=== PATIENT | male | born 1965 | race Caucasian/White ===

== ENCOUNTER 2016-03-22 17:31 | Inpatient (IN) | payer OTHER ==
[~2016-03-22] VITALS: Ht 188 cm; Wt 90.7 kg
[2016-03-22 00:32] VITALS: BP 127/90; PULSE 69; TEMP 37.2; O2SAT 94
[~2016-03-22 17:31] MED LIST: BUPR-79 PO; BUSP-8 PO; LORA-741 PO; OXYC-57 PO; PARO1TAB29 PO; PREG1CAP28 PO; QUET400T PO
[2016-03-22] MEDS ORDERED: LORAZEPAM 2 MG/ML 1 ML VIAL IV STA (17:41)
[2016-03-22] MEDS ORDERED: SODIUM CHLORIDE 0.9% 1000ML 1,000 ML IV STA (17:41)
[2016-03-22 18:06] LABS: ISTAT CREATININE 0.9 mg/dl (0.6-1.3); ISTAT HEMOGLOBIN 13.9 g/dl (14.0-18.0); ISTAT IONIZED CALCIUM 1.17 mmol/l (1.12-1.32)
[2016-03-22 18:24] LABS: ARTERIAL BLD GAS O2 SATURATION 95.3 % (90-95); ARTERIAL BLOOD GAS BASE EXCESS 0.8 mEq/L (-9-1.8); ARTERIAL BLOOD GAS HCO3 25 mmol/L (19-24); ARTERIAL BLOOD GAS PO2 76 mm/Hg (80-95); ARTERIAL BLOOD GAS pH 7.43 (7.35-7.45)
[2016-03-22 18:27] LABS: BASO % 0.5 %; BASO ABS # 0.07 K/uL (0-0.2); COMPLETE YES; EOS % 0.1 %; HEMATOCRIT 41.5 % (42-52); IG% 0.4 %; LYMPH ABS # 1.52 K/uL (1.2-3.4); MEAN CELL VOLUME 87.9 fL (80-100); MEAN CORPUSCULAR HEMOGLOBIN 29.7 pg (25-34); MEAN CORPUSCULAR HGB CONC 33.7 g/dl (32-36); MEAN PLATELET VOLUME 10.4 fL (7.4-10.4); MONO % 4.8 %; NEUT % 83.2 %; PLATELET COUNT 332 K/uL (130-400); RED BLOOD COUNT 4.72 M/uL (4.7-6.1); WHITE BLOOD COUNT 13.88 K/uL (4.8-10.8)
[2016-03-22 18:28] LABS: ALLEN TEST POS (POS); O2 ADMINISTRATION ROOM AIR
[2016-03-22] MEDS ORDERED: NURSING VERBAL MED ORDER ONE (18:30)
[2016-03-22 18:36] LABS: PARTIAL THROMBOPLASTIN RATIO 0.9
[2016-03-22 18:44] LABS: ALT/SGPT 37 U/L (12-78); BLOOD UREA NITROGEN 12 mg/dl (7-18); BUN/CREATININE RATIO 10.3 (10-20); CALCIUM 9.4 mg/dl (8.5-10.1); CARBON DIOXIDE 27 mmol/L (21-32); CHLORIDE 104 mmol/L (98-107); GLUCOSE 172 mg/dl (70-99); POTASSIUM 4.5 mmol/L (3.5-5.1); SODIUM 142 mmol/L (136-145)
[2016-03-22 18:46] LABS: URINE APPEARANCE CLEAR (CLEAR); URINE BILIRUBIN NEG (NEG); URINE COLOR DK YELLOW; URINE EPITHELIAL CELL AUTO 20-30 /lpf (0-5); URINE NITRITE NEG (NEG); URINE PH 5.5 (4.5-7.5); URINE SPECIFIC GRAVITY 1.032 (1.000-1.030); UROBILINOGEN NEG (NEG); ZZURINE CULT IF INDIC CATH NO
[2016-03-22 18:49] LABS: MANUAL MICROSCOPIC REQUIRED? NO; REVIEW REQ? YES
--- NOTE | 2016-03-22 18:49 | DIAGNOSTIC IMAGING REPORT ---
CT OF THE HEAD WITHOUT CONTRAST CLINICAL HISTORY: Altered mental status. Fever. COMPARISON STUDY: Head CT September 26, 2015. CT DOSE: 712.55 mGy.cm TECHNIQUE: Helical axial images of the head were obtained without IV contrast. Automated exposure control was utilized for the study. FINDINGS: No acute intracranial hemorrhage, midline shift or mass effect is present. Ventricular system is normal. The basilar cisterns are patent. There are no extra-axial collections. Erickson-white differentiation is maintained. There are no findings to suggest acute dural sinus thrombosis or acute territorial infarct. There is mild mucosal thickening of the ethmoid sinuses. There are no significant calvarial abnormalities. IMPRESSION: No acute intracranial findings. Electronically signed by: Yahir Rowland M.D. 03/22/2016 6:47 PM Dictated Date/Time: 03/22/2016 6:39 PM
[2016-03-22 18:52] LABS: ALKALINE PHOSPHATASE 134 U/L (45-117); AST/SGOT 18 U/L (15-37); CKMB/CK RATIO 2.2 (0-3.0)
--- NOTE | 2016-03-22 18:58 | DIAGNOSTIC IMAGING REPORT ---
CHEST ONE VIEW PORTABLE CLINICAL HISTORY: Altered mental status. Fever. COMPARISON STUDY: Chest radiograph September 26, 2015. FINDINGS: An anterior cervical spine fusion as well as post surgical findings within the left hemithorax and mediastinum are again noted. This study is mildly compromised by motion artifact. There is no pneumothorax or pleural effusion. Left pleural calcific density is again noted. Deformity of the left clavicle is unchanged. No consolidation is identified. IMPRESSION: 1. No significant change in appearance of the chest. 2. Study mildly compromised by artifact. 3. Minimal right lower lung opacity. Atelectasis is favored. Electronically signed by: Yahir Rowland M.D. 03/22/2016 6:56 PM Dictated Date/Time: 03/22/2016 6:53 PM
[2016-03-22 19:01] LABS: ACETAMINOPHEN < 2 ug/ml (10-30); LITHIUM 0.4 mMOL/L (0.6-1.2)
[2016-03-22 19:07] LABS: URINE MUCUS PRESENT (NONE PRSENT)
[2016-03-22] MEDS ORDERED: PARO30TA4 PO (19:17)
[2016-03-22] MEDS ORDERED: PREG1CAP70 PO (19:17)
[2016-03-22] MEDS ORDERED: LTHSR/300 PO (19:17)
[2016-03-22 19:20] LABS: BENZODIAZEPINE, URINE NEG (NEG); COCAINE,URINE NEG (NEG); PHENCYCLIDINE, URINE NEG (NEG)
--- NOTE | 2016-03-22 20:24 | EMERGENCY ROOM VISIT NOTE ---
History Report prepared by Javedibe: Fatmata Chen Under the Supervision of: Dr. Rob Durant D.O. First contact with patient: 17:26 Stated Complaint: AMS/POSS. DRUG OVERDOSE History of Present Illness The patient is a 50 year old male who presents to the Emergency Room via EMS to be evaluated for altered mental status today. Per EMS and police, the patient lives at [facility] and was found wandering in the [facility] about 2 miles away. Witnesses told police that he was walking into the road and interrupting oncoming traffic. The patient is on Paxil and lithium, which he reportedly is not being compliant with. The patient received fluids and a dose of Narcan en route with no improvement. History is limited secondary to altered mental status. Source of History: police, EMS History Limited By: AMS Onset: today Position: other (Global) Quality: other (AMS) Timing: constant Review of Systems Complete ROS unobtainable secondary to altered mental status. Past Medical & Surgical Medical Problems: (1) Anemia (2) Collapsed lung (3) Esophageal perforation (4) GI (gastrointestinal bleed) (5) Hernia (6) Supratherapeutic INR (7) Syncope Surgical Problems: (1) History of esophageal surgery Family History FH: cancer FH: diabetes mellitus FH: gallbladder disease FH: heart disease FH: hypertension Social History Alcohol Use: none Occupation Status: unemployed Current/Historical Medications Scheduled [place] Carbonate ([place] Carbonate), 300 MG PO BID Paroxetine (Paroxetine HCl), 30 MG PO DAILY Pregabalin (Lyrica), 150 MG PO BID Allergies Coded Allergies: Tramadol (Verified Allergy, Unknown, seizures, 09/26/15) Physical Exam Vital Signs Date Time Temp Pulse Resp B/P Pulse Ox O2 Delivery O2 Flow Rate FiO2 03/22/16 18:34 127/76 03/22/16 18:21 139/86 03/22/16 18:01 91 03/22/16 17:50 155/86 03/22/16 17:48 94 Room Air 03/22/16 17:47 176/148 03/22/16 17:46 104 90 03/22/16 17:39 105 03/22/16 17:38 153/101 03/22/16 17:35 56/42 03/22/16 17:35 36.5 77 14 153/101 99 Room Air Physical Exam CONSTITUTIONAL/VITAL SIGNS: Reviewed / noted above. GENERAL: Non-toxic in appearance. INTEGUMENTARY: Warm, dry, and [place]. HEAD: Normocephalic. EYES: Dilated pupils, without scleral icterus or trauma. ENT/OROPHARYNX: clear and moist. LYMPHADENOPATHY/NECK: Is supple without lymphadenopathy or meningismus. RESPIRATORY: Lungs clear and equal. CARDIOVASCULAR: Regular rate and rhythm. GI/ABDOMEN: Soft and nontender. No organomegaly or pulsatile mass. No rebound or guarding. Normal bowel sounds. EXTREMITIES: Warm and well perfused. BACK: No CVA tenderness. NEUROLOGICAL: Does not focus well, does not follow commands, not answering questions appropriately, disoriented to place and thing. PSYCHIATRIC: normal affect. MUSCULOSKELETAL: Normally developed with good muscle tone. Medical Decision & Procedures ER Provider Diagnostic Interpretation: X ray results and stated below per my interpretation and radiologist interpretation. Other radiology results and stated below per my review and radiologist interpretation: CT OF THE HEAD WITHOUT CONTRAST CLINICAL HISTORY: Altered mental status. Fever. COMPARISON STUDY: Head CT September 26, 2015. CT DOSE: 712.55 mGy.cm TECHNIQUE: Helical axial images of the head were obtained without IV contrast. Automated exposure control was utilized for the study. FINDINGS: No acute intracranial hemorrhage, midline shift or mass effect is present. Ventricular system is normal. The basilar cisterns are patent. There are no extra-axial collections. Erickson-white differentiation is maintained. There are no findings to suggest acute dural sinus thrombosis or acute territorial infarct. There is mild mucosal thickening of the ethmoid sinuses. There are no significant calvarial abnormalities. IMPRESSION: No acute intracranial findings. Electronically signed by: Yahir Rowland M.D. 03/22/2016 6:47 PM Dictated Date/Time: 03/22/2016 6:39 PM CHEST ONE VIEW PORTABLE CLINICAL HISTORY: Altered mental status. Fever. COMPARISON STUDY: Chest radiograph September 26, 2015. FINDINGS: An anterior cervical spine fusion as well as post surgical findings within the left hemithorax and mediastinum are again noted. This study is mildly compromised by motion artifact. There is no pneumothorax or pleural effusion. Left pleural calcific density is again noted. Deformity of the left clavicle is unchanged. No consolidation is identified. IMPRESSION: 1. No significant change in appearance of the chest. 2. Study mildly compromised by artifact. 3. Minimal right lower lung opacity. Atelectasis is favored. Electronically signed by: Yahir Rowland M.D. 03/22/2016 6:56 PM Dictated Date/Time: 03/22/2016 6:53 PM Laboratory Results 03/22/16 00:00 Red Blood Count 4.72, Mean Corpuscular Volume 87.9, Mean Corpuscular Hemoglobin 29.7, Mean Corpuscular Hemoglobin Concent 33.7, Mean Platelet Volume 10.4, Neutrophils (%) (Auto) 83.2, Lymphocytes (%) (Auto) 11.0, Monocytes (%) (Auto) 4.8, Eosinophils (%) (Auto) 0.1, Basophils (%) (Auto) 0.5, Neutrophils # (Auto) 11.56, Lymphocytes # (Auto) 1.52, Monocytes # (Auto) 0.67, Eosinophils # (Auto) 0.01, Basophils # (Auto) 0.07 03/22/16 17:55 Test 03/22/16 00:00 03/22/16 17:41 03/22/16 17:44 03/22/16 17:55 White Blood Count 13.88 K/uL (4.8-10.8) Red Blood Count 4.72 M/uL (4.7-6.1) Hemoglobin 14.0 g/dL (14.0-18.0) Hematocrit 41.5 % (42-52) Mean Corpuscular Volume 87.9 fL (80-100) Mean Corpuscular Hemoglobin 29.7 pg (25-34) Mean Corpuscular Hemoglobin Concent 33.7 g/dl (32-36) Platelet Count 332 K/uL (130-400) Mean Platelet Volume 10.4 fL (7.4-10.4) Neutrophils (%) (Auto) 83.2 % Lymphocytes (%) (Auto) 11.0 % Monocytes (%) (Auto) 4.8 % Eosinophils (%) (Auto) 0.1 % Basophils (%) (Auto) 0.5 % Neutrophils # (Auto) 11.56 K/uL (1.4-6.5) Lymphocytes # (Auto) 1.52 K/uL (1.2-3.4) Monocytes # (Auto) 0.67 K/uL (0.11-0.59) Eosinophils # (Auto) 0.01 K/uL (0-0.5) Basophils # (Auto) 0.07 K/uL (0-0.2) RDW Standard Deviation 50.3 fL (36.4-46.3) RDW Coefficient of Variation 15.8 % (11.5-14.5) Immature Granulocyte % (Auto) 0.4 % Immature Granulocyte # (Auto) 0.05 K/uL (0.00-0.02) Prothrombin Time 11.0 SECONDS (9.0-12.0) Prothromb Time International Ratio 1.0 (0.9-1.1) Activated Partial Thromboplast Time 22.8 SECONDS (21.0-31.0) Partial Thromboplastin Ratio 0.9 Acetaminophen Level < 2 ug/ml (10-30) [place] Level 0.4 mMOL/L (0.6-1.2) Ammonia 17.0 umol/L (11-32) Bedside Hemoglobin 13.9 g/dl (14.0-18.0) Bedside Hematocrit 41 % (42-52) Bedside Sodium 142 mEq/L (135-144) Bedside Potassium 4.0 mEq/L (3.3-5.0) Bedside Chloride 104 mEq/L (101-112) Bedside Total CO2 25 mEq/l (24-31) Bedside Blood Urea Nitrogen 13 mg/dl (7-18) Bedside Creatinine 0.9 mg/dl (0.6-1.3) Bedside Glucose (other) 176 mg/dl (70-99) Bedside Ionized Calcium (Mikki) 1.17 mmol/l (1.12-1.32) Anion Gap 11.0 mmol/L (3-11) Est Creatinine Clear Calc Drug Dose 81.7 ml/min Estimated GFR () 81.2 Estimated GFR (Non- 70.1 BUN/Creatinine Ratio 10.3 (10-20) Calcium Level 9.4 mg/dl (8.5-10.1) Total Bilirubin 0.2 mg/dl (0.2-1) Direct Bilirubin < 0.1 mg/dl (0-0.2) Aspartate Amino Transf (AST/SGOT) 18 U/L (15-37) Alanine Aminotransferase (ALT/SGPT) 37 U/L (12-78) Alkaline Phosphatase 134 U/L (45-117) Total Creatine Kinase 184 U/L (39-308) Creatine Kinase MB 4.0 ng/ml (0.5-3.6) Creatine Kinase MB Ratio 2.2 (0-3.0) Troponin I < 0.015 ng/ml (0-0.045) Total Protein 7.9 gm/dl (6.4-8.2) Albumin 3.6 gm/dl (3.4-5.0) Lipase 93 U/L (73-393) Thyroid Stimulating Hormone (TSH) 2.440 uIu/ml (0.300-4.500) Ethyl Alcohol mg/dL < 3.0 mg/dl (0-3) Test 03/22/16 18:05 03/22/16 18:10 03/22/16 18:15 Arterial Blood pH 7.43 (7.35-7.45) Arterial Blood Partial Pressure CO2 38 mmHg (35-46) Arterial Blood Partial Pressure O2 76 mm/Hg (80-95) Arterial Blood HCO3 25 mmol/L (19-24) Arterial Blood Oxygen Saturation 95.3 % (90-95) Arterial Blood Base Excess 0.8 mEq/L (-9-1.8) Arterial Blood Gas Delivery ROOM AIR Duglas Test POS (POS) Urine Color DK YELLOW Urine Appearance CLEAR (CLEAR) Urine pH 5.5 (4.5-7.5) Urine Specific [place] 1.032 (1.000-1.030) Urine Protein 1+ (NEG) Urine Glucose (UA) TRACE (NEG) Urine Ketones NEG (NEG) Urine Occult Blood NEG (NEG) Urine Nitrite NEG (NEG) Urine Bilirubin NEG (NEG) Urine Urobilinogen NEG (NEG) Urine Leukocyte Esterase NEG (NEG) Urine WBC (Auto) 1-5 /hpf (0-5) Urine RBC (Auto) 0-4 /hpf (0-4) Urine Hyaline Casts (Auto) 1-5 /lpf (0-5) Urine Epithelial Cells (Auto) 20-30 /lpf (0-5) Urine Bacteria (Auto) NEG (NEG) Urine Mucus PRESENT (NONE PRSENT) Urine Opiates Screen NEG (NEG) Urine Methadone, Qualitative NEG (NEG) Urine Barbiturates NEG (NEG) Urine Phencyclidine (PCP) Level NEG (NEG) Ur Amphetamine/Methamphetamine NEG (NEG) MDMA (Ecstasy) Screen NEG (NEG) Urine Benzodiazepines Screen NEG (NEG) Urine Cocaine Metabolite NEG (NEG) Urine Marijuana (THC) NEG (NEG) Influenza Type A Antigen Neg for Influ A (NEG) Influenza Type B Antigen Neg for Influ B (NEG) Laboratory results as stated above per my review. Medications Administered Medications (Trade) Dose Ordered Sig/Shemar Route Start Time Stop Time Status Last Admin Dose Admin Sodium Chloride (Nss 1000ml) 1,000 ml @ 999 mls/hr Q1H1M STAT IV 03/22/16 17:41 03/22/16 18:41 DC 03/22/16 18:19 999 MLS/HR Lorazepam (Ativan Inj) 1 mg NOW STAT IV 03/22/16 17:41 03/22/16 17:51 DC 03/22/16 17:58 1 MG Miscellaneous Information (Nursing Verbal Med Order) 1 ea ONE ONCE N/A 03/22/16 18:30 03/22/16 18:31 DC 03/22/16 18:20 1 EA ECG Indication: altered mental status Rate (beats per minute): 86 Rhythm: normal sinus Findings: no ectopy, other (no acute injury, baseline artifact) ED Course 1730: Previous medical records were reviewed. The patient was evaluated in room A1. A complete history and physical examination was performed. 1740: Ordered Lorazepam 1 mg IV, NSS 1000 ml @ 999 mls/hr IV. 2017: I reassessed the patient. He was stable. 2027: I spoke with Dr. Tess Marti Hospitalist. The patient will be evaluated for further management and care. Medical Decision Differential includes acute cardiac dysrhythmia, microinfarction, CVA, TIA, dehydration, anemia, electrolyte disturbance, seizure, trauma, intracranial bleeding, acute vascular catastrophe, thoracic aortic dissection, PE, abdominal aortic aneurysm rupture, infection, hypoglycemia, overdose, trauma. This is a 50-year-old male who presents to the ED with a chief complaint of altered mental status. The patient was found wandering in a field several miles from the long term where he resides. EMS states that his a long-term house. The patient is confused. He will not follow commands. He did answer some basic questions appropriately on initial exam. Patient had dilated pupils on initial exam as well. He did not respond to Narcan given by EMS. IV access was difficult and an IO line was initially established by EMS. We were able to establish an IV here. The patient's pupils on exam or dilated. He is not follow commands. There is no obvious trauma. Lungs are clear. His abdomen is soft and nontender. A CT scan of the brain was negative for acute disease as well as a chest x-ray. CBC is unremarkable. ABG reveals a normal acid base status. Adequate oxygenation and ventilation. Complete metabolic panel was normal. Troponin is negative. TSH is normal. Ammonia level is normal. [place] level is low. Alcohol is negative. Tox screen was negative. Urine did not show infection. Flu swab was negative. The patient was reassessed. He continues having altered mental status. Exact cause of this is unclear at this time. The patient will be seen by the hospital service for further inpatient care. Consults Time Called: 2017 Consulting Physician: Dr Pulido - Figueroa Hospitalist Returned Call: 2027 I spoke with the [facility] Hospitalist. The patient will be evaluated for further management and care. Impression Primary Impression: Confusion Scribe Attestation The scribe's documentation has been prepared under my direction and personally reviewed by me in its entirety. I confirm that the note above accurately reflects all work, treatment, procedures, and medical decision making performed by me. Departure Information Dispostion Being Evaluated By Hospitalist
[2016-03-22] MEDS ORDERED: ACETAMINOPHEN 325 MG TAB PO PRN (21:45)
[2016-03-22] MEDS ORDERED: QUET1TAB34 PO (21:53)
[2016-03-22] MEDS ORDERED: QUET1TAB11 PO (21:53)
[2016-03-22] MEDS ORDERED: PREG1CAP28 PO (21:53)
[2016-03-22] MEDS ORDERED: OMEP40CA PO (21:53)
--- NOTE | 2016-03-22 22:30 | History and Physical ---
History & Physical Date & Time of Service: Mar 22, 2016 at 22:04 Chief Complaint: Ams/Poss. Drug Overdose Primary Care Physician: Henrique Marques M.D. History of Present Illness Source: hospital records, EMS Patient is a 50 yr old male with PMH of Orthostatic hypotension, H/O PE S/P IVC filter, H/O esophageal perforation, H/O chronic pain/post thoracotomy syndrome, depression, remote history of alcohol/tobacco/drug abuse presents with altered mental status. Patient is not able to provide any history as he is AMS, most of history is obtained from hospital records. According ER physician and EMS, patient lives at [facility] and was found wandering in the [facility] about 2 miles away. He was found by witnesses that he was walking into the road and interrupting oncoming traffic. No other relevant history could be obtained. He is on multiple psychiatric medications and had h/o non compliance. He was awake , confused while in ED and received fluids and a dose of Narcan en route with no improvement. Patient was given ativan while in ED and currently he is very drowsy and difficult to awake. CT head, CXR showed no acute pathology. Had mild leukocytosis on labs, otherwise negative including ABG and Toxicology screen. No obvious source of trauma identified. Vitals stable. Past Medical/Surgical History Medical Problems: (1) Anemia Status: Resolved (2) Collapsed lung Status: Resolved (3) Esophageal perforation Status: Resolved (4) GI (gastrointestinal bleed) Status: Resolved (5) Hernia Status: Resolved (6) Supratherapeutic INR Status: Resolved (7) Syncope Status: Resolved Surgical Problems: (1) History of esophageal surgery Status: Resolved Family History FH: cancer FH: diabetes mellitus FH: gallbladder disease FH: heart disease FH: hypertension Could not be obtained secondary to AMS Social History Could not be obtained secondary to AMS Smoking Status: Unknown if Ever Smoked Drug Use: none Marital Status: single Housing status: lives with family Occupational Status: unemployed Immunizations History of Influenza Vaccine: No History of Tetanus Vaccine?: No History of Pneumococcal: No History of Hepatitis B Vaccine: No Multi-Drug Resistant Organisms History of MDRO: No Allergies Coded Allergies: Tramadol (Verified Allergy, Unknown, seizures, 09/26/15) Home Medications Scheduled Trail Carbonate ([place] Carbonate), 300 MG PO BID Omeprazole (Prilosec), 40 MG PO DAILY Paroxetine (Paroxetine HCl), 30 MG PO DAILY Pregabalin (Lyrica), 150 MG PO BID Pregabalin (Lyrica), 75 MG PO BID Quetiapine Fumarate (Seroquel), 200 MG PO DAILY Quetiapine Fumarate (Seroquel), 300 MG PO HS Review of Systems Could not be obtained secondary to AMS Physical Exam Vital Signs Date Time Temp Pulse Resp B/P Pulse Ox O2 Delivery O2 Flow Rate FiO2 03/22/16 20:58 60 17 134/83 99 Room Air 03/22/16 20:00 58 16 128/78 99 Room Air 03/22/16 18:34 127/76 03/22/16 18:21 139/86 03/22/16 18:01 91 03/22/16 17:50 155/86 03/22/16 17:48 94 Room Air 03/22/16 17:47 176/148 03/22/16 17:46 104 90 03/22/16 17:39 105 03/22/16 17:38 153/101 03/22/16 17:35 56/42 03/22/16 17:35 36.5 77 14 153/101 99 Room Air General Appearance: WD/WN, no apparent distress, + pertinent finding (Drowsy, difficult to awake) Head: normocephalic, atraumatic Eyes: normal inspection, EOMI, sclerae normal ENT: normal ENT inspection Neck: supple, no JVD, trachea midline Respiratory/Chest: lungs clear, normal breath sounds, no respiratory distress Cardiovascular: regular rate, rhythm, no edema, no JVD, no murmur Abdomen/GI: normal bowel sounds, soft, no organomegaly Extremities/Musculoskelatal: normal inspection, no pedal edema, pelvis stable Neurologic/Psych: + pertinent finding (Drowsy, difficult to awake, complete neuro exam could not be performed secondary to AMS. moves extremities) Skin: normal color, no rash, + pertinent finding (Multiple scars on abdomen and surgical scar on neck) Lymphatic: no adenopathy Diagnostics Laboratory Results Results Past 24 Hours Test 03/22/16 00:00 03/22/16 17:41 03/22/16 17:44 03/22/16 17:55 Range/Units White Blood Count 13.88 4.8-10.8 K/uL Red Blood Count 4.72 4.7-6.1 M/uL Hemoglobin 14.0 14.0-18.0 g/dL Hematocrit 41.5 42-52 % Mean Corpuscular Volume 87.9 80-100 fL Mean Corpuscular Hemoglobin 29.7 25-34 pg Mean Corpuscular Hemoglobin Concent 33.7 32-36 g/dl Platelet Count 332 130-400 K/uL Mean Platelet Volume 10.4 7.4-10.4 fL Neutrophils (%) (Auto) 83.2 % Lymphocytes (%) (Auto) 11.0 % Monocytes (%) (Auto) 4.8 % Eosinophils (%) (Auto) 0.1 % Basophils (%) (Auto) 0.5 % Neutrophils # (Auto) 11.56 1.4-6.5 K/uL Lymphocytes # (Auto) 1.52 1.2-3.4 K/uL Monocytes # (Auto) 0.67 0.11-0.59 K/uL Eosinophils # (Auto) 0.01 0-0.5 K/uL Basophils # (Auto) 0.07 0-0.2 K/uL RDW Standard Deviation 50.3 36.4-46.3 fL RDW Coefficient of Variation 15.8 11.5-14.5 % Immature Granulocyte % (Auto) 0.4 % Immature Granulocyte # (Auto) 0.05 0.00-0.02 K/uL Prothrombin Time 11.0 9.0-12.0 SECONDS Prothromb Time International Ratio 1.0 0.9-1.1 Activated Partial Thromboplast Time 22.8 21.0-31.0 SECONDS Partial Thromboplastin Ratio 0.9 Acetaminophen Level < 2 10-30 ug/ml Trail Level 0.4 0.6-1.2 mMOL/L Ammonia 17.0 11-32 umol/L Bedside Hemoglobin 13.9 14.0-18.0 g/dl Bedside Hematocrit 41 42-52 % Bedside Sodium 142 135-144 mEq/L Bedside Potassium 4.0 3.3-5.0 mEq/L Bedside Chloride 104 101-112 mEq/L Bedside Total CO2 25 24-31 mEq/l Anion Gap 18.0 11.0 3-11 mmol/L Bedside Blood Urea Nitrogen 13 7-18 mg/dl Bedside Creatinine 0.9 0.6-1.3 mg/dl Bedside Glucose (other) 176 70-99 mg/dl Bedside Ionized Calcium (Mikki) 1.17 1.12-1.32 mmol/l Sodium Level 142 136-145 mmol/L Potassium Level 4.5 3.5-5.1 mmol/L Chloride Level 104 98-107 mmol/L Carbon Dioxide Level 27 21-32 mmol/L Blood Urea Nitrogen 12 7-18 mg/dl Creatinine 1.20 0.60-1.40 mg/dl Est Creatinine Clear Calc Drug Dose 81.7 ml/min Estimated GFR () 81.2 Estimated GFR (Non- 70.1 BUN/Creatinine Ratio 10.3 10-20 Random Glucose 172 70-99 mg/dl Calcium Level 9.4 8.5-10.1 mg/dl Total Bilirubin 0.2 0.2-1 mg/dl Direct Bilirubin < 0.1 0-0.2 mg/dl Aspartate Amino Transf (AST/SGOT) 18 15-37 U/L Alanine Aminotransferase (ALT/SGPT) 37 12-78 U/L Alkaline Phosphatase 134 45-117 U/L Total Creatine Kinase 184 39-308 U/L Creatine Kinase MB 4.0 0.5-3.6 ng/ml Creatine Kinase MB Ratio 2.2 0-3.0 Troponin I < 0.015 0-0.045 ng/ml Total Protein 7.9 6.4-8.2 gm/dl Albumin 3.6 3.4-5.0 gm/dl Lipase 93 73-393 U/L Thyroid Stimulating Hormone (TSH) 2.440 0.300-4.500 uIu/ml Ethyl Alcohol mg/dL < 3.0 0-3 mg/dl Test 03/22/16 18:05 03/22/16 18:10 03/22/16 18:15 03/22/16 21:37 Range/Units Arterial Blood pH 7.43 7.35-7.45 Arterial Blood Partial Pressure CO2 38 35-46 mmHg Arterial Blood Partial Pressure O2 76 80-95 mm/Hg Arterial Blood HCO3 25 19-24 mmol/L Arterial Blood Oxygen Saturation 95.3 90-95 % Arterial Blood Base Excess 0.8 -9-1.8 mEq/L Arterial Blood Gas Delivery ROOM AIR Duglas Test POS POS Urine Color DK YELLOW Urine Appearance CLEAR CLEAR Urine pH 5.5 4.5-7.5 Urine Specific [place] 1.032 1.000-1.030 Urine Protein 1+ NEG Urine Glucose (UA) TRACE NEG Urine Ketones NEG NEG Urine Occult Blood NEG NEG Urine Nitrite NEG NEG Urine Bilirubin NEG NEG Urine Urobilinogen NEG NEG Urine Leukocyte Esterase NEG NEG Urine WBC (Auto) 1-5 0-5 /hpf Urine RBC (Auto) 0-4 0-4 /hpf Urine Hyaline Casts (Auto) 1-5 0-5 /lpf Urine Epithelial Cells (Auto) 20-30 0-5 /lpf Urine Bacteria (Auto) NEG NEG Urine Mucus PRESENT NONE PRSENT Urine Opiates Screen NEG NEG Urine Methadone, Qualitative NEG NEG Urine Barbiturates NEG NEG Urine Phencyclidine (PCP) Level NEG NEG Ur Amphetamine/Methamphetamine NEG NEG MDMA (Ecstasy) Screen NEG NEG Urine Benzodiazepines Screen NEG NEG Urine Cocaine Metabolite NEG NEG Urine Marijuana (THC) NEG NEG Influenza Type A Antigen Neg for Influ A NEG Influenza Type B Antigen Neg for Influ B NEG Microbiology Results 03/22/16 Blood Culture, Received Pending 03/22/16 Blood Culture, Received Pending Diagnostic Radiology CT Head: IMPRESSION: No acute intracranial findings. Electronically signed by: Yahir Rowland M.D. 03/22/2016 6:47 PM CXR: IMPRESSION: 1. No significant change in appearance of the chest. 2. Study mildly compromised by artifact. 3. Minimal right lower lung opacity. Atelectasis is favored. Electronically signed by: Yahir Rowland M.D. 03/22/2016 6:56 PM EKG EKG: NSR,, Incomplete RBBB, Nonspecific ST changes Impression Assessment and Plan Altered mental status: Unclear etiology: Likely secondary to medications, other DD: Infection in origin, metabolic disorder CT head: no acute pathology Toxicology screen negative Currently drowsy S/P Ativan in ED Admit in Tele, Vitals stable Check MRI brain, EEG, TSH, Vit B12, Folic acid, RPR Neurology consult, Neuro checks Empirically start IV antibiotics though infection less likely Blood cultures Hold all home meds Avoid narcotics NPO for now, IV fluids, Speech and swallow eval Aspiration/Fall precautions Trail levels:wnl H/O of medication non compliance Consider Psychiatry eval Depression: ? H/O Bipolar/Schizophrenia Hold meds for now H/O PE s/p IVC filter: Off anticoagulation Former history of Tobacco/alcohol/drug abuse H/O esophageal perforation: Stable H/O orthostatic hypotension: Stable DVT Px: Heparin SQ Code status: Full code VTE Prophylaxis VTE Risk Assessment Done? Y/N: Yes Risk Level: Low
[2016-03-22] MEDS ORDERED: VANCOMYCIN CONSULT ACTIVE PRN (23:45)
[2016-03-23] VITALS (8 sets, daily range): BP systolic 134–185; BP diastolic 68–95; PULSE 62–90; TEMP 36.2–37.1; O2SAT 91–93; Ht 188 cm; Wt 90.7 kg
[2016-03-23] MEDS ORDERED: VANCOMYCIN INJ 2,250 MG in SODIUM CHLORIDE 0.9% 500ML 500 ML IV ONE ×2
[2016-03-23] MEDS: CEFTRIAXONE SOD INJ 2,000 MG in DEXTROSE 5% 50ML 50 ML IV SCH ×3 (00:24→23:31)
[2016-03-23] MEDS: SODIUM CHLORIDE 0.9% 1000ML 1,000 ML IV SCH ×2 (00:24→17:53)
[2016-03-23] MEDS: HEPARIN SOD 5000 UNIT/0.5 ML CARP SQ SCH ×2 (05:22→14:00)
[2016-03-23 06:56] LABS: BASO % 0.4 %; BASO ABS # 0.05 K/uL (0-0.2); COMPLETE YES; EOS % 0.1 %; HEMATOCRIT 39.9 % (42-52); IG% 0.2 %; LYMPH % 12.1 %; LYMPH ABS # 1.51 K/uL (1.2-3.4); MEAN CELL VOLUME 88.1 fL (80-100); MEAN CORPUSCULAR HEMOGLOBIN 29.1 pg (25-34); MEAN CORPUSCULAR HGB CONC 33.1 g/dl (32-36); MONO % 7.2 %; PLATELET COUNT 281 K/uL (130-400); RED BLOOD COUNT 4.53 M/uL (4.7-6.1); WHITE BLOOD COUNT 12.51 K/uL (4.8-10.8)
[2016-03-23 07:30] LABS: BUN/CREATININE RATIO 11.8 (10-20); CALCIUM 9.4 mg/dl (8.5-10.1); POTASSIUM 3.9 mmol/L (3.5-5.1)
[2016-03-23 07:57] LABS: CREATININE 0.9 mg/dl (0.60-1.40)
--- NOTE | 2016-03-23 08:13 | Pharmacy Progress Note ---
Pharmacy Antibiotic Consult Date of Service: Mar 23, 2016. Pharmacy Dosing Scope Pharmacy is consulted to initiate Vanco IV dosing therapy, order appropriate labs and adjust drug dose/frequency. Subjective The patient is a 50 year old male admitted on Mar 22, 2016 at 21:37. Objective Height (Feet): 6 Height (Inches): 2.00 Weight (Kilograms): 89.600 Lab Results (24hrs): Item Value Date Time Creatinine 0.90 mg/dl # 03/23/16 0633 Est Creatinine Clear Calc Drug Dose 114.2 ml/min 03/23/16 0633 Laboratory Tests Test 03/22/16 17:55 03/23/16 06:33 BUN/Creatinine Ratio 10.3 11.8 Blood Urea Nitrogen 12 mg/dl 11 mg/dl Creatinine 1.20 mg/dl 0.90 mg/dl White Blood Count 12.51 K/uL Red Blood Count 4.53 M/uL Hemoglobin 13.2 g/dL Hematocrit 39.9 % Mean Corpuscular Volume 88.1 fL Mean Corpuscular Hemoglobin 29.1 pg Mean Corpuscular Hemoglobin Concent 33.1 g/dl Platelet Count 281 K/uL Mean Platelet Volume 10.0 fL Neutrophils (%) (Auto) 80.0 % Lymphocytes (%) (Auto) 12.1 % Monocytes (%) (Auto) 7.2 % Eosinophils (%) (Auto) 0.1 % Basophils (%) (Auto) 0.4 % Neutrophils # (Auto) 10.02 K/uL Lymphocytes # (Auto) 1.51 K/uL Monocytes # (Auto) 0.90 K/uL Eosinophils # (Auto) 0.01 K/uL Basophils # (Auto) 0.05 K/uL Micro Results: Item Value Date Time Blood Culture Received 03/22/161814 Blood Pending Blood Culture Received 03/22/161804 Blood Pending Assessment & Plan Pt is a 50yo M resident of [place], p/w altered CO. Currently, he is being treated empirically with IV antibiotics, Vanco/Rocephin. He is experiencing leukocytosis with a left shift and low temperature. Renal fxn improved overnight; pt population p'kinetics: t1/2=6.9hrs, ke= 0.099. BC are pending. Vanco * Loading dose: Vanco 2250mg (25mg/kg) IV X 1 dose then: * Vanco 1350mg (15mg/kg) IV every 8 hours starting at 1000 on 03/23/16. * Goal trough level estimate: between 15 - 20 mcg/mL until c/s's result. * Trough level has been ordered for: prior to the 3rd dose. Rocephin: * Not consulted Pharmacy will continue to follow and will adjust dose/frequency as necessary. Thank you
[2016-03-23] MEDS: VANCOMYCIN INJ 1,350 MG in SODIUM CHLORIDE 0.9% 250ML 250 ML IV SCH ×2 (10:08→17:52)
[2016-03-23] MEDS: ONDANSETRON INJ 2 MG/ML 2 ML VIAL IV PRN ×2 (12:55→19:31)
--- NOTE | 2016-03-23 14:54 | DIAGNOSTIC IMAGING REPORT ---
CT HEAD WITHOUT CONTRAST (CT) CLINICAL HISTORY: change in mental status, dilated pupils COMPARISON STUDY: 03/22/2016 TECHNIQUE: Axial CT of the brain is performed from the vertex to the skull base. IV contrast was not administered for this examination. CT DOSE: 614.27 mGy.cm FINDINGS: No intra or extra-axial mass lesions are visualized. There is no CT evidence of acute cortical infarction. There is no evidence of midline shift. There is no acute hemorrhage. No calvarial fractures are visualized. There is no evidence of pathologic ventricular dilatation. There is no evidence of acute sinusitis IMPRESSION: No acute intracranial findings Electronically signed by: Yayo Jackson M.D. 03/23/2016 2:52 PM Dictated Date/Time: 03/23/2016 2:51 PM
--- NOTE | 2016-03-23 14:58 | Progress Note ---
Medicine Progress Note Date & Time of Visit: Mar 23, 2016 at 14:29. Subjective Pt was seen and examined Lying in bed confused, awake Unable to answer any question except complaint of abdominal pain Objective Last 8 Hrs Date Time Temp Pulse Resp B/P Pulse Ox O2 Delivery O2 Flow Rate FiO2 03/23/16 12:00 Room Air 03/23/16 11:40 36.2 65 16 183/93 92 Room Air 03/23/16 08:00 Room Air 03/23/16 07:24 36.3 80 20 134/77 91 Physical Exam: General- confused, very fidget Head- atraumatic Eyes- PERRL ENT- oropharynx clear Neck- supple, no JVD Lungs- clear to auscultation and percussion Heart- regular rhythm; no murmur Abdomen- normal bowel sounds, tender Extremities- no calf tenderness Neuro- awake, confused, moves all 4 extremities Skin- warm & dry Laboratory Results: Last 24 Hours Test 03/22/16 17:41 03/22/16 17:44 03/22/16 17:55 03/22/16 18:05 Ammonia 17.0 umol/L Bedside Hemoglobin 13.9 g/dl Bedside Hematocrit 41 % Bedside Sodium 142 mEq/L Bedside Potassium 4.0 mEq/L Bedside Chloride 104 mEq/L Bedside Total CO2 25 mEq/l Anion Gap 18.0 mmol/L 11.0 mmol/L Bedside Blood Urea Nitrogen 13 mg/dl Bedside Creatinine 0.9 mg/dl Bedside Glucose (other) 176 mg/dl Bedside Ionized Calcium (Mikki) 1.17 mmol/l Sodium Level 142 mmol/L Potassium Level 4.5 mmol/L Chloride Level 104 mmol/L Carbon Dioxide Level 27 mmol/L Blood Urea Nitrogen 12 mg/dl Creatinine 1.20 mg/dl Est Creatinine Clear Calc Drug Dose 81.7 ml/min Estimated GFR () 81.2 Estimated GFR (Non- 70.1 BUN/Creatinine Ratio 10.3 Random Glucose 172 mg/dl Calcium Level 9.4 mg/dl Total Bilirubin 0.2 mg/dl Direct Bilirubin < 0.1 mg/dl Aspartate Amino Transf (AST/SGOT) 18 U/L Alanine Aminotransferase (ALT/SGPT) 37 U/L Alkaline Phosphatase 134 U/L Total Creatine Kinase 184 U/L Creatine Kinase MB 4.0 ng/ml Creatine Kinase MB Ratio 2.2 Troponin I < 0.015 ng/ml Total Protein 7.9 gm/dl Albumin 3.6 gm/dl Lipase 93 U/L Thyroid Stimulating Hormone (TSH) 2.440 uIu/ml Ethyl Alcohol mg/dL < 3.0 mg/dl Arterial Blood pH 7.43 Arterial Blood Partial Pressure CO2 38 mmHg Arterial Blood Partial Pressure O2 76 mm/Hg Arterial Blood HCO3 25 mmol/L Arterial Blood Oxygen Saturation 95.3 % Arterial Blood Base Excess 0.8 mEq/L Arterial Blood Gas Delivery ROOM AIR Duglas Test POS Test 03/22/16 18:10 03/22/16 18:15 03/22/16 22:25 03/23/16 06:33 Urine Color DK YELLOW Urine Appearance CLEAR Urine pH 5.5 Urine Specific [place] 1.032 Urine Protein 1+ Urine Glucose (UA) TRACE Urine Ketones NEG Urine Occult Blood NEG Urine Nitrite NEG Urine Bilirubin NEG Urine Urobilinogen NEG Urine Leukocyte Esterase NEG Urine WBC (Auto) 1-5 /hpf Urine RBC (Auto) 0-4 /hpf Urine Hyaline Casts (Auto) 1-5 /lpf Urine Epithelial Cells (Auto) 20-30 /lpf Urine Bacteria (Auto) NEG Urine Mucus PRESENT Urine Opiates Screen NEG Urine Methadone, Qualitative NEG Urine Barbiturates NEG Urine Phencyclidine (PCP) Level NEG Ur Amphetamine/Methamphetamine NEG MDMA (Ecstasy) Screen NEG Urine Benzodiazepines Screen NEG Urine Cocaine Metabolite NEG Urine Marijuana (THC) NEG Influenza Type A Antigen Neg for Influ A Influenza Type B Antigen Neg for Influ B Vitamin B12 Level 645 pg/mL Folate 9.63 ng/mL White Blood Count 12.51 K/uL Red Blood Count 4.53 M/uL Hemoglobin 13.2 g/dL Hematocrit 39.9 % Mean Corpuscular Volume 88.1 fL Mean Corpuscular Hemoglobin 29.1 pg Mean Corpuscular Hemoglobin Concent 33.1 g/dl Platelet Count 281 K/uL Mean Platelet Volume 10.0 fL Neutrophils (%) (Auto) 80.0 % Lymphocytes (%) (Auto) 12.1 % Monocytes (%) (Auto) 7.2 % Eosinophils (%) (Auto) 0.1 % Basophils (%) (Auto) 0.4 % Neutrophils # (Auto) 10.02 K/uL Lymphocytes # (Auto) 1.51 K/uL Monocytes # (Auto) 0.90 K/uL Eosinophils # (Auto) 0.01 K/uL Basophils # (Auto) 0.05 K/uL RDW Standard Deviation 51.2 fL RDW Coefficient of Variation 16.1 % Immature Granulocyte % (Auto) 0.2 % Immature Granulocyte # (Auto) 0.02 K/uL Sodium Level 145 mmol/L Potassium Level 3.9 mmol/L Chloride Level 110 mmol/L Carbon Dioxide Level 23 mmol/L Anion Gap 12.0 mmol/L Blood Urea Nitrogen 11 mg/dl Creatinine 0.90 mg/dl Est Creatinine Clear Calc Drug Dose 114.2 ml/min Estimated GFR () 115.0 Estimated GFR (Non- 99.2 BUN/Creatinine Ratio 11.8 Random Glucose 141 mg/dl Calcium Level 9.4 mg/dl Date/Time Source Procedure Growth Status 03/22/16 18:15 Blood Blood Culture Pending Received 03/22/16 18:05 Blood Blood Culture Pending Received Assessment & Plan Altered mental status/ Confusion/ Encephalitis Unclear etiology: Likely secondary to medications, other DD:Infection in origin , metabolic disorder/ Meningitis need to r/o CT head: no acute pathology Toxicology screen negative TSH, Vit B12, Folic acid and ammonia level are WNL Case discussed with Neurology Dr. Martinez recommended to get an MRI of the head and EEG If unable to get an MRI, will consider to repeat the CT head Possible to get an LP if symptoms continue Continue IV antibiotics with rocephin and Vanco since etiology unknown will add acyclovir to cover HSV will Check procalcitonin, Blood cultures Pending Continue holding psych meds until seeing psych Speech therapy consulted for swallow eval recommended to get a video swallow since pat has hx of aspiration Psych consult pending ? H/O Bipolar/Schizophrenia Hold psych meds for now until seeing by psych Abdominal pain Will get a CT abdomen Keep NPO Continue IVF will add morphine for pain ELEVATED WBC Possible reactive Afebrile, Continue IV abx with Vanco and rocephin H/O PE s/p IVC filter: Off anticoagulation H/O esophageal perforation: HB stable DVT Px: Heparin SQ Code status: Full code Consultants: Psych Neuro Current Inpatient Medications: Current Inpatient Medications Medications (Trade) Dose Ordered Sig/Shemar Route Start Time Stop Time Status Last Admin Dose Admin Heparin Sodium (Porcine) 5000 unit 5,000 unit Q8 SQ 03/23/16 06:00 04/22/16 05:59 Sodium Chloride (Nss 1000ml) 1,000 ml @ 75 mls/hr [id number] IV 03/23/16 00:00 04/22/16 00:00 03/23/16 00:24 75 MLS/HR Acetaminophen (Tylenol Tab) 650 mg Q4H PRN PO 03/22/16 21:45 04/21/16 21:44 Ondansetron HCl 4 mg 4 mg Q6H PRN IV 03/22/16 21:45 04/21/16 21:44 03/23/16 12:55 4 MG Ceftriaxone Sodium/Dextrose (Rocephin Inj/D5 50ml) 70 ml @ 100 mls/hr Q12H IV 03/23/16 00:00 03/25/16 00:00 03/23/16 12:25 100 MLS/HR Vancomycin HCl 1 ea 1 ea UD PRN N/A 03/22/16 23:45 04/21/16 23:44 Vancomycin HCl/ Sodium Chloride (Vancomycin Inj/ Nss 250ml) 277 ml @ 125 mls/hr Q8H IV 03/23/16 10:00 03/25/16 09:59 03/23/16 10:08 125 MLS/HR
--- NOTE | 2016-03-23 15:49 | DIAGNOSTIC IMAGING REPORT ---
CT SCAN OF THE ABDOMEN AND PELVIS WITHOUT CONTRAST CLINICAL HISTORY: Generalized abdominal pain COMPARISON STUDY: April 2014 TECHNIQUE: CT scan of the abdomen and pelvis was performed from the lung bases to the proximal femurs. Images are reviewed in the axial, sagittal, and coronal planes. IV contrast was not administered for this examination. CT DOSE: 461.22 mGy.cm FINDINGS: Lower chest: There are dependent atelectatic changes present. There is an irregular 11 mm right lower lobe nodule. The previous identified right lower lobe nodules are no longer evident. As this nodule was not present on the preceding study it is possible that this is inflammatory. Close follow-up is recommended. There are postsurgical changes of a presumed esophagectomy and gastric pull-through. There is presumed barium within the left pleural space and mediastinum Liver: The unenhanced liver is normal in size, contour, and attenuation. There is no intrahepatic biliary ductal dilatation. Gallbladder: Mildly distended. No calculi identified. Spleen: Normal in size and attenuation. Pancreas: Unremarkable. Adrenal glands: Unremarkable. Kidneys: The unenhanced kidneys are normal in size without hydronephrosis. There is no contour deforming renal mass lesion. No renal calculi are identified. Bowel: There are no transition zone to indicate bowel obstruction. There is no evidence of acute diverticulitis. There are scattered colonic diverticula present. There is no evidence of acute appendicitis. There is borderline bowel wall thickening involving the descending colon. This conceivably secondary to a nondistended segment. This remain similar to the preceding study. Peritoneum: There is no intraperitoneal free air or abdominal ascites. There is been interval decrease in the size of the anterior abdominal wall fluid collection. Vasculature: There is no evidence of abdominal aortic aneurysm. There is an indwelling IVC filter. Adenopathy: None. Pelvic viscera: There is perivesical stranding. Clinical correlation regards to cystitis is recommended. There is an indwelling Car catheter. Skeletal structures: There are postsurgical changes of an L5-S1 discectomy and posterior pedicle screw fusion. IMPRESSION: 1. No evidence of bowel obstruction. No evidence of free air 2. Interval decrease in the size of the anterior abdominal wall fluid collection 3. No renal, ureteral, or bladder calculi identified 4. Perivesical stranding. Clinical correlation in regards to a cystitis is recommended 5. Diverticulosis. No evidence of acute diverticulitis. No evidence of acute appendicitis 6. Mild bowel wall thickening involving the descending colon versus a nondistended segment 7. Nonspecific 11 mm right lower lobe nodule. Close follow-up is recommended. Please refer to below summary of Fleischner criteria recommendations for follow-up of incidental CT nodules (Jose Goldman, Guidelines for management of small pulmonary nodules detected on CT scans: A statement from the Fleischner Society, Radiology 237: [phone].) Low Risk Patient: Minimal or no smoking or other known risk factors for malignancy <=4 mm: No follow-up needed. >4-6 mm: Initial follow-up CT at 12 months; if unchanged, no further follow-up. >6-8 mm: Initial follow-up CT at 6-12 months then at 18-24 months if no change. >8 mm: Follow-up CT at \R\3, 9, 24 months, or PET and/or biopsy. High Risk Patient: History of smoking or other known risk factors <=4 mm: Follow-up at 12 months; if unchanged, no further follow-up. >4-6 mm: Initial follow-up CT at 6-12 months then at 18-24 months if no change. >6-8 mm: Initial follow-up CT at 3-6 months then at 9-12 and 24 months if no change. >8 mm: Same as low risk patient. Note: Nodule size measured as average of length and width. Ground glass or partly solid nodules may require longer follow-up to exclude indolent adenocarcinoma. Electronically signed by: Yayo Jackson M.D. 03/23/2016 3:47 PM Dictated Date/Time: 03/23/2016 3:37 PM
--- NOTE | 2016-03-23 17:02 | NEUROLOGY CONSULTATION ---
DATE OF CONSULTATION: 03/23/2016 REASON FOR CONSULTATION: Change in mental status. HISTORY OF PRESENT ILLNESS: The patient serves as the chief historian. I have reviewed his [facility] records, called his phone number, saw that there was no contact information for next of kin and attempted to access his outpatient record through [employer] and I was unable to access. In this background, the chart serves as the main historian. The patient is a 50-year-old male with orthostatic hypotension, history of PE status post IVC filter, history of esophageal perforation, history of chronic pain, post-thoracotomy syndrome, depression, remote alcohol, tobacco and drug use, presented with altered mental status. He was not able to provide any other history to the admitting physician. According to EMS, he lives at [place] and was found wandering in the [facility] about 2 miles away. He was found by witnesses that said he was walking on the road, interrupting oncoming traffic. No other relevant history could be obtained. He is on multiple psychiatric meds and has a history of noncompliance. He was awake and confused, received fluids and Narcan en route without improvement. Ativan was given in the Emergency Room, he was very drowsy and difficult to awaken. His admission vitals were noncontributory. His white count was 13.8. Coags normal. Blood gas: 7.43, 38 and 76 on room air. Chemistry profile on admission: Sodium 142, potassium 4.0, BUN and creatinine 13/0.9, random glucose 176, ionized calcium 1.17. Ammonia 17. TSH 2.4. Folate 9.63. B12 645. His CK was normal and MB mildly elevated. Troponin negative. AST and ALT were negative. Urinalysis notable for trace glucose, 20-30 epithelial cells and urine mucus. Toxicology notable for Tylenol less than 2, lithium 0.4, ethyl alcohol negative and negative for opiates, methadone, barbiturates, benzodiazepines, cocaine and marijuana. Influenza A and B were negative. The patient's behavior has varied from lying in bed, answering no to all questions to getting out of bed, refusing to wear oxygen. Described some lethargy and garbled speech at times. His chest x-ray shows no significant change, slightly compromised by artifact, minimal right lower lobe opacity, atelectasis is favored. The patient's psychotropic meds were held and he was placed on empiric antibiotics with vancomycin, subQ heparin which the patient subsequently refused this morning, ceftriaxone, vancomycin, Tylenol and Zofran. REVIEW OF SYSTEMS: Not reliable. PHYSICAL EXAMINATION: CURRENT VITAL SIGNS: 36.3, 80, 20, 134/77, 91%. GENERAL: The patient lies in bed, is distractible, is able to state his name and was able to tell me his mother's name. He followed rare simple 1-step commands. He looks well-kempt, well-nourished. He has some bruising on arms and legs, some of which were sites of blood draw. He is distractible, but otherwise alert with some fluctuating attention. Unable to repeat name. Intermittently he appeared to be in mild distress, although the etiology of the distress was unclear. HEENT: His head seems normocephalic, atraumatic. There is a mild abrasion on the left naris. His hair appears to have been dyed and partially grown out. His head is nontender. There is no sinus tenderness. Pupils are dilated and minimally reactive. Right optic nerve revealed no papilledema. I could not visualize the left as it appeared to have caused some photophobia. Nguyen were not testable. There was no fixed gaze preference. There was no facial asymmetry. Speech marginally, if any, dysarthric. Tongue appeared to be midline. NECK: Supple. There was no clear neck stiffness. HEART: The heart was regular. No carotid bruits appreciable. ABDOMEN: Multiple surgical scars are noted on his abdomen. Somewhat firm, although distant bowel sounds were appreciated and there was no rebound. BACK: Spine was nontender. NEUROLOGIC: The patient had random, isolated small amplitude jerk of the thorax. His tone seemed normal. EXTREMITIES: No calf swelling or tenderness. Peripheral pulses are intact. Fungal changes are noted in the toenails. Both arms drifted symmetrically. His legs appeared to be antigravity. His reflexes were mildly diffusely brisk. There was no clonus and the toes were downgoing. Sensory, cerebellar and gait were not testable. PAST MEDICAL HISTORY: Notable for anemia, collapsed lung, esophageal perforation, GI bleed, hernia, supratherapeutic INR, DVT, syncope, orthostatic hypotension, esophageal surgery. It is said that on x-ray he has evidence of cervical surgery. There is mention in one of the records about a feeding tube. FAMILY HISTORY: Cancer, diabetes, gallbladder, heart disease, hypertension. Current smoking, drug use and occupational status unknown. ALLERGIES: LISTED TRAMADOL. HOME MEDICATIONS: Volin 300 b.i.d., Prilosec, paroxetine 30 daily, Lyrica 150 b.i.d. and 75 b.i.d., Seroquel 200 in the morning and 300 at night. IMPRESSION: This patient who has a known psychiatric history appears to be mildly delirious. The only positive general findings on exam are dilated pupils, which are poorly reactive. I appreciate no asymmetry, nuchal rigidity on exam. PLAN: Recommend MRI of the brain with and without contrast. I have spoken to the MRI staff and they will attempt to clear him prior to performing an MRI. If this cannot be done, a repeat CT would be very reasonable and an EEG and potentially I will do a lumbar puncture thereafter to rule out a meningeal process. I agree with his psychiatry consultation. The patient appears well enough nourished to suggest he does not have a thiamine deficiency. We will follow with you. CARLOS
--- NOTE | 2016-03-23 17:14 | PROGRESS NOTE ---
DATE: 03/23/2016 HISTORY OF PRESENT ILLNESS: I am seeing Mr. Alvarez for followup of change in mental status with dilated pupils. He was unable to tolerate his MRI of the brain because of nausea. That study was begun because of vomiting. He was taken for a CAT scan of the head, which I have reviewed and is unremarkable, showing no acute intracranial findings and a CT of the abdomen and pelvis. I came to the bedside with the plan of discussing with the patient performing a lumbar puncture. I had attempted to call his mother twice and his next of kin once and Dr. Cifuentes had also attempted to call family. Fortunately, the patient's language is much improved. He is more attentive. He is oriented to hospital and person. He is following commands more readily. There is more spontaneous speech and language, although he continues to repeat "no" quite a bit. He had a little bit of difficulty with naming and followed some commands. His neck was supple. His pupils are still dilated and nonreactive. I explained the lumbar puncture to the patient. He repeated back to me what I wanted to do and what my concerns were but he declined to consent for lumbar puncture. As I feel it would be clinically quite difficult to perform it on a noncooperative patient and he appears to be improving, I think it is reasonable to continue to observe. Dr. Cifuentes and I had spoken that if he did not permit a lumbar puncture, he may consider adding acyclovir for broad coverage for meningitis. I still wonder about some type of an intoxication, given the dilated pupils without any [employer] localizing signs. I would attempt to perform an MRI of the brain tomorrow morning and an EEG should be performed as well. We will continue to follow with you. CARLOS
[2016-03-23] MEDS: MoRPHine SULFATE 2 MG/ML CARP IV PRN (19:32)
[2016-03-23] MEDS: ACYCLOVIR SOD IV SCH (20:40)
[2016-03-23] MEDS: DEXTROSE 5% IV SCH (20:40)
[2016-03-24] VITALS (8 sets, daily range): BP systolic 142–183; BP diastolic 79–89; PULSE 54–78; TEMP 36.3–36.8; O2SAT 92–95
[2016-03-24] MEDS ORDERED: VANCOMYCIN TROUGH ONE (01:30)
[2016-03-24] MEDS: VANCOMYCIN INJ 1,350 MG in SODIUM CHLORIDE 0.9% 250ML 250 ML IV SCH ×3 (01:52→18:12)
[2016-03-24] MEDS: MoRPHine SULFATE 2 MG/ML CARP IV PRN ×2 (01:59→09:58)
[2016-03-24] MEDS: ACYCLOVIR SOD IV SCH ×3 (04:06→21:15)
[2016-03-24] MEDS: DEXTROSE 5% IV SCH ×3 (04:06→21:15)
[2016-03-24] MEDS: SODIUM CHLORIDE 0.9% 1000ML 1,000 ML IV SCH ×2 (04:06→16:00)
[2016-03-24 07:11] LABS: BASO % 0.8 %; BASO ABS # 0.06 K/uL (0-0.2); COMPLETE YES; EOS % 1.3 %; HEMATOCRIT 35.6 % (42-52); IG% 0.3 %; LYMPH % 22.5 %; LYMPH ABS # 1.67 K/uL (1.2-3.4); MEAN CELL VOLUME 88.1 fL (80-100); MEAN CORPUSCULAR HEMOGLOBIN 28.7 pg (25-34); MEAN CORPUSCULAR HGB CONC 32.6 g/dl (32-36); MEAN PLATELET VOLUME 10.1 fL (7.4-10.4); MONO % 9.2 %; NEUT % 65.9 %; PLATELET COUNT 215 K/uL (130-400); RED BLOOD COUNT 4.04 M/uL (4.7-6.1); WHITE BLOOD COUNT 7.42 K/uL (4.8-10.8)
[2016-03-24 07:48] LABS: CALCIUM 8.6 mg/dl (8.5-10.1); CREATININE 0.88 mg/dl (0.60-1.40); POTASSIUM 3.3 mmol/L (3.5-5.1)
--- NOTE | 2016-03-24 09:57 | Psychiatric Consultation ---
Consultation Identifying Data Mr. Alvarez is a 50 yo male, resident of [place] who was admitted for AMS after being found wandering 2 miles from the boarding house confused and reportedly disrupting traffic. Chief Complaint "I don't know what happened". History of Present Illness Mr. Alvarez' mental status has improved from admission in that his speech is clearer, he essentially has no memory of what happened or why he was wandering, just what people told him. He listed his sister as point of contact and was able to state he has been taking his psychiatric medications (held on admission ) regularly including [place], Paxil and Seroquel. He takes Lyrica for pain. He cannot recall the last time he saw Dr. Patel at [facility] and denies having a therapist or embedded case manager. He denies SI at baseline. He states he does have a history of seizure a few years ago, unclear if he is referring to his 2014 hospitalization for orthostasis. He denies drug or ETOH use and states that he hasn't required pain medication for his back for some time, currently pain likely the indication for Lyrica. Was seen by neurology yesterday but MRI could not be completed due to N/V. He declined LP and family could not be reached yesterday. The patient thought MRI had been completed today. Past Psychiatric History Current OP Treatment: psychiatrist (Dr. Sethi--[facility]) Prior Psych Hospitalizations: [facility] (2003), [facility] ( 2002 for depression/SI) no prior history of suicide attempts per patient or the 2014 consult but previous psych hospitalizations longstanding rx's of current psych meds but also past trial of probably Depakote , Prozac and Wellbutrin, Remeron was at least rx'd in the hospital. Past Medical/Surgical History Problem List: (1) Anemia (2) Hernia (3) Collapsed lung (4) Syncope (5) GI (gastrointestinal bleed) (6) Esophageal perforation (7) GERD (gastroesophageal reflux disease) (8) Presence of IVC filter (9) H/O orthostatic hypotension (10) Lumbar disc disease (11) History of esophageal surgery Allergies Allergies: Coded Allergies: Tramadol (Verified Allergy, Unknown, seizures, 09/26/15) Home Medications Scheduled Ocean [place] Carbonate (O[place] Carbonate), 300 MG PO BID Omeprazole (Prilosec), 40 MG PO DAILY Paroxetine (Paroxetine HCl), 30 MG PO DAILY Pregabalin (Lyrica), 150 MG PO BID Pregabalin (Lyrica), 75 MG PO BID Quetiapine Fumarate (Seroquel), 200 MG PO DAILY Quetiapine Fumarate (Seroquel), 300 MG PO HS Family History FH: cancer FH: diabetes mellitus FH: gallbladder disease FH: heart disease FATHER FH: hypertension previously denied formal family psych history Alcohol Use Alcohol Use In Past 12 Months: No Substance History denied though hx of narcotic use Personal History Born in: [place] Education: graduated from high school Work History: on disability since 1999 Relationship History: (2003) Children: 2 adult daughters (no contact) Legal History: none Abuse History: none Review of Systems Psych: denies symptoms other than stated above Constitutional: denied Cardiovascular: denied GI: denied Neurologic: denied Remainder of 10 body systems also reviewed and denied other than noted above. Examination Vital Signs Vital Signs Past 12 Hours Date Time Temp Pulse Resp B/P Pulse Ox O2 Delivery O2 Flow Rate FiO2 03/24/16 08:00 Room Air 03/24/16 06:44 36.6 60 18 143/79 92 Room Air 03/24/16 04:14 Room Air 03/24/16 04:02 36.7 54 18 154/80 Room Air 03/24/16 00:57 93 Room Air 03/24/16 00:05 Room Air 03/23/16 23:38 36.3 71 18 156/80 Room Air Laboratory Results Last 24 Hours Test 03/24/16 01:50 03/24/16 06:40 Vancomycin Level Trough 19.3 mcg/ml White Blood Count 7.42 K/uL Red Blood Count 4.04 M/uL Hemoglobin 11.6 g/dL Hematocrit 35.6 % Mean Corpuscular Volume 88.1 fL Mean Corpuscular Hemoglobin 28.7 pg Mean Corpuscular Hemoglobin Concent 32.6 g/dl Platelet Count 215 K/uL Mean Platelet Volume 10.1 fL Neutrophils (%) (Auto) 65.9 % Lymphocytes (%) (Auto) 22.5 % Monocytes (%) (Auto) 9.2 % Eosinophils (%) (Auto) 1.3 % Basophils (%) (Auto) 0.8 % Neutrophils # (Auto) 4.89 K/uL Lymphocytes # (Auto) 1.67 K/uL Monocytes # (Auto) 0.68 K/uL Eosinophils # (Auto) 0.10 K/uL Basophils # (Auto) 0.06 K/uL RDW Standard Deviation 52.5 fL RDW Coefficient of Variation 16.4 % Immature Granulocyte % (Auto) 0.3 % Immature Granulocyte # (Auto) 0.02 K/uL Sodium Level 150 mmol/L Potassium Level 3.3 mmol/L Chloride Level 114 mmol/L Carbon Dioxide Level 27 mmol/L Anion Gap 9.0 mmol/L Blood Urea Nitrogen 11 mg/dl Creatinine 0.88 mg/dl Est Creatinine Clear Calc Drug Dose 116.8 ml/min Estimated GFR () 116.1 Estimated GFR (Non- 100.2 BUN/Creatinine Ratio 12.0 Random Glucose 117 mg/dl Calcium Level 8.6 mg/dl Mental Examination During interview pt is: alert and oriented (to self/place) Appearance: appeared stated age Eye contact is: fair Motor behavior is: no abnormal motor movements Speech: normal in rate, rhythm & volume Affect: constricted Mood is: other ("fine") Thought process: concrete Thought content: reality based without delusions Suicidal thought are: denied Homicidal thoughts are: denied Hallucinations: denies auditory, denies visual Cognition: language grossly intact, other (memory and attention impaired) Intelligence estimated to be: consistent with level of education Insight: poor Judgement: poor Impression / Recommendations Impression 50 yo male with a history of depression, possibly bipolar depression admit with AMS after wandering 2 miles from boarding home. Was not lithium toxic. Urine tox negative. MRI and EEG pending. Patient reported a past history of seizure but can't give details. Risk Factors Assessment Access to guns: No Recommendations no current indication for inpatient psychiatric admission, neuro work up ongoing. Liaison to obtain collateral from sister to confirm no recent SI as was in road, no current evidence of any substance ingestion or suicide attempt. Liaison will also confirm last/future psych appts at [facility]. I would recommend resuming [place] (at least hs dose) and partial dose of Paxil (20 mg)when able to resume PO as clearly was taking lithium and to avoid discontinuation syndrome with Paxil. I would hold to reintroduce Seroquel until confirmed with outpatient and potentially could cause sedation and cloud AMS.
--- NOTE | 2016-03-24 11:27 | Pharmacy Progress Note ---
Pharmacy Antibiotic Prog Note Date of Service: Mar 24, 2016. Subjective: The patient is currently receiving Vancomycin 1350 mg IV every 8 hours, Acyclovir 900mg IV [id number], and Rocephin 2gm IV [id number]. Pharmacy is consulted to dose Vancomycin. The patient is currently on day # 2 of abx IV therapy. Objective: Height (Feet): 6 Height (Inches): 2.00 Weight (Kilograms): 95.000 Levels: Item Value Date Time Vancomycin Level Trough 19.3 mcg/ml 03/24/16 0150 Lab Results (24hrs): Laboratory Tests Test 03/24/16 06:40 BUN/Creatinine Ratio 12.0 Blood Urea Nitrogen 11 mg/dl Creatinine 0.88 mg/dl White Blood Count 7.42 K/uL Red Blood Count 4.04 M/uL Hemoglobin 11.6 g/dL Hematocrit 35.6 % Mean Corpuscular Volume 88.1 fL Mean Corpuscular Hemoglobin 28.7 pg Mean Corpuscular Hemoglobin Concent 32.6 g/dl Platelet Count 215 K/uL Mean Platelet Volume 10.1 fL Neutrophils (%) (Auto) 65.9 % Lymphocytes (%) (Auto) 22.5 % Monocytes (%) (Auto) 9.2 % Eosinophils (%) (Auto) 1.3 % Basophils (%) (Auto) 0.8 % Neutrophils # (Auto) 4.89 K/uL Lymphocytes # (Auto) 1.67 K/uL Monocytes # (Auto) 0.68 K/uL Eosinophils # (Auto) 0.10 K/uL Basophils # (Auto) 0.06 K/uL Micro Results: Item Value Date Time Blood Culture - Preliminary Resulted 03/22/16 1805 Blood NO GROWTH TO DATE. Blood Culture - Preliminary Resulted 03/22/16 1815 Blood NO GROWTH TO DATE. Assessment & Plan: * Pt found wandering 2 miles from senior care. AMS changes - r/o meningitis. Vancomycin: * Trough level today was therapeutic at 19.3 mcg/ml. * Pt lacks significant risk factors for accumulation of drug. * Will continue current regimen and repeat trough level tomorrow (03/25) prior to the 0600 scheduled dose. Goal trough level is 15-20 mcg/ml. Acyclovir and Rocephin: * Continue per provider dosing. Pharmacy will continue to follow and will adjust dose/frequency as necessary. Thank you
[2016-03-24] MEDS: CEFTRIAXONE SOD INJ 2,000 MG in DEXTROSE 5% 50ML 50 ML IV SCH (12:13)
--- NOTE | 2016-03-24 14:29 | DIAGNOSTIC IMAGING REPORT ---
VIDEO SWALLOW HISTORY: Postsurgical changes within the cervical spine Confusion, aspiration. TECHNIQUE: Video fluoroscopic evaluation of swallowing was performed in the AP and lateral projections by the speech pathology staff. The patient is fed nectar-thick and thin liquid barium, a barium coated wafer, and barium pudding. FLUOROSCOPY TIME: 2.1 minutes. COMPARISON STUDY: None. FINDINGS: With swallowing thin liquid barium with a teaspoon, the swallowing mechanics were normal. Performing a single swallow and serial swallows with a cup, there was laryngeal penetration but no evidence of aspiration. When swallowing nectar thick liquids, there is no aspiration or penetration. When swallowing pudding there is no evidence of aspiration or penetration. When swallowing a cracker with paste there was no aspiration or penetration. Note is made of an anterior cervical fusion. IMPRESSION: 1. No aspiration identified. 2. Please see the speech pathologist report for detailed findings and recommendations. Electronically signed by: Yayo Jackson M.D. 03/24/2016 2:27 PM Dictated Date/Time: 03/24/2016 2:25 PM
--- NOTE | 2016-03-24 14:37 | Neurology Progress Notes ---
Neurology Progress Note Date of Service Mar 24, 2016. Gorge Elias is a 50 year old male who has a PMH orthostatic hypotensions, PE s/p IVC filter, esophageal perforation, depression, bipolar, remote history of EtOH/ drug abuse who was found walking down a street in the [facility] area. When he arrived he was unable to give any information. He lives at [facility]. They dispense his medications but he is aware of what he is taking. He states they provide meals but sometimes he can go for days without eating because on of the cooks make really bad meals. Yesterday an MRI was attempted but he was unable to tolerate due to N, V. He also refused a LP to r/ o meningitis. He had a toxicology screen which was negative. He was not febrile on admission and his WBC was only mildly elevated. He was started on wide spectrum antibiotics due to possible meningitis. Today he states he is doing better. His sister is in the room and states he is still not back to baseline. He also has 2 brothers that will be coming to the hospital later today. It is unclear why she thinks he is not back to baseline. He is able to give history of parents illnesses and his medication history. denies current headache, SOB, CP, abdominal pain, weakness, numbness tingling, N ,V. He states he doesn't smoke but he does chew tobacco. denies any recent EtOH or drug use or abruptly stopping EtOH. Objective Date Time Temp Pulse Resp B/P Pulse Ox O2 Delivery O2 Flow Rate FiO2 03/24/16 12:05 36.7 58 16 155/85 92 Room Air 03/24/16 12:00 Room Air 03/24/16 08:00 Room Air 03/24/16 06:44 36.6 60 18 143/79 92 Room Air 03/24/16 04:14 Room Air 03/24/16 04:02 36.7 54 18 154/80 Room Air 03/24/16 00:57 93 Room Air 03/24/16 00:05 Room Air 03/23/16 23:38 36.3 71 18 156/80 Room Air 03/23/16 20:12 93 Room Air 03/23/16 19:44 37.1 72 18 157/90 Room Air 03/23/16 19:38 Room Air 03/23/16 16:38 36.5 89 18 171/89 93 Room Air 03/23/16 16:00 Room Air Last 24 Hours Test 03/24/16 01:50 03/24/16 06:40 Vancomycin Level Trough 19.3 mcg/ml White Blood Count 7.42 K/uL Red Blood Count 4.04 M/uL Hemoglobin 11.6 g/dL Hematocrit 35.6 % Mean Corpuscular Volume 88.1 fL Mean Corpuscular Hemoglobin 28.7 pg Mean Corpuscular Hemoglobin Concent 32.6 g/dl Platelet Count 215 K/uL Mean Platelet Volume 10.1 fL Neutrophils (%) (Auto) 65.9 % Lymphocytes (%) (Auto) 22.5 % Monocytes (%) (Auto) 9.2 % Eosinophils (%) (Auto) 1.3 % Basophils (%) (Auto) 0.8 % Neutrophils # (Auto) 4.89 K/uL Lymphocytes # (Auto) 1.67 K/uL Monocytes # (Auto) 0.68 K/uL Eosinophils # (Auto) 0.10 K/uL Basophils # (Auto) 0.06 K/uL RDW Standard Deviation 52.5 fL RDW Coefficient of Variation 16.4 % Immature Granulocyte % (Auto) 0.3 % Immature Granulocyte # (Auto) 0.02 K/uL Sodium Level 150 mmol/L Potassium Level 3.3 mmol/L Chloride Level 114 mmol/L Carbon Dioxide Level 27 mmol/L Anion Gap 9.0 mmol/L Blood Urea Nitrogen 11 mg/dl Creatinine 0.88 mg/dl Est Creatinine Clear Calc Drug Dose 116.8 ml/min Estimated GFR () 116.1 Estimated GFR (Non- 100.2 BUN/Creatinine Ratio 12.0 Random Glucose 117 mg/dl Calcium Level 8.6 mg/dl Imaging: MRI ordered -pending. Exam: Physical Exam: Constitutional: appearance nourished, healthy and normal, neck supple Ears, Nose, Mouth and Throat: mucous membranes moist, no injection and skin normal, eyes normal Cardiovascular: normal S-1 and S-2 and regular rate and rhythm Respiratory: clear to auscultation (CTA) and no rales, ronchi or wheeze Musculoskeletal: no peripheral edema and good distal pulses Skin: no stigmata of neurocutaneous disease noted and normal and intact Eyes: extraocular muscles intact (EOMI) and pupils 4 mm dilated non reactive NEUROLOGIC EXAMINATION: Mental status: Alert and interactive Oriented to full date and location Oriented to person Speech fluent with no evidence of aphasia Cranial Nerves smile and eye brow raise symmetric, tongue midline Reflexes: Deep tendon reflexes, hyperreflexic throughout. Plantar responses were flexor. Sensory: to light touch or vibration Coordination: finger to nose without bi pass, no tremor Gait/Stance: sitting up in bed Motor: Negative for pronator drift of out stretched arms with eyes closed. 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, bilaterally 5/5, hip flex patellar flex ext plantar flex ext bilaterally 5/5 Current Inpatient Medications Medications (Trade) Dose Ordered Sig/Shemar Route Start Time Stop Time Status Last Admin Dose Admin Heparin Sodium (Porcine) 5000 unit 5,000 unit Q8 SQ 03/23/16 06:00 04/22/16 05:59 Future Hold Sodium Chloride (Nss 1000ml) 1,000 ml @ 75 mls/hr [id number] IV 03/23/16 00:00 04/22/16 00:00 03/24/16 04:06 75 MLS/HR Acetaminophen (Tylenol Tab) 650 mg Q4H PRN PO 03/22/16 21:45 04/21/16 21:44 Ondansetron HCl 4 mg 4 mg Q6H PRN IV 03/22/16 21:45 04/21/16 21:44 03/23/16 19:31 4 MG Ceftriaxone Sodium/Dextrose (Rocephin Inj/D5 50ml) 70 ml @ 100 mls/hr Q12H IV 03/23/16 00:00 03/25/16 00:00 03/24/16 12:13 100 MLS/HR Vancomycin HCl 1 ea 1 ea UD PRN N/A 03/22/16 23:45 04/21/16 23:44 Vancomycin HCl/ Sodium Chloride (Vancomycin Inj/ Nss 250ml) 277 ml @ 125 mls/hr Q8H IV 03/23/16 10:00 03/25/16 09:59 03/24/16 09:36 125 MLS/HR Morphine Sulfate 1 mg 1 mg Q6HWA PRN IV 03/23/16 15:15 04/06/16 15:14 03/24/16 09:58 1 MG Acyclovir Sodium/ Dextrose (Zovirax Inj/D5 250ml) 268 ml @ 265 mls/hr Q8H IV 03/23/16 20:00 04/02/16 19:59 03/24/16 12:59 265 MLS/HR Cheshire Carbonate (Cheshire Carbonate Tab) 300 mg HS PO 03/24/16 21:00 04/23/16 20:59 Paroxetine HCl (pAXil TAB) 20 mg QAM PO 03/25/16 09:00 04/24/16 08:59 Impression 50 year old male s/p confusion and MS change- getting back to baseline Plan 1. MRI with and without brain once able to tolerate. 2. PT/OT for discharge needs 3. further input from family would be helpful 4. chart check with [facility] last note Ches[place] was not on his medication list. lithium level 0.4 on admission 5. wide spectrum antibiotics if patient has a meningitis is covering suspected cause 6. would verify psychiatric medication prior to increasing aka: Seroquel dosing 7. family input of baseline of patient is helpful further recommendations after the MRI brain is completed I have seen and discussed above patient with Dr Adonis Willingham, neurology I have interviewed and examined this man and have reviewed the prior notes by Dr Evan Martinez, psychiatry and Nicole Johnson. In essence this man was found wandering in a confused state near his place of residence and professes to have lilttle or no memory for the events surrounding all of yesterday up until last evening when he began to clear according to notes today he is lucid but a bit odd in terms of affect and denies illicit drug ingestion, noncompliance, recent symptoms of an infectious type and exposure to other substances or access to medications such as scopolamine patches etc. HI has a mildly elevated wbc, a normal ct, a diffusely slow eeg and on exam now dilated pupils which are beginning to react slowly to light and accomodation with no focal signs otherwise. suspect a toxic ingestion with anticholinergics or agents with a high anticholinergic content but had few other signs beyond the pupillary ones to support this Now is on three antibiotics ( one antivaral ) and we really have no cuture proof of infection. Whe may never have a clear explanation for this but need an MRI, another eeg to see if the slow pattern seen today is now normalized or if any potentially epileptogenic activity is seen, a lyme titer ( this would be a very big clinical stretch however ) and may need an lp to clear the air regarding a meningoencephalitis ( csf may well be sterile after antibiotics but pleocytosis, xanthochromia, elevated protein and depressed glucose would be worrisome and prompt an ID consult for advice regarding duration and nature of antibiotic rx and a clean tap would be reassuring and likely justify cessation of coverage, we will see tomorrow and decide than about the lp issue Adonis Willingham MD
--- NOTE | 2016-03-24 16:40 | Progress Note ---
Medicine Progress Note Date & Time of Visit: Mar 24, 2016 at 16:05. Subjective Pt was seen and examined Pt lying very comfortable in bed with no distress his mental status is much better today he can have a normal conversion now he said that the last thing that he remembers was that he was taking a walk he said that when he woke up, he saw that he is in the hospital He tolerated diet very well he told me that he has a sister name Reena His sister came today to visit him he denies any chest pain, palpitation, dizziness and sob he is not having any hallucination Objective Last 8 Hrs Date Time Temp Pulse Resp B/P Pulse Ox O2 Delivery O2 Flow Rate FiO2 03/24/16 14:59 36.3 78 20 183/89 92 Room Air 03/24/16 12:05 36.7 58 16 155/85 92 Room Air 03/24/16 12:00 Room Air Physical Exam: General- No distress, make sense Head- atraumatic Eyes- PERRL ENT- oropharynx clear Neck- supple, no JVD Lungs- clear to auscultation and percussion Heart- regular rhythm; no murmur Abdomen- normal bowel sounds, tender Extremities- no calf tenderness Neuro- awake, confused, moves all 4 extremities Skin- warm & dry Laboratory Results: Last 24 Hours Test 03/24/16 01:50 03/24/16 06:40 Vancomycin Level Trough 19.3 mcg/ml White Blood Count 7.42 K/uL Red Blood Count 4.04 M/uL Hemoglobin 11.6 g/dL Hematocrit 35.6 % Mean Corpuscular Volume 88.1 fL Mean Corpuscular Hemoglobin 28.7 pg Mean Corpuscular Hemoglobin Concent 32.6 g/dl Platelet Count 215 K/uL Mean Platelet Volume 10.1 fL Neutrophils (%) (Auto) 65.9 % Lymphocytes (%) (Auto) 22.5 % Monocytes (%) (Auto) 9.2 % Eosinophils (%) (Auto) 1.3 % Basophils (%) (Auto) 0.8 % Neutrophils # (Auto) 4.89 K/uL Lymphocytes # (Auto) 1.67 K/uL Monocytes # (Auto) 0.68 K/uL Eosinophils # (Auto) 0.10 K/uL Basophils # (Auto) 0.06 K/uL RDW Standard Deviation 52.5 fL RDW Coefficient of Variation 16.4 % Immature Granulocyte % (Auto) 0.3 % Immature Granulocyte # (Auto) 0.02 K/uL Sodium Level 150 mmol/L Potassium Level 3.3 mmol/L Chloride Level 114 mmol/L Carbon Dioxide Level 27 mmol/L Anion Gap 9.0 mmol/L Blood Urea Nitrogen 11 mg/dl Creatinine 0.88 mg/dl Est Creatinine Clear Calc Drug Dose 116.8 ml/min Estimated GFR () 116.1 Estimated GFR (Non- 100.2 BUN/Creatinine Ratio 12.0 Random Glucose 117 mg/dl Calcium Level 8.6 mg/dl Assessment & Plan Altered mental status/ Confusion/ Encephalitis Unclear etiology: Likely secondary to medications, other DD:Infection in origin , metabolic disorder/ Meningitis need to r/o CT head: no acute pathology Toxicology screen negative TSH, Vit B12, Folic acid and ammonia level are WNL Case discussed with Neurology Dr. Martinez recommended to get an MRI of the head and EEG unable to get MRI yesterday because he was not able to cooperate, instead a CT was done Repeat CT done yesterday did not show no acute intracranial findings attempt to reach family yesterday because consent needed to get an LP since he declined consent He wants to try to get the MRI today and he almost back to baseline Continue IV antibiotics with rocephin and Vanco, acyclovir since etiology unknown No growth on Blood cultures Continue monitor pt H/O Bipolar disorder Psych was consulted and restarted him on partial dose of paxil 20mg daily and lithium resumed as well Liaison nurse will confirm seroquel dose with his outpatient psychiatrist before resuming Right lower Lung nodude CT showed Nonspecific 11 mm right lower lobe nodule. Need repeat CT chest in 3 month Hypernatremia will change IVF to 1/2 NS continue monitor BMP Hypokalemia K replaced continue monitor Abdominal pain asymptomatic CT abdomen showed No evidence of bowel obstruction. No evidence of free air Tolerated diet well resolved ELEVATED WBC Possible reactive Afebrile, Continue IV abx with Vanco and rocephin resolved H/O PE s/p IVC filter: Off anticoagulation H/O esophageal perforation Speech therapy consulted recommended to get a video swallow since pat has hx of aspiration Video swallow done today was normal Tolerated diet well HB stable DVT Px: Heparin SQ Code status: Full code Consultants: Psych Neuro Current Inpatient Medications: Current Inpatient Medications Medications (Trade) Dose Ordered Sig/Shemar Route Start Time Stop Time Status Last Admin Dose Admin Heparin Sodium (Porcine) 5000 unit 5,000 unit Q8 SQ 03/23/16 06:00 04/22/16 05:59 Future Hold Sodium Chloride (Nss 1000ml) 1,000 ml @ 75 mls/hr [id number] IV 03/23/16 00:00 04/22/16 00:00 03/24/16 04:06 75 MLS/HR Acetaminophen (Tylenol Tab) 650 mg Q4H PRN PO 03/22/16 21:45 04/21/16 21:44 Ondansetron HCl 4 mg 4 mg Q6H PRN IV 03/22/16 21:45 04/21/16 21:44 03/23/16 19:31 4 MG Ceftriaxone Sodium/Dextrose (Rocephin Inj/D5 50ml) 70 ml @ 100 mls/hr Q12H IV 03/23/16 00:00 03/31/16 00:00 03/24/16 12:13 100 MLS/HR Vancomycin HCl 1 ea 1 ea UD PRN N/A 03/22/16 23:45 04/21/16 23:44 Vancomycin HCl/ Sodium Chloride (Vancomycin Inj/ Nss 250ml) 277 ml @ 125 mls/hr Q8H IV 03/23/16 10:00 03/31/16 00:00 03/24/16 09:36 125 MLS/HR Morphine Sulfate 1 mg 1 mg Q6HWA PRN IV 03/23/16 15:15 04/06/16 15:14 03/24/16 09:58 1 MG Acyclovir Sodium/ Dextrose (Zovirax Inj/D5 250ml) 268 ml @ 265 mls/hr Q8H IV 03/23/16 20:00 04/02/16 19:59 03/24/16 12:59 265 MLS/HR Ebro Carbonate (Ebro Carbonate Tab) 300 mg HS PO 03/24/16 21:00 04/23/16 20:59 Paroxetine HCl (pAXil TAB) 20 mg QAM PO 03/25/16 09:00 04/24/16 08:59
[2016-03-24] MEDS ORDERED: POTASSIUM CHLORIDE 20 MEQ TABCR PO ONE (16:45)
[2016-03-24] MEDS: SODIUM CHLORIDE 0.45% 1000ML 1,000 ML IV SCH (18:13)
[2016-03-24] MEDS: LITHIUM CARBONATE 300 MG TAB PO SCH (21:16)
--- NOTE | 2016-03-24 23:35 | ELECTROENCEPHALOGRAPH REPORT ---
REQUESTING PHYSICIAN: Dr. Martinez. CLINICAL DIAGNOSIS: Change in mental status with persistent confusion and pupillary dilatation. EEG DIAGNOSIS: Moderately diffusely abnormal EEG during apparent wakefulness. DESCRIPTION OF TRACING: This EEG was done as a bedside recording and is of good technical quality with a few muscle movement artifacts. Simultaneous video analysis of patient movement and behavior is recorded. Photic stimulation was performed. Hyperventilation was not. Drowsiness and light sleep are not clearly recorded. Under these conditions, there is no evidence for a normal background alpha rhythm but rather a rhythm in the mid theta range of about 6 Hz of maximum frequency which appears to be maximum in posterior head regions and is bilaterally symmetrical. Slower theta activity is seen over all head regions and is intermixed with waveforms in the delta range. These demonstrate no focal or regional predominance. Anterior head region maximum bilaterally symmetrical low voltage fast activity in the beta range is present but is of very low amplitude. Photic stimulation provokes no significant driving response, and no photomyogenic or photoparoxysmal components are noted. At no time during this tracing is there evidence for potentially epileptogenic activity in the form of polyspike or spike wave bursts, focal sharp waves, focal spikes or prolonged runs of rhythmic theta or delta ____. INTERPRETATION: This EEG is moderately diffusely abnormal in a highly nonspecific fashion. The abnormalities could even correlate with any one of a number of underlying toxic or metabolic processes, could even reflect an underlying infectious process depending on the clinical history and exam. Clinical correlation is required. MTDD
[2016-03-25] VITALS (7 sets, daily range): BP systolic 142–164; BP diastolic 75–90; PULSE 63–71; TEMP 36.4–36.7; O2SAT 91–95
[2016-03-25] MEDS: CEFTRIAXONE SOD INJ 2,000 MG in DEXTROSE 5% 50ML 50 ML IV SCH ×3 (00:03→23:29)
[2016-03-25] MEDS: VANCOMYCIN INJ 1,350 MG in SODIUM CHLORIDE 0.9% 250ML 250 ML IV SCH ×2 (02:05→14:16)
[2016-03-25] MEDS: DEXTROSE 5% IV SCH ×3 (04:32→20:13)
[2016-03-25] MEDS: ACYCLOVIR SOD IV SCH ×3 (04:32→20:13)
[2016-03-25] MEDS ORDERED: VANCOMYCIN TROUGH ONE (05:30)
[2016-03-25 06:20] LABS: HEMATOCRIT 37.2 % (42-52); MEAN CELL VOLUME 87.7 fL (80-100); MEAN CORPUSCULAR HEMOGLOBIN 29.2 pg (25-34); MEAN CORPUSCULAR HGB CONC 33.3 g/dl (32-36); MEAN PLATELET VOLUME 10.1 fL (7.4-10.4); PLATELET COUNT 199 K/uL (130-400); RED BLOOD COUNT 4.24 M/uL (4.7-6.1); WHITE BLOOD COUNT 4.83 K/uL (4.8-10.8)
[2016-03-25 06:53] LABS: BUN/CREATININE RATIO 11.8 (10-20); CALCIUM 8.4 mg/dl (8.5-10.1); CREATININE 0.81 mg/dl (0.60-1.40)
[2016-03-25] MEDS: SODIUM CHLORIDE 0.45% 1000ML 1,000 ML IV SCH (07:45)
[2016-03-25] MEDS: PAROXETINE 20 MG TAB PO SCH (08:39)
[2016-03-25] MEDS ORDERED: VANCOMYCIN TROUGH SCH (09:30)
--- NOTE | 2016-03-25 12:05 | Clinical Documentation Query ---
[facility] : CLINICAL DOCUMENTATION QUERY Patient is a 50 year old male admitted for altered mental status. Documentation includes "likely secondary to medications". Patient has ruled out for acute pathology thus far in serial CT scans of the head and toxicology screening. Other workup has included EEG, neurology and psychiatric consultation. Patient has refused LP. Noted history of medication non-compliance, possibly bipolar depression. In your clinical opinion is this patient being managed for: ( X ) (Likely/suspected) Encephalopathy due to medications ( ) Other explanation of clinical findings (Please Explain) ( ) Unable to determine (Please Define) ( ) Need to Discuss ( ) Not Agree The medical record reflects the following clinical findings, treatment, and risk factors. Clinical Indicators: As above Treatment:Patient has ruled out for acute pathology thus far in serial CT scans of the head and toxicology screening. Other workup has included EEG, neurology and psychiatric consultation. Patient has refused LP. Noted history of medication non-compliance, possibly bipolar depression. Risk Factors: Possible bipolar depression, history of drug/substance abuse, history of medication non-compliance Please clarify and document your clinical opinion in the progress notes and discharge summary. Terms such as "probable", "suspected", "likely", "questionable", "possible", or "still to be ruled out" are acceptable. IF IN AGREEMENT, YOU MUST DOCUMENT ABOVE DIAGNOSTIC STATEMENT IN DAILY PROGRESS NOTES AND DISCHARGE SUMMARY. This document is not part of the patient's record. Thank You, Thor Durham, RAMIREZ [phone]
--- NOTE | 2016-03-25 12:22 | Pharmacy Progress Note ---
Pharmacy Antibiotic Prog Note Date of Service: Mar 25, 2016. Subjective: The patient is currently receiving Vancomycin 1350 mg IV every 8 hours. The patient is currently on day # 3 of IV therapy. Objective: Height (Feet): 6 Height (Inches): 2.00 Weight (Kilograms): 90.700 Levels: Item Value Date Time Vancomycin Level Trough 22.2 mcg/ml 03/25/16 0930 Lab Results (24hrs): Laboratory Tests Test 03/25/16 05:40 BUN/Creatinine Ratio 11.8 Blood Urea Nitrogen 10 mg/dl Creatinine 0.81 mg/dl White Blood Count 4.83 K/uL Micro Results: Item Value Date Time Blood Culture - Preliminary Resulted 03/22/16 1815 Blood NO GROWTH TO DATE. Blood Culture - Preliminary Resulted 03/22/16 1805 Blood NO GROWTH TO DATE. Recent Pertinent Medications: Item Value Date Time Acyclovir Sodium 268 ml @ 265 mls/hr 03/23/16 2000 900 mg/Dextrose Q8H/IV 03/25/16 0432 Ceftriaxone 70 ml @ 100 mls/hr 03/23/16 0000 Sodium 2000 mg/ Q12H/IV 03/25/16 0003 Dextrose Assessment & Plan: 50 yo M admitted with AMS, initiated on broad spectrum IV antibiotics for meningitis coverage. Blood cultures pending. No lumbar puncture done. Patient improving. Plan: * This drug level is slightly supratherapeutic. * Decrease Vancomycin to 1350 mg IV every 10 hours. * Given indication is still meningitis/encephalitis, need to stay aggressive until deescalation. * Goal trough level estimate: between 150 - 20 mcg/mL. * A trough level has been ordered for: prior to the 0600 dose. Pharmacy will continue to follow and will adjust dose/frequency as necessary. Thank you
[2016-03-25] MEDS: POTASSIUM CHLORIDE 20 MEQ TABCR PO SCH ×2 (12:54→20:13)
[2016-03-25] MEDS ORDERED: LORAZEPAM INJ 1 MG in SYRINGE 0.5 ML IV PRN (14:30)
--- NOTE | 2016-03-25 15:28 | Progress Note ---
Medicine Progress Note Date & Time of Visit: Mar 25, 2016 at 15:12. Subjective Patient seen and examined. Denies headache. Good appetite. Does note onset of diarrhea. Objective Last 8 Hrs Date Time Temp Pulse Resp B/P Pulse Ox O2 Delivery O2 Flow Rate FiO2 03/25/16 12:00 Room Air 03/25/16 11:32 36.7 64 18 156/90 95 Room Air 03/25/16 08:30 Room Air 03/25/16 08:30 94 Room Air 03/25/16 07:37 36.4 63 16 142/88 94 Room Air Physical Exam: General-awake; alert; NAD Eyes-EOMI; no scleral icterus Neck-no stridor; trachea midline Lungs-CTA bilaterally; no wheezes/crackles Heart-RRR; no m/r/g Abdomen-soft; NTND; nBS Extremities-no deformity; no c/c/e Neuro-oriented x3; appropriate conversation; no gross focal deficits Laboratory Results: Last 24 Hours Test 03/24/16 17:17 03/25/16 05:40 03/25/16 09:30 03/25/16 14:13 White Blood Count 4.83 K/uL Red Blood Count 4.24 M/uL Hemoglobin 12.4 g/dL Hematocrit 37.2 % Mean Corpuscular Volume 87.7 fL Mean Corpuscular Hemoglobin 29.2 pg Mean Corpuscular Hemoglobin Concent 33.3 g/dl RDW Standard Deviation 50.8 fL RDW Coefficient of Variation 15.8 % Platelet Count 199 K/uL Mean Platelet Volume 10.1 fL Sodium Level 141 mmol/L Potassium Level 3.0 mmol/L Chloride Level 106 mmol/L Carbon Dioxide Level 27 mmol/L Anion Gap 8.0 mmol/L Blood Urea Nitrogen 10 mg/dl Creatinine 0.81 mg/dl Est Creatinine Clear Calc Drug Dose 126.9 ml/min Estimated GFR () 120.1 Estimated GFR (Non- 103.6 BUN/Creatinine Ratio 11.8 Random Glucose 137 mg/dl Calcium Level 8.4 mg/dl Vancomycin Level Trough 42.2 mcg/ml 22.2 mcg/ml Date/Time Source Procedure Growth Status 03/25/16 14:13 Cerebral Spinal Fluid Gram Stain Pending Sheri Batch 03/25/16 14:13 Cerebral Spinal Fluid CSF Culture Pending Sheri Batch Assessment & Plan Suspected encephalopathy due to medications Neurology consulted Psychiatry consulted Unclear etiology: likely secondary to medications, possibly infectious (r/o meningitis) CT head x2: no acute pathology Toxicology screen negative TSH, Vit B12, Folic acid and ammonia level are WNL RPR negative, Influenza negative MRI combo pending Lumbar puncture pending Continue ceftriaxone, vancomycin, acyclovir for now; will plan to discontinue with normal CSF studies No growth on Blood cultures EEG is moderately diffusely abnormal in a highly nonspecific fashion H/O Bipolar disorder Psychiatry consulted Continue lithium, paroxetine Right lower lung nodule CT showed nonspecific 11 mm right lower lobe nodule Needs repeat CT chest in 3 months Hypokalemia Replace potassium Abdominal pain CT abdomen showed no evidence of bowel obstruction; no evidence of free air Resolved H/O PE s/p IVC filter H/O esophageal perforation Speech therapy consulted Video swallow was normal DVT prophylaxis Heparin SQ Consultants: Psychiatry Neurology Procedures: CT Head x2 No acute intracranial findings CT a/p 1. No evidence of bowel obstruction. No evidence of free air 2. Interval decrease in the size of the anterior abdominal wall fluid collection 3. No renal, ureteral, or bladder calculi identified 4. Perivesical stranding. Clinical correlation in regards to a cystitis is recommended 5. Diverticulosis. No evidence of acute diverticulitis. No evidence of acute appendicitis 6. Mild bowel wall thickening involving the descending colon versus a nondistended segment 7. Nonspecific 11 mm right lower lobe nodule. Close follow-up is recommended. Video fluoroscopic swallow study 1. No aspiration identified. EEG This EEG is moderately diffusely abnormal in a highly nonspecific fashion. The abnormalities could even correlate with any one of a number of underlying toxic or metabolic processes, could even reflect an underlying infectious process depending on the clinical history and exam. Current Inpatient Medications: Current Inpatient Medications Medications (Trade) Dose Ordered Sig/Shemar Route Start Time Stop Time Status Last Admin Dose Admin Heparin Sodium (Porcine) (Heparin Sq 5000 Unit/0.5ml) 5,000 unit Q8 SQ 03/23/16 06:00 04/22/16 05:59 Future Hold Acetaminophen (Tylenol Tab) 650 mg Q4H PRN PO 03/22/16 21:45 04/21/16 21:44 Ondansetron HCl 4 mg 4 mg Q6H PRN IV 03/22/16 21:45 04/21/16 21:44 03/23/16 19:31 4 MG Ceftriaxone Sodium/Dextrose (Rocephin Inj/D5 50ml) 70 ml @ 100 mls/hr Q12H IV 03/23/16 00:00 03/31/16 00:00 03/25/16 12:16 100 MLS/HR Vancomycin HCl (Consult) 1 ea UD PRN N/A 03/22/16 23:45 04/21/16 23:44 Morphine Sulfate 1 mg 1 mg Q6HWA PRN IV 03/23/16 15:15 04/06/16 15:14 03/24/16 09:58 1 MG Acyclovir Sodium/ Dextrose (Zovirax Inj/D5 250ml) 268 ml @ 265 mls/hr Q8H IV 03/23/16 20:00 04/02/16 19:59 03/25/16 12:15 265 MLS/HR [place] Carbonate ([place] Carbonate Tab) 300 mg HS PO 03/24/16 21:00 04/23/16 20:59 03/24/16 21:16 300 MG Paroxetine HCl (pAXil TAB) 20 mg QAM PO 03/25/16 09:00 04/24/16 08:59 03/25/16 08:39 20 MG Potassium Chloride 20 meq 20 meq BID PO 03/25/16 11:15 04/24/16 11:14 03/25/16 12:54 20 MEQ Vancomycin HCl 1350 mg/Sodium Chloride 277 ml @ 125 mls/hr Q10H IV 03/25/16 14:00 04/01/16 23:59 03/25/16 14:16 125 MLS/HR Lorazepam/Syringe (Ativan Inj/ Syringe) 1 ml @ 1 mls/min PRN PRN IV 03/25/16 14:30 04/24/16 14:29
--- NOTE | 2016-03-25 15:35 | DIAGNOSTIC IMAGING REPORT ---
FLUOROSCOPIC GUIDED LUMBAR PUNCTURE CLINICAL HISTORY: Change in mental status. PROCEDURE: The risks, benefits, and alternatives to the procedure is discussed with the patient who voiced understanding. Written informed consent was obtained. The patient was placed prone on the fluoroscopy table. The lower back was prepped and draped in the usual sterile fashion. 1% lidocaine was used for local anesthesia. A 22-gauge spinal needle was inserted into the left L4-L5 interlaminar space, and approximately 10 cc of clear colorless cerebrospinal fluid was removed and sent for laboratory analysis. The patient tolerated the procedure well. There were no immediate complications. The patient was then returned to the medical floor for further observation. Fluoroscopy time: 0.2 minutes. IMPRESSION: Fluoroscopic guided lumbar puncture with removal of approximately 10 cc of cerebrospinal fluid. There were no immediate complications. Electronically signed by: Umesh Hauser M.D. 03/25/2016 3:33 PM Dictated Date/Time: 03/25/2016 3:32 PM
[2016-03-25 15:52] LABS: CSF APPEARANCE CLEAR; CSF COLOR COLORLESS; CSF XANTHOCHROMIC NO XANTHOCHROMIA
--- NOTE | 2016-03-25 17:10 | PROGRESS NOTE ---
DATE: 03/25/2016 I saw Curt today, he probably is back to his baseline. He is jovial, alert, oriented, has no focal signs and while his pupils in a somewhat dark room are little large and they certainly react well to light and accommodation today as they did yesterday, although they were a little more sluggish. His CSF analysis is normal thus far with no cells and normal protein, elevated glucose but his serum glucose was elevated and no xanthochromia. An infectious process is very unlikely with this kind of early pattern on CSF, but will wait to see what the cultures show. He did not have his MRI yet and he is apparently en route for this today at some point and would do the study with and without contrast to be sure his meninges do not have some thickening or other abnormalities. His EEG more importantly is absolutely normal now during wakefulness and drowsiness. So I suspect in retrospect that this was some form of toxic exposure, perhaps with agents that have high anticholinergic content in light of his pupillary issues but we may never know the answer and Curt is a little evasive on all this, professing amnesia for most of the events of the day of admission. We will see how things play out, but right now we have nothing to suggest a seizure. We have nothing to suggest an active infectious process and will await to see what the MRI shows. CARLOS
[2016-03-25] MEDS: LITHIUM CARBONATE 300 MG TAB PO SCH (20:13)
[2016-03-26] VITALS (8 sets, daily range): BP systolic 136–165; BP diastolic 78–90; PULSE 53–70; TEMP 36.4–36.8; O2SAT 94–98
[2016-03-26] MEDS: VANCOMYCIN INJ 1,350 MG in SODIUM CHLORIDE 0.9% 250ML 250 ML IV SCH ×2 (00:48→10:28)
[2016-03-26] MEDS: DEXTROSE 5% IV SCH ×2 (04:43→12:06)
[2016-03-26] MEDS: ACYCLOVIR SOD IV SCH ×2 (04:43→12:06)
[2016-03-26 07:38] LABS: HEMATOCRIT 37.7 % (42-52); MEAN CELL VOLUME 85.9 fL (80-100); MEAN CORPUSCULAR HEMOGLOBIN 29.4 pg (25-34); MEAN CORPUSCULAR HGB CONC 34.2 g/dl (32-36); MEAN PLATELET VOLUME 10.1 fL (7.4-10.4); PLATELET COUNT 186 K/uL (130-400); RED BLOOD COUNT 4.39 M/uL (4.7-6.1); WHITE BLOOD COUNT 5.18 K/uL (4.8-10.8)
--- NOTE | 2016-03-26 07:48 | ELECTROENCEPHALOGRAPH REPORT ---
REQUESTING: Dr. Willingham. CLINICAL DIAGNOSIS: encephalopathy with previously moderately diffusely abnormal EEG. EEG DIAGNOSIS: Essentially normal during wakefulness and drowsiness. DESCRIPTION OF TRACING: This EEG was done as a bedside recording with simultaneous video analysis of patient movement and behavior. Photic stimulation was performed. Hyperventilation was not. Episodes of drowsiness are recorded. During full clinical wakefulness the EEG now looks essentially normal with a background rhythm in the alpha range of 9-10 Hz maximum frequency and 30 microvolts maximum amplitude. This is maximum in posterior head regions and bilaterally symmetrical. Polymorphic mid to lower frequency theta activity of modest voltage is seen over all head regions without focal or regional predominance. Anterior head region maximal bilaterally symmetrical low voltage fast activity in the beta range is present. Drowsiness and light sleep were recorded episodically, primarily consisting of drowsiness and during these intervals background rhythm falls into the upper theta range and there is an increased amount of generalized slow wave activity but no other abnormalities emerge. Photic stimulation provokes a modest driving response in the posterior head regions without photoparoxysmal or photomyogenic component. At no time during this the waking or drowsy tracing is there evidence for potentially epileptogenic activity in the form of polyspike or spike wave bursts, focal sharp waves, or focal spikes. INTERPRETATION: This EEG is now essentially normal during wakefulness and drowsiness without evidence for focal or generalized encephalopathy and without evidence of potentially epileptogenic activity. the overnight improvement is argument for a toxic or metabolic encephalopathy which now has cleared both clinically and electroencephalographically. MTDD
[2016-03-26 08:12] LABS: BUN/CREATININE RATIO 14.8 (10-20); CALCIUM 8.5 mg/dl (8.5-10.1); CREATININE 0.77 mg/dl (0.60-1.40); MAGNESIUM 2.4 mg/dl (1.8-2.4); POTASSIUM 3.5 mmol/L (3.5-5.1)
[2016-03-26] MEDS: PAROXETINE 20 MG TAB PO SCH (08:59)
[2016-03-26] MEDS: POTASSIUM CHLORIDE 20 MEQ TABCR PO SCH ×2 (08:59→21:10)
[2016-03-26] MEDS: CEFTRIAXONE SOD INJ 2,000 MG in DEXTROSE 5% 50ML 50 ML IV SCH (12:00)
[2016-03-26 15:59] LABS: 18KDIGG BAND NONREACTIVE (NONREACTIVE); 23KDIGG BAND NONREACTIVE (NONREACTIVE); 23KDIGM BAND NONREACTIVE (NONREACTIVE); 28KDIGG BAND NONREACTIVE (NONREACTIVE); 30KDIGG BAND NONREACTIVE (NONREACTIVE); 39KDIGG BAND NONREACTIVE (NONREACTIVE); 39KDIGM BAND NONREACTIVE (NONREACTIVE); 41KDIGG BAND REACTIVE (NONREACTIVE); 41KDIGM BAND NONREACTIVE (NONREACTIVE); 45KDIGG BAND NONREACTIVE (NONREACTIVE); 58KDIGG BAND NONREACTIVE (NONREACTIVE); 66KDIGG BAND REACTIVE (NONREACTIVE); 93KDIGG BAND NONREACTIVE (NONREACTIVE)
--- NOTE | 2016-03-26 16:02 | Neurology Progress Notes ---
Neurology Progress Note Date of Service Mar 26, 2016. Gorge Elias is a 50 year old male who has a PMH orthostatic hypotensions, PE s/p IVC filter, esophageal perforation, depression, bipolar, remote history of EtOH/ drug abuse who was found walking down a street in the [facility] area. When he arrived he was unable to give any information. He lives at [facility]. They dispense his medications but he is aware of what he is taking. He states they provide meals but sometimes he can go for days without eating because on of the cooks make really bad meals. Yesterday an MRI was attempted but he was unable to tolerate due to N, V. He also refused a LP to r/ o meningitis. He had a toxicology screen which was negative. He was not febrile on admission and his WBC was only mildly elevated. He was started on wide spectrum antibiotics due to possible meningitis. Today he is up and walking with physical therapy. He states he is feel well. He is refusing the MRI because he cant tolerate the "tube". denies fever, chills, night sweats, headache, CP, SOB, abdominal pain, N, V. Objective Date Time Temp Pulse Resp B/P Pulse Ox O2 Delivery O2 Flow Rate FiO2 03/26/16 14:51 36.5 66 16 159/88 95 Room Air 03/26/16 12:00 98 Room Air 03/26/16 11:24 36.5 61 18 165/90 98 Room Air 03/26/16 08:00 95 Room Air 03/26/16 07:20 36.8 55 18 136/78 95 Room Air 03/26/16 04:54 36.4 53 20 142/82 96 Room Air 03/26/16 04:00 Room Air 03/26/16 00:34 36.7 70 18 150/85 94 Room Air 03/26/16 00:00 Room Air 03/25/16 21:13 36.6 68 20 164/75 03/25/16 20:15 36.6 71 20 155/86 91 Room Air 03/25/16 20:00 Room Air 03/25/16 16:00 95 Room Air Last 24 Hours Test 03/26/16 07:15 White Blood Count 5.18 K/uL Red Blood Count 4.39 M/uL Hemoglobin 12.9 g/dL Hematocrit 37.7 % Mean Corpuscular Volume 85.9 fL Mean Corpuscular Hemoglobin 29.4 pg Mean Corpuscular Hemoglobin Concent 34.2 g/dl RDW Standard Deviation 47.5 fL RDW Coefficient of Variation 15.4 % Platelet Count 186 K/uL Mean Platelet Volume 10.1 fL Sodium Level 142 mmol/L Potassium Level 3.5 mmol/L Chloride Level 106 mmol/L Carbon Dioxide Level 26 mmol/L Anion Gap 10.0 mmol/L Blood Urea Nitrogen 11 mg/dl Creatinine 0.77 mg/dl Est Creatinine Clear Calc Drug Dose 133.5 ml/min Estimated GFR () 122.6 Estimated GFR (Non- 105.8 BUN/Creatinine Ratio 14.8 Random Glucose 102 mg/dl Calcium Level 8.5 mg/dl Magnesium Level 2.4 mg/dl Imaging: no new imaging Exam: Physical Exam: Constitutional: appearance nourished, healthy and normal Ears, Nose, Mouth and Throat: mucous membranes moist, no injection and skin normal, eyes normal Cardiovascular: normal S-1 and S-2 and regular rate and rhythm Respiratory: clear to auscultation (CTA) and no rales, ronchi or wheeze Musculoskeletal: no peripheral edema and good distal pulses Skin: no stigmata of neurocutaneous disease noted and normal and intact Eyes: extraocular muscles intact (EOMI) and pupils equal, round and reactive to light (PERRL), pupils are dilated but reactive bilaterally NEUROLOGIC EXAMINATION: Mental status: Alert and interactive Oriented to full date and location Oriented to person Speech fluent with no evidence of aphasia Cranial Nerves smile eye brow raise symmetric, tongue midline Coordination: Romberg absent Gait/Stance: Posture normal. Gait normal: with steady with steps, base, turning, and tandem gait. Motor: Negative for pronator drift of out stretched arms with eyes closed. Strength: biceps triceps hand leave specialist 5/5 bilaterally, hip flex ext plantar flex ext bilaterally 5/5 Current Inpatient Medications Medications (Trade) Dose Ordered Sig/Shemar Route Start Time Stop Time Status Last Admin Dose Admin Heparin Sodium (Porcine) (Heparin Sq 5000 Unit/0.5ml) 5,000 unit Q8 SQ 03/23/16 06:00 04/22/16 05:59 Future Hold Acetaminophen (Tylenol Tab) 650 mg Q4H PRN PO 03/22/16 21:45 04/21/16 21:44 03/26/16 09:02 650 MG Ondansetron HCl (Zofran Inj) 4 mg Q6H PRN IV 03/22/16 21:45 04/21/16 21:44 03/23/16 19:31 4 MG [place] Carbonate ([place] Carbonate Tab) 300 mg HS PO 03/24/16 21:00 04/23/16 20:59 03/25/16 20:13 300 MG Paroxetine HCl (pAXil TAB) 20 mg QAM PO 03/25/16 09:00 04/24/16 08:59 03/26/16 08:59 20 MG Potassium Chloride (Klor-Con Tab) 20 meq BID PO 03/25/16 11:15 04/24/16 11:14 03/26/16 08:59 20 MEQ Impression 50 year old male s/p confusion and MS change- getting back to baseline Plan 1. MRI with and without brain once able to tolerate patient is refusing and will be reevaluate for the need of MRI in our clinic as out patient. 2. PT/OT for discharge needs 3. further input from family would be helpful 4. lithium level 0.4 on admission 5. wide spectrum antibiotics if patient has a meningitis is covering suspected cause-can be d/c'd once CSF culture final resulted at this time negative for organisms 6. would verify psychiatric medication prior to increasing aka: Seroquel dosing follow up in our office in 2-3 weeks post hospital discharge. 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
--- NOTE | 2016-03-26 18:55 | Progress Note ---
Medicine Progress Note Date & Time of Visit: Mar 26, 2016 at 18:51. Subjective Patient seen and examined. States that he still feels a little weak. However, ambulating hallways. Objective Last 8 Hrs Date Time Temp Pulse Resp B/P Pulse Ox O2 Delivery O2 Flow Rate FiO2 03/26/16 16:00 95 Room Air 03/26/16 14:51 36.5 66 16 159/88 95 Room Air 03/26/16 12:00 98 Room Air 03/26/16 11:24 36.5 61 18 165/90 98 Room Air Physical Exam: General-awake; alert; NAD Eyes-EOMI; no scleral icterus Neck-no stridor; trachea midline Lungs-CTA bilaterally; no wheezes/crackles Heart-RRR; no m/r/g Abdomen-soft; NTND; nBS Extremities-no deformity; no c/c/e Neuro-oriented x3; appropriate conversation; no gross focal deficits Laboratory Results: Last 24 Hours Test 03/26/16 07:15 White Blood Count 5.18 K/uL Red Blood Count 4.39 M/uL Hemoglobin 12.9 g/dL Hematocrit 37.7 % Mean Corpuscular Volume 85.9 fL Mean Corpuscular Hemoglobin 29.4 pg Mean Corpuscular Hemoglobin Concent 34.2 g/dl RDW Standard Deviation 47.5 fL RDW Coefficient of Variation 15.4 % Platelet Count 186 K/uL Mean Platelet Volume 10.1 fL Sodium Level 142 mmol/L Potassium Level 3.5 mmol/L Chloride Level 106 mmol/L Carbon Dioxide Level 26 mmol/L Anion Gap 10.0 mmol/L Blood Urea Nitrogen 11 mg/dl Creatinine 0.77 mg/dl Est Creatinine Clear Calc Drug Dose 133.5 ml/min Estimated GFR () 122.6 Estimated GFR (Non- 105.8 BUN/Creatinine Ratio 14.8 Random Glucose 102 mg/dl Calcium Level 8.5 mg/dl Magnesium Level 2.4 mg/dl Assessment & Plan Suspected encephalopathy due to medications Neurology consulted Psychiatry consulted CT head x2: no acute pathology Toxicology screen negative TSH, Vit B12, Folic acid and ammonia level are WNL RPR negative, Influenza negative Patient only agreeable to open MRI. Neurology will re-evaluate need as an outpatient Lumbar puncture studies negative Discontinue ceftriaxone, vancomycin, acyclovir No growth on Blood cultures or CSF culture Initial EEG was moderately diffusely abnormal in a highly nonspecific fashion. Repeat EEG was normal with resolution of previous findings. H/O Bipolar disorder Psychiatry consulted Continue lithium, paroxetine Right lower lung nodule CT showed nonspecific 11 mm right lower lobe nodule Needs repeat CT chest in 3 months Hypokalemia Replace potassium Resolved Abdominal pain CT abdomen showed no evidence of bowel obstruction; no evidence of free air Resolved H/O PE s/p IVC filter H/O esophageal perforation Speech therapy consulted Video swallow was normal DVT prophylaxis Heparin SQ Consultants: Psychiatry Neurology Procedures: CT Head x2 No acute intracranial findings CT a/p 1. No evidence of bowel obstruction. No evidence of free air 2. Interval decrease in the size of the anterior abdominal wall fluid collection 3. No renal, ureteral, or bladder calculi identified 4. Perivesical stranding. Clinical correlation in regards to a cystitis is recommended 5. Diverticulosis. No evidence of acute diverticulitis. No evidence of acute appendicitis 6. Mild bowel wall thickening involving the descending colon versus a nondistended segment 7. Nonspecific 11 mm right lower lobe nodule. Close follow-up is recommended. Video fluoroscopic swallow study 1. No aspiration identified. EEG This EEG is moderately diffusely abnormal in a highly nonspecific fashion. The abnormalities could even correlate with any one of a number of underlying toxic or metabolic processes, could even reflect an underlying infectious process depending on the clinical history and exam. Current Inpatient Medications: Current Inpatient Medications Medications (Trade) Dose Ordered Sig/Shemar Route Start Time Stop Time Status Last Admin Dose Admin Heparin Sodium (Porcine) (Heparin Sq 5000 Unit/0.5ml) 5,000 unit Q8 SQ 03/23/16 06:00 04/22/16 05:59 Future Hold Acetaminophen (Tylenol Tab) 650 mg Q4H PRN PO 03/22/16 21:45 04/21/16 21:44 03/26/16 09:02 650 MG Ondansetron HCl (Zofran Inj) 4 mg Q6H PRN IV 03/22/16 21:45 04/21/16 21:44 03/23/16 19:31 4 MG [place] Carbonate (Anacoco Carbonate Tab) 300 mg HS PO 03/24/16 21:00 04/23/16 20:59 03/25/16 20:13 300 MG Paroxetine HCl (pAXil TAB) 20 mg QAM PO 03/25/16 09:00 04/24/16 08:59 03/26/16 08:59 20 MG Potassium Chloride (Klor-Con Tab) 20 meq BID PO 03/25/16 11:15 04/24/16 11:14 03/26/16 08:59 20 MEQ
[2016-03-26] MEDS: LITHIUM CARBONATE 300 MG TAB PO SCH (21:10)
[2016-03-27 00:19] VITALS: BP 153/79; PULSE 91; TEMP 36.4; O2SAT 96
[2016-03-27] MEDS ORDERED: VANCOMYCIN TROUGH SCH (05:30)
[2016-03-27 07:49] VITALS: BP 115/70; PULSE 59; TEMP 37.2; O2SAT 98
[2016-03-27] MEDS: PAROXETINE 20 MG TAB PO SCH (07:49)
[2016-03-27] MEDS: POTASSIUM CHLORIDE 20 MEQ TABCR PO SCH (07:50)
--- NOTE | 2016-03-27 11:05 | Discharge Instructions ---
Discharge Instructions Admission Reason for Admission: Confusion Discharge Discharge Diagnosis / Problem: Confusion Discharge Goals Goal(s): Improve function Activity Recommendations Activity Limitations: resume your previous activity . Instructions / Follow-Up Instructions / Follow-Up Please follow up with Psychiatry Dr. Mclaughlin on March 31 at 1:45pm. Please follow up with Family Medicine Dr. Marques on April 02 at 10:50am. Please do not take Seroquel or Lyrica until otherwise instructed to do so by Dr. Mclaughlin. Current Hospital Diet Patient's current hospital diet: AHA Diet (Heart Healthy) Discharge Diet Recommended Diet: Regular Diet Pending Studies Studies pending at discharge: no Medical Emergencies . Who to Call and When: Medical Emergencies: If at any time you feel your situation is an emergency, please call 911 immediately. . Non-Emergent Contact Non-Emergency issues call your: Primary Care Provider, Specialist ( Psychiatrist ) . . "Provider Documentation" section prepared by Piedad Brandon. VTE Core Measure Inpt VTE Proph given/why not?: Unfractionated heparin SQ
[2016-03-27 12:09] VITALS: BP 115/70; PULSE 59; TEMP 37.2; O2SAT 98
[2016-03-27 15:26] LABS: HSV TYPE 1 DNA Not Detected (Not Detected); HSV TYPE 1&2 DNA SOURCE CSF; HSV TYPE 2 DNA Not Detected (Not Detected)
--- NOTE | 2016-03-27 21:09 | Discharge Summary ---
Discharge Summary Admission Date: Mar 22, 2016 at 21:37 Discharge Date: Mar 27, 2016 Discharge Disposition: Home Principal Diagnosis: Altered mental status Procedures: CT Head x2 No acute intracranial findings CT a/p 1. No evidence of bowel obstruction. No evidence of free air 2. Interval decrease in the size of the anterior abdominal wall fluid collection 3. No renal, ureteral, or bladder calculi identified 4. Perivesical stranding. Clinical correlation in regards to a cystitis is recommended 5. Diverticulosis. No evidence of acute diverticulitis. No evidence of acute appendicitis 6. Mild bowel wall thickening involving the descending colon versus a nondistended segment 7. Nonspecific 11 mm right lower lobe nodule. Close follow-up is recommended. Video fluoroscopic swallow study 1. No aspiration identified. EEG This EEG is moderately diffusely abnormal in a highly nonspecific fashion. The abnormalities could even correlate with any one of a number of underlying toxic or metabolic processes, could even reflect an underlying infectious process depending on the clinical history and exam. Consultations: Psychiatry Neurology Pending Studies/Follow-Up: Repeat CT chest in 3 months to follow up lung nodule Medication Reconciliation Continued Medications: Paxt[place] Carbonate (Paxtonia Carbonate) 300 Mg Cap 300 MG PO BID, #60 Omeprazole (Prilosec) 40 Mg Capcr 40 MG PO DAILY, CAP Paroxetine (Paroxetine HCl) 30 Mg Tab 30 MG PO DAILY, #30 Discontinued Medications: Pregabalin (Lyrica) 150 Mg Cap 150 MG PO BID, #60 Pregabalin (Lyrica) 75 Mg Cap 75 MG PO BID, CAP Quetiapine Fumarate (Seroquel) 100 Mg Tab 200 MG PO DAILY, TAB Quetiapine Fumarate (Seroquel) 300 Mg Tab 300 MG PO HS, TAB Admission Information HPI (per Admitting provider): Patient is a 50 yr old male with PMH of Orthostatic hypotension, H/O PE S/P IVC filter, H/O esophageal perforation, H/O chronic pain/post thoracotomy syndrome, depression, remote history of alcohol/tobacco/drug abuse presents with altered mental status. Patient is not able to provide any history as he is AMS, most of history is obtained from hospital records. According ER physician and EMS, patient lives at [facility] and was found wandering in the [facility] about 2 miles away. He was found by witnesses that he was walking into the road and interrupting oncoming traffic. No other relevant history could be obtained. He is on multiple psychiatric medications and had h/o non compliance. He was awake , confused while in ED and received fluids and a dose of Narcan en route with no improvement. Patient was given ativan while in ED and currently he is very drowsy and difficult to awake. CT head, CXR showed no acute pathology. Had mild leukocytosis on labs, otherwise negative including ABG and Toxicology screen. No obvious source of trauma identified. Vitals stable. Physical Exam (per Admitting): General Appearance: WD/WN, no apparent distress, + pertinent finding (Drowsy , difficult to awake) Head: normocephalic, atraumatic Eyes: normal inspection, EOMI, sclerae normal ENT: normal ENT inspection Neck: supple, no JVD, trachea midline Respiratory/Chest: lungs clear, normal breath sounds, no respiratory distress Cardiovascular: regular rate, rhythm, no edema, no JVD, no murmur Abdomen/GI: normal bowel sounds, soft, no organomegaly Extremities/Musculoskelatal: normal inspection, no pedal edema, pelvis stable Neurologic/Psych: + pertinent finding (Drowsy, difficult to awake, complete neuro exam could not be performed secondary to AMS. moves extremities) Skin: normal color, no rash, + pertinent finding (Multiple scars on abdomen and surgical scar on neck) Lymphatic: no adenopathy Hospital Course Patient was admitted with altered mental status, with suspected encephalopathy due to medications. Neurology and Psychiatry were consulted. CT head x2 was negative for acute pathology. Toxicology screen was negative. TSH, Vit B12, Folic acid and ammonia levels were normal. RPR and influenza were negative. Patient refused MRI due to severe claustrophobia. Patient was initially started on ceftriaxone, vancomycin and acyclovir for possible meningitis. Lumbar puncture studies were negative and therefore antibiotics/antivirals were discontinued. Initial EEG during delirium was moderately diffusely abnormal in a highly nonspecific fashion. Repeat EEG upon resolution of delirium was normal with resolution of previous findings. Psychiatry recommended discontinuing Seroquel and Lyrica until outpatient follow up with patient's psychiatrist. Patient was continued on Paxtonia and paroxetine. Incidentally, CT chest on admission showed a non-specific 11mm RLL nodule. Patient will need a repeat CT chest in 3 months for follow up. Patient had complained of nonspecific abdominal pain on admission. CT abdomen showed no evidence of bowel obstruction; no evidence of free air. This resolved and patient tolerated diet. Patient was deemed stable for discharge with return to baseline mental status. Patient will follow up with Family Medicine, Psychiatry and Neurology. Please schedule 2-3 week Neurology follow up at PCP appointment. PE on discharge: General- awake; alert; NAD Eyes- dilated but equally round and reactive to light Neck- no stridor; trachea midline Lungs- CTA bilaterally; no wheezes/crackles Heart- RRR; no m/r/g Abdomen- soft; NTND; nBS Back- no gross abnormalities Extremities- no c/c/e; no deformity Neuro- no gross focal deficits Skin- no appreciable rash or bruise . Total time spent on discharge = This includes examination of the patient, discharge planning, medication reconciliation, and communication with other providers. Discharge Instructions Discharge Instructions Admission Reason for Admission: Confusion Discharge Discharge Diagnosis / Problem: Confusion Discharge Goals Goal(s): Improve function Activity Recommendations Activity Limitations: resume your previous activity . Instructions / Follow-Up Instructions / Follow-Up Please follow up with Psychiatry Dr. Mclaughlin on March 31 at 1:45pm. Please follow up with Family Medicine Dr. Marques on April 02 at 10:50am. Please do not take Seroquel or Lyrica until otherwise instructed to do so by Dr. Mclaughlin. Current Hospital Diet Patient's current hospital diet: AHA Diet (Heart Healthy) Discharge Diet Recommended Diet: Regular Diet Pending Studies Studies pending at discharge: no Medical Emergencies . Who to Call and When: Medical Emergencies: If at any time you feel your situation is an emergency, please call 911 immediately. . Non-Emergent Contact Non-Emergency issues call your: Primary Care Provider, Specialist ( Psychiatrist ) . . "Provider Documentation" section prepared by Piedad Brandon. VTE Core Measure Inpt VTE Proph given/why not?: Unfractionated heparin SQ Additional Copies To Henrique Marques M.D. Komarneni, Sreedevi M.D.
== END 2016-03-27 12:25 | disposition home or self-care (01) | DRG 91 ==
LOC: ENRESERVTM → ENRESERVDT → EDBD 17:31 → C.ED 17:33 → C.MED 21:37 → C.MS4W 03-26 19:05
PROVIDERS: ADMIT Internal Medicine; ATTEND Internal Medicine
PROC: 009U3ZX Drainage of Spinal Canal, Percutaneous Approach, Diagnostic (ICD-10-PCS; principal; 2016-03-25)
DX: G92 Toxic encephalopathy (principal); G04.90 Encephalitis and encephalomyelitis, unspecified; E87.0 Hyperosmolality and hypernatremia; T50.905A Adverse effect of unspecified drugs, medicaments and biological substances, initial encounter; K21.9 Gastro-esophageal reflux disease without esophagitis; R41.82 Altered mental status, unspecified; E87.6 Hypokalemia; F31.9 Bipolar disorder, unspecified; F20.9 Schizophrenia, unspecified; R91.1 Solitary pulmonary nodule; G89.22 Chronic post-thoracotomy pain; D72.829 Elevated white blood cell count, unspecified; Z86.711 Personal history of pulmonary embolism; Z86.79 Personal history of other diseases of the circulatory system; Z95.828 Presence of other vascular implants and grafts; Z87.19 Personal history of other diseases of the digestive system; Z87.891 Personal history of nicotine dependence; Z86.59 Personal history of other mental and behavioral disorders; Z86.2 Personal history of diseases of the blood and blood-forming organs and certain disorders involving the immune mechanism; Z79.899 Other long term (current) drug therapy

== ENCOUNTER 2016-05-16 11:18 | Inpatient (IN) | payer OTHER ==
[~2016-05-16] VITALS: Ht 182.9 cm; Wt 100.8 kg
[~2016-05-16 11:18] MED LIST changes: -BUPR-79 PO; -BUSP-8 PO; -LORA-741 PO; +LTHSR/300 PO; +OMEP40CA PO; -OXYC-57 PO; -PARO1TAB29 PO; +PARO30TA4 PO; -PREG1CAP28 PO; -QUET400T PO
[2016-05-16] MEDS ORDERED: SRQ/200 PO (11:33)
[2016-05-16] MEDS ORDERED: QUET1TAB10 PO (11:33)
[2016-05-16] MEDS ORDERED: PARO1TAB29 PO (11:33)
[2016-05-16] MEDS ORDERED: LITH150C6 PO (11:33)
[2016-05-16] MEDS ORDERED: KETOROLAC TROMETHAMINE 30 MG/ML VIAL IV STA (12:18)
[2016-05-16] MEDS ORDERED: SODIUM CHLORIDE 0.9% 1000ML 1,000 ML IV STA ×2 (12:18→13:09)
[2016-05-16 12:51] LABS: HEMATOCRIT 35.8 % (42-52); MEAN CELL VOLUME 82.1 fL (80-100); MEAN CORPUSCULAR HEMOGLOBIN 28.4 pg (25-34); MEAN CORPUSCULAR HGB CONC 34.6 g/dl (32-36); MEAN PLATELET VOLUME 10.1 fL (7.4-10.4); PLATELET COUNT 354 K/uL (130-400); RED BLOOD COUNT 4.36 M/uL (4.7-6.1); WHITE BLOOD COUNT 21.22 K/uL (4.8-10.8)
--- NOTE | 2016-05-16 12:56 | DIAGNOSTIC IMAGING REPORT ---
SINGLE VIEW CHEST CLINICAL HISTORY: Cough. Fever FINDINGS: An AP, portable, upright chest radiograph is compared to study dated 03/22/2016 and correlated with chest CT dated 01/06/2014. The examination is degraded by portable technique and patient rotation. The heart is normal for projection. Surgical clips project over the mediastinum. The pulmonary vasculature is noncongested. Mild emphysematous change is noted and there is chronic interstitial thickening/nodularity. There is dense airspace consolidation throughout the left lung, most confluence in the mid to upper lung zones. The right lung is grossly clear. A trace left pleural effusion is suspected. Apical scarring is observed. No pneumothorax is seen. The skeletal structures are osteopenic. The bony thorax is grossly intact. Fusion hardware is noted in the lower cervical spine. IMPRESSION: 1. Dense airspace consolidation is seen throughout the left lung, most confluence in the left mid to upper lung. This is new from previous and when correlated with the clinical history of cough and fever this likely represents pneumonia. Radiographic follow-up to resolution is recommended. 2. A small left pleural effusion is identified. 3. Emphysema. The right lung is grossly clear. Electronically signed by: Umesh Hauser M.D. 05/16/2016 12:55 PM Dictated Date/Time: 05/16/2016 12:53 PM
[2016-05-16 13:07] LABS: BLOOD UREA NITROGEN 10 mg/dl (7-18); BUN/CREATININE RATIO 10.6 (10-20); CARBON DIOXIDE 23 mmol/L (21-32); CHLORIDE 96 mmol/L (98-107); CREATININE 0.95 mg/dl (0.60-1.40); GLUCOSE 149 mg/dl (70-99); SODIUM 131 mmol/L (136-145)
[2016-05-16 13:08] LABS: INR 1.2 (0.9-1.1)
[2016-05-16] MEDS ORDERED: PIPERACILLIN/TAZOBACTAM 4.5 GM/100ML D5W IV STA (13:09)
[2016-05-16] MEDS ORDERED: LEVAQUIN 750MG / 150ML D5W IV ONE (13:15)
[2016-05-16 13:26] LABS: BASO % 0.3 %; BASO ABS # 0.06 K/uL (0-0.2); COMPLETE YES; LYMPH % 5.8 %; LYMPH ABS # 1.24 K/uL (1.2-3.4); MONO % 7.5 %; NEUT % 85.4 %
[2016-05-16] MEDS ORDERED: POTASSIUM CHLORIDE 10 MEQ TABCR PO STA (13:33)
[2016-05-16] MEDS: SODIUM CHLORIDE 0.9% 1000ML 1,000 ML IV SCH (14:08)
[2016-05-16] MEDS ORDERED: ONDANSETRON INJ 2 MG/ML 2 ML VIAL IV PRN (14:15)
[2016-05-16] MEDS ORDERED: LEVOFLOXACIN CONSULT ACTIVE SCH (14:22)
[2016-05-16] MEDS ORDERED: PIPERACILL/TAZOBAC CONSULT ACTIVE SCH (14:30)
[2016-05-16] MEDS ORDERED: PARO30TA PO (14:35)
[2016-05-16] MEDS ORDERED: LITH1TAB16 PO (14:36)
[2016-05-16] MEDS ORDERED: CLON0.5T3 PO (14:36)
[2016-05-16] MEDS ORDERED: PREG150C PO (14:36)
[2016-05-16 15:48] VITALS: BP 118/65; PULSE 85; TEMP 36.7; O2SAT 96
[2016-05-16] MEDS: HYDROCODONE/HOMATROPINE SYRUP 5MG/1.5MG 5ML UDP PO PRN (16:32)
[2016-05-16] MEDS: ACETAMINOPHEN 325 MG TAB PO PRN (16:34)
[2016-05-16 17:56] VITALS: BP 118/65; PULSE 90; TEMP 36.7; O2SAT 95; BMI 27.4
--- NOTE | 2016-05-16 18:34 | EMERGENCY ROOM VISIT NOTE ---
History Report prepared by Theo: Temitope Summers Under the Supervision of: Dr. Evgeny Fox D.O. First contact with patient: 11:57 Chief Complaint: RESPIRATORY PROBLEMS Stated Complaint: RIB PAIN Nursing Triage Summary: Productive cough with left sided chest pain radiating to back. Previous hx of pneumo eight years ago on left side. History of Present Illness The patient is a 50 year old male who presents to the Emergency Room with complaints of a persistent cough for the past 6 days. He reports having a productive cough which produces a thick sputum with blood. He also has been experiencing chest pain when he coughs and takes a deep breath. He also experiences a sharp pain on his back near his shoulder blade. He has had a fever , loss of appetite, and wheezing this past week. He has a history of blood clots. He has a filter in place and is not on any blood thinners. He denies any abdominal pain, vomiting, nausea, urinary symptoms, or diarrhea. He denies any sick contacts. He did not visit his PCP and has not been on antibiotics recently. Source of History: patient Onset: 6 days ago Position: other (global) Quality: other (cough) Timing: other (persistent) Associated Symptoms: + chest pain, + fevers, No abdominal pain, No diarrhea , No nausea, No urinary symptoms, No vomiting Note: Pt reports loss of appetite and wheezing. Review of Systems See HPI for pertinent positives & negatives. A total of 10 systems reviewed and were otherwise negative. Past Medical & Surgical Medical Problems: (1) Solis's esophagus (2) Bipolar 1 disorder (3) Esophageal perforation (4) GERD (gastroesophageal reflux disease) (5) GI (gastrointestinal bleed) (6) History of narcotic addiction (7) Hx of esophageal ulcer (8) Lumbar disc disease (9) Presence of IVC filter (10) Pulmonary embolism (11) Pulmonary nodule Surgical Problems: (1) H/O esophagectomy (2) H/O esophagogastroduodenoscopy (3) H/O hernia repair (4) H/O jejunostomy (5) History of esophageal surgery (6) S/P appendectomy (7) S/P bronchoscopy (8) S/p claviculectomy (9) S/p esophagostomy (10) S/P gastrostomy (11) S/p hemilaminectomy (12) S/P lumbar fusion Family History FH: cancer FH: diabetes mellitus FH: gallbladder disease FH: heart disease FATHER FH: hypertension Social History Smoking Status: Never Smoker Alcohol Use: none Drug Use: none Marital Status: single Housing Status: lives with family Occupation Status: unemployed Current/Historical Medications Scheduled Clonazepam (Klonopin), 1 TAB PO BID [place] Carbonate ([place] Carbonate), 1 TAB PO BID Paroxetine Hcl (Paxil), 1 TAB PO DAILY Pregabalin (Lyrica), 1 CAP PO BID Quetiapine Fumarate (Seroquel), 600 MG PO HS Quetiapine Fumarate (Seroquel), 200 MG PO DAILY Allergies Coded Allergies: Tramadol (Verified Allergy, Unknown, seizures, 05/16/16) Physical Exam Vital Signs Date Time Temp Pulse Resp B/P Pulse Ox O2 Delivery O2 Flow Rate FiO2 05/16/16 13:57 91 20 98/65 95 Room Air 05/16/16 12:32 104 23 97/78 91 Room Air 05/16/16 11:47 106 05/16/16 11:20 36.6 115 23 100/82 95 Room Air 05/16/16 11:20 95 Room Air Physical Exam GENERAL: Sitting up in bed, comfortable, non-productive cough, no distress EYE EXAM: normal conjunctiva OROPHARYNX: no exudate, no erythema, lips, buccal mucosa, and tongue normal and mucous membranes are moist NECK: supple, no nuchal rigidity, no adenopathy, non-tender LUNGS: Normal chest wall mechanics. Rhonchi present in left mid lung. HEART: no murmurs, S1 normal and S2 normal ABDOMEN: abdomen soft, non-tender, normo-active bowel sounds, no masses, no rebound or guarding. Multiple old abdominal incisions. BACK: Back is symmetrical on inspection and there is no deformity, no midline tenderness, no CVA tenderness. SKIN: no rashes and no bruising UPPER EXTREMITIES: upper extremities are grossly normal. LOWER EXTREMITIES: No pitting edema. Calves equal bilaterally. NEURO EXAM: No drift. Finger to nose intact. Gross sensation intact. Medical Decision & Procedures ER Provider Diagnostic Interpretation: Xray results per the radiologist and my interpretation. SINGLE VIEW CHEST CLINICAL HISTORY: Cough. Fever FINDINGS: An AP, portable, upright chest radiograph is compared to study dated 03/22/2016 and correlated with chest CT dated 01/06/2014. The examination is degraded by portable technique and patient rotation. The heart is normal for projection. Surgical clips project over the mediastinum. The pulmonary vasculature is noncongested. Mild emphysematous change is noted and there is chronic interstitial thickening/nodularity. There is dense airspace consolidation throughout the left lung, most confluence in the mid to upper lung zones. The right lung is grossly clear. A trace left pleural effusion is suspected. Apical scarring is observed. No pneumothorax is seen. The skeletal structures are osteopenic. The bony thorax is grossly intact. Fusion hardware is noted in the lower cervical spine. IMPRESSION: 1. Dense airspace consolidation is seen throughout the left lung, most confluence in the left mid to upper lung. This is new from previous and when correlated with the clinical history of cough and fever this likely represents pneumonia. Radiographic follow-up to resolution is recommended. 2. A small left pleural effusion is identified. 3. Emphysema. The right lung is grossly clear. Electronically signed by: Umesh Hauser M.D. 05/16/2016 12:55 PM Laboratory Results 05/16/16 12:40 Red Blood Count 4.36, Mean Corpuscular Volume 82.1, Mean Corpuscular Hemoglobin 28.4, Mean Corpuscular Hemoglobin Concent 34.6, Mean Platelet Volume 10.1, Neutrophils (%) (Auto) 85.4, Lymphocytes (%) (Auto) 5.8, Monocytes (%) (Auto) 7.5, Eosinophils (%) (Auto) 0.0, Basophils (%) (Auto) 0.3, Neutrophils # (Auto) 18.11, Lymphocytes # (Auto) 1.24, Monocytes # (Auto) 1.60, Eosinophils # (Auto) 0.00, Basophils # (Auto) 0.06 05/16/16 12:40 Test 05/16/16 12:40 05/16/16 12:44 White Blood Count 21.22 K/uL (4.8-10.8) Red Blood Count 4.36 M/uL (4.7-6.1) Hemoglobin 12.4 g/dL (14.0-18.0) Hematocrit 35.8 % (42-52) Mean Corpuscular Volume 82.1 fL (80-100) Mean Corpuscular Hemoglobin 28.4 pg (25-34) Mean Corpuscular Hemoglobin Concent 34.6 g/dl (32-36) Platelet Count 354 K/uL (130-400) Mean Platelet Volume 10.1 fL (7.4-10.4) Neutrophils (%) (Auto) 85.4 % Lymphocytes (%) (Auto) 5.8 % Monocytes (%) (Auto) 7.5 % Eosinophils (%) (Auto) 0.0 % Basophils (%) (Auto) 0.3 % Neutrophils # (Auto) 18.11 K/uL (1.4-6.5) Lymphocytes # (Auto) 1.24 K/uL (1.2-3.4) Monocytes # (Auto) 1.60 K/uL (0.11-0.59) Eosinophils # (Auto) 0.00 K/uL (0-0.5) Basophils # (Auto) 0.06 K/uL (0-0.2) RDW Standard Deviation 48.4 fL (36.4-46.3) RDW Coefficient of Variation 16.0 % (11.5-14.5) Immature Granulocyte % (Auto) 1.0 % Immature Granulocyte # (Auto) 0.21 K/uL (0.00-0.02) Prothrombin Time 13.0 SECONDS (9.0-12.0) Prothromb Time International Ratio 1.2 (0.9-1.1) Anion Gap 12.0 mmol/L (3-11) Est Creatinine Clear Calc Drug Dose 102.1 ml/min Estimated GFR () 107.7 Estimated GFR (Non- 93.0 BUN/Creatinine Ratio 10.6 (10-20) Calcium Level 9.0 mg/dl (8.5-10.1) Magnesium Level 2.6 mg/dl (1.8-2.4) Troponin I < 0.015 ng/ml (0-0.045) [place] Level 0.2 mMOL/L (0.6-1.2) Influenza Type A Antigen Neg for Influ A (NEG) Influenza Type B Antigen Neg for Influ B (NEG) Laboratory results per my review. Medications Administered Medications (Trade) Dose Ordered Sig/Shemar Route Start Time Stop Time Status Last Admin Dose Admin Sodium Chloride (Nss 1000ml) 1,000 ml @ 999 mls/hr Q1H1M STAT IV 05/16/16 12:18 05/16/16 13:18 DC 05/16/16 12:33 999 MLS/HR Ketorolac Tromethamine (Toradol Inj) 30 mg NOW STAT IV 05/16/16 12:18 05/16/16 12:19 DC 05/16/16 12:33 30 MG Piperacillin Sod/ Tazobactam Sod (Zosyn Iv) 4.5 gm NOW STAT IV 05/16/16 13:09 05/16/16 13:10 DC 05/16/16 13:50 4.5 GM Levofloxacin 750 mg 750 mg NOW ONCE IV 05/16/16 13:15 05/16/16 13:16 DC 05/16/16 13:50 750 MG Sodium Chloride (Nss 1000ml) 1,000 ml @ 999 mls/hr Q1H1M STAT IV 05/16/16 13:09 05/16/16 14:09 DC 05/16/16 13:51 999 MLS/HR Potassium Chloride 40 meq 40 meq NOW STAT PO 05/16/16 13:33 05/16/16 13:34 DC 05/16/16 13:50 40 MEQ Sodium Chloride (Nss 1000ml) 1,000 ml @ 100 mls/hr Q10H IV 05/16/16 14:08 06/15/16 14:07 05/16/16 14:08 100 MLS/HR Acetaminophen (Tylenol Tab) 650 mg Q4H PRN PO 05/16/16 14:15 06/15/16 14:14 05/16/16 16:34 650 MG ECG Indication: SOB/dyspnea Rate (beats per minute): 112 Rhythm: sinus tachycardia Findings: nonspecific-ST abn (Inferior), Q waves (Inferior), other (Normal axis ) Comparison ECG Date: 26-Sep-2015 Change: no significant change ED Course ED COURSE: Vital signs were reviewed and showed tachycardic rate. The patients medical record was reviewed The above diagnostic studies were performed and reviewed. ED treatments and interventions as stated above. 1210: The patient was evaluated in room A10. A complete history and physical examination was performed. 1218: Toradol Inj 30 mg IV, NSS 1000 ml @ 999 mls/hr IV. 1309: NSS 1000 ml @ 999 mls/hr IV, Zosyn Iv 4.5 gm IV. 1312: I discussed the patient's case with RUDDY Elizabeth. The patient will be evaluated for further management. 1315: Levofloxacin 750 mg IV. 1316: Upon reevaluation, the patient is feeling fine.I discussed my findings with the patient and he understands and agrees with the treatment plan. Based on the patients age, coexisting illnesses, exam and lab findings the decision to treat as an inpatient was made. The patient remained stable while under my care. The patient will be evaluated for further management. 1333: Potassium Chloride 40 meq PO. Medical Decision Differential diagnoses includes but is not limited to pneumonia, bronchitis, COPD/Asthma exacerbation, pneumothorax, pulmonary embolism, congestive heart failure, acute coronary syndrome Patient is a 50-year-old male who presents the ER for cough associated with shortness breath which is been present since last Thursday. He complains of left-sided pleuritic chest pain. He does have rhonchi on the left sided chest. Chest x-ray supports a pneumonia. Labs were remarkable for a leukocytosis of 21,000, hypokalemia with a negative troponin. Heart rate was elevated in the low 100s. He did constantly hypotensive with systolic pressures in the 90s. He was given 2 L normal saline. He was given IV antibiotics as well. Patient was admitted to internal medicine with sepsis secondary to pneumonia with tachycardia, leukocytosis and lactic acidosis. Consults Time Called: 1306 Consulting Physician: RUDDY Elizabeth Returned Call: 1312 I discussed the patient's case with her. The patient will be evaluated for further management. Impression Primary Impression: Sepsis Additional Impressions: Pneumonia Hypokalemia Scribe Attestation The scribe's documentation has been prepared under my direction and personally reviewed by me in its entirety. I confirm that the note above accurately reflects all work, treatment, procedures, and medical decision making performed by me. Departure Information Dispostion Being Evaluated By Hospitalist Henrique Mendez M.D. (PCP) Patient Instructions My [facility] Problem Qualifiers Primary Impression: Sepsis Sepsis type: sepsis due to unspecified organism Qualified Codes: A41.9 - Sepsis, unspecified organism Additional Impressions: Pneumonia Pneumonia type: due to unspecified organism Laterality: left Lung location : unspecified part of lung Qualified Codes: J18.9 - Pneumonia, unspecified organism
[2016-05-16] MEDS: KETOROLAC TROMETHAMINE 30 MG/ML VIAL IV PRN (19:47)
--- NOTE | 2016-05-16 19:50 | History and Physical ---
History & Physical Date & Time of Service: May 16, 2016 at 18:35 Chief Complaint: Cough Primary Care Physician: Henrique Marques M.D. History of Present Illness 50 year old male who presents to the ER with a cough. Patient reports he started getting sick about one week ago. He reports a productive cough for green /blood tinged sputum. He has felt feverish but did not take his temperature. He reports chills. He also has had worsening shortness of breath on exertion. He reports increasing left sided rib pain with coughing and left shoulder blade pain. He denies chest pain. No lightheadedness, dizziness, diaphoresis, or syncopal events. He reports a few episodes of diarrhea that have since resolved. No abdominal pain, nausea, or vomiting. He denies urinary symptoms. In the ER, patient's CXR is showing pneumonia in the left lung. He is tachycardic, WBC 21K, lactate is 2.4. K+ 3.0. BP is stable. He was given IVF, Zosyn, Levaquin, potassium, and Toradol. Past Medical/Surgical History Medical Problems: (1) Solis's esophagus Status: Chronic (2) Bipolar 1 disorder Status: Chronic (3) Esophageal perforation Status: Resolved (4) GERD (gastroesophageal reflux disease) Status: Chronic (5) GI (gastrointestinal bleed) Status: Resolved (6) History of narcotic addiction Status: Chronic (7) Hx of esophageal ulcer Status: Chronic (8) Lumbar disc disease Status: Chronic (9) Presence of IVC filter Status: Chronic (10) Pulmonary embolism Status: Chronic (11) Pulmonary nodule Status: Chronic Surgical Problems: (1) H/O esophagectomy Status: Chronic (2) H/O esophagogastroduodenoscopy Status: Chronic (3) H/O hernia repair Status: Chronic (4) H/O jejunostomy Status: Chronic (5) History of esophageal surgery Permanent Comment: reconstruction for previous esophagectomy Status: Resolved (6) S/P appendectomy Status: Chronic (7) S/P bronchoscopy Status: Chronic (8) S/p claviculectomy Status: Chronic (9) S/p esophagostomy Status: Chronic (10) S/P gastrostomy Status: Chronic (11) S/p hemilaminectomy Permanent Comment: cervical Status: Chronic (12) S/P lumbar fusion Status: Chronic Family History FH: heart disease FATHER ( from [place] at age 63) Social History Smoking Status: Never Smoker Alcohol Use: none Immunizations History of Tetanus Vaccine?: Yes Tetanus Immunization Date: Oct 22, 2014 Multi-Drug Resistant Organisms History of MDRO: No Allergies Coded Allergies: Tramadol (Verified Allergy, Unknown, seizures, 05/16/16) Home Medications Scheduled Clonazepam (Klonopin), 1 TAB PO BID [place] Carbonate ([place] Carbonate), 1 TAB PO BID Paroxetine Hcl (Paxil), 1 TAB PO DAILY Pregabalin (Lyrica), 1 CAP PO BID Quetiapine Fumarate (Seroquel), 600 MG PO HS Quetiapine Fumarate (Seroquel), 200 MG PO DAILY Review of Systems 10 point review of systems was completed with the pertinent positives and negatives noted per the HPI Physical Exam Vital Signs Date Time Temp Pulse Resp B/P Pulse Ox O2 Delivery O2 Flow Rate FiO2 05/16/16 17:56 36.7 90 18 118/65 95 Room Air 05/16/16 15:48 36.7 85 20 118/65 96 Room Air 05/16/16 15:26 88 20 96/65 92 05/16/16 13:57 91 20 98/65 95 Room Air 05/16/16 12:32 104 23 97/78 91 Room Air 05/16/16 11:47 106 05/16/16 11:20 36.6 115 23 100/82 95 Room Air 05/16/16 11:20 95 Room Air General Appearance: no apparent distress Head: normocephalic Eyes: normal inspection ENT: hearing grossly normal Neck: supple, no JVD Respiratory/Chest: no respiratory distress, + crackles (left lung carbajal), + rhonchi (left lung carbajal) Cardiovascular: no edema, normal peripheral pulses, + tachycardia (HE 90s-100s , regular rhythm) Abdomen/GI: normal bowel sounds, non tender, soft Extremities/Musculoskelatal: normal inspection, no calf tenderness Neurologic/Psych: no motor/sensory deficits, alert, normal mood/affect, oriented x 3 Skin: normal color, warm/dry Diagnostics Laboratory Results Results Past 24 Hours Test 05/16/16 12:40 05/16/16 12:44 05/16/16 15:00 Range/Units White Blood Count 21.22 4.8-10.8 K/uL Red Blood Count 4.36 4.7-6.1 M/uL Hemoglobin 12.4 14.0-18.0 g/dL Hematocrit 35.8 42-52 % Mean Corpuscular Volume 82.1 80-100 fL Mean Corpuscular Hemoglobin 28.4 25-34 pg Mean Corpuscular Hemoglobin Concent 34.6 32-36 g/dl Platelet Count 354 130-400 K/uL Mean Platelet Volume 10.1 7.4-10.4 fL Neutrophils (%) (Auto) 85.4 % Lymphocytes (%) (Auto) 5.8 % Monocytes (%) (Auto) 7.5 % Eosinophils (%) (Auto) 0.0 % Basophils (%) (Auto) 0.3 % Neutrophils # (Auto) 18.11 1.4-6.5 K/uL Lymphocytes # (Auto) 1.24 1.2-3.4 K/uL Monocytes # (Auto) 1.60 0.11-0.59 K/uL Eosinophils # (Auto) 0.00 0-0.5 K/uL Basophils # (Auto) 0.06 0-0.2 K/uL RDW Standard Deviation 48.4 36.4-46.3 fL RDW Coefficient of Variation 16.0 11.5-14.5 % Immature Granulocyte % (Auto) 1.0 % Immature Granulocyte # (Auto) 0.21 0.00-0.02 K/uL Prothrombin Time 13.0 9.0-12.0 SECONDS Prothromb Time International Ratio 1.2 0.9-1.1 Sodium Level 131 136-145 mmol/L Potassium Level 3.0 3.5-5.1 mmol/L Chloride Level 96 98-107 mmol/L Carbon Dioxide Level 23 21-32 mmol/L Anion Gap 12.0 3-11 mmol/L Blood Urea Nitrogen 10 7-18 mg/dl Creatinine 0.95 0.60-1.40 mg/dl Est Creatinine Clear Calc Drug Dose 102.1 ml/min Estimated GFR () 107.7 Estimated GFR (Non- 93.0 BUN/Creatinine Ratio 10.6 10-20 Random Glucose 149 70-99 mg/dl Calcium Level 9.0 8.5-10.1 mg/dl Magnesium Level 2.6 1.8-2.4 mg/dl Troponin I < 0.015 0-0.045 ng/ml [place] Level 0.2 0.6-1.2 mMOL/L Influenza Type A Antigen Neg for Influ A NEG Influenza Type B Antigen Neg for Influ B NEG Lactic Acid Level 2.4 0.4-2.0 mmol/L Microbiology Results 05/16/16 Blood Culture, Received Pending 05/16/16 Blood Culture, Received Pending 05/16/16 MRSA DNA Surveillance Screen, Sheri Batch Pending Diagnostic Radiology CXR IMPRESSION: 1. Dense airspace consolidation is seen throughout the left lung, most confluence in the left mid to upper lung. This is new from previous and when correlated with the clinical history of cough and fever this likely represents pneumonia. Radiographic follow-up to resolution is recommended. 2. A small left pleural effusion is identified. 3. Emphysema. The right lung is grossly clear. Impression Assessment and Plan SEVERE SEPSIS DUE TO PNEUMONIA - admit to tele - patient presenting with increasing productive cough and exertional shortness of breath x 1 week; found to have left sided pneumonia on CXR - on arrival - WBC 21K, tachycardic, lactic acid 2.4; BP noted to be stable - HR improving with IVF; continue with IVF and recheck lactic acid - s/p Zosyn and Levaquin in the ED; will continue with and check MRSA nasal swab and add Vanco if positive - blood and sputum cultures (note that blood cultures drawn after antibiotics were given) - nebs as needed - patient reports blood tinged sputum - likely due to pneumonia, will continue to monitor, hgb stable MOOD DISORDER - appears stable - continue home meds DVT PROPHYLAXIS - SCDs due to reports of blood tinged sputum DISPO - In my clinical judgment this beneficiary meets acute admission criteria, established by [facility], that includes being hospitalized through two midnights. I have seen, examined and discussed this patient with Jodi Morfin and I agree with the above note. Patient presents with cough and pleuritic chest pain. Vitals reviewed. PE: General- awake; alert; NAD Eyes- EOMI; no scleral icterus Neck- no stridor; trachea midline Lungs- left sided rubs and crackles Heart- RRR; no m/r/g Abdomen- soft; NTND; nBS Back- no gross abnormalities Extremities- no c/c/e; no deformity Neuro- no focal deficits Skin- no appreciable rash or bruise Labs, imaging and EKG reviewed. Sepsis: Source is pneumonia. Continue IVF's. Trend lactic acid. Continue Zosyn and Levofloxacin. Cultures pending. Pneumonia: Continue Zosyn and levofloxacin. Cultures pending. Agree with remainder of plan outlined above. Advanced Directives Existing Living Will: No Existing Power of Passenger Conductor: No VTE Prophylaxis VTE Risk Assessment Done? Y/N: Yes Risk Level: Moderate
[2016-05-16] MEDS ORDERED: ALBUT/IPRATROP 3MG/0.5MG NEB 3 ML VIAL INH PRN (20:00)
[2016-05-16] MEDS ORDERED: POTASSIUM CHLORIDE 20 MEQ TABCR PO ONE (20:00)
[2016-05-16 20:22] VITALS: BP 114/74; PULSE 83; TEMP 36.7; O2SAT 97
[2016-05-16] MEDS ORDERED: MoRPHine SULFATE 2 MG/ML CARP IV PRN (21:00)
[2016-05-16] MEDS: PREGABALIN 150 MG CAP PO SCH (21:13)
[2016-05-16] MEDS: CLONAZEPAM 0.5 MG TAB PO SCH (21:13)
[2016-05-16] MEDS: LITHIUM CARBONATE 300 MG TAB PO SCH (21:13)
[2016-05-16] MEDS: QUETIAPINE FUMARATE 200 MG TAB PO SCH (21:13)
[2016-05-16] MEDS: OXYCODONE/ACETAMINOPHEN 5-325 TAB PO PRN (21:15)
[2016-05-16] MEDS: PIPERACILL/TAZOBAC IV 3.375 GM in DEXTROSE 5% 100ML IV SCH (22:24)
[2016-05-16 23:09] VITALS: BP 95/53; PULSE 100; TEMP 36.5; O2SAT 92
[2016-05-17] VITALS (9 sets, daily range): BP systolic 88–129; BP diastolic 56–80; PULSE 84–128; TEMP 36.6–38.6; O2SAT 88–92
[2016-05-17] MEDS: HYDROCODONE/HOMATROPINE SYRUP 5MG/1.5MG 5ML UDP PO PRN (02:22)
[2016-05-17] MEDS: SODIUM CHLORIDE 0.9% 1000ML 1,000 ML IV SCH ×3 (03:00→19:54)
[2016-05-17] MEDS: OXYCODONE/ACETAMINOPHEN 5-325 TAB PO PRN ×2 (03:00→10:33)
[2016-05-17 06:10] LABS: HEMATOCRIT 32.3 % (42-52); MEAN CELL VOLUME 83.5 fL (80-100); MEAN CORPUSCULAR HEMOGLOBIN 27.6 pg (25-34); MEAN CORPUSCULAR HGB CONC 33.1 g/dl (32-36); MEAN PLATELET VOLUME 10.1 fL (7.4-10.4); PLATELET COUNT 307 K/uL (130-400); RED BLOOD COUNT 3.87 M/uL (4.7-6.1); WHITE BLOOD COUNT 12.66 K/uL (4.8-10.8)
[2016-05-17] MEDS: PIPERACILL/TAZOBAC IV 3.375 GM in DEXTROSE 5% 100ML IV SCH ×3 (06:21→22:00)
[2016-05-17 06:45] LABS: BUN/CREATININE RATIO 16.8 (10-20); CALCIUM 8.1 mg/dl (8.5-10.1); POTASSIUM 3.1 mmol/L (3.5-5.1)
[2016-05-17] MEDS: QUETIAPINE FUMARATE 200 MG TAB PO SCH ×2 (08:39→19:51)
[2016-05-17] MEDS: LITHIUM CARBONATE 300 MG TAB PO SCH ×2 (08:39→19:51)
[2016-05-17] MEDS: PAROXETINE 30 MG TAB PO SCH (08:39)
[2016-05-17] MEDS: CLONAZEPAM 0.5 MG TAB PO SCH ×2 (08:39→19:54)
[2016-05-17] MEDS: PREGABALIN 150 MG CAP PO SCH ×2 (08:39→19:54)
[2016-05-17] MEDS ORDERED: POTASSIUM CHLORIDE 20 MEQ TABCR PO ONE (09:30)
[2016-05-17] MEDS ORDERED: VANCOMYCIN CONSULT ACTIVE PRN (13:45)
[2016-05-17] MEDS ORDERED: VANCOMYCIN INJ 2,300 MG in SODIUM CHLORIDE 0.9% 500ML 500 ML IV ONE (14:00)
--- NOTE | 2016-05-17 14:04 | Pharmacy Progress Note ---
Pharmacy Antibiotic Consult Date of Service: May 17, 2016. Pharmacy Dosing Scope Pharmacy is consulted to initiate vancomycin IV dosing therapy, order appropriate labs and adjust drug dose/frequency. Subjective The patient is a 50 year old male admitted on May 16, 2016 at 14:19. Objective Height (Feet): 6 Height (Inches): 0.00 Weight (Kilograms): 91.500 Lab Results (24hrs): Laboratory Tests Test 05/17/16 05:21 BUN/Creatinine Ratio 16.8 Blood Urea Nitrogen 17 mg/dl Creatinine 1.00 mg/dl White Blood Count 12.66 K/uL Assessment & Plan Assessment * 50 yo M with PNA on Zosyn and levofloxacin since 05/16. Chest X-ray suggestive of PNA. Vancomycin added 05/17 for positive MRSA nasal swab, new- onset fever, and persistent tachycardia. * SCr at/near baseline for eCrCL ~ 97 mL/min with estimated vancomycin t 1/2 8 hr * Will dose at slightly more than the estimated t 1/2. * Initial dose 25 mg/kg then 15 mg/kg ongoing * Trough prior to 4th overall dose Plan * Vancomycin 2300 mg IV x1 then 1350 mg IV q10h * Trough 05/18 @ 1930 Pharmacy will continue to follow and will adjust dose/frequency as necessary. Thank you
[2016-05-17] MEDS: LEVOFLOXACIN 750MG / D5W IV SCH (14:28)
--- NOTE | 2016-05-17 14:42 | Progress Note ---
Medicine Progress Note Date & Time of Visit: May 17, 2016 at 14:33. Subjective seen sitting up in bed, alert, appears comfortable states he feels slightly better than yesterday denies active shortness of breath has productive cough, but no hemoptysis, chest pain denies abdominal pain, nausea/vomiting no weight loss, anorexia denies other symptoms Objective Last 8 Hrs Date Time Temp Pulse Resp B/P Pulse Ox O2 Delivery O2 Flow Rate FiO2 05/17/16 13:41 36.9 05/17/16 12:28 Nasal Cannula 2.0 05/17/16 11:46 37.8 121 20 102/59 91 Nasal Cannula 2.0 05/17/16 08:30 Room Air 05/17/16 07:21 36.7 128 20 129/80 92 Room Air Physical Exam: General- oriented x 3, not in distress, speaks in sentences with no effort Head- atraumatic Eyes- EOMI, anicteric ENT- oropharynx clear Neck- supple, no JVD, no adenopathy Lungs- (+) crackle bilaterally, no wheezes Heart- tachycardic rate, regular rhythm; no murmurs Abdomen- normal bowel sounds, soft, nontender Extremities- no pretibial edema, no calf tenderness; peripheral pulses intact Neuro- alert, oriented x 3; no gross focal deficits Skin- warm & dry Laboratory Results: Last 24 Hours Test 05/16/16 15:00 05/16/16 21:08 05/17/16 05:21 05/17/16 14:25 Lactic Acid Level 2.4 mmol/L 1.5 mmol/L White Blood Count 12.66 K/uL Red Blood Count 3.87 M/uL Hemoglobin 10.7 g/dL Hematocrit 32.3 % Mean Corpuscular Volume 83.5 fL Mean Corpuscular Hemoglobin 27.6 pg Mean Corpuscular Hemoglobin Concent 33.1 g/dl RDW Standard Deviation 50.2 fL RDW Coefficient of Variation 16.3 % Platelet Count 307 K/uL Mean Platelet Volume 10.1 fL Sodium Level 137 mmol/L Potassium Level 3.1 mmol/L Chloride Level 105 mmol/L Carbon Dioxide Level 26 mmol/L Anion Gap 6.0 mmol/L Blood Urea Nitrogen 17 mg/dl Creatinine 1.00 mg/dl Est Creatinine Clear Calc Drug Dose 97.0 ml/min Estimated GFR () 101.3 Estimated GFR (Non- 87.4 BUN/Creatinine Ratio 16.8 Random Glucose 137 mg/dl Calcium Level 8.1 mg/dl Test 05/17/16 14:28 Date/Time Source Procedure Growth Status 05/16/16 15:00 Blood Blood Culture Pending Received 05/16/16 14:55 Blood Blood Culture Pending Received 05/16/16 22:35 Nasal MRSA DNA Surveillance Screen - Final Specimen Positive for MRSA by DNA Probe Complete 05/17/16 06:35 Sputum Expectorated Sputum Gram Stain - Final Resulted 05/17/16 06:35 Sputum Expectorated Sputum Sputum Culture Pending Resulted Assessment & Plan 50 year old male with history of Bipolar Disorder, GERD, PE with IVC filter presenting with cough. SEVERE SEPSIS DUE TO PNEUMONIA - one low grade fever, WBC improving - blood and sputum cultures pending (+) Nasal MRSA - add Vanco continue Zosyn + Levaquin add Nebs continue IV fluids HEMOPTYSIS none today chest CT chest to r/o pulmonary mass SINUS TACHYCARDIA likely from underlying pneumonia dehydration? on IV fluids MOOD DISORDER - appears stable - continue home meds DVT PROPHYLAXIS - SCDs due to reports of hemoptysis DISPO pending Current Inpatient Medications: Current Inpatient Medications Medications (Trade) Dose Ordered Sig/Shemar Route Start Time Stop Time Status Last Admin Dose Admin Sodium Chloride (Nss 1000ml) 1,000 ml @ 100 mls/hr Q10H IV 05/16/16 14:08 06/15/16 14:07 05/17/16 10:27 100 MLS/HR Acetaminophen (Tylenol Tab) 650 mg Q4H PRN PO 05/16/16 14:15 06/15/16 14:14 05/16/16 16:34 650 MG Ondansetron HCl (Zofran Inj) 4 mg Q6H PRN IV 05/16/16 14:15 06/15/16 14:14 Levofloxacin (Consult) 1 ea UD N/A 05/16/16 14:22 06/15/16 14:21 Piperacillin Sod/ Tazobactam Sod 1 ea 1 ea UD N/A 05/16/16 14:30 06/15/16 14:29 Levofloxacin 750 mg/Prmx 150 ml @ 100 mls/hr DAILY@1400 IV 05/17/16 14:00 05/23/16 13:59 05/17/16 14:28 100 MLS/HR Piperacillin Sod/ Tazobactam Sod/ Dextrose (Zosyn Iv/D5 100ml) 115 ml @ 28.75 mls/ hr Q8H IV 05/16/16 22:00 05/23/16 13:59 05/17/16 06:21 28.75 MLS/HR Clonazepam (Klonopin Tab) 0.5 mg BID PO 05/16/16 21:00 06/15/16 20:59 05/17/16 08:39 0.5 MG Clio Carbonate (Clio Carbonate Tab) 300 mg BID PO 05/16/16 21:00 06/15/16 20:59 05/17/16 08:39 300 MG Pregabalin (Lyrica Cap) 150 mg BID PO 05/16/16 21:00 06/15/16 20:59 05/17/16 08:39 150 MG Quetiapine Fumarate (seroQUEL TAB) 200 mg DAILY PO 05/17/16 09:00 06/16/16 08:59 05/17/16 08:39 200 MG Quetiapine Fumarate (seroQUEL TAB) 600 mg HS PO 05/16/16 21:00 06/15/16 20:59 05/16/16 21:13 600 MG Paroxetine HCl (pAXil) 30 mg DAILY PO 05/17/16 09:00 06/16/16 08:59 05/17/16 08:39 30 MG Ketorolac Tromethamine (Toradol Inj) 30 mg Q6H PRN IV 05/16/16 18:45 05/21/16 18:44 05/16/16 19:47 30 MG Albuterol/ Ipratropium (Duoneb) 3 ml Q4R PRN INH 05/16/16 20:00 06/15/16 19:59 Vancomycin HCl 1 ea 1 ea UD PRN N/A 05/17/16 13:45 06/16/16 13:44 Vancomycin HCl 2300 mg/Sodium Chloride 546 ml @ 200 mls/hr TODAY@1400 ONCE IV 05/17/16 14:00 05/17/16 16:43 Vancomycin HCl/ Sodium Chloride (Vancomycin Inj/ Nss 250ml) 277 ml @ 125 mls/hr Q10H IV 05/18/16 00:00 05/25/16 00:00
[2016-05-17] MEDS: LEVALBUTEROL 1.25MG/0.5ML NEB INH SCH ×2 (15:00→19:00)
[2016-05-17] MEDS ORDERED: LEVALBUTEROL/IPRATROPIUM NEB INH SCH (15:00)
[2016-05-17] MEDS: IPRATROPIUM BROMIDE NEB SOLN 0.02% 2.5 ML VIAL INH SCH ×2 (15:00→19:00)
--- NOTE | 2016-05-17 15:45 | DIAGNOSTIC IMAGING REPORT ---
CHEST CT WITHOUT CONTRAST CT DOSE: 659.26 mGy.cm HISTORY: Mass r/o pulmonary mass TECHNIQUE: Multiaxial CT images of the chest were performed without contrast. COMPARISON: 01/06/2014 FINDINGS: Findings of an anterior gastric pull-through type procedure and prior esophagectomy are again noted. The right lung demonstrates a retrohilar nodes measuring 2.1 cm. Several small additional nodes are present as well as a difficult to quantify given the absence of contrast enhancement. Right basilar pulmonary nodularity is present with nodules measuring 2 11 mm. Multiple smaller nodules are present. There is a consolidative masslike process involving the left upper lobe. It is possible that this relates to a central obstructing process with the bulk of the consolidative change on a post obstructive basis. Similar but somewhat less prominent findings are seen in the left lower lobe region were again consolidative changes are noted. An underlying component of nodularity is also present with nodular changes measuring up to 1.5 cm. There are several mediastinal nodes with pretracheal nodes measuring up to 12 mm. Subcarinal and left para mediastinal nodes are present with nodes measuring 1.5 cm. There are postoperative changes to several lower left ribs unchanged from the prior study. A well-defined lytic or blastic process is not appreciated within the osseous structures. IMPRESSION: 1. Consolidative infiltrative and/or masslike changes involving the bulk of the left upper and to a somewhat lesser extent left lower lobe regions. 2. Additional nodularity within the left hemithorax and to a somewhat lesser extent right base. 3. Progressive mediastinal and hilar adenopathy. 4. Although it is possible that central obstructing lesions may account for the peripheral consolidative change, a neoplastic process nevertheless is a diagnosis of exclusion. 5. Associated parenchymal nodularity indicates a significant possibility of metastatic change. 6. Operative changes stable from the prior exam consistent with a prior esophagectomy and anterior gastric pull-through type procedure. Electronically signed by: Henrique Madison M.D. 05/17/2016 3:44 PM Dictated Date/Time: 05/17/2016 3:34 PM
[2016-05-17] MEDS ORDERED: VANCOMYCIN TROUGH ONE (19:30)
[2016-05-17] MEDS: ACETAMINOPHEN 325 MG TAB PO PRN (19:50)
[2016-05-17] MEDS: KETOROLAC TROMETHAMINE 30 MG/ML VIAL IV PRN (21:08)
[2016-05-18] VITALS (13 sets, daily range): BP systolic 87–114; BP diastolic 54–66; PULSE 72–121; TEMP 36.1–36.7; O2SAT 84–98
[2016-05-18] MEDS: IPRATROPIUM BROMIDE NEB SOLN 0.02% 2.5 ML VIAL INH SCH ×4 (01:42→19:51)
[2016-05-18] MEDS: LEVALBUTEROL 1.25MG/0.5ML NEB INH SCH ×4 (01:43→19:51)
[2016-05-18] MEDS: SODIUM CHLORIDE 0.9% 1000ML 1,000 ML IV SCH ×3 (05:17→20:29)
[2016-05-18] MEDS: PIPERACILL/TAZOBAC IV 3.375 GM in DEXTROSE 5% 100ML IV SCH ×3 (05:17→21:12)
[2016-05-18] MEDS ORDERED: VANCOMYCIN INJ 1,350 MG in SODIUM CHLORIDE 0.9% 250ML 250 ML IV SCH ×3 (06:00)
[2016-05-18 06:54] LABS: CREATININE 1.6 mg/dl (0.60-1.40)
[2016-05-18] MEDS: QUETIAPINE FUMARATE 200 MG TAB PO SCH ×2 (07:33→20:30)
[2016-05-18] MEDS: CLONAZEPAM 0.5 MG TAB PO SCH (07:33)
[2016-05-18] MEDS: PREGABALIN 150 MG CAP PO SCH ×2 (07:33→20:29)
[2016-05-18] MEDS: PAROXETINE 30 MG TAB PO SCH (07:34)
[2016-05-18] MEDS: LITHIUM CARBONATE 300 MG TAB PO SCH ×2 (07:34→20:29)
[2016-05-18] MEDS: KETOROLAC TROMETHAMINE 30 MG/ML VIAL IV PRN (07:41)
[2016-05-18 08:03] LABS: BASO % 0.7 %; BASO ABS # 0.07 K/uL (0-0.2); COMPLETE YES; EOS % 0.8 %; HEMATOCRIT 29.6 % (42-52); IG% 1.1 %; LYMPH % 10.8 %; LYMPH ABS # 1.15 K/uL (1.2-3.4); MEAN CELL VOLUME 84.8 fL (80-100); MEAN CORPUSCULAR HEMOGLOBIN 28.1 pg (25-34); MEAN CORPUSCULAR HGB CONC 33.1 g/dl (32-36); MEAN PLATELET VOLUME 10.1 fL (7.4-10.4); NEUT % 77.6 %; PLATELET COUNT 333 K/uL (130-400); RED BLOOD COUNT 3.49 M/uL (4.7-6.1); WHITE BLOOD COUNT 10.64 K/uL (4.8-10.8)
[2016-05-18 09:54] LABS: BUN/CREATININE RATIO 8.7 (10-20); CALCIUM 7.8 mg/dl (8.5-10.1); CREATININE 1.8 mg/dl (0.60-1.40); POTASSIUM 3.1 mmol/L (3.5-5.1)
--- NOTE | 2016-05-18 12:25 | Progress Note ---
Medicine Progress Note Date & Time of Visit: May 18, 2016 at 12:16. Subjective patient seen sitting up in bed still feels tired today breathing is somewhat improved cough is less but still productive, less blood tinged has left sided subcostal sharp pain when coughing denies other symptoms Objective Last 8 Hrs Date Time Temp Pulse Resp B/P Pulse Ox O2 Delivery O2 Flow Rate FiO2 05/18/16 08:00 Room Air 05/18/16 07:22 36.1 80 20 108/66 98 Nasal Cannula 2.0 05/18/16 06:58 80 16 97 Nasal Cannula 2.0 Physical Exam: General- oriented x 3, not in distress, speaks in sentences with no effort Eyes- anicteric ENT- oropharynx clear Neck- no JVD Lungs- (+) crackles bilaterally, no wheezes Heart- normal rate, regular rhythm; no murmurs Abdomen- normal bowel sounds, soft, nontender Extremities- no pretibial edema, no calf tenderness; peripheral pulses intact Neuro- alert, oriented x 3; no gross focal deficits Skin- warm & dry Laboratory Results: Last 24 Hours Test 05/17/16 14:56 05/18/16 06:10 05/18/16 08:43 Potassium Level 3.7 mmol/L 3.1 mmol/L White Blood Count 10.64 K/uL Red Blood Count 3.49 M/uL Hemoglobin 9.8 g/dL Hematocrit 29.6 % Mean Corpuscular Volume 84.8 fL Mean Corpuscular Hemoglobin 28.1 pg Mean Corpuscular Hemoglobin Concent 33.1 g/dl Platelet Count 333 K/uL Mean Platelet Volume 10.1 fL Neutrophils (%) (Auto) 77.6 % Lymphocytes (%) (Auto) 10.8 % Monocytes (%) (Auto) 9.0 % Eosinophils (%) (Auto) 0.8 % Basophils (%) (Auto) 0.7 % Neutrophils # (Auto) 8.25 K/uL Lymphocytes # (Auto) 1.15 K/uL Monocytes # (Auto) 0.96 K/uL Eosinophils # (Auto) 0.09 K/uL Basophils # (Auto) 0.07 K/uL RDW Standard Deviation 52.3 fL RDW Coefficient of Variation 16.9 % Immature Granulocyte % (Auto) 1.1 % Immature Granulocyte # (Auto) 0.12 K/uL Creatinine 1.60 mg/dl 1.80 mg/dl Est Creatinine Clear Calc Drug Dose 60.6 ml/min 53.9 ml/min Estimated GFR () 57.4 49.8 Estimated GFR (Non- 49.5 42.9 Sodium Level 136 mmol/L Chloride Level 105 mmol/L Carbon Dioxide Level 21 mmol/L Anion Gap 10.0 mmol/L Blood Urea Nitrogen 16 mg/dl BUN/Creatinine Ratio 8.7 Random Glucose 255 mg/dl Calcium Level 7.8 mg/dl Assessment & Plan 50 year old male with history of Bipolar Disorder, GERD, PE with IVC filter presenting with cough. SEVERE SEPSIS DUE TO PNEUMONIA, STAPH AUREUS - (+) fever yesterday, WBC normalized - sputum culture: staph aureus, pending sensitivities blood culture: negative so far (+) Nasal MRSA - change Vanco to Linzeolid for elevated crea continue Zosyn + Levaquin Nebs continue IV fluids HEMOPTYSIS POSSIBLE LEFT UPPER LOBE MASS improving as per patient chest CT chest: CT chest: IMPRESSION: 1. Consolidative infiltrative and/or masslike changes involving the bulk of the left upper and to a somewhat lesser extent left lower lobe regions. 2. Additional nodularity within the left hemithorax and to a somewhat lesser extent right base. 3. Progressive mediastinal and hilar adenopathy. 4. Although it is possible that central obstructing lesions may account for the peripheral consolidative change, a neoplastic process nevertheless is a diagnosis of exclusion. 5. Associated parenchymal nodularity indicates a significant possibility of metastatic change. 6. Operative changes stable from the prior exam consistent with a prior esophagectomy and anterior gastric pull-through type procedure. -- Pulmonary consulted ACUTE RENAL FAILURE - possible Pre renal? - hold Toradol, Vanco - increase IV fluids HYPOKALEMIA po K ordered - monitor SINUS TACHYCARDIA likely from underlying pneumonia dehydration? resolved MOOD DISORDER - appears stable - continue home meds DVT PROPHYLAXIS - SCDs due to reports of hemoptysis DISPO pending Current Inpatient Medications: Current Inpatient Medications Medications (Trade) Dose Ordered Sig/Shemar Route Start Time Stop Time Status Last Admin Dose Admin Sodium Chloride (Nss 1000ml) 1,000 ml @ 150 mls/hr Q6H40M IV 05/16/16 14:08 05/18/16 05:17 100 MLS/HR Acetaminophen (Tylenol Tab) 650 mg Q4H PRN PO 05/16/16 14:15 06/15/16 14:14 05/17/16 19:50 650 MG Ondansetron HCl (Zofran Inj) 4 mg Q6H PRN IV 05/16/16 14:15 06/15/16 14:14 Levofloxacin (Consult) 1 ea UD N/A 05/16/16 14:22 06/15/16 14:21 Piperacillin Sod/ Tazobactam Sod 1 ea 1 ea UD N/A 05/16/16 14:30 06/15/16 14:29 Levofloxacin 750 mg/Prmx 150 ml @ 100 mls/hr DAILY@1400 IV 05/17/16 14:00 05/23/16 13:59 05/17/16 14:28 100 MLS/HR Piperacillin Sod/ Tazobactam Sod/ Dextrose (Zosyn Iv/D5 100ml) 115 ml @ 28.75 mls/ hr Q8H IV 05/16/16 22:00 05/23/16 13:59 05/18/16 05:17 28.75 MLS/HR Clonazepam (Klonopin Tab) 0.5 mg BID PO 05/16/16 21:00 06/15/16 20:59 05/18/16 07:33 0.5 MG [place] Carbonate ([place] Carbonate Tab) 300 mg BID PO 05/16/16 21:00 06/15/16 20:59 05/18/16 07:34 300 MG Pregabalin (Lyrica Cap) 150 mg BID PO 05/16/16 21:00 06/15/16 20:59 05/18/16 07:33 150 MG Quetiapine Fumarate (seroQUEL TAB) 200 mg DAILY PO 05/17/16 09:00 06/16/16 08:59 05/18/16 07:33 200 MG Quetiapine Fumarate (seroQUEL TAB) 600 mg HS PO 05/16/16 21:00 06/15/16 20:59 05/17/16 19:51 600 MG Paroxetine HCl (pAXil) 30 mg DAILY PO 05/17/16 09:00 06/16/16 08:59 05/18/16 07:34 30 MG Albuterol/ Ipratropium (Duoneb) 3 ml Q4R PRN INH 05/16/16 20:00 06/15/16 19:59 Ipratropium Manly (Atrovent 0.02% 0.5MG/2.5ML Neb) 0.5 mg Q6R INH 05/17/16 15:00 06/16/16 14:59 05/18/16 06:58 0.5 MG Levalbuterol (Xopenex 1.25MG/ 0.5ML Neb) 1.25 mg Q6R INH 05/17/16 15:00 06/16/16 14:59 05/18/16 06:58 1.25 MG Heparin Sodium (Porcine) (Heparin 10 Unit/ ml 5 ml Flush) 1 ml PRN PRN FLUSH 05/18/16 00:30 06/17/16 00:29 Potassium Chloride 20 meq 20 meq 1230 ONCE PO 05/18/16 12:30 05/18/16 12:31 Linezolid 600 mg/ Prmx 300 ml @ 200 mls/hr Q12@0200,1400 IV 05/18/16 14:00 05/25/16 13:59 Acetaminophen/ Empty Bag (Ofirmev Iv/ Empty Iv Bag 100ml) 65 ml @ 400 mls/hr Q6H IV 05/18/16 12:15 06/17/16 12:14 UNV
[2016-05-18] MEDS ORDERED: POTASSIUM CHLORIDE 20 MEQ TABCR PO ONE ×2 (12:30→19:00)
[2016-05-18] MEDS: LINEZOLID 600MG / D5W IV SCH (12:47)
[2016-05-18] MEDS: ACETAMINOPHEN IV 650 MG in EMPTY BAG 0 ML IV SCH ×3 (12:48→23:53)
[2016-05-18] MEDS: LEVOFLOXACIN 750MG / D5W IV SCH (13:59)
--- NOTE | 2016-05-18 16:02 | Pulmonary Consultation ---
History General Date of Service: May 18, 2016. Stated Complaint: Pneumonia HPI The patient is a 50 year old male who presents to [facility] with complaints of Pneumonia. The patient's primary care provider is Henrique Marques M.D.. 50-year-old gentleman presented to the emergency room and admitted to [facility] for progressive weakness, productive greenish sputum and hemoptysis over the last 1-2 weeks. Patient also notes subjective fever, chills and notable left-sided pleurisy which is acute on chronic in characteristics. Patient has a complicated medical history: Barretts esophagus and esophageal rupture requiring reconstructive esophagectomy and bilateral lower lobe pulmonary emboli unable to anticoagulate-IVC filter placement. Patient also has been noting progressive dysphagia/odynophagia over the previous 6-12 months. Denies: Classic cardiac chest pain, progressive weight loss Inpatient workup: WBC: 21K (85% neutrophils) PLT: 354K INR: 1.2 BUN/Cr: 16/1.80 Chest x-ray: Diffuse consolidation appreciated on the left hemithorax most likely upper and lingular regions, small pleural effusion noted on the left side Noncontrast CT thorax Diffuse consolidative infiltrative process in the left upper lingula and lower lobes Infiltrative process on the right side mostly the right lower lobe Mediastinal lymphadenopathy appreciated Review of Systems Constitutional: reports: malaise, weakness Eyes: reports: no symptoms ENT: reports: as stated in HPI Cardiovascular: reports: as stated in HPI Respiratory: reports: as stated in HPI Gastrointestinal: reports: as stated in HPI Genitourinary - Male: reports: no symptoms Musculoskeletal: reports: no symptoms Integumentary: reports: no symptoms Neurologic: reports: no symptoms Psychiatric: reports: no symptoms Endocrine: no symptoms Hematologic / Lymphatic: no symptoms Allergic / Immunologic: no symptoms Past Medical History Past Medical History: (1)Solis's esophagus (2)Postthoracotomy syndrome (3)syncope (4)History of dictated seizure disorder (5)Bipolar 1 disorder/depression (6)Esophageal perforation (7)Left sided PTX (8)GERD (9)Hx GIB (10)History of narcotic addiction (11)Hx of esophageal ulcer (12)Lumbar disc disease (13)Presence of IVC filter: 05/21/13 (14)Pulmonary embolism: Anticoagulation held secondary to GIB (15)Pulmonary nodule Past Medical History: depression, GERD Past Surgical History: (1)esophagectomy (2)esophagogastroduodenoscopy (3)inguinal hernia repair (4)jejunostomy (5)esophageal surgery/reconstruction for previous esophagectomy (6)appendectomy (7)bronchoscopy 06/26/2010 (8)claviculectomy (9)esophagostomy (10)gastrostomy (11)hemilaminectomy (12)Tracheostomy (13)PEG tube (14)lumbar spinal fusion L5-S1 (15)IVC Filter: 05/21/13 (16)Bronchoscopy (17)Cervical and Lumbar hemilaminectomy (18)Appendectomy (19)Epidural steroid injection Past Surgical History: other Family History FH: heart disease FATHER ( from [place] at age 63) CAD/[place] Father/cousin: Venous normal embolism Social History Smoking Status: Never Smoker Alcohol Use: none Status: /single Hx Tobacco Use In Past Year?: No Smoking Status: Never Smoker Alcohol: never Drug Use: none Immunizations History of Tetanus Vaccine?: Yes Tetanus Immunization Date: Oct 22, 2014 History of MDRO History of MDRO: No Allergies Coded Allergies: Tramadol (Verified Allergy, Unknown, seizures, 05/16/16) Current Medications Reported Home Medications Medications Dose Route/Sig Max Daily Dose Days Date Category Klonopin (Clonazepam) 0.5 Mg Tab 1 Tab PO BID 30 05/16/16 Reported [place] Carbonate 300 Mg Tab 1 Tab PO BID 30 05/16/16 Reported Lyrica (Pregabalin) 150 Mg Cap 1 Cap PO BID 30 05/16/16 Reported Paxil (Paroxetine Hcl) 30 Mg Tab 1 Tab PO DAILY 30 05/16/16 Reported Seroquel (Quetiapine Fumarate) 200 Mg Tab 200 Mg PO DAILY 05/16/16 Reported Seroquel (Quetiapine Fumarate) 200 Mg Tab 600 Mg PO HS 05/16/16 Reported Physical Physical Exam Vital Signs: Date Time Temp Pulse Resp B/P Pulse Ox O2 Delivery O2 Flow Rate FiO2 05/18/16 15:16 36.4 93 16 93/56 92 Room Air 05/18/16 14:10 80 16 94 Room Air 05/18/16 12:20 36.3 87 20 96/59 94 Nasal Cannula 2.0 05/18/16 12:00 Room Air 05/18/16 08:00 Room Air 05/18/16 07:22 36.1 80 20 108/66 98 Nasal Cannula 2.0 05/18/16 06:58 80 16 97 Nasal Cannula 2.0 05/18/16 04:00 Nasal Cannula 05/18/16 03:43 36.3 72 24 97/57 93 Nasal Cannula 2.0 05/18/16 01:11 83 22 87/54 96 Nasal Cannula 2.0 05/18/16 00:01 Nasal Cannula 05/17/16 23:52 36.6 84 22 88/56 92 Room Air 05/17/16 20:53 36.9 05/17/16 20:00 Nasal Cannula 05/17/16 19:25 38.6 116 17 124/73 90 Room Air 05/17/16 19:01 118 16 88 Room Air 05/17/16 16:00 Room Air General Appearance: NO APPARENT DISTRESS Head: NORMOCEPHALIC, ATRAUMATIC Eyes: PERRLA, NO DISCHARGE, EOMI, SCLERAE NORMAL, CONJUNCTIVAE NORMAL ENT: NORMAL EAR EXAM, NORMAL NASAL EXAM, NORMAL MOUTH EXAM, NORMAL THROAT EXAM , NORMAL DENTAL EXAM Neck: NO STRIDOR, SUPPLE, other (mid tracheal scar from previous tracheostomy as well as previous esophagectomy scarring) Respiratory: other (previous thoracotomy healed wound on the left posterior lateral hemithorax) Cardiovasular: REGULAR RATE/RHYTHM, NORMAL S1S2, NO M/G/R, NO MURMUR, NO GALLOP Abdomen: NON TENDER, NORMAL BOWEL SOUNDS, NO REBOUND, NO MASSES, NO GUARDING, NO ORGANOMEGALY Genitourinary - Male: EXTERNAL GENITALIA NORMAL Back: NORMAL INSPECTION, NO MIDLINE TENDERNESS, NO CVA TENDERNESS, NO PARAVERTEBRAL TTP Upper Extremities: NO EDEMA, NO DEFORMITY, NORMAL ROM Lower Extremities: NO EDEMA, NO DEFORMITY, NORMAL ROM Pulses: carotid (R) (2+), carotid (L) (2+), dorsalis pedis (R) (2+), dorsalis pedis (L) (2+) Neuro: ALERT, ORIENTED x 3, NORMAL MOTOR EXAM, NORMAL SENSATION, NORMAL CEREBELLAR EXAM Reflexes: biceps (R) (2+), bicpes (L) (2+), achilles (R) (2+), achilles (L) (2+ ) Babinski Testing: right (downgoing), left (downgoing) Psychiatric: NORMAL AFFECT, NO SUICIDAL IDEATION, CONTRACTS FOR SAFETY Diagnostics Labs Results Past 24 Hours Test 05/18/16 06:10 05/18/16 08:43 Range/Units White Blood Count 10.64 4.8-10.8 K/uL Red Blood Count 3.49 4.7-6.1 M/uL Hemoglobin 9.8 14.0-18.0 g/dL Hematocrit 29.6 42-52 % Mean Corpuscular Volume 84.8 80-100 fL Mean Corpuscular Hemoglobin 28.1 25-34 pg Mean Corpuscular Hemoglobin Concent 33.1 32-36 g/dl Platelet Count 333 130-400 K/uL Mean Platelet Volume 10.1 7.4-10.4 fL Neutrophils (%) (Auto) 77.6 % Lymphocytes (%) (Auto) 10.8 % Monocytes (%) (Auto) 9.0 % Eosinophils (%) (Auto) 0.8 % Basophils (%) (Auto) 0.7 % Neutrophils # (Auto) 8.25 1.4-6.5 K/uL Lymphocytes # (Auto) 1.15 1.2-3.4 K/uL Monocytes # (Auto) 0.96 0.11-0.59 K/uL Eosinophils # (Auto) 0.09 0-0.5 K/uL Basophils # (Auto) 0.07 0-0.2 K/uL RDW Standard Deviation 52.3 36.4-46.3 fL RDW Coefficient of Variation 16.9 11.5-14.5 % Immature Granulocyte % (Auto) 1.1 % Immature Granulocyte # (Auto) 0.12 0.00-0.02 K/uL Creatinine 1.60 1.80 0.60-1.40 mg/dl Est Creatinine Clear Calc Drug Dose 60.6 53.9 ml/min Estimated GFR () 57.4 49.8 Estimated GFR (Non- 49.5 42.9 Sodium Level 136 136-145 mmol/L Potassium Level 3.1 3.5-5.1 mmol/L Chloride Level 105 98-107 mmol/L Carbon Dioxide Level 21 21-32 mmol/L Anion Gap 10.0 3-11 mmol/L Blood Urea Nitrogen 16 7-18 mg/dl BUN/Creatinine Ratio 8.7 10-20 Random Glucose 255 70-99 mg/dl Calcium Level 7.8 8.5-10.1 mg/dl Diagnostic Radiology Chest x-ray: Diffuse consolidation appreciated on the left hemithorax most likely upper and lingular regions, small pleural effusion noted on the left side Noncontrast CT thorax Diffuse consolidative infiltrative process in the left upper lingula and lower lobes Infiltrative process on the right side mostly the right lower lobe Mediastinal lymphadenopathy appreciated EKG Sinus tachycardia with incomplete right bundle branch block Impression Assessment and Plan 50-year-old male admitted with necrotizing pneumonia and previous history of pulmonary embolism: #1 Necrotizing Pneumonia: At this time I believe linezolid and Zosyn appropriate coverage as the patient is at high risk for aspiration pneumonia. He does note sleeping on his left side which would increase the risk of this current presentation. This patient is having difficulty clearing his secretions and will initiate on dornase and chest physiotherapy. We'll discontinue physiotherapy if associated with too much chest discomfort. Still usually the most likely source of the patient's current pneumonia is aspiration. I suggest we obtain consultations by thoracic surgery as well as gastroenterology for full evaluation of the airway as well as abnormal esophageal physiology/anatomy. #2 Diet: This time I'll initiate the patient on clear liquid diet. #3 Pulmonary Embolism: IVC filter in place but family history suggestive of hypercoagulable disorder. 2 history of pulmonary embolism as well as possible hypercoagulable state I suggest we initiate subcutaneous heparin at this time 5000 twice a day. Patient does have mild anemia with 2 point drop in his hemoglobin but also 7.5 L positive since his arrival. #4 pulmonary nodules: At this time pulmonology after the workup in the future there is no ability to differentiate from current pathology.
[2016-05-18 17:34] LABS: MANUAL MICROSCOPIC REQUIRED? YES; URINE APPEARANCE CLEAR (CLEAR); URINE BILIRUBIN NEG (NEG); URINE COLOR YELLOW; URINE NITRITE NEG (NEG); URINE SPECIFIC GRAVITY <= 1.005 (1.000-1.030); UROBILINOGEN NEG (NEG)
[2016-05-18 17:47] LABS: REVIEW REQ? NO
[2016-05-18 18:27] LABS: URINE RBC 0-4 /hpf (0-4)
[2016-05-18 18:28] LABS: URINE AMORPHOUS SEDIMENT PRESENT (NONE PRSENT); URINE BACTERIA 1+ (NEG)
[2016-05-18] MEDS: DORNASE ALFA (2500U) 2.5MG/2.5ML INH SCH (20:00)
[2016-05-18] MEDS: HEPARIN SOD 5000 UNIT/0.5 ML CARP SQ SCH (21:11)
[2016-05-19] VITALS (14 sets, daily range): BP systolic 98–115; BP diastolic 57–74; PULSE 71–98; TEMP 36.1–36.4; O2SAT 93–99; BMI 27.3
[2016-05-19] MEDS ORDERED: LEVALBUTEROL/IPRATROPIUM NEB INH STA (00:01)
[2016-05-19] MEDS ORDERED: IPRATROPIUM BROMIDE NEB SOLN 0.02% 2.5 ML VIAL INH STA (00:12)
[2016-05-19] MEDS ORDERED: LEVALBUTEROL 1.25MG/0.5ML NEB INH STA (00:12)
[2016-05-19] MEDS ORDERED: IPRATROPIUM BROMIDE NEB SOLN 0.02% 2.5 ML VIAL INH PRN (00:15)
[2016-05-19] MEDS ORDERED: LEVALBUTEROL 1.25MG/0.5ML NEB INH PRN (00:15)
[2016-05-19] MEDS ORDERED: LEVALBUTEROL/IPRATROPIUM NEB INH PRN (00:15)
[2016-05-19] MEDS ORDERED: METHYLPREDNISOLONE IV 40 MG in SYRINGE 0 ML IV STA (00:36)
[2016-05-19 01:02] LABS: HEMATOCRIT 27.2 % (42-52); MEAN CORPUSCULAR HEMOGLOBIN 28.4 pg (25-34); MEAN CORPUSCULAR HGB CONC 33.5 g/dl (32-36); MEAN PLATELET VOLUME 9.9 fL (7.4-10.4); PLATELET COUNT 369 K/uL (130-400); WHITE BLOOD COUNT 11.21 K/uL (4.8-10.8)
[2016-05-19] MEDS: LINEZOLID 600MG / D5W IV SCH (01:02)
[2016-05-19 01:03] LABS: ALLEN TEST POS (POS); ARTERIAL BLD GAS O2 SATURATION 94.4 % (90-95); ARTERIAL BLOOD GAS BASE EXCESS -6.9 mEq/L (-9-1.8); ARTERIAL BLOOD GAS HCO3 18 mmol/L (19-24); ARTERIAL BLOOD GAS PO2 78 mm/Hg (80-95); ARTERIAL BLOOD GAS pH 7.34 (7.35-7.45); O2 ADMINISTRATION 3L
[2016-05-19 01:21] LABS: BASO % 0.2 %; BASO ABS # 0.02 K/uL (0-0.2); COMPLETE YES; ECHINOCYTES 2+; EOS % 1.1 %; IG% 0.5 %; LYMPH % 9.8 %; MONO % 10.3 %; NEUT % 78.1 %
[2016-05-19 01:30] LABS: BUN/CREATININE RATIO 7.6 (10-20); CALCIUM 7.5 mg/dl (8.5-10.1); CREATININE 3.3 mg/dl (0.60-1.40); MAGNESIUM 2.1 mg/dl (1.8-2.4); POTASSIUM 3.6 mmol/L (3.5-5.1)
[2016-05-19] MEDS ORDERED: VANCOMYCIN TROUGH SCH (01:30)
--- NOTE | 2016-05-19 01:53 | Progress Note ---
Internal Med Progress Note Date of Service: May 19, 2016. Provider Documentation: Made aware by RN of worsening resp distress, hypoxemia CXR white out, L lung AP Worsening hypoxemic resp failure 2 to progression of necrotizing pneumonia L baseline ABG stat nebs, solumedrol 1 dose continue RTC nebs, Zyvox, Zosyn attempt to suction resp secretions ADDENDUM : Updated by RN of px refusal to be suctioned despite explanation of need. NPO for now, poss bronchoscopy in AM Will relay to AM provider. Vital Signs: Date Time Temp Pulse Resp B/P Pulse Ox O2 Delivery O2 Flow Rate FiO2 05/19/16 07:15 36.1 71 20 100/63 98 Nasal Cannula 2.0 05/19/16 06:59 81 18 96 Nasal Cannula 2.0 05/19/16 04:00 98 Nasal Cannula 3.0 05/19/16 03:18 77 18 98 Nasal Cannula 3.0 05/19/16 03:10 36.4 77 24 115/74 97 Nasal Cannula 3.0 05/19/16 01:46 90 20 96 Nasal Cannula 3.0 05/19/16 00:23 98 20 96 Room Air 05/18/16 23:59 95 Nasal Cannula 3.0 05/18/16 23:27 103 20 95 Nasal Cannula 3.0 05/18/16 23:10 36.7 121 26 114/60 84 Room Air 05/18/16 20:00 92 Room Air 05/18/16 19:51 111 16 92 Room Air 05/18/16 18:54 36.6 104 20 102/63 92 Room Air 05/18/16 16:00 Room Air 05/18/16 15:16 36.4 93 16 93/56 92 Room Air 05/18/16 14:10 80 16 94 Room Air 05/18/16 12:20 36.3 87 20 96/59 94 Nasal Cannula 2.0 05/18/16 12:00 Room Air Lab Results: Results Past 24 Hours Test 05/18/16 16:09 05/18/16 16:30 05/18/16 16:59 05/18/16 20:17 Range/Units Bedside Glucose 87 120 70-99 mg/dl Urine Color YELLOW Urine Appearance CLEAR CLEAR Urine pH 6.0 4.5-7.5 Urine Specific Venus <= 1.005 1.000-1.030 Urine Protein NEG NEG Urine Glucose (UA) NEG NEG Urine Ketones NEG NEG Urine Occult Blood 1+ NEG Urine Nitrite NEG NEG Urine Bilirubin NEG NEG Urine Urobilinogen NEG NEG Urine Leukocyte Esterase NEG NEG Urine RBC 0-4 0-4 /hpf Urine WBC 5-10 0-5 /hpf Urine Epithelial Cells >30 0-5 /lpf Urine Renal Cells 5-10 FEW /lpf Urine Amorphous Sediment PRESENT NONE PRSENT Urine Bacteria 1+ NEG Urine Granular Casts 5-10 0 /lpf Potassium Level 3.4 3.5-5.1 mmol/L Test 05/19/16 00:53 05/19/16 05:20 05/19/16 05:34 05/19/16 06:32 Range/Units White Blood Count 11.21 4.8-10.8 K/uL Red Blood Count 3.20 4.7-6.1 M/uL Hemoglobin 9.1 10.2 14.0-18.0 g/dL Hematocrit 27.2 30.6 42-52 % Mean Corpuscular Volume 85.0 80-100 fL Mean Corpuscular Hemoglobin 28.4 25-34 pg Mean Corpuscular Hemoglobin Concent 33.5 32-36 g/dl Platelet Count 369 130-400 K/uL Mean Platelet Volume 9.9 7.4-10.4 fL Neutrophils (%) (Auto) 78.1 % Lymphocytes (%) (Auto) 9.8 % Monocytes (%) (Auto) 10.3 % Eosinophils (%) (Auto) 1.1 % Basophils (%) (Auto) 0.2 % Neutrophils # (Auto) 8.75 1.4-6.5 K/uL Lymphocytes # (Auto) 1.10 1.2-3.4 K/uL Monocytes # (Auto) 1.16 0.11-0.59 K/uL Eosinophils # (Auto) 0.12 0-0.5 K/uL Basophils # (Auto) 0.02 0-0.2 K/uL RDW Standard Deviation 54.3 36.4-46.3 fL RDW Coefficient of Variation 17.2 11.5-14.5 % Immature Granulocyte % (Auto) 0.5 % Immature Granulocyte # (Auto) 0.06 0.00-0.02 K/uL Echinocytes 2+ Arterial Blood pH 7.34 7.35-7.45 Arterial Blood Partial Pressure CO2 34 35-46 mmHg Arterial Blood Partial Pressure O2 78 80-95 mm/Hg Arterial Blood HCO3 18 19-24 mmol/L Arterial Blood Oxygen Saturation 94.4 90-95 % Arterial Blood Base Excess -6.9 -9-1.8 mEq/L Arterial Blood Gas Delivery 3L Duglas Test POS POS Sodium Level 138 138 136-145 mmol/L Potassium Level 3.6 4.2 3.5-5.1 mmol/L Chloride Level 106 107 98-107 mmol/L Carbon Dioxide Level 19 20 21-32 mmol/L Anion Gap 13.0 11.0 3-11 mmol/L Blood Urea Nitrogen 25 25 7-18 mg/dl Creatinine 3.30 3.50 0.60-1.40 mg/dl Est Creatinine Clear Calc Drug Dose 29.4 27.7 ml/min Estimated GFR () 23.9 22.3 Estimated GFR (Non- 20.6 19.2 BUN/Creatinine Ratio 7.6 7.3 10-20 Random Glucose 115 128 70-99 mg/dl Calcium Level 7.5 8.2 8.5-10.1 mg/dl Magnesium Level 2.1 1.8-2.4 mg/dl Albumin 1.1 3.4-5.0 gm/dl Silas Level 0.8 0.6-1.2 mMOL/L Urine Color YELLOW Urine Appearance CLEAR CLEAR Urine pH 6.0 4.5-7.5 Urine Specific Venus 1.010 1.000-1.030 Urine Protein TRACE NEG Urine Glucose (UA) NEG NEG Urine Ketones NEG NEG Urine Occult Blood 1+ NEG Urine Nitrite NEG NEG Urine Bilirubin NEG NEG Urine Urobilinogen NEG NEG Urine Leukocyte Esterase NEG NEG Urine RBC 0-4 0-4 /hpf Urine WBC 1-5 0-5 /hpf Urine Epithelial Cells 0-5 0-5 /lpf Urine Amorphous Sediment PRESENT NONE PRSENT Urine Bacteria NEG NEG Urine Granular Casts 5-10 0 /lpf Bedside Glucose 132 70-99 mg/dl Test 05/19/16 07:55 Range/Units Erythrocyte Sedimentation Rate 71 0-14 mm/hr Microbiology Results 05/18/16 Urine Culture, Received Pending
[2016-05-19] MEDS ORDERED: SODIUM CHLORIDE 0.9% 1000ML 1,000 ML IV SCH (02:00)
[2016-05-19] MEDS: IPRATROPIUM BROMIDE NEB SOLN 0.02% 2.5 ML VIAL INH SCH ×4 (03:18→19:32)
[2016-05-19] MEDS: LEVALBUTEROL 1.25MG/0.5ML NEB INH SCH ×4 (03:18→19:32)
[2016-05-19 05:43] LABS: MANUAL MICROSCOPIC REQUIRED? YES; URINE APPEARANCE CLEAR (CLEAR); URINE BILIRUBIN NEG (NEG); URINE COLOR YELLOW; URINE NITRITE NEG (NEG); UROBILINOGEN NEG (NEG)
[2016-05-19 05:46] LABS: REVIEW REQ? NO
[2016-05-19 05:52] LABS: URINE AMORPHOUS SEDIMENT PRESENT (NONE PRSENT); URINE BACTERIA NEG (NEG); URINE RBC 0-4 /hpf (0-4)
[2016-05-19 05:53] LABS: ZZUR CULT IF INDIC CLEAN CATCH NO
[2016-05-19 05:54] LABS: HEMATOCRIT 30.6 % (42-52)
[2016-05-19] MEDS: ACETAMINOPHEN IV 650 MG in EMPTY BAG 0 ML IV SCH (06:00)
[2016-05-19] MEDS: PIPERACILL/TAZOBAC IV 3.375 GM in DEXTROSE 5% 100ML IV SCH (06:00)
[2016-05-19 06:38] LABS: BUN/CREATININE RATIO 7.3 (10-20); CALCIUM 8.2 mg/dl (8.5-10.1); CREATININE 3.5 mg/dl (0.60-1.40)
[2016-05-19 06:39] LABS: POTASSIUM 4.2 mmol/L (3.5-5.1)
[2016-05-19] MEDS: DORNASE ALFA (2500U) 2.5MG/2.5ML INH SCH ×2 (06:58→19:32)
[2016-05-19 07:24] LABS: ESTIMATED AVERAGE GLUCOSE 154 mg/dl; HA1C FLAG Normal (Normal)
[2016-05-19] MEDS: PREGABALIN 150 MG CAP PO SCH (07:28)
[2016-05-19] MEDS: PAROXETINE 30 MG TAB PO SCH (07:30)
[2016-05-19] MEDS: HEPARIN SOD 5000 UNIT/0.5 ML CARP SQ SCH ×2 (07:31→20:30)
--- NOTE | 2016-05-19 07:44 | DIAGNOSTIC IMAGING REPORT ---
CHEST ONE VIEW PORTABLE CLINICAL HISTORY: low o2 hypoxia COMPARISON STUDY: 05/16/2016 FINDINGS: Progressive opacification left hemithorax. Right lung remains generally clear. PICC catheter remains in superior vena cava. IMPRESSION: Progressive opacification left hemithorax Electronically signed by: Henrique Madison M.D. 05/19/2016 7:42 AM Dictated Date/Time: 05/19/2016 7:40 AM
[2016-05-19] MEDS ORDERED: PHARMACY GLYCEMIC MGMT CONSULT PRN (07:58)
[2016-05-19] MEDS ORDERED: GLUCAGON FOR INJ 1 MG VIAL SQ PRN (08:00)
[2016-05-19] MEDS: SODIUM CHLORIDE 0.9% 1000ML 1,000 ML IV SCH ×2 (08:00→17:22)
[2016-05-19] MEDS ORDERED: GLUCOSE 10 TABS/TUBE PO PRN (08:00)
[2016-05-19] MEDS ORDERED: GLUCOSE 40% GEL 15 GM TUBE PO PRN (08:00)
--- NOTE | 2016-05-19 08:01 | PROGRESS NOTE ---
DATE: 05/19/2016 SUBJECTIVE: The patient is comfortable this morning. He is using a nebulizer. He states he feels better than he did at the time of admission. He has not had any significant exposures recently. He does remain very active in fishing and doing his work at home without difficulty. He is scheduled for bronchoscopy this morning. OBJECTIVE: VITAL SIGNS: Stable and he is afebrile. His oxygen saturation is 96% on 2 liters and blood pressure 115/74. Weight is stable at 91.2 kilograms. GENERAL: He had an episode of some confusion, when he had been admitted here in March and his weight was 90.7 kilograms on the 27 of March. His weight is relatively stable. According to nurses' notes, he had a fairly good night last night and was resting quietly with coarse breath sounds bilaterally. He received a DuoNeb treatment last night. HEENT: Unremarkable except for some hyperemia of the nasal mucosa. Posterior pharynx is unremarkable. NECK: No neck vein distention or HJR. Scars from his previous esophageal surgery are noted. CHEST: Shows good expansion with deep inspiration. No nodes are palpable anywhere. HEART: Regular rate and rhythm. No murmurs are heard. LUNGS: Reveal some crackles at the left base and in the left upper lobe with a few crackles at the right base as well. No fremitus is noted. ABDOMEN: Soft and nontender. He has no cyanosis, clubbing or edema. LABORATORY DATA: White count was 21,000 at the time of admission and it was 11.2 at midnight. Hemoglobin 9.1 and hematocrit 27.2% with platelet count of 369,000. Coagulation profile on the was unremarkable with an INR of 1.2. PRP looks good with a CO2 of 20 with a BUN of 25 and creatinine of 3.5. IMPRESSION: 1. Left upper lobe and right lower lobe pneumonia. The left upper lobe area appears to be consolidative perhaps obstructive with nodular densities at the lung bases and mediastinal adenopathy. Certainly, tumor needs to be considered. In the fact that he has a pneumonitis with consolidative changes and worsening kidney function, certainly polyangiitis needs to be considered as well. His kidney function was normal with BUN of 10 and creatinine of 0.8 on March 25. 2. History of Boerhaave's esophagus with esophageal rupture, status post repair. It has noted on the CT as well. RECOMMENDATIONS: 1. Check a sed rate, GELA and ANCA. 2. Bronchoscopy as scheduled by Dr. Holliday today. At this point, I would continue with his present medications. Otherwise, I would continue with his present antimicrobial agents and await the results of the bronchoscopy. The sputum has grown out Staph aureus. It is not methicillin resistant and I believe he can be taken out of isolation. He will have sputum for AFB smear and culture done during the bronchoscopy as well. Overall, he is stable.
[2016-05-19] MEDS ORDERED: MoRPHine SULFATE 4 MG/ML 1 ML CARP\\VIAL IV PRN (08:30)
--- NOTE | 2016-05-19 08:43 | Progress Note ---
Medicine Progress Note Date & Time of Visit: May 19, 2016 at 08:28. Subjective had SOB last night CXR showing progressive left lung opacification this AM, resting in bed, comfortable no active shortness of breath still has productive cough but no hemoptysis denies chest pain no abdominal pain, nausea, vomiting reports nocturia, straining no other symptoms Objective Last 8 Hrs Date Time Temp Pulse Resp B/P Pulse Ox O2 Delivery O2 Flow Rate FiO2 05/19/16 06:59 81 18 96 Nasal Cannula 2.0 05/19/16 04:00 98 Nasal Cannula 3.0 05/19/16 03:18 77 18 98 Nasal Cannula 3.0 05/19/16 03:10 36.4 77 24 115/74 97 Nasal Cannula 3.0 05/19/16 01:46 90 20 96 Nasal Cannula 3.0 Physical Exam: General- oriented x 3, not in distress, speaks in sentences with no effort Neck- no JVD Lungs- (+) crackles bilaterally, no wheezes Heart- normal rate, regular rhythm; no murmurs Abdomen- normal bowel sounds, soft, nontender Extremities- no pretibial edema, no calf tenderness; peripheral pulses intact Neuro- alert, oriented x 3; no gross focal deficits Skin- warm & dry Laboratory Results: Last 24 Hours Test 05/18/16 08:43 05/18/16 16:09 05/18/16 16:30 05/18/16 16:59 Sodium Level 136 mmol/L Potassium Level 3.1 mmol/L 3.4 mmol/L Chloride Level 105 mmol/L Carbon Dioxide Level 21 mmol/L Anion Gap 10.0 mmol/L Blood Urea Nitrogen 16 mg/dl Creatinine 1.80 mg/dl Est Creatinine Clear Calc Drug Dose 53.9 ml/min Estimated GFR () 49.8 Estimated GFR (Non- 42.9 BUN/Creatinine Ratio 8.7 Random Glucose 255 mg/dl Calcium Level 7.8 mg/dl Bedside Glucose 87 mg/dl Urine Color YELLOW Urine Appearance CLEAR Urine pH 6.0 Urine Specific Ina <= 1.005 Urine Protein NEG Urine Glucose (UA) NEG Urine Ketones NEG Urine Occult Blood 1+ Urine Nitrite NEG Urine Bilirubin NEG Urine Urobilinogen NEG Urine Leukocyte Esterase NEG Urine RBC 0-4 /hpf Urine WBC 5-10 /hpf Urine Epithelial Cells >30 /lpf Urine Renal Cells 5-10 /lpf Urine Amorphous Sediment PRESENT Urine Bacteria 1+ Urine Granular Casts 5-10 /lpf Test 05/18/16 20:17 05/19/16 00:53 05/19/16 05:20 05/19/16 05:34 Bedside Glucose 120 mg/dl White Blood Count 11.21 K/uL Red Blood Count 3.20 M/uL Hemoglobin 9.1 g/dL 10.2 g/dL Hematocrit 27.2 % 30.6 % Mean Corpuscular Volume 85.0 fL Mean Corpuscular Hemoglobin 28.4 pg Mean Corpuscular Hemoglobin Concent 33.5 g/dl Platelet Count 369 K/uL Mean Platelet Volume 9.9 fL Neutrophils (%) (Auto) 78.1 % Lymphocytes (%) (Auto) 9.8 % Monocytes (%) (Auto) 10.3 % Eosinophils (%) (Auto) 1.1 % Basophils (%) (Auto) 0.2 % Neutrophils # (Auto) 8.75 K/uL Lymphocytes # (Auto) 1.10 K/uL Monocytes # (Auto) 1.16 K/uL Eosinophils # (Auto) 0.12 K/uL Basophils # (Auto) 0.02 K/uL RDW Standard Deviation 54.3 fL RDW Coefficient of Variation 17.2 % Immature Granulocyte % (Auto) 0.5 % Immature Granulocyte # (Auto) 0.06 K/uL Echinocytes 2+ Arterial Blood pH 7.34 Arterial Blood Partial Pressure CO2 34 mmHg Arterial Blood Partial Pressure O2 78 mm/Hg Arterial Blood HCO3 18 mmol/L Arterial Blood Oxygen Saturation 94.4 % Arterial Blood Base Excess -6.9 mEq/L Arterial Blood Gas Delivery 3L Duglas Test POS Sodium Level 138 mmol/L 138 mmol/L Potassium Level 3.6 mmol/L 4.2 mmol/L Chloride Level 106 mmol/L 107 mmol/L Carbon Dioxide Level 19 mmol/L 20 mmol/L Anion Gap 13.0 mmol/L 11.0 mmol/L Blood Urea Nitrogen 25 mg/dl 25 mg/dl Creatinine 3.30 mg/dl 3.50 mg/dl Est Creatinine Clear Calc Drug Dose 29.4 ml/min 27.7 ml/min Estimated GFR () 23.9 22.3 Estimated GFR (Non- 20.6 19.2 BUN/Creatinine Ratio 7.6 7.3 Random Glucose 115 mg/dl 128 mg/dl Calcium Level 7.5 mg/dl 8.2 mg/dl Magnesium Level 2.1 mg/dl Albumin 1.1 gm/dl Orang[place]ree Level 0.8 mMOL/L Urine Color YELLOW Urine Appearance CLEAR Urine pH 6.0 Urine Specific Ina 1.010 Urine Protein TRACE Urine Glucose (UA) NEG Urine Ketones NEG Urine Occult Blood 1+ Urine Nitrite NEG Urine Bilirubin NEG Urine Urobilinogen NEG Urine Leukocyte Esterase NEG Urine RBC 0-4 /hpf Urine WBC 1-5 /hpf Urine Epithelial Cells 0-5 /lpf Urine Amorphous Sediment PRESENT Urine Bacteria NEG Urine Granular Casts 5-10 /lpf Test 05/19/16 06:32 05/19/16 07:55 Bedside Glucose 132 mg/dl Erythrocyte Sedimentation Rate 71 mm/hr Date/Time Source Procedure Growth Status 05/18/16 16:30 Urine , Clean Catch Urine Culture Pending Received Assessment & Plan 50 year old male with history of Bipolar Disorder, Esophagectomy, GERD, PE with IVC filter presenting with cough. SEVERE SEPSIS DUE TO PNEUMONIA, STAPH AUREUS - r/o Tracheo-Esophageal Fistula - no fever since yesterday, still has mild leukocytosis - sputum culture: staph aureus, MSSA blood culture: negative so far (+) Nasal MRSA - changed Vanco (1 day) to Linezolid (da 2) for elevated crea, d/c as patient has MSSA d/c Levaquin per Pulm on Zosyn Day 3 discussed with Pharmacy- recommend Cefazolin + Metronidazole to start today Nebs IV fluids - Pulm and GI consulted for possible Bronch HEMOPTYSIS likely from Necrotizing Pneumonia POSSIBLE LEFT UPPER LOBE MASS hemoptysis improving as per patient chest CT chest: IMPRESSION: 1. Consolidative infiltrative and/or masslike changes involving the bulk of the left upper and to a somewhat lesser extent left lower lobe regions. 2. Additional nodularity within the left hemithorax and to a somewhat lesser extent right base. 3. Progressive mediastinal and hilar adenopathy. 4. Although it is possible that central obstructing lesions may account for the peripheral consolidative change, a neoplastic process nevertheless is a diagnosis of exclusion. 5. Associated parenchymal nodularity indicates a significant possibility of metastatic change. 6. Operative changes stable from the prior exam consistent with a prior esophagectomy and anterior gastric pull-through type procedure. -- Pulmonary consulted, plan for Bronchoscopy today ACUTE RENAL FAILURE - possible Pre Renal, Sepsis related, ATN from Toradol, Vancomycin - crea 0.98--> 1.9--> 3.5 - hold Toradol, Vanco management of sepsis noted above - IV fluids Nephro consulted POSSIBLE BPH - has BPH symptoms residual ~400 - patient declines indwelling lang cath intermittent straight cath for now start trial of Tamsulosin 0.4mg daily LEFT LOWER RIB CAGE PAIN CT abdomen: There are postoperative changes to several lower left ribs unchanged from the prior study. A well-defined lytic or blastic process is not appreciated within the osseous structures. - likely worsened with cough from Pneumonia - cannot give NSAIDs due to acute renal failure ofirmev not adequately controlling pain discussed with pharmacy, dilaudid recommended instead of morphine due to renal clearance; monitor closely due to past history of abuse and renal function DM TYPE 2, New Diagnosis A1c 7.0 has family history repeat A1c in AM ISS, Pharm and Company Controller Consult MOOD DISORDER - appears stable - continue home meds but now renally dosed lithium dose reduced, repeat level in AM, goal 0.6-0.8 per pharmacy adjust to usual doses once renal function improves HISTORY OF PE, S/P IVC FILTER PLACEMENT on Heparin Q12 for dvt prophylaxis monitor as patient has history of GI bleed DISPO pending Current Inpatient Medications: Current Inpatient Medications Medications (Trade) Dose Ordered Sig/Shemar Route Start Time Stop Time Status Last Admin Dose Admin Acetaminophen (Tylenol Tab) 650 mg Q4H PRN PO 05/16/16 14:15 06/15/16 14:14 05/17/16 19:50 650 MG Ondansetron HCl (Zofran Inj) 4 mg Q6H PRN IV 05/16/16 14:15 06/15/16 14:14 Piperacillin Sod/ Tazobactam Sod 1 ea 1 ea UD N/A 05/16/16 14:30 06/15/16 14:29 Piperacillin Sod/ Tazobactam Sod/ Dextrose (Zosyn Iv/D5 100ml) 115 ml @ 28.75 mls/ hr Q8H IV 05/16/16 22:00 05/23/16 13:59 05/19/16 06:00 28.75 MLS/HR Quetiapine Fumarate (seroQUEL TAB) 200 mg DAILY PO 05/17/16 09:00 06/16/16 08:59 05/18/16 07:33 200 MG Quetiapine Fumarate (seroQUEL TAB) 600 mg HS PO 05/16/16 21:00 06/15/16 20:59 05/18/16 20:30 600 MG Paroxetine HCl (pAXil) 30 mg DAILY PO 05/17/16 09:00 06/16/16 08:59 05/19/16 07:30 30 MG Ipratropium [place] (Atrovent 0.02% 0.5MG/2.5ML Neb) 0.5 mg Q6R INH 05/17/16 15:00 06/16/16 14:59 05/19/16 06:58 0.5 MG Levalbuterol (Xopenex 1.25MG/ 0.5ML Neb) 1.25 mg Q6R INH 05/17/16 15:00 06/16/16 14:59 05/19/16 06:58 1.25 MG Heparin Sodium (Porcine) 1 ml 1 ml PRN PRN FLUSH 05/18/16 00:30 06/17/16 00:29 Linezolid 600 mg/ Prmx 300 ml @ 200 mls/hr Q12@0200,1400 IV 05/18/16 14:00 05/25/16 13:59 05/19/16 01:02 200 MLS/HR Acetaminophen/ Empty Bag (Ofirmev Iv/ Empty Iv Bag 100ml) 65 ml @ 400 mls/hr Q6H IV 05/18/16 12:30 06/17/16 12:29 05/19/16 06:00 400 MLS/HR Dornase Castro (Pulmozyme Inhalation Soln 2.5ml Amp) 2.5 ml BIDR INH 05/18/16 20:00 06/17/16 19:59 05/19/16 06:58 2.5 ML Clonazepam (Klonopin Tab) 0.5 mg DAILY PO 05/19/16 09:00 06/18/16 08:59 Heparin Sodium (Porcine) (Heparin Sq 5000 Unit/0.5ml) 5,000 unit Q12 SQ 05/18/16 21:00 06/17/16 20:59 05/19/16 07:31 5,000 UNIT Ipratropium [place] (Atrovent 0.02% 0.5MG/2.5ML Neb) 0.5 mg Q4H PRN INH 05/19/16 00:15 06/18/16 00:14 Levalbuterol 1.25 mg 1.25 mg Q4H PRN INH 05/19/16 00:15 06/18/16 00:14 Sodium Chloride (Nss 1000ml) 1,000 ml @ 100 mls/hr Q10H IV 05/19/16 08:00 06/18/16 07:59 Insulin Aspart (novoLOG ASPART) SLIDING SCALE If C... ACHS SC 05/19/16 11:00 06/18/16 10:59 UNV Glucose (Glucose 40% Gel) 15-30 GRAMS 15 GRAMS... UD PRN PO 05/19/16 08:00 06/18/16 07:59 Glucose (Glucose Chew Tab) 4-8 Tablets 4 Tabl... UD PRN PO 05/19/16 08:00 06/18/16 07:59 Dextrose (Dextrose 50% 50ML Syringe) 25-50ML OF 50% DW IV FOR... UD PRN IV 05/19/16 08:00 06/18/16 07:59 Glucagon (Glucagon Inj) 1 mg UD PRN SQ 05/19/16 08:00 06/18/16 07:59 Miscellaneous Information (Consult Glycemic Management Pharmacy) 1 ea UD PRN N/A 05/19/16 07:58 06/18/16 07:57 Orangetree Carbonate (Orangetree Carbonate Tab) 75 mg BID PO 05/19/16 09:00 06/18/16 08:59 UNV Pregabalin (Lyrica Cap) 150 mg DAILY PO 05/19/16 09:00 06/18/16 08:59 UNV
[2016-05-19] MEDS: CLONAZEPAM 0.5 MG TAB PO SCH (09:00)
[2016-05-19] MEDS ORDERED: LITHIUM CARBONATE 300 MG TAB PO SCH (09:00)
[2016-05-19] MEDS: QUETIAPINE FUMARATE 200 MG TAB PO SCH ×2 (09:40→20:28)
--- NOTE | 2016-05-19 09:58 | Gastrointestinal Consultation ---
Gastrointestinal Consultation Date of Consultation: May 19, 2016 Consulting Physician: Kenney Reason for Consultation: EGD ? tracheo-esophageal fistula History of Present Illness Patient is a 50 year old male with past medical history significant for Barretts esophagus, esophageal rupture, pulmonary emboli with IVC filter, reconstructive esophagectomy, dysphagia, odynophagia, bipolar disease, GERD, pulmonary nodule and hx of narcotic abuse who is admitted to [facility] for weakness, fever, chills and necrotizing pneumonia. GI is consulted for suspicion of tracheo-esophageal fistula and for EGD. Past Medical/Surgical History Medical Problems: (1) Confusion Status: Acute (2) Hypokalemia Status: Acute (3) Mood disorder Status: Acute (4) Near syncope Status: Acute (5) Pneumonia Status: Acute (6) Sepsis Status: Acute (7) Toe fracture Status: Acute Family History FH: heart disease FATHER ( from [place] at age 63) Social History Smoking Status: Never Smoker Alcohol Use: none Housing Status: lives with family Allergies Coded Allergies: Tramadol (Verified Allergy, Unknown, seizures, 05/16/16) Current Medications Home Meds and Scripts Medications Dose Route/Sig Max Daily Dose Days Date Category Klonopin (Clonazepam) 0.5 Mg Tab 1 Tab PO BID 30 05/16/16 Reported [place] Carbonate 300 Mg Tab 1 Tab PO BID 30 05/16/16 Reported Lyrica (Pregabalin) 150 Mg Cap 1 Cap PO BID 30 05/16/16 Reported Paxil (Paroxetine Hcl) 30 Mg Tab 1 Tab PO DAILY 30 05/16/16 Reported Seroquel (Quetiapine Fumarate) 200 Mg Tab 200 Mg PO DAILY 05/16/16 Reported Seroquel (Quetiapine Fumarate) 200 Mg Tab 600 Mg PO HS 05/16/16 Reported Review of Systems Constitutional: No chills, No fever Respiratory: + shortness of breath Cardiac: No chest pain, No edema Abdomen: No GI bleeding, No constipation, No diarrhea, No nausea, No pain, No vomiting Physical Exam Date Time Temp Pulse Resp B/P Pulse Ox O2 Delivery O2 Flow Rate FiO2 05/19/16 07:15 36.1 71 20 100/63 98 Nasal Cannula 2.0 05/19/16 06:59 81 18 96 Nasal Cannula 2.0 05/19/16 04:00 98 Nasal Cannula 3.0 05/19/16 03:18 77 18 98 Nasal Cannula 3.0 05/19/16 03:10 36.4 77 24 115/74 97 Nasal Cannula 3.0 05/19/16 01:46 90 20 96 Nasal Cannula 3.0 05/19/16 00:23 98 20 96 Room Air 05/18/16 23:59 95 Nasal Cannula 3.0 05/18/16 23:27 103 20 95 Nasal Cannula 3.0 05/18/16 23:10 36.7 121 26 114/60 84 Room Air 05/18/16 20:00 92 Room Air 05/18/16 19:51 111 16 92 Room Air 05/18/16 18:54 36.6 104 20 102/63 92 Room Air 05/18/16 16:00 Room Air 05/18/16 15:16 36.4 93 16 93/56 92 Room Air 05/18/16 14:10 80 16 94 Room Air 05/18/16 12:20 36.3 87 20 96/59 94 Nasal Cannula 2.0 05/18/16 12:00 Room Air General Appearance: no apparent distress Eyes: PERRL ENT: hearing grossly normal Neck: supple Respiratory/Chest: chest non-tender, no respiratory distress, no accessory muscle use, + decreased breath sounds, + crackles (bilaterial), + pertinent finding (nasal canula with 02) Cardiovascular: regular rate, rhythm, no gallop, no murmur Abdomen: normal bowel sounds, non tender, soft, no organomegaly, no pulsatile mass Neurologic/Psych: alert, normal mood/affect, oriented x 3 Skin: normal color, no jaundice, warm/dry, no rash Laboratory Results Last 24 Hours Test 05/18/16 16:09 05/18/16 16:30 05/18/16 16:59 05/18/16 20:17 Bedside Glucose 87 mg/dl 120 mg/dl Urine Color YELLOW Urine Appearance CLEAR Urine pH 6.0 Urine Specific [place] <= 1.005 Urine Protein NEG Urine Glucose (UA) NEG Urine Ketones NEG Urine Occult Blood 1+ Urine Nitrite NEG Urine Bilirubin NEG Urine Urobilinogen NEG Urine Leukocyte Esterase NEG Urine RBC 0-4 /hpf Urine WBC 5-10 /hpf Urine Epithelial Cells >30 /lpf Urine Renal Cells 5-10 /lpf Urine Amorphous Sediment PRESENT Urine Bacteria 1+ Urine Granular Casts 5-10 /lpf Potassium Level 3.4 mmol/L Test 05/19/16 00:53 05/19/16 05:20 05/19/16 05:34 05/19/16 06:32 White Blood Count 11.21 K/uL Red Blood Count 3.20 M/uL Hemoglobin 9.1 g/dL 10.2 g/dL Hematocrit 27.2 % 30.6 % Mean Corpuscular Volume 85.0 fL Mean Corpuscular Hemoglobin 28.4 pg Mean Corpuscular Hemoglobin Concent 33.5 g/dl Platelet Count 369 K/uL Mean Platelet Volume 9.9 fL Neutrophils (%) (Auto) 78.1 % Lymphocytes (%) (Auto) 9.8 % Monocytes (%) (Auto) 10.3 % Eosinophils (%) (Auto) 1.1 % Basophils (%) (Auto) 0.2 % Neutrophils # (Auto) 8.75 K/uL Lymphocytes # (Auto) 1.10 K/uL Monocytes # (Auto) 1.16 K/uL Eosinophils # (Auto) 0.12 K/uL Basophils # (Auto) 0.02 K/uL RDW Standard Deviation 54.3 fL RDW Coefficient of Variation 17.2 % Immature Granulocyte % (Auto) 0.5 % Immature Granulocyte # (Auto) 0.06 K/uL Echinocytes 2+ Arterial Blood pH 7.34 Arterial Blood Partial Pressure CO2 34 mmHg Arterial Blood Partial Pressure O2 78 mm/Hg Arterial Blood HCO3 18 mmol/L Arterial Blood Oxygen Saturation 94.4 % Arterial Blood Base Excess -6.9 mEq/L Arterial Blood Gas Delivery 3L [place] Test POS Sodium Level 138 mmol/L 138 mmol/L Potassium Level 3.6 mmol/L 4.2 mmol/L Chloride Level 106 mmol/L 107 mmol/L Carbon Dioxide Level 19 mmol/L 20 mmol/L Anion Gap 13.0 mmol/L 11.0 mmol/L Blood Urea Nitrogen 25 mg/dl 25 mg/dl Creatinine 3.30 mg/dl 3.50 mg/dl Est Creatinine Clear Calc Drug Dose 29.4 ml/min 27.7 ml/min Estimated GFR () 23.9 22.3 Estimated GFR (Non- 20.6 19.2 BUN/Creatinine Ratio 7.6 7.3 Random Glucose 115 mg/dl 128 mg/dl Calcium Level 7.5 mg/dl 8.2 mg/dl Magnesium Level 2.1 mg/dl Albumin 1.1 gm/dl [place] Level 0.8 mMOL/L Urine Color YELLOW Urine Appearance CLEAR Urine pH 6.0 Urine Specific [place] 1.010 Urine Protein TRACE Urine Glucose (UA) NEG Urine Ketones NEG Urine Occult Blood 1+ Urine Nitrite NEG Urine Bilirubin NEG Urine Urobilinogen NEG Urine Leukocyte Esterase NEG Urine RBC 0-4 /hpf Urine WBC 1-5 /hpf Urine Epithelial Cells 0-5 /lpf Urine Amorphous Sediment PRESENT Urine Bacteria NEG Urine Granular Casts 5-10 /lpf Bedside Glucose 132 mg/dl Test 05/19/16 07:55 Erythrocyte Sedimentation Rate 71 mm/hr Impression Patient is a 50 year old male with necrotizing pneumonia and suspicion of tracheo-esophageal fistula. Plan NPO EGD in OR tomorrow 05/20/[address] Holliday\ I saw and evaluated the patient. 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 Over the past few days he is noted recurrent coughing and shortness of breath. Gastroenterology as consult at for question of an esophagotracheal fistula. Physical examination No obvious distress Coarse airway sounds heard Impression: Symptoms are most suggestive of aspiration as opposed to a fistula. I would suggest a barium swallow as recommended by CT surgery. We can proceed with an upper endoscopy in the near future for further evaluation. This will be done in the OR to facilitate a combination procedure with pulmonary.
[2016-05-19] MEDS ORDERED: CEFAZOLIN CONSULT PHARMACY PRN (10:00)
[2016-05-19] MEDS: LITHIUM ORAL SOLN 300 MG/5ML 500ML PO SCH ×3 (11:00→20:27)
--- NOTE | 2016-05-19 11:20 | Pharmacy Progress Note ---
Glycemic Control Intl Consult Date of Service May 19, 2016. Scope Glycemic Pharmacist consulted by Dr Vega on 05/19/16 for glycemic control and to write orders per [facility] inpatient glycemic control protocol Objective Weight (Kilograms): 91.200 Accuchecks BSG (last 24hrs): Test 05/18/16 16:09 05/18/16 20:17 05/19/16 00:53 05/19/16 05:20 Bedside Glucose 87 mg/dl (70-99) 120 mg/dl (70-99) Random Glucose 115 mg/dl (70-99) 128 mg/dl (70-99) Test 05/19/16 06:32 Bedside Glucose 132 mg/dl (70-99) Laboratory Data (last 24hrs) Test 05/18/16 16:59 05/19/16 00:53 05/19/16 05:20 Potassium Level 3.4 mmol/L 3.6 mmol/L 4.2 mmol/L Anion Gap 13.0 mmol/L 11.0 mmol/L BUN/Creatinine Ratio 7.6 7.3 Blood Urea Nitrogen 25 mg/dl 25 mg/dl Creatinine 3.30 mg/dl 3.50 mg/dl Sodium Level 138 mmol/L 138 mmol/L White Blood Count 11.21 K/uL Red Blood Count 3.20 M/uL Hemoglobin 9.1 g/dL Hematocrit 27.2 % Mean Corpuscular Volume 85.0 fL Mean Corpuscular Hemoglobin 28.4 pg Mean Corpuscular Hemoglobin Concent 33.5 g/dl Platelet Count 369 K/uL Mean Platelet Volume 9.9 fL Neutrophils (%) (Auto) 78.1 % Lymphocytes (%) (Auto) 9.8 % Monocytes (%) (Auto) 10.3 % Eosinophils (%) (Auto) 1.1 % Basophils (%) (Auto) 0.2 % Neutrophils # (Auto) 8.75 K/uL Lymphocytes # (Auto) 1.10 K/uL Monocytes # (Auto) 1.16 K/uL Eosinophils # (Auto) 0.12 K/uL Basophils # (Auto) 0.02 K/uL HbA1c Test 05/18/16 06:10 Hemoglobin A1c 7.0 % (4.5-5.6) H Recent Pertinent Medications Outpatient Anti-diabetic Regimen: * N/A Risk Factors for Insulin Resistance: * Infection * Diet Assessment & Plan ASSESSMENT: * 50 yo M admitted with sepsis secondary to pneumonia * Fasting BSG this AM 132 mg/dL * A1c 7.0% indicative of newly diagnosed diabetes; pt has family history of diabetes * Initiate loose Novolog coverage with correctional insulin only and reassess use in 24 hours * ADA & AACE recommend a goal blood sugar range 140-180 mg/dl for the majority of critically ill & non-critically ill patients. However, more stringent targets may be selected in individual cases. PLAN FOR INPATIENT GLYCEMIC CONTROL: * Correctional Insulin with NOVOLOG per scale ACHS or Q6hrs while NPO * Goal Range: Low 140 mg/dL - High 180 mg/dL * Correction Factor: 35 mg/dL/unit * Nutritional / Prandial insulin per carb ratio of 1 unit per 0 grams CHO consumed * A1c added to d/c instructions Looking ahead to discharge: * Need to assess renal function prior to discharge * If renal function back to baseline- CONSIDER initiation of metformin * Recommend diet/lifestyle modifications * CDE to see patient * Please note that the plan above was derived based on current level of insulin resistance and hospital stress. These recommendations are appropriate for inpatient admission only. Plan of care upon discharge will need to be reassessed to avoid potential outpatient hypo/hyperglycemia. Thank you.
--- NOTE | 2016-05-19 11:22 | DIAGNOSTIC IMAGING REPORT ---
ULTRASOUND KIDNEYS AND BLADDER CLINICAL HISTORY: Acute renal insufficiency. COMPARISON STUDY: Abdominal CT dated 03/23/2016. TECHNIQUE: Real-time, grayscale, and color flow sonography of the kidneys and bladder is performed. Images are reviewed in the transverse and longitudinal planes. FINDINGS: Kidneys: The kidneys demonstrate mild cortical atrophy and are normal in echotexture. The right kidney measures 11.4 x 5.8 x 6.9 cm and the left kidney measures 10.4 x 6.4 x 6.0 cm. There is no hydronephrosis. No shadowing renal calculi are identified. There is no sonographic evidence of contour deforming renal mass lesion. No perinephric fluid is identified. Bladder: The bladder is decompressed around a Car catheter and could not be assessed. IMPRESSION: 1. The kidneys demonstrate mild cortical atrophy and are without hydronephrosis. 2. The bladder was decompressed around a Car catheter and could not be assessed. Electronically signed by: Umesh Hauser M.D. 05/19/2016 11:21 AM Dictated Date/Time: 05/19/2016 11:20 AM
--- NOTE | 2016-05-19 11:37 | NEPHROLOGY CONSULTATION ---
DATE OF CONSULTATION: 05/19/2016 ATTENDING OF RECORD: Dr. Vega. REASON FOR CONSULTATION: RICARDO. HISTORY OF PRESENT ILLNESS: This is a 50-year-old male who has normal kidney function at baseline, who has been on lithium for the past 2 years, does take ibuprofen occasionally about once a month for myalgias or headaches. The patient has had a productive cough with fevers and decreased appetite with underlying chills and blurry vision. The patient came to the hospital and had a white count of 21,000, creatinine of 0.95 and blood pressure in the 90s. The patient was diagnosed with pneumonia and given IV fluids, linezolid, vancomycin. The patient did have a chest CT; however, that was without contrast. The patient was receiving Toradol for pain with 30 mg IV on the th and 30 mg IV on , and 30 mg IV on the . The patient also received vancomycin and got 2300 mg on the , 1350 mg on the . The patient's creatinine went from 0.95 on the th to 1 on the , to 1.6 on the , to 3.3 compared to 3.5 this morning. Car catheter was placed, urinating well. The patient since he has been here has had an improvement in his fevers and chills. Still has a productive cough; however, appetite is starting to improve. The patient denies any NSAID prior to coming to the hospital. REVIEW OF SYSTEMS: Positive fevers and chills which has improved. Positive productive cough. Positive shortness of breath. Positive decreased appetite, which is improving. Positive constipation. Positive dysphagia to solids for the past 2 years. Positive intermittent blurry vision. No rash or itching, no chest pain, no nausea or vomiting, no headaches. All other review of systems is otherwise negative. PAST MEDICAL HISTORY: Solis's esophagus, bipolar disorder, GERD, history of a PE in the past, degenerative disc disease. PAST SURGICAL HISTORY: IVC filter, hernia repair, esophageal surgery for previous esophagectomy, appendectomy, hemilaminectomy with lumbar fusion. FAMILY HISTORY: Significant for heart disease. SOCIAL HISTORY: No smoking, no alcohol, no drugs. HOME MEDICATIONS: Significant for lithium. CURRENT MEDICATIONS: Klonopin 0.5 mg daily, Pulmozyme inhalation twice a day, heparin 5000 units subQ q. 12, Xopenex inhaler q. 6, lithium 75 mg p.o. b.i.d., Zosyn 3.375 IV q. 8, Lyrica 150 mg daily, Seroquel 200 mg daily, 600 mg at night; normal saline at 100 mL an hour, Flomax 0.4 mg daily. PHYSICAL EXAMINATION: VITAL SIGNS: Temperature 36.6, was 38.6 last night. Pulse in the 80s, blood pressure was 88/56 last night. Satting 92% on room air. GENERAL: Awake, alert, oriented x3. EYES: No scleral icterus. ENT: Moist mucous membranes. NECK: Supple. PULMONARY: Significant rhonchi diffusely. CARDIAC: Was tachy last night, this morning is regular. ABDOMEN: Bowel sounds positive, soft, nontender. EXTREMITIES: No significant clubbing, cyanosis or edema. NEUROLOGICALLY: Nonfocal. DERM: No rash or ulcers noted. LABORATORIES: Sodium was 138, potassium is 4.2, chloride is 107, bicarb is 20, BUN is 25, creatinine is 3.5, glucose 128, calcium is 8.2, albumin 1.1. Hemoglobin 10.2, hematocrit 30.6, white count is 11,000, platelet count is 369. Sed rate is elevated at 71. INR is 1.2. Blood gas last night showed a pH of 7.34, pCO2 of 34, pO2 of 78 and bicarbonate of 18. UA shows a pH of 6, specific gravity of 1.010, trace protein, 1+ blood, 5-10 granular casts, no RBCs. [place] level 0.8. GELA, ANCA is pending. Flu is negative. Urine cultures pending. Blood cultures are negative. Sputum culture was positive for Staph aureus. Chest x-ray from last night showed progressive opacification of left hemithorax. IMPRESSION AND PLAN: 1. Acute kidney injury, nonoliguric and appears to be acute tubular necrosis in the setting of 3 doses of Toradol and a volume depleted state plus or minus vancomycin nephrotoxicity plus or minus acute tubular necrosis from underlying pneumonia. Given the fact that the patient has pulmonary disease, now worsening kidney function, pulmonary renal syndromes are possibility; however, no significant blood in the urine and there is an GELA and ANCA pending, to be thorough will check a C3, C4, and an SPEP and [id number] DNA. Also checking a renal ultrasound, checking for hydro as well as medical renal disease. Car catheter has been placed and the urine appears clear with good urine output. Feel this is most likely ATN from NSAIDs and underlying pneumonia plus or minus vancomycin. Vancomycin has been stopped and continuing IV fluids. Hoping kidney function eventually peaks and starts to improve. The patient does have worsening opacification though of his lung carbajal; however, white count is improving. Despite the patient is saying that the fevers and chills have improved, we have a documented elevated temperature yesterday afternoon, so in terms of clinical exam the patient feels like he is getting better. White count is improving; however, kidney function is worsening and appears the opacification in his lung carbajal was also worsening despite antibiotics. Pulmonary is considering a possible bronchoscopy, I will discuss further with primary hospitalist, but will check further serologies, continue the IV fluids, stop the Toradol, stop the vancomycin, and check a renal ultrasound. We will follow along. The patient does have lithium which has been appropriately reduced and lithium levels appear appropriate. Unlikely to have acute kidney injury in the setting of lithium unless this is lithium toxicity; however, based from last lithium levels this does not appear to be the case, I appreciate the consultation. CARLOS
[2016-05-19] MEDS: INSULIN ASPART 100 UNITS/ML 3 ML PEN SC SCH ×3 (12:00→20:36)
[2016-05-19] MEDS: TAMSULOSIN HCL 0.4 MG CAP PO SCH (12:14)
[2016-05-19] MEDS: HYDROmorphone INJ 0.5 MG/0.5 ML SYR IV PRN ×2 (12:19→20:26)
[2016-05-19] MEDS ORDERED: ACETAMINOPHEN IV 650 MG in EMPTY BAG 0 ML IV PRN (12:30)
[2016-05-19] MEDS: METRONIDAZOLE 500 MG/ NSS IV SCH ×2 (13:54→22:07)
--- NOTE | 2016-05-19 14:01 | DIAGNOSTIC IMAGING REPORT ---
DOUBLE CONTRAST BARIUM ESOPHAGRAM CLINICAL HISTORY: Dysphagia. Reported history of prior esophageal surgery. COMPARISON STUDY: Barium esophagram dated 01/02/2014. TECHNIQUE: A standard air contrast barium esophagram is performed. Multiple spot images of the esophagus are acquired both upright and prone. FINDINGS: Aspiration was observed during the examination. A cough reflux was noted. The study was discontinued at that time. The mucosal pattern is grossly unremarkable on the provided images. There is foreshortening and irregularity of the distal esophagus, likely related to the reported history of previous surgery with possible gastric pull-through. There is no clear evidence of intrinsic or extrinsic mass lesion. Fusion hardware is noted in the cervical region. Fluoroscopy time: 0.6 minutes. Fluoroscopic images: 15 IMPRESSION: 1. There was aspiration with cough. The examination was discontinued at that time. 2. The esophagus appears shortened Yue findings suggest gastric pull-through procedure. Correlation with the patient's surgical history will be required. Electronically signed by: Umesh Hauser M.D. 05/19/2016 2:00 PM Dictated Date/Time: 05/19/2016 1:57 PM
--- NOTE | 2016-05-19 15:36 | SURGICAL CONSULTATION ---
DATE OF CONSULTATION: 05/19/2016 REASON FOR CONSULTATION: Evaluate esophageal conduit. HISTORY OF PRESENT ILLNESS: This is a 50-year-old male who has never smoked cigarettes, but has a Solis esophagus and develops apparent strictures with dilatation; who developed an esophageal rupture and underwent an apparent emergent left thoracotomy and then had a substernal gastric pull-up done with a left neck esophagogastrostomy. This was done at [facility] back in 2013. Apparently he has done fairly well from this, although recently developed some problems with swallowing. He underwent a video fluoroscopic swallow back on 03/24/2016 and no aspiration was seen; however, patient has been describing symptoms for the last month or so where he has to eat in very small amounts or he would vomit. It just got worse and then he became quite short of breath with some left-sided chest pain and pressure, was found to have significant pneumonia which at least initially appears to be from aspiration. CT scan was obtained which shows the substernal gastric pull-up. It appeared to me there may be a problem distally and not in the proximal portion. I have been asked to comment on this from a thoracic surgery standpoint. PAST MEDICAL HISTORY: 1. Solis esophagus. 2. Status post esophageal rupture. 3. History of a seizure disorder. 4. Bipolar disorder. 5. History of narcotic addiction. 6. Pulmonary embolism. 7. Lumbosacral disc disease. 8. Cervical disc disease. PAST SURGICAL HISTORY: 1. Anterior cervical spine stabilization with hardware. 2. Left thoracotomy with substernal gastric pull-up with a left neck esophagogastrostomy. 3. Insertion of an IVC filter. 4. Inguinal hernia repair. 5. Tracheostomy. 6. Lumbar fusion. 7. Multiple bronchoscopies and upper endoscopies. 8. Lumbar laminectomy. 9. Appendectomy. SOCIAL HISTORY: The patient lives in assisted living area. He has never smoked cigarettes. 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 The patient is single. He is apparently . He lives in [place] at a boarding home/assisted living area. FAMILY MEDICAL HISTORY: The patient apparently has no children. His father from myocardial infarction at age 63. His father and a cousin also suffered from a pulmonary embolism. REVIEW OF SYSTEMS: The patient has felt weaker. He has had trouble swallowing. He feels like he has lost some weight. He has had trouble breathing with his pulmonary system as noted in history of present illness. He had some abdominal pain, but this is resolved. He has had no urinary symptoms, currently has a Car in place. He has been moving his bowels. He had no new skin breakdown. He has had no visual or auditory symptoms. PHYSICAL EXAMINATION: GENERAL: This is an ill-appearing male who stands 6 feet tall and weighs 201 pounds. HEENT: His extraocular movements are intact. His sclerae are pale but anicteric. He is edentulous. Oral mucosa is dry. He has no oral mucosal lesions. He has evidence of a left claviculectomy when his substernal gastric pull-up was performed. There is no erythema or fluctuance. NECK: He has no carotid bruits, no lymphadenopathy. He has no axillary adenopathy. LUNGS: He does have decreased breath sounds with "some rhonchi, but no wheezing." CARDIOVASCULAR: He has a regular rate and rhythm of his heart. Upon evaluation of his chest, he has a left posterolateral thoracotomy as well as left neck incision going down into sternum, which is the site of his resection of left clavicular head. He also has laparotomy incision in his tube and drain sites on both abdomen and the chest which have all healed nicely. ABDOMEN: Soft and nontender, but protuberant. He has good femoral pulses. Good peripheral pulses. No peripheral edema. No joint effusions. NEUROLOGIC: He is awake, alert, oriented, and moves his extremities. DIAGNOSTIC DATA: I reviewed his x-rays and his older charts, and he had a 2-stage procedure where he had an apparent drainage of his left empyema when he had perforation, it is unclear to me whether his esophagus was stapled or resected. At any rate, he was brought back later for a reestablishment of his enteric continuity with the substernal gastric pull-up. ASSESSMENT AND PLAN: Apparent mechanical obstruction of the distal gastric ramila-esophagus. Common things being, this patient has aspiration pneumonia, probably from a problem with esophageal conduit. It is hard for me to see on the CT scan whether we are dealing with any type of fistula; however, it does not appear that we are. I do want to get a barium swallow on him as well as an endoscopy. He may well have a mechanical problem in his distal conduit which may require intervention. CARLOS
[2016-05-19] MEDS ORDERED: CEFAZOLIN SOD 2000 MG in DEXTROSE 5% 50ML IV ONE (18:00)
[2016-05-20] VITALS (20 sets, daily range): BP systolic 77–126; BP diastolic 55–78; PULSE 66–123; TEMP 36.4–38.6; O2SAT 87–98
[2016-05-20] MEDS: LEVALBUTEROL 1.25MG/0.5ML NEB INH SCH ×4 (02:17→19:19)
[2016-05-20] MEDS: IPRATROPIUM BROMIDE NEB SOLN 0.02% 2.5 ML VIAL INH SCH ×4 (02:17→19:19)
[2016-05-20] MEDS: SODIUM CHLORIDE 0.9% 1000ML 1,000 ML IV SCH ×3 (04:32→18:58)
[2016-05-20] MEDS: HYDROmorphone INJ 0.5 MG/0.5 ML SYR IV PRN (04:34)
[2016-05-20] MEDS: CEFAZOLIN IV 1,000 MG in DEXTROSE 5% 50ML 50 ML IV SCH ×2 (05:53→18:24)
[2016-05-20 05:57] LABS: BASO % 0.1 %; BASO ABS # 0.01 K/uL (0-0.2); COMPLETE YES; EOS % 0.1 %; HEMATOCRIT 28.5 % (42-52); IG% 0.5 %; LYMPH ABS # 0.84 K/uL (1.2-3.4); MEAN CELL VOLUME 86.1 fL (80-100); MEAN CORPUSCULAR HEMOGLOBIN 28.4 pg (25-34); MEAN PLATELET VOLUME 9.8 fL (7.4-10.4); MONO % 7.2 %; NEUT % 82.1 %; PLATELET COUNT 454 K/uL (130-400); RED BLOOD COUNT 3.31 M/uL (4.7-6.1); WHITE BLOOD COUNT 8.39 K/uL (4.8-10.8)
[2016-05-20 06:22] LABS: ESTIMATED AVERAGE GLUCOSE 154 mg/dl; HA1C FLAG Normal (Normal)
[2016-05-20] MEDS: METRONIDAZOLE 500 MG/ NSS IV SCH ×3 (06:27→22:08)
[2016-05-20 06:29] LABS: BUN/CREATININE RATIO 8.7 (10-20); CALCIUM 7.7 mg/dl (8.5-10.1); MAGNESIUM 2.5 mg/dl (1.8-2.4); POTASSIUM 3.9 mmol/L (3.5-5.1)
--- NOTE | 2016-05-20 06:50 | Nephrology Progress Note ---
Nephrology Progress Note Date of Service: May 20, 2016. Subjective 50 yo male with trevor/atn from [facility], [facility] with underlying pneumonia. currently npo for bronch today. pulmonary exam improving. appetite is good. urinating well from lang. cough improving. Objective Date Time Temp Pulse Resp B/P Pulse Ox O2 Delivery O2 Flow Rate FiO2 05/20/16 06:06 Nasal Cannula 05/20/16 04:00 95 Nasal Cannula 2.0 05/20/16 03:05 36.4 94 20 121/72 97 Nasal Cannula 2.0 05/20/16 02:17 90 16 97 Nasal Cannula 3.0 05/20/16 00:00 Nasal Cannula 2.0 05/20/16 00:00 36.7 88 111/68 98 Nasal Cannula 2.0 05/19/16 20:00 95 Nasal Cannula 2.0 05/19/16 19:32 94 16 93 Nasal Cannula 3.0 05/19/16 19:04 36.4 84 18 104/57 99 Nasal Cannula 3.0 05/19/16 16:00 95 Nasal Cannula 2.0 05/19/16 15:20 36.4 86 20 113/60 95 Nasal Cannula 2.0 05/19/16 14:13 84 18 96 Nasal Cannula 2.0 05/19/16 12:00 Nasal Cannula 2.0 05/19/16 11:44 36.4 79 20 98/57 96 Nasal Cannula 2.0 05/19/16 08:00 Nasal Cannula 2.0 05/19/16 07:15 36.1 71 20 100/63 98 Nasal Cannula 2.0 05/19/16 06:59 81 18 96 Nasal Cannula 2.0 Physical Exam: General-[id number] Eyes-no scleral icterus ENT-mmm Neck-supple Lungs-decreased at bases, much improved Heart-rrr Abdomen-bs+ s/nt/nd Extremities-no c/c/e Neuro-nonfocal Current Inpatient Medications Medications (Trade) Dose Ordered Sig/Shemar Route Start Time Stop Time Status Last Admin Dose Admin Acetaminophen (Tylenol Tab) 650 mg Q4H PRN PO 05/16/16 14:15 06/15/16 14:14 05/17/16 19:50 650 MG Ondansetron HCl (Zofran Inj) 4 mg Q6H PRN IV 05/16/16 14:15 06/15/16 14:14 Quetiapine Fumarate (seroQUEL TAB) 200 mg DAILY PO 05/17/16 09:00 06/16/16 08:59 05/19/16 09:40 200 MG Quetiapine Fumarate (seroQUEL TAB) 600 mg HS PO 05/16/16 21:00 06/15/16 20:59 05/19/16 20:28 600 MG Paroxetine HCl (pAXil) 30 mg DAILY PO 05/17/16 09:00 06/16/16 08:59 05/19/16 07:30 30 MG Ipratropium [place] (Atrovent 0.02% 0.5MG/2.5ML Neb) 0.5 mg Q6R INH 05/17/16 15:00 06/16/16 14:59 05/20/16 02:17 0.5 MG Levalbuterol (Xopenex 1.25MG/ 0.5ML Neb) 1.25 mg Q6R INH 05/17/16 15:00 06/16/16 14:59 05/20/16 02:17 1.25 MG Heparin Sodium (Porcine) (Heparin 10 Unit/ ml 5 ml Flush) 1 ml PRN PRN FLUSH 05/18/16 00:30 06/17/16 00:29 05/20/16 05:49 1 ML Dornase Castro (Pulmozyme Inhalation Soln 2.5ml Amp) 2.5 ml BIDR INH 05/18/16 20:00 06/17/16 19:59 05/19/16 19:32 2.5 ML Clonazepam (Klonopin Tab) 0.5 mg DAILY PO 05/19/16 09:00 06/18/16 08:59 Heparin Sodium (Porcine) (Heparin Sq 5000 Unit/0.5ml) 5,000 unit Q12 SQ 05/18/16 21:00 06/17/16 20:59 05/19/16 20:30 5,000 UNIT Ipratropium [place] (Atrovent 0.02% 0.5MG/2.5ML Neb) 0.5 mg Q4H PRN INH 05/19/16 00:15 06/18/16 00:14 Levalbuterol 1.25 mg 1.25 mg Q4H PRN INH 05/19/16 00:15 06/18/16 00:14 Sodium Chloride (Nss 1000ml) 1,000 ml @ 100 mls/hr Q10H IV 05/19/16 08:00 06/18/16 07:59 05/20/16 04:32 100 MLS/HR Insulin Aspart (novoLOG ASPART) SLIDING SCALE If C... ACHS SC 05/19/16 11:00 06/18/16 10:59 Glucose (Glucose 40% Gel) 15-30 GRAMS 15 GRAMS... UD PRN PO 05/19/16 08:00 06/18/16 07:59 Glucose (Glucose Chew Tab) 4-8 Tablets 4 Tabl... UD PRN PO 05/19/16 08:00 06/18/16 07:59 Dextrose (Dextrose 50% 50ML Syringe) 25-50ML OF 50% DW IV FOR... UD PRN IV 05/19/16 08:00 06/18/16 07:59 Glucagon (Glucagon Inj) 1 mg UD PRN SQ 05/19/16 08:00 06/18/16 07:59 Miscellaneous Information (Consult Glycemic Management Pharmacy) 1 ea UD PRN N/A 05/19/16 07:58 06/18/16 07:57 [place] Citrate ([place] Citrate Soln) 75 mg BID PO 05/19/16 11:00 06/18/16 10:59 05/19/16 20:27 75 MG Pregabalin (Lyrica Cap) 150 mg DAILY PO 05/20/16 09:00 06/19/16 08:59 Tamsulosin HCl 0.4 mg 0.4 mg QAM PO 05/19/16 11:00 06/18/16 10:59 05/19/16 12:14 0.4 MG Acetaminophen/ Empty Bag (Ofirmev Iv/ Empty Iv Bag 100ml) 65 ml @ 400 mls/hr Q6H PRN IV 05/19/16 12:30 06/18/16 12:29 Miscellaneous Information (Pharmacy Consult) 1 ea UD PRN N/A 05/19/16 10:00 06/18/16 09:59 Hydromorphone HCl 0.5 mg 0.5 mg Q8H PRN IV 05/19/16 10:00 06/02/16 09:59 05/20/16 04:34 0.5 MG Metronidazole 500 mg/Prmx 100 ml @ 100 mls/hr Q8@06,14,22 IV 05/19/16 14:00 05/29/16 13:59 05/20/16 06:27 100 MLS/HR Cefazolin Sodium/ Dextrose (Ancef Iv/D5 50ml) 55 ml @ 110 mls/hr Q12@0600,1800 IV 05/20/16 06:00 05/27/16 05:59 05/20/16 05:53 110 MLS/HR Last 24 Hours Test 05/19/16 07:55 05/19/16 11:41 05/19/16 16:23 05/19/16 20:31 Erythrocyte Sedimentation Rate 71 mm/hr Bedside Glucose 141 mg/dl 140 mg/dl 157 mg/dl Test 05/20/16 05:45 White Blood Count 8.39 K/uL Red Blood Count 3.31 M/uL Hemoglobin 9.4 g/dL Hematocrit 28.5 % Mean Corpuscular Volume 86.1 fL Mean Corpuscular Hemoglobin 28.4 pg Mean Corpuscular Hemoglobin Concent 33.0 g/dl Platelet Count 454 K/uL Mean Platelet Volume 9.8 fL Neutrophils (%) (Auto) 82.1 % Lymphocytes (%) (Auto) 10.0 % Monocytes (%) (Auto) 7.2 % Eosinophils (%) (Auto) 0.1 % Basophils (%) (Auto) 0.1 % Neutrophils # (Auto) 6.89 K/uL Lymphocytes # (Auto) 0.84 K/uL Monocytes # (Auto) 0.60 K/uL Eosinophils # (Auto) 0.01 K/uL Basophils # (Auto) 0.01 K/uL RDW Standard Deviation 56.9 fL RDW Coefficient of Variation 17.8 % Immature Granulocyte % (Auto) 0.5 % Immature Granulocyte # (Auto) 0.04 K/uL Sodium Level 141 mmol/L Potassium Level 3.9 mmol/L Chloride Level 110 mmol/L Carbon Dioxide Level 21 mmol/L Anion Gap 10.0 mmol/L Blood Urea Nitrogen 35 mg/dl Creatinine 4.00 mg/dl Est Creatinine Clear Calc Drug Dose 26.6 ml/min Estimated GFR () 18.9 Estimated GFR (Non- 16.3 BUN/Creatinine Ratio 8.7 Random Glucose 103 mg/dl Estimated Average Glucose 154 mg/dl Hemoglobin A1c 7.0 % Calcium Level 7.7 mg/dl Magnesium Level 2.5 mg/dl Assessment & Plan trevor/[id number]-[id number], likely from toradol +/-vanco. creatinine continues to trend up and hopefully will eventually peak and start to improve in the next couple of days. tolerating the iv fluids. urinating well. no hydro on renal us. ua is bland. serologies pending-spep, c3, c4, greta, anca are pending. given pulmonary disease-ruling out pulmonary renal syndromes however would expect a more inflamed urine.
[2016-05-20] MEDS: INSULIN ASPART 100 UNITS/ML 3 ML PEN SC SCH ×4 (07:00→20:36)
[2016-05-20] MEDS: DORNASE ALFA (2500U) 2.5MG/2.5ML INH SCH ×2 (07:13→19:30)
--- NOTE | 2016-05-20 07:40 | History & Physical Bridge Note ---
H&P Re-Evaluation Bridge Note: I have examined the patient, reviewed the History & Physical and in the interval since the performance of the History & Physical I have noted the following changes of clinical significance: No changes noted
--- NOTE | 2016-05-20 07:49 | PROGRESS NOTE ---
DATE: 05/20/2016 SUBJECTIVE: The patient is comfortable this morning. He has not had any cough. He was out of bed yesterday without difficulty. He is scheduled for bronchoscopy today. His kidney function has worsened and Dr. Cedeno's evaluation is appreciated. It is his thought this might be an ATN. Renal ultrasound showed no evidence of hydronephrosis. Esophageal x-ray revealed coughing and the chest x-ray from yesterday reveals opacification of the left hemithorax. He denies chest pain or significant dyspnea. OBJECTIVE: VITAL SIGNS: Stable and he is afebrile, oxygen saturation 95% on 2 liters. I\T\O is 1378 in and 1250 out. Weight 96.4 kgs; probably he is about 91 kgs since that is from the built in scale and his weights have been around 91.5 kgs consistently. According to the nurses' notes, he is comfortable. He does have a Car catheter in place. His vital signs are stable otherwise. HEENT: Unremarkable. No telangiectasia noted. No periungual telangiectasia noted. No adenopathy is noted. Expansion of the thorax is good with deep inspiration. HEART: Regular rate and rhythm. No murmurs are heard. LUNGS: Reveal some crackles at the lung bases bilaterally. ABDOMEN: Soft and nontender. EXTREMITIES: He has no cyanosis, clubbing or edema. PRP and white count are noted. LABORATORY DATA: Hemoglobin is 9.4, hematocrit 28.5%, sed rate was 71. ANCA, DNA complement pending. IMPRESSION: Left upper lobe and right lower lobe pneumonia with now opacification of the left hemithorax. This suggests mucus plug, endobronchial lesion. I am still concerned about the possibility of a pulmonary renal syndrome and certainly granulomatous angiitis needs to be considered, especially with a high sedimentation rate like this. Aspiration pneumonia is certainly a possibility as well since he coughs rather readily with esophageal evaluation. RECOMMENDATION: 1. Follow up after the bronchoscopy. 2. Continue with his present medications including metronidazole and cefazolin. Vancomycin will be avoided now because of the renal insufficiency. 3. Continue on Atrovent and Xopenex. Overall, he is stable. MTDD
[2016-05-20] MEDS ORDERED: MIDAZOLAM HCL 1 MG/ML 2ML VIAL ONE (11:03)
[2016-05-20] MEDS ORDERED: PROPOFOL IV EMULSION 10 MG/ML 20 ML VIAL IV ONE (11:03)
[2016-05-20] MEDS ORDERED: LIDOCAINE HCL 2% 2 ML VIAL (20MG/ML) ONE (11:03)
[2016-05-20] MEDS ORDERED: ROCURONIUM BROMIDE 10 MG/ML 5 ML VIAL ONE (11:03)
[2016-05-20] MEDS ORDERED: LARYING-O-JET KIT (LTA) EXT ONE ×2 (11:03)
[2016-05-20] MEDS ORDERED: FENTANYL CITRATE INJ 50 MCG/1 ML 2 ML VIAL ONE (11:03)
--- NOTE | 2016-05-20 11:15 | SURGERY PROGRESS NOTE ---
DATE: 05/20/2016 DATE: 05/20/2016. SUBJECTIVE: Mr. Alvarez is seen today. Barium swallow was reviewed from yesterday. Unfortunately, this did not give us a clear delineation of my point of interest. I am concerned there may be a mechanical problem as this substernal gastric conduit goes into the peritoneal cavity. There was some aspiration so this study was not completed. The patient is scheduled today for an upper endoscopy and a bronchoscopy, which I agree with. I believe this patient is aspirating. I believe there is a mechanical problem with his neoesophagus. I will be curious to see what the upper endoscopy shows. He may well have a stricture distally and Dr. Kathryn Moulton and I discussed this case yesterday and apparently he has been dilated already once for this. It certainly did not appear to have any stricture of the proximal anastomosis. At any rate, I will be curious to see what this shows. I may order another barium swallow with just attention to the distal area. On 2 liters his O2 sat is 95% and his lungs sound a bit better to me. In addition, his white count is now down to 8,390. Hemoglobin is 9.4.
[2016-05-20] MEDS ORDERED: SUCCINYLCHOLINE 100MG/5ML SYR IV ONE (11:46)
[2016-05-20] MEDS ORDERED: PHENYLEPHRINE 100MCG/ML 5ML SYR ONE (11:53)
[2016-05-20] MEDS ORDERED: ONDANSETRON INJ 2 MG/ML 2 ML VIAL IV PRN (12:00)
[2016-05-20] MEDS ORDERED: EpHEDrine SULFATE INJ 50 MG/ML AMP IV PRN (12:00)
[2016-05-20] MEDS ORDERED: FENTANYL CITRATE INJ 50 MCG/1 ML 2 ML VIAL IV PRN (12:00)
[2016-05-20] MEDS ORDERED: ATROPINE SULFATE 0.1 MG/ML 5ML SYR IV PRN (12:00)
--- NOTE | 2016-05-20 12:20 | Bronchoscopy Procedure Note ---
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 There was gastric secretions notably on the outside of the ET tube orally down to the balloon and in the posterior pharynx. ET tube is properly 4 cm above the level of the franchesca. Trachea: 4 cm at the distal and notably anatomically within normal normal limits but diffuse gastric secretions appreciated and suctioned Franchesca: Anatomically within normal limits but diffuse gastric secretions appreciated. Right bronchial tree: Right mainstem: Anatomically within normal limits Right upper lobe: Anatomically within normal limits Bronchus intermedius: Anatomically within normal limits Right middle lobe: Anatomically within normal limits Right lower lobe: Anatomically within normal limits Findings: Diffuse mucous secretions but no signs of lobar obstruction Left bronchial tree: Left mainstem: Anatomically within normal limits Left upper lobe: Anatomically within normal limits Lingula: Anatomically within normal limits Left lower lobe: Anatomically within normal limits Findings: There was diffuse mucus secretions obstructing the takeoff to the left mainstem in notable all the way to the secondary franchesca. The left upper lobe, lingula and left lower lobe were obstructed with gastric secretions which were suctioned clear. Procedure: Bronchial alveolar lavage approximate 60 cc introduce with 35 cc were returned performed in the lingula. Follow-up: Follow-up in PACU then returned to the floor.
[2016-05-20] MEDS ORDERED: ALBUT/IPRATROP 3MG/0.5MG NEB 3 ML VIAL INH PRN (12:30)
--- NOTE | 2016-05-20 12:42 | GI REPORT ---
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 Examination performed in OR immediately after bronchoscopy. Medicines: General Anesthesia Complications: No immediate complications. Estimated blood loss: None. Estimated Blood Loss: Estimated blood loss: none. Procedure: Pre-Anesthesia Assessment: - Prior to the procedure, a History and Physical was performed, and patient medications, allergies and sensitivities were reviewed. The patient's tolerance of previous anesthesia was reviewed. - ASA Grade Assessment: IV - A patient with severe systemic disease that is a constant threat to life. After obtaining informed consent, the endoscope was passed under direct vision. Throughout the procedure, the patient's blood pressure, pulse, and oxygen saturations were monitored continuously. The Scope was introduced through the mouth, and advanced to the third part of duodenum. The upper GI endoscopy was accomplished with ease. The patient tolerated the procedure well. Findings: The cricopharyngeus was moderately tortuous. Food was found in the entire esophagus. Lavage of the area was performed using a small amount of tap water, resulting in clearance with excellent visualization. The esophagus was examined with white light from a forward view and retroflexed position. There were esophageal mucosal changes secondary to established long-segment Solis's disease. These changes involved the mucosa extending to an irregular Z-line (19 cm from the incisors). Circumferential salmon-colored mucosa was present from 19 to 25 cm. The maximum longitudinal extent of these esophageal mucosal changes was 6 cm in length. Mucosa was biopsied with a cold forceps for histology in 4 quadrants. One specimen bottle was sent to pathology. An esophago-gastric anastomosis was found at the esophageal anastomosis. The diaphragmatic pinch was observed at the junction of body and antrum. A medium amount of food (residue) was found in the gastric body. Normal mucosa was found in the entire examined stomach. Biopsies were taken with a cold forceps for Helicobacter pylori testing. The examined duodenum was normal. Impression: - Tortuous esophagus. - Food in the esophagus. - Esophageal mucosal changes secondary to established long-segment Solis's disease. Biopsied. - An esophago-gastric anastomosis was found. - A medium amount of food (residue) in the stomach. - Normal mucosa was found in the entire stomach. Biopsied. - Normal examined duodenum. Recommendation: - Await pathology results. - Consider prokinetic agents (metoclopramide) and Relistor. - Return patient to hospital uribe for ongoing care. Curt Ulloa M.D. Curt Ulloa MD 05/20/2016 12:42:17 PM This report has been signed electronically. Note Initiated On: 05/20/2016 11:29 AM I attest to the content of the Intraoperative Record and orders documented therein, exceptions below
--- NOTE | 2016-05-20 13:31 | Anesthesiology Progress Note ---
Anesthesia Post Op Note Date & Time May 20, 2016 at 13:31 Vital Signs Pain Intensity: 2 Vital Signs Past 12 Hours Date Time Temp Pulse Resp B/P Pulse Ox O2 Delivery O2 Flow Rate FiO2 05/20/16 13:15 36 114 22 143/57 94 Nasal Cannula 4 05/20/16 13:05 112 22 111/67 95 Nasal Cannula 4 05/20/16 12:55 113 22 111/52 93 Nasal Cannula 4 05/20/16 12:45 111 22 112/57 93 Mask 8 05/20/16 12:35 113 20 118/56 90 Mask 10 05/20/16 12:25 36.2 116 20 110/94 91 Mask 10 05/20/16 07:45 Nasal Cannula 2.0 05/20/16 07:43 36.4 83 20 126/78 95 Nasal Cannula 2.0 05/20/16 07:12 81 16 94 Nasal Cannula 2.0 05/20/16 06:06 36.4 83 20 126/78 95 Nasal Cannula 2.0 05/20/16 04:00 95 Nasal Cannula 2.0 05/20/16 03:05 36.4 94 20 121/72 97 Nasal Cannula 2.0 05/20/16 02:17 90 16 97 Nasal Cannula 3.0 Notes Mental Status: alert / awake / arousable, participated in evaluation Pt Amnestic to Procedure: Yes Nausea / Vomiting: adequately controlled Pain: adequately controlled Airway Patency, RR, SpO2: stable & adequate BP & HR: stable & adequate Hydration State: stable & adequate Anesthetic Complications: no major complications apparent Patient stable SpO2 in mid 90's on 4L NC. Denied SOB. States he is doing well. Ok for transfer back to floor.
[2016-05-20] MEDS: PAROXETINE 30 MG TAB PO SCH (13:57)
[2016-05-20] MEDS: LITHIUM ORAL SOLN 300 MG/5ML 500ML PO SCH ×2 (13:58→20:25)
[2016-05-20] MEDS: QUETIAPINE FUMARATE 200 MG TAB PO SCH ×2 (13:58→20:28)
[2016-05-20] MEDS: TAMSULOSIN HCL 0.4 MG CAP PO SCH (13:59)
[2016-05-20] MEDS: HEPARIN SOD 5000 UNIT/0.5 ML CARP SQ SCH ×2 (14:01→20:35)
[2016-05-20] MEDS: PREGABALIN 150 MG CAP PO SCH (14:02)
[2016-05-20] MEDS: CLONAZEPAM 0.5 MG TAB PO SCH (14:02)
[2016-05-20] MEDS: ACETAMINOPHEN 325 MG TAB PO PRN (15:56)
--- NOTE | 2016-05-20 16:28 | Progress Note ---
Internal Med Progress Note Date of Service: May 20, 2016. Provider Documentation: SUBJECTIVE: Patient is status post bronchoscopy/EGD today. Febrile with Tmax 38.6 F. Still c/o left sided chest pain. Cough with sputum production, no nausea, vomiting, abdominal pain. OBJECTIVE: Vital Signs-as noted below Exam: General- oriented x 3, not in distress, speaks in sentences with no effort Neck- no JVD Lungs- (+) crackles bilaterally, no wheezes Heart- normal rate, regular rhythm; no murmurs Abdomen- normal bowel sounds, soft, nontender Extremities- no pretibial edema, no calf tenderness; peripheral pulses intact Neuro- alert, oriented x 3; no gross focal deficits Skin- warm & dry Lab data as noted below. CT CHEST: IMPRESSION: 1. Consolidative infiltrative and/or masslike changes involving the bulk of the left upper and to a somewhat lesser extent left lower lobe regions. 2. Additional nodularity within the left hemithorax and to a somewhat lesser extent right base. 3. Progressive mediastinal and hilar adenopathy. 4. Although it is possible that central obstructing lesions may account for the peripheral consolidative change, a neoplastic process nevertheless is a diagnosis of exclusion. 5. Associated parenchymal nodularity indicates a significant possibility of metastatic change. 6. Operative changes stable from the prior exam consistent with a prior esophagectomy and anterior gastric pull-through type procedure. ASSESSMENT & PLAN: 50 year old male with history of Bipolar Disorder, Esophagectomy, GERD, PE with IVC filter presenting with cough. SEVERE SEPSIS DUE TO PNEUMONIA, MSSA Febrile with Tmax 38.6 F, No leucocytosis Aspiration risk due to hx of esophagectomy in 2013. Concerned about tracheo- esophageal fistula- none noted -S/P EGD on 05/20/16 - Barretts esophagus changes, tortuous esophagus, no fistula -S/P Bronchoscopy on 05/20/16- There was diffuse mucus secretions obstructing the takeoff to the left mainstem in notable all the way to the secondary franchesca. The left upper lobe, lingula and left lower lobe were obstructed with gastric secretions which were suctioned clear. - Sputum culture: staph aureus, MSSA; blood culture: negative so far; (+) Nasal MRSA - Changed Vanco (1 day) to Linezolid (day 3); for elevated creatinine, d/c as patient has MSSA ; d/c Levaquin per Pulm . S/P IV Zosyn - Day 4. -changed antibiotics to Cefazolin + Metronidazole started on 05/19/16 - Nebs - IV fluids HEMOPTYSIS - Resolved Likely from Necrotizing Pneumonia -S/P CT chest- Consolidative infiltrative and /or mass like changes in left upper/to some extent left lower lobe regions, additional nodularity within left hemithorax and to a somewhat lesser extent right base, progressive mediastinal, hilar adenopathy, central obstructing lesions may account for peripheral consolidative change, a neoplastic process nevertheless is a diagnosis of exclusion, associated parenchymal nodularity indicates a significant possibility of metastatic change; post op changes from prior esophagectomy, anterior gastric pull through type of procedure. -S/P Bronchoscopy today - There was diffuse mucus secretions obstructing the takeoff to the left mainstem in notable all the way to the secondary franchesca. The left upper lobe, lingula and left lower lobe were obstructed with gastric secretions which were suctioned clear. -Pulmonary consulted. Appreciate inputs. 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 A well-defined lytic or blastic process is not appreciated within the osseous structures. - likely worsened with cough from Pneumonia - cannot give NSAIDs due to acute renal failure - Dr Ocasio discussed with pharmacy, dilaudid recommended instead of morphine due to renal clearance; - Monitor closely due to past history of abuse and renal function DM TYPE 2, New Diagnosis A1c 7.0 has family history -HBA1C- 7.0 -ISS, Pharm and Public Employment Mediator Consult MOOD DISORDER - appears stable - continue home meds but now renally dosed - lithium dose reduced, repeat level - 0.7, goal 0.6-0.8 per pharmacy - adjust to usual doses once renal function improves HISTORY OF PE, S/P IVC FILTER PLACEMENT -on Heparin Q12 for dvt prophylaxis -monitor as patient has history of GI bleed DISPO To be determined Continue with Medical mx Vital Signs: Date Time Temp Pulse Resp B/P Pulse Ox O2 Delivery O2 Flow Rate FiO2 05/20/16 15:42 38.6 123 28 104/60 91 Nasal Cannula 4.0 05/20/16 15:29 36.8 66 18 103/59 95 05/20/16 14:12 116 16 93 Nasal Cannula 4.0 05/20/16 13:49 37.1 115 20 121/75 98 Nasal Cannula 4.0 05/20/16 13:49 Nasal Cannula 4.0 05/20/16 13:30 115 22 116/96 95 Nasal Cannula 4 05/20/16 13:15 36 114 22 143/57 94 Nasal Cannula 4 05/20/16 13:05 112 22 111/67 95 Nasal Cannula 4 05/20/16 12:55 113 22 111/52 93 Nasal Cannula 4 05/20/16 12:45 111 22 112/57 93 Mask 8 05/20/16 12:35 113 20 118/56 90 Mask 10 05/20/16 12:25 36.2 116 20 110/94 91 Mask 10 05/20/16 07:45 Nasal Cannula 2.0 05/20/16 07:43 36.4 83 20 126/78 95 Nasal Cannula 2.0 05/20/16 07:12 81 16 94 Nasal Cannula 2.0 05/20/16 06:06 36.4 83 20 126/78 95 Nasal Cannula 2.0 05/20/16 04:00 95 Nasal Cannula 2.0 05/20/16 03:05 36.4 94 20 121/72 97 Nasal Cannula 2.0 05/20/16 02:17 90 16 97 Nasal Cannula 3.0 05/20/16 00:00 Nasal Cannula 2.0 05/20/16 00:00 36.7 88 111/68 98 Nasal Cannula 2.0 05/19/16 20:00 95 Nasal Cannula 2.0 05/19/16 19:32 94 16 93 Nasal Cannula 3.0 05/19/16 19:04 36.4 84 18 104/57 99 Nasal Cannula 3.0 05/19/16 16:00 95 Nasal Cannula 2.0 Lab Results: Results Past 24 Hours Test 05/19/16 16:23 05/19/16 20:31 05/20/16 05:45 05/20/16 06:53 Range/Units Bedside Glucose 140 157 95 70-99 mg/dl White Blood Count 8.39 4.8-10.8 K/uL Red Blood Count 3.31 4.7-6.1 M/uL Hemoglobin 9.4 14.0-18.0 g/dL Hematocrit 28.5 42-52 % Mean Corpuscular Volume 86.1 80-100 fL Mean Corpuscular Hemoglobin 28.4 25-34 pg Mean Corpuscular Hemoglobin Concent 33.0 32-36 g/dl Platelet Count 454 130-400 K/uL Mean Platelet Volume 9.8 7.4-10.4 fL Neutrophils (%) (Auto) 82.1 % Lymphocytes (%) (Auto) 10.0 % Monocytes (%) (Auto) 7.2 % Eosinophils (%) (Auto) 0.1 % Basophils (%) (Auto) 0.1 % Neutrophils # (Auto) 6.89 1.4-6.5 K/uL Lymphocytes # (Auto) 0.84 1.2-3.4 K/uL Monocytes # (Auto) 0.60 0.11-0.59 K/uL Eosinophils # (Auto) 0.01 0-0.5 K/uL Basophils # (Auto) 0.01 0-0.2 K/uL RDW Standard Deviation 56.9 36.4-46.3 fL RDW Coefficient of Variation 17.8 11.5-14.5 % Immature Granulocyte % (Auto) 0.5 % Immature Granulocyte # (Auto) 0.04 0.00-0.02 K/uL Sodium Level 141 136-145 mmol/L Potassium Level 3.9 3.5-5.1 mmol/L Chloride Level 110 98-107 mmol/L Carbon Dioxide Level 21 21-32 mmol/L Anion Gap 10.0 3-11 mmol/L Blood Urea Nitrogen 35 7-18 mg/dl Creatinine 4.00 0.60-1.40 mg/dl Est Creatinine Clear Calc Drug Dose 26.6 ml/min Estimated GFR () 18.9 Estimated GFR (Non- 16.3 BUN/Creatinine Ratio 8.7 10-20 Random Glucose 103 70-99 mg/dl Estimated Average Glucose 154 mg/dl Hemoglobin A1c 7.0 4.5-5.6 % Calcium Level 7.7 8.5-10.1 mg/dl Magnesium Level 2.5 1.8-2.4 mg/dl Test 05/20/16 08:52 05/20/16 10:42 Range/Units [place] Level 0.7 0.6-1.2 mMOL/L Bedside Glucose 99 70-99 mg/dl Microbiology Results 05/20/16 Fungal Smear - Final, Resulted 05/20/16 Fungal Culture, Resulted Pending 05/20/16 Acid Fast Stain, Received Pending 05/20/16 Mycobacterial Culture, Received Pending 05/20/16 Gram Stain - Final, Resulted 05/20/16 Bronchoalveolar Lavage Culture, Resulted Pending
[2016-05-20] MEDS ORDERED: SODIUM CHLORIDE 0.9% 1000ML 1,000 ML IV SCH (17:00)
--- NOTE | 2016-05-20 17:23 | DIAGNOSTIC IMAGING REPORT ---
CHEST ONE VIEW PORTABLE HISTORY: Hypoxia COMPARISON: Chest 05/19/2016. FINDINGS: Slight improved aeration within the extensive airspace of consolidation within the majority left lung. Small patchy densities within the right perihilar location have slightly progressed. No pneumothorax. The heart is stable in size. Trace left pleural effusion. There may also be a trace right pleural effusion. Cervical spine fusion hardware is again noted. The tip of the right PICC is not well visualized. IMPRESSION: Slight improved aeration within the near diffuse consolidation within the left lung. However, there is small patchy densities within the right perihilar location. This could represent superimposed pulmonary edema. Electronically signed by: Luís Dockery M.D. 05/20/2016 5:22 PM Dictated Date/Time: 05/20/2016 5:20 PM
[2016-05-20 17:37] LABS: ARTERIAL BLD GAS O2 SATURATION 94.8 % (90-95); ARTERIAL BLOOD GAS BASE EXCESS -8.4 mEq/L (-9-1.8); ARTERIAL BLOOD GAS HCO3 17 mmol/L (19-24); ARTERIAL BLOOD GAS PO2 87 mm/Hg (80-95); ARTERIAL BLOOD GAS pH 7.32 (7.35-7.45)
[2016-05-20 17:38] LABS: ALLEN TEST POS (POS); O2 ADMINISTRATION 5L
--- NOTE | 2016-05-20 17:48 | Progress Note ---
Progress Note Date of Service May 20, 2016. Progress Note Received a call from RN that patient is more confused, HR in 110s, BP 80s, SaO2 - 97% on 4 L. On my evaluation, patient is jittery, says he feels he is confused, oriented to place, person. Denies any worsening of SOB, chest pain, palpitations. Received IV NS x 500 CC- BP did improve to 112/60; HR 110s, SaO2 93% on 4 L- repeat vitals Did order repeat cxr- no significant change from prior CXR. A/P: 1. Delirium ? with persistent fever. Confirmed with pharmacy about narcotic use as was taking high doses few months prior to admission due to back problems. Per pharmacy, last prescription was in August 2014. 2. Hypotension, likely hypovolemic- Responded to fluids Monitor closely on tele monitor
[2016-05-20] MEDS: METHYLNALTREXONE BROMIDE INJ 12 MG/0.6 ML SYR SQ SCH (19:00)
[2016-05-20] MEDS: METOCLOPRAMIDE HCL INJ 5 MG/ML 2 ML VIAL IV SCH (20:27)
[2016-05-21] VITALS (32 sets, daily range): BP systolic 83–134; BP diastolic 33–79; PULSE 100–126; TEMP 37.4–37.9; O2SAT 82–96; Ht 182.9 cm; Wt 100.8 kg
[2016-05-21] MEDS: LEVALBUTEROL 1.25MG/0.5ML NEB INH SCH ×3 (01:11→14:51)
[2016-05-21] MEDS: IPRATROPIUM BROMIDE NEB SOLN 0.02% 2.5 ML VIAL INH SCH ×3 (01:11→14:51)
[2016-05-21] MEDS: CEFAZOLIN IV 1,000 MG in DEXTROSE 5% 50ML 50 ML IV SCH (05:47)
[2016-05-21] MEDS: METRONIDAZOLE 500 MG/ NSS IV SCH (05:47)
[2016-05-21 06:00] LABS: ARTERIAL BLD GAS O2 SATURATION 93.8 % (90-95); ARTERIAL BLOOD GAS BASE EXCESS -8.3 mEq/L (-9-1.8); ARTERIAL BLOOD GAS HCO3 17 mmol/L (19-24); ARTERIAL BLOOD GAS PO2 76 mm/Hg (80-95); ARTERIAL BLOOD GAS pH 7.32 (7.35-7.45); HEMATOCRIT 27.9 % (42-52); MEAN CELL VOLUME 84.5 fL (80-100); MEAN CORPUSCULAR HEMOGLOBIN 27.9 pg (25-34); MEAN PLATELET VOLUME 9.2 fL (7.4-10.4); PLATELET COUNT 457 K/uL (130-400); WHITE BLOOD COUNT 12.31 K/uL (4.8-10.8)
[2016-05-21 06:02] LABS: ALLEN TEST POS (POS); O2 ADMINISTRATION 12L
[2016-05-21 06:53] LABS: BUN/CREATININE RATIO 8.5 (10-20); CALCIUM 8.1 mg/dl (8.5-10.1); CREATININE 4.7 mg/dl (0.60-1.40); MAGNESIUM 2.1 mg/dl (1.8-2.4); POTASSIUM 4.3 mmol/L (3.5-5.1)
[2016-05-21] MEDS: DORNASE ALFA (2500U) 2.5MG/2.5ML INH SCH ×2 (06:56→20:00)
[2016-05-21] MEDS: INSULIN ASPART 100 UNITS/ML 3 ML PEN SC SCH ×4 (07:00→23:47)
--- NOTE | 2016-05-21 07:43 | DIAGNOSTIC IMAGING REPORT ---
CHEST ONE VIEW PORTABLE CLINICAL HISTORY: aspiration pneumonia pneumonitis COMPARISON STUDY: 05/20/2016 FINDINGS: Subtle increase in consolidative change left mid to lower lung. Slightly progressive infiltrative change right hemithorax. Central catheter in superior vena cava. IMPRESSION: Slightly progressive parenchymal consolidation left hemithorax. Slightly progressive infiltrative change right hemithorax Electronically signed by: Henrique Madison M.D. 05/21/2016 7:41 AM Dictated Date/Time: 05/21/2016 7:38 AM
--- NOTE | 2016-05-21 08:08 | Nephrology Progress Note ---
Nephrology Progress Note Date of Service: May 21, 2016. Subjective 50 yo male with trevor/atn from [facility] with underlying aspiration pneumonia. pt has become jittery and tachycardic and hypoxic. pt having difficulty keeping his face mask on his face. underwent bronch yesterday and showed gastric juices indicating aspiration. appears to have an esophageal dysmotility issue. still with barium in esophagus from barium swallow. Objective Date Time Temp Pulse Resp B/P Pulse Ox O2 Delivery O2 Flow Rate FiO2 05/21/16 07:45 122 32 116/62 89 Venturi Mask 12.0 50 05/21/16 07:01 118 20 92 Venturi Mask 12.0 40 05/21/16 04:00 91 Mask 12.0 40 05/21/16 03:13 37.9 117 24 125/70 89 Nasal Cannula 6.0 05/21/16 01:11 112 20 89 Nasal Cannula 5.0 05/21/16 00:01 92 Mask 12.0 40 05/20/16 23:13 37.6 112 32 119/67 90 Nasal Cannula 6.0 05/20/16 20:00 92 Nasal Cannula 4.0 05/20/16 19:23 37.5 112 18 115/63 92 5.0 05/20/16 19:19 112 16 92 Nasal Cannula 6.0 05/20/16 17:13 114 116/68 93 Nasal Cannula 4.0 05/20/16 17:09 37.6 116 34 77/56 87 Nasal Cannula 4.0 05/20/16 16:59 117 26 89/55 05/20/16 16:52 37.8 05/20/16 16:00 91 Nasal Cannula 4.0 05/20/16 15:42 38.6 123 28 104/60 91 Nasal Cannula 4.0 05/20/16 15:29 36.8 66 18 103/59 95 05/20/16 14:12 116 16 93 Nasal Cannula 4.0 05/20/16 13:49 37.1 115 20 121/75 98 Nasal Cannula 4.0 05/20/16 13:49 Nasal Cannula 4.0 05/20/16 13:30 115 22 116/96 95 Nasal Cannula 4 05/20/16 13:15 36 114 22 143/57 94 Nasal Cannula 4 05/20/16 13:05 112 22 111/67 95 Nasal Cannula 4 05/20/16 12:55 113 22 111/52 93 Nasal Cannula 4 05/20/16 12:45 111 22 112/57 93 Mask 8 05/20/16 12:35 113 20 118/56 90 Mask 10 05/20/16 12:25 36.2 116 20 110/94 91 Mask 10 Physical Exam: General-[id number] Eyes-no scleral icterus ENT-mmm Neck-supple Lungs-+rhonchi Heart-+tachy Abdomen-bs+ s/nt/nd Extremities-no c/c/e Neuro-nonfocal Current Inpatient Medications Medications (Trade) Dose Ordered Sig/Shemar Route Start Time Stop Time Status Last Admin Dose Admin Acetaminophen (Tylenol Tab) 650 mg Q4H PRN PO 05/16/16 14:15 06/15/16 14:14 05/20/16 15:56 650 MG Ondansetron HCl (Zofran Inj) 4 mg Q6H PRN IV 05/16/16 14:15 06/15/16 14:14 Quetiapine Fumarate (seroQUEL TAB) 200 mg DAILY PO 05/17/16 09:00 06/16/16 08:59 05/20/16 13:58 200 MG Quetiapine Fumarate (seroQUEL TAB) 600 mg HS PO 05/16/16 21:00 06/15/16 20:59 05/20/16 20:28 600 MG Paroxetine HCl (pAXil) 30 mg DAILY PO 05/17/16 09:00 06/16/16 08:59 05/20/16 13:57 30 MG Ipratropium Ruffin (Atrovent 0.02% 0.5MG/2.5ML Neb) 0.5 mg Q6R INH 05/17/16 15:00 06/16/16 14:59 05/21/16 06:55 0.5 MG Levalbuterol (Xopenex 1.25MG/ 0.5ML Neb) 1.25 mg Q6R INH 05/17/16 15:00 06/16/16 14:59 05/21/16 06:55 1.25 MG Heparin Sodium (Porcine) (Heparin 10 Unit/ ml 5 ml Flush) 1 ml PRN PRN FLUSH 05/18/16 00:30 06/17/16 00:29 05/20/16 05:49 1 ML Dornase Castro (Pulmozyme Inhalation Soln 2.5ml Amp) 2.5 ml BIDR INH 05/18/16 20:00 06/17/16 19:59 05/21/16 06:56 2.5 ML Clonazepam (Klonopin Tab) 0.5 mg DAILY PO 05/19/16 09:00 06/18/16 08:59 05/20/16 14:02 0.5 MG Heparin Sodium (Porcine) (Heparin Sq 5000 Unit/0.5ml) 5,000 unit Q12 SQ 05/18/16 21:00 06/17/16 20:59 05/20/16 20:35 5,000 UNIT Ipratropium Ruffin (Atrovent 0.02% 0.5MG/2.5ML Neb) 0.5 mg Q4H PRN INH 05/19/16 00:15 06/18/16 00:14 Levalbuterol (Xopenex 1.25MG/ 0.5ML Neb) 1.25 mg Q4H PRN INH 05/19/16 00:15 06/18/16 00:14 Insulin Aspart (novoLOG ASPART) SLIDING SCALE If C... ACHS SC 05/19/16 11:00 06/18/16 10:59 Glucose (Glucose 40% Gel) 15-30 GRAMS 15 GRAMS... UD PRN PO 05/19/16 08:00 06/18/16 07:59 Glucose (Glucose Chew Tab) 4-8 Tablets 4 Tabl... UD PRN PO 05/19/16 08:00 06/18/16 07:59 Dextrose (Dextrose 50% 50ML Syringe) 25-50ML OF 50% DW IV FOR... UD PRN IV 05/19/16 08:00 06/18/16 07:59 Glucagon (Glucagon Inj) 1 mg UD PRN SQ 05/19/16 08:00 06/18/16 07:59 Miscellaneous Information (Consult Glycemic Management Pharmacy) 1 ea UD PRN N/A 05/19/16 07:58 06/18/16 07:57 Slick Citrate (Slick Citrate Soln) 75 mg BID PO 05/19/16 11:00 06/18/16 10:59 05/20/16 20:25 75 MG Pregabalin (Lyrica Cap) 150 mg DAILY PO 05/20/16 09:00 06/19/16 08:59 05/20/16 14:02 150 MG Tamsulosin HCl 0.4 mg 0.4 mg QAM PO 05/19/16 11:00 06/18/16 10:59 05/20/16 13:59 0.4 MG Acetaminophen/ Empty Bag (Ofirmev Iv/ Empty Iv Bag 100ml) 65 ml @ 400 mls/hr Q6H PRN IV 05/19/16 12:30 06/18/16 12:29 Miscellaneous Information (Pharmacy Consult) 1 ea UD PRN N/A 05/19/16 10:00 06/18/16 09:59 Hydromorphone HCl 0.5 mg 0.5 mg Q8H PRN IV 05/19/16 10:00 06/02/16 09:59 Future Hold 05/20/16 04:34 0.5 MG Metronidazole 500 mg/Prmx 100 ml @ 100 mls/hr Q8@06,14,22 IV 05/19/16 14:00 05/29/16 13:59 05/21/16 05:47 100 MLS/HR Cefazolin Sodium/ Dextrose (Ancef Iv/D5 50ml) 55 ml @ 110 mls/hr Q12@0600,1800 IV 05/20/16 06:00 05/27/16 05:59 05/21/16 05:47 110 MLS/HR Metoclopramide HCl (Reglan Inj) 5 mg ACHS IV 05/20/16 21:00 06/19/16 20:59 05/20/16 20:27 5 MG Methylnaltrexone Ruffin (Relistor Inj) 12 mg Q2D SQ 05/20/16 18:30 06/19/16 18:29 05/20/16 19:00 12 MG Last 24 Hours Test 05/20/16 08:52 05/20/16 10:42 05/20/16 16:02 05/20/16 17:27 [place]lick Level 0.7 mMOL/L Bedside Glucose 99 mg/dl 86 mg/dl Arterial Blood pH 7.32 Arterial Blood Partial Pressure CO2 33 mmHg Arterial Blood Partial Pressure O2 87 mm/Hg Arterial Blood HCO3 17 mmol/L Arterial Blood Oxygen Saturation 94.8 % Arterial Blood Base Excess -8.4 mEq/L Arterial Blood Gas Delivery 5L Duglas Test POS Test 05/20/16 19:53 05/21/16 05:50 05/21/16 06:46 Bedside Glucose 103 mg/dl 102 mg/dl White Blood Count 12.31 K/uL Red Blood Count 3.30 M/uL Hemoglobin 9.2 g/dL Hematocrit 27.9 % Mean Corpuscular Volume 84.5 fL Mean Corpuscular Hemoglobin 27.9 pg Mean Corpuscular Hemoglobin Concent 33.0 g/dl Platelet Count 457 K/uL Mean Platelet Volume 9.2 fL RDW Standard Deviation 56.7 fL RDW Coefficient of Variation 18.2 % Arterial Blood pH 7.32 Arterial Blood Partial Pressure CO2 34 mmHg Arterial Blood Partial Pressure O2 76 mm/Hg Arterial Blood HCO3 17 mmol/L Arterial Blood Oxygen Saturation 93.8 % Arterial Blood Base Excess -8.3 mEq/L Arterial Blood Gas Delivery 12L Duglas Test POS Sodium Level 144 mmol/L Potassium Level 4.3 mmol/L Chloride Level 116 mmol/L Carbon Dioxide Level 17 mmol/L Anion Gap 11.0 mmol/L Blood Urea Nitrogen 40 mg/dl Creatinine 4.70 mg/dl Est Creatinine Clear Calc Drug Dose 22.7 ml/min Estimated GFR () 15.6 Estimated GFR (Non- 13.5 BUN/Creatinine Ratio 8.5 Random Glucose 110 mg/dl Calcium Level 8.1 mg/dl Magnesium Level 2.1 mg/dl Date/Time Source Procedure Growth Status 05/20/16 11:45 Bronchial Washings Left Lingula Fungal Smear - Final Resulted 05/20/16 11:45 Bronchial Washings Left Lingula Fungal Culture Pending Resulted 05/20/16 11:45 Bronchial Washings Left Lingula Acid Fast Stain Pending Received 05/20/16 11:45 Bronchial Washings Left Lingula Mycobacterial Culture Pending Received 05/20/16 11:45 Bronchial Washings Left Lingula Gram Stain - Final Resulted 05/20/16 11:45 Bronchial Washings Left Lingula Bronchoalveolar Lavage Culture Pending Resulted Assessment & Plan [id number], likely from toradol +/-vanco. creatinine continues to trend up. no indication for emergent dialysis. serologies pending for possible hepatorenal syndrome although urine should be me inflamed. pulm-pt appears to have significant aspiration and is now hypoxic and requiring more oxygen. may need intubated for protection of airway. no fistula noted and no stenosis noted on bronch. appears esophagus has no motility at this time. spoke with Dr. Holliday. Dr. Holliday speaking with critical care to evaluate the patient for possible intubation.
--- NOTE | 2016-05-21 08:12 | PROGRESS NOTE ---
DATE: 05/21/2016 The patient is tachycardic. Arterial blood gas reveals a partially compensated metabolic acidosis with a respiratory alkalosis and hypoxemia. Chest x-ray continues to show significant infiltrative process in the left lung. I spoke with Dr. Holliday. Apparently, the patient has significant aspiration as etiology for the left lung infiltrate. Because of the tachypnea, mixed acid base status, worsening renal failure, I would suggest transporting the patient down to the intensive care unit for evaluation and continued followup.
--- NOTE | 2016-05-21 09:21 | Progress Note ---
Internal Med Progress Note Date of Service: May 21, 2016. Provider Documentation: SUBJECTIVE: Patient is clinically deteriorating. More confused, c/o SOB, cough. Overnight, had to stop the fluids due to worsening SOB, concern for fluid overload. Continues to be febrile with Tmax of 38.6. On ventimask now in respiratory distress Made NPO due to aspiration Tele- Sinus tachycardia with HR in 120s OBJECTIVE: Vital Signs-as noted below Exam: General- Jittery, Awake, oriented x 2, in mild respiratory distress, able to speak in full sentences Neck- no JVD Lungs- (+) crackles bilaterally, no wheezes Heart- Tachycardic, sinus + Abdomen- normal bowel sounds, soft, nontender Extremities- no pretibial edema, no calf tenderness; peripheral pulses intact Neuro- alert, oriented x 3; no gross focal deficits Lab data as noted below. CT CHEST: IMPRESSION: 1. Consolidative infiltrative and/or masslike changes involving the bulk of the left upper and to a somewhat lesser extent left lower lobe regions. 2. Additional nodularity within the left hemithorax and to a somewhat lesser extent right base. 3. Progressive mediastinal and hilar adenopathy. 4. Although it is possible that central obstructing lesions may account for the peripheral consolidative change, a neoplastic process nevertheless is a diagnosis of exclusion. 5. Associated parenchymal nodularity indicates a significant possibility of metastatic change. 6. Operative changes stable from the prior exam consistent with a prior esophagectomy and anterior gastric pull-through type procedure. ASSESSMENT & PLAN: 50 year old male with history of Bipolar Disorder, Esophagectomy, GERD, PE with IVC filter presenting with cough. SEVERE SEPSIS WITH MULTI ORGAL FAILURE DUE TO PNEUMONIA, MSSA, (Bilateral Lt > Rt) - Progressively worsening Clinically deteriorating - Persistent fever, Cough, SOB requiring ventimask, CXR today shows -Slightly progressive infiltrative process bilaterally. Leucocytosis worsening. Aspiration risk due to hx of esophagectomy in 2013. Concerned about tracheo- esophageal fistula- none noted per bronch/EGD, but had gastric juice in trachea + Developing ARDS ? -S/P EGD on 05/20/16 - Barretts esophagus changes, tortuous esophagus, no fistula -S/P Bronchoscopy on 05/20/16- There was diffuse mucus secretions obstructing the takeoff to the left mainstem in notable all the way to the secondary franchesca. The left upper lobe, lingula and left lower lobe were obstructed with gastric secretions which were suctioned clear. - Sputum culture: staph aureus, MSSA; blood culture: negative so far; (+) Nasal MRSA - S/P IV Vanco (Day 1)- discontinued due to RICARDO, worsening, S/P Linezolid (Days 3); d/c Levaquin per Pulm . S/P IV Zosyn - Days 4. - changed antibiotics to Cefazolin + Metronidazole started on 05/19/16. Due to persistent fever/worsening pneumonia---> change antibiotics back to Ancef (MSSA)/Zosyn for broad spectrum coverage - IV fluids- discontinued due to concerns about fluid overload PLAN: Will transfer to ICU in anticipation of need for intubation and closer monitoring as clinically deteriorating. Discussed with Dr Holliday, Dr Cedeno. HEMOPTYSIS - Resolved Likely from Necrotizing Pneumonia -S/P CT chest- Consolidative infiltrative and /or mass like changes in left upper/to some extent left lower lobe regions, additional nodularity within left hemithorax and to a somewhat lesser extent right base, progressive mediastinal, hilar adenopathy, central obstructing lesions may account for peripheral consolidative change, a neoplastic process nevertheless is a diagnosis of exclusion, associated parenchymal nodularity indicates a significant possibility of metastatic change; post op changes from prior esophagectomy, anterior gastric pull through type of procedure. -S/P Bronchoscopy ON 05/20/16 - There was diffuse mucus secretions obstructing the takeoff to the left mainstem in notable all the way to the secondary franchesca. The left upper lobe, lingula and left lower lobe were obstructed with gastric secretions which were suctioned clear. -Pulmonary consulted. Appreciate inputs. ACUTE RENAL FAILURE- Worsening - D/D considered: Pulmonary renal syndrome- granulomatous angitis with ESR 70s, Sepsis with MOD, creatinine worsening - Crea 0.98--> 1.9 --> 3.5-->4.00-->4.70 - Management of sepsis noted above - IV fluids- discontinued on 05/20 - Nephro consulted- F/up serologies, Complement levels, GELA, ANCA- pending POSSIBLE BPH - has BPH symptoms residual ~400 - patient declines indwelling lang cath - Intermittent straight cath for now - Started trial of Tamsulosin 0.4mg daily LEFT LOWER RIB CAGE PAIN CT abdomen: There are postoperative changes to several lower left ribs unchanged from the prior study. A well-defined lytic or blastic process is not appreciated within the osseous structures. - likely worsened with cough from Pneumonia - cannot give NSAIDs due to acute renal failure - Dr Ocasio discussed with pharmacy, dilaudid recommended instead of morphine due to renal clearance---> discontinued due to AMS - Monitor closely due to past history of abuse and renal function DM TYPE 2, New Diagnosis A1c 7.0 has family history -HBA1C- 7.0 -ISS, Pharm and [employer] Consult MOOD DISORDER - continue home meds but now renally dosed - lithium dose reduced, repeat level - 0.7, goal 0.6-0.8 per pharmacy - adjust to usual doses once renal function improves HISTORY OF PE, S/P IVC FILTER PLACEMENT -on Heparin Q12 for DVT prophylaxis -monitor as patient has history of GI bleed DISPO Prognosis- guarded Discussed with Dr Holliday, Dr Cedeno. Will transfer to ICU today Discussed with patient- If not able to make medical decisions, would want her sister, Reena [phone] to make decisions on his behalf. Vital Signs: Date Time Temp Pulse Resp B/P Pulse Ox O2 Delivery O2 Flow Rate FiO2 05/21/16 07:57 37.6 121 32 122/79 92 6.0 05/21/16 07:45 122 32 116/62 89 Venturi Mask 12.0 50 05/21/16 07:01 118 20 92 Venturi Mask 12.0 40 05/21/16 04:00 91 Mask 12.0 40 05/21/16 03:13 37.9 117 24 125/70 89 Nasal Cannula 6.0 05/21/16 01:11 112 20 89 Nasal Cannula 5.0 05/21/16 00:01 92 Mask 12.0 40 05/20/16 23:13 37.6 112 32 119/67 90 Nasal Cannula 6.0 05/20/16 20:00 92 Nasal Cannula 4.0 05/20/16 19:23 37.5 112 18 115/63 92 5.0 05/20/16 19:19 112 16 92 Nasal Cannula 6.0 05/20/16 17:13 114 116/68 93 Nasal Cannula 4.0 05/20/16 17:09 37.6 116 34 77/56 87 Nasal Cannula 4.0 05/20/16 16:59 117 26 89/55 05/20/16 16:52 37.8 05/20/16 16:00 91 Nasal Cannula 4.0 05/20/16 15:42 38.6 123 28 104/60 91 Nasal Cannula 4.0 05/20/16 15:29 36.8 66 18 103/59 95 05/20/16 14:12 116 16 93 Nasal Cannula 4.0 05/20/16 13:49 37.1 115 20 121/75 98 Nasal Cannula 4.0 05/20/16 13:49 Nasal Cannula 4.0 05/20/16 13:30 115 22 116/96 95 Nasal Cannula 4 05/20/16 13:15 36 114 22 143/57 94 Nasal Cannula 4 05/20/16 13:05 112 22 111/67 95 Nasal Cannula 4 05/20/16 12:55 113 22 111/52 93 Nasal Cannula 4 05/20/16 12:45 111 22 112/57 93 Mask 8 05/20/16 12:35 113 20 118/56 90 Mask 10 05/20/16 12:25 36.2 116 20 110/94 91 Mask 10 Lab Results: Results Past 24 Hours Test 05/20/16 10:42 05/20/16 16:02 05/20/16 17:27 05/20/16 19:53 Range/Units Bedside Glucose 99 86 103 70-99 mg/dl Arterial Blood pH 7.32 7.35-7.45 Arterial Blood Partial Pressure CO2 33 35-46 mmHg Arterial Blood Partial Pressure O2 87 80-95 mm/Hg Arterial Blood HCO3 17 19-24 mmol/L Arterial Blood Oxygen Saturation 94.8 90-95 % Arterial Blood Base Excess -8.4 -9-1.8 mEq/L Arterial Blood Gas Delivery 5L Duglas Test POS POS Test 05/21/16 05:50 05/21/16 06:46 Range/Units White Blood Count 12.31 4.8-10.8 K/uL Red Blood Count 3.30 4.7-6.1 M/uL Hemoglobin 9.2 14.0-18.0 g/dL Hematocrit 27.9 42-52 % Mean Corpuscular Volume 84.5 80-100 fL Mean Corpuscular Hemoglobin 27.9 25-34 pg Mean Corpuscular Hemoglobin Concent 33.0 32-36 g/dl Platelet Count 457 130-400 K/uL Mean Platelet Volume 9.2 7.4-10.4 fL RDW Standard Deviation 56.7 36.4-46.3 fL RDW Coefficient of Variation 18.2 11.5-14.5 % Arterial Blood pH 7.32 7.35-7.45 Arterial Blood Partial Pressure CO2 34 35-46 mmHg Arterial Blood Partial Pressure O2 76 80-95 mm/Hg Arterial Blood HCO3 17 19-24 mmol/L Arterial Blood Oxygen Saturation 93.8 90-95 % Arterial Blood Base Excess -8.3 -9-1.8 mEq/L Arterial Blood Gas Delivery 12L Duglas Test POS POS Sodium Level 144 136-145 mmol/L Potassium Level 4.3 3.5-5.1 mmol/L Chloride Level 116 98-107 mmol/L Carbon Dioxide Level 17 21-32 mmol/L Anion Gap 11.0 3-11 mmol/L Blood Urea Nitrogen 40 7-18 mg/dl Creatinine 4.70 0.60-1.40 mg/dl Est Creatinine Clear Calc Drug Dose 22.7 ml/min Estimated GFR () 15.6 Estimated GFR (Non- 13.5 BUN/Creatinine Ratio 8.5 10-20 Random Glucose 110 70-99 mg/dl Calcium Level 8.1 8.5-10.1 mg/dl Magnesium Level 2.1 1.8-2.4 mg/dl Bedside Glucose 102 70-99 mg/dl Microbiology Results 05/20/16 Fungal Smear - Final, Resulted 05/20/16 Fungal Culture, Resulted Pending 05/20/16 Acid Fast Stain - Final, Resulted 05/20/16 Mycobacterial Culture, Resulted Pending 05/20/16 Gram Stain - Final, Resulted 05/20/16 Bronchoalveolar Lavage Culture, Resulted Pending
[2016-05-21] MEDS: METOCLOPRAMIDE HCL INJ 5 MG/ML 2 ML VIAL IV SCH ×4 (09:31→21:23)
[2016-05-21] MEDS: HEPARIN SOD 5000 UNIT/0.5 ML CARP SQ SCH ×2 (09:32→21:24)
[2016-05-21 09:34] LABS: BASO % 0.2 %; BASO ABS # 0.03 K/uL (0-0.2); COMPLETE YES; EOS % 0.6 %; IG% 0.6 %; LYMPH ABS # 0.62 K/uL (1.2-3.4); MONO % 4.6 %
[2016-05-21] MEDS ORDERED: PIPERACILL/TAZOBAC CONSULT ACTIVE PRN (09:45)
[2016-05-21] MEDS ORDERED: PIPERACILL/TAZOBAC IV 3.375 GM in DEXTROSE 5% 100ML IV ONE (10:15)
[2016-05-21 10:33] LABS: ISTAT ALLEN TEST Pass; ISTAT ARTERIAL BLOOD GAS HCO3 16 meq/L (19-24); ISTAT ARTERIAL BLOOD GAS PCO2 36 mmHg (35-46); ISTAT ARTERIAL BLOOD GAS PO2 80 mmHg (80-95); ISTAT ARTERIAL BLOOD GAS pH 7.25 (7.35-7.45); ISTAT CARBON DIOXIDE 17 mEq/l (24-31); ISTAT DELIVERY SYSTEM VentiMask; ISTAT FIO2 50 %; ISTAT SITE R Radial
[2016-05-21] MEDS ORDERED: SODIUM BICARB 8.4% INJ 50 MEQ/50 ML SYR IV STA ×2 (10:46→19:23)
--- NOTE | 2016-05-21 12:09 | Gastroenterology Progress Note ---
Progress Note Date of Service: May 21, 2016 Subjective Pt evaluation today including: conversation w/ patient, physical exam, chart review, lab review, review of studies, review of inpatient medication list Mr. Alvarez is a 50 year old male christiano is post op distant reconstructive esophagectomy after an esophageal rupture. He underwent EGD yesterday for recent aspiration pneumonia. No evidence of esophagotracheal fistula was seen. There was food residue in the esophagus which was removed. Pt is NPO for respiratory stress, impending intubation. Review of Systems Constitutional: No fever Respiratory: + shortness of breath Abdomen: No GI bleeding, No constipation, No diarrhea, No nausea, No pain, No vomiting Male : No dysuria Neuro: No memory loss Psych: No depression symptoms Heme: No abnormal bleeding/bruising Skin: No jaundice Medications Current Inpatient Medications Medications (Trade) Dose Ordered Sig/Shemar Route Start Time Stop Time Status Last Admin Dose Admin Acetaminophen (Tylenol Tab) 650 mg Q4H PRN PO 05/16/16 14:15 06/15/16 14:14 05/20/16 15:56 650 MG Ondansetron HCl (Zofran Inj) 4 mg Q6H PRN IV 05/16/16 14:15 06/15/16 14:14 Quetiapine Fumarate (seroQUEL TAB) 200 mg DAILY PO 05/17/16 09:00 06/16/16 08:59 05/20/16 13:58 200 MG Quetiapine Fumarate (seroQUEL TAB) 600 mg HS PO 05/16/16 21:00 06/15/16 20:59 05/20/16 20:28 600 MG Paroxetine HCl (pAXil) 30 mg DAILY PO 05/17/16 09:00 06/16/16 08:59 05/20/16 13:57 30 MG Ipratropium Cecil (Atrovent 0.02% 0.5MG/2.5ML Neb) 0.5 mg Q6R INH 05/17/16 15:00 06/16/16 14:59 05/21/16 06:55 0.5 MG Levalbuterol (Xopenex 1.25MG/ 0.5ML Neb) 1.25 mg Q6R INH 05/17/16 15:00 06/16/16 14:59 05/21/16 06:55 1.25 MG Heparin Sodium (Porcine) (Heparin 10 Unit/ ml 5 ml Flush) 1 ml PRN PRN FLUSH 05/18/16 00:30 06/17/16 00:29 05/20/16 05:49 1 ML Dornase Castro (Pulmozyme Inhalation Soln 2.5ml Amp) 2.5 ml BIDR INH 05/18/16 20:00 06/17/16 19:59 05/21/16 06:56 2.5 ML Clonazepam (Klonopin Tab) 0.5 mg DAILY PO 05/19/16 09:00 06/18/16 08:59 05/20/16 14:02 0.5 MG Heparin Sodium (Porcine) (Heparin Sq 5000 Unit/0.5ml) 5,000 unit Q12 SQ 05/18/16 21:00 06/17/16 20:59 05/21/16 09:32 5,000 UNIT Ipratropium Cecil (Atrovent 0.02% 0.5MG/2.5ML Neb) 0.5 mg Q4H PRN INH 05/19/16 00:15 06/18/16 00:14 Levalbuterol (Xopenex 1.25MG/ 0.5ML Neb) 1.25 mg Q4H PRN INH 05/19/16 00:15 06/18/16 00:14 Insulin Aspart (novoLOG ASPART) SLIDING SCALE If C... ACHS SC 05/19/16 11:00 06/18/16 10:59 Glucose (Glucose 40% Gel) 15-30 GRAMS 15 GRAMS... UD PRN PO 05/19/16 08:00 06/18/16 07:59 Glucose (Glucose Chew Tab) 4-8 Tablets 4 Tabl... UD PRN PO 05/19/16 08:00 06/18/16 07:59 Dextrose (Dextrose 50% 50ML Syringe) 25-50ML OF 50% DW IV FOR... UD PRN IV 05/19/16 08:00 06/18/16 07:59 Glucagon (Glucagon Inj) 1 mg UD PRN SQ 05/19/16 08:00 06/18/16 07:59 Miscellaneous Information (Consult Glycemic Management Pharmacy) 1 ea UD PRN N/A 05/19/16 07:58 06/18/16 07:57 [place] Citrate ([place] Citrate Soln) 75 mg BID PO 05/19/16 11:00 06/18/16 10:59 05/20/16 20:25 75 MG Pregabalin 150 mg 150 mg DAILY PO 05/20/16 09:00 06/19/16 08:59 05/20/16 14:02 150 MG Acetaminophen/ Empty Bag (Ofirmev Iv/ Empty Iv Bag 100ml) 65 ml @ 400 mls/hr Q6H PRN IV 05/19/16 12:30 06/18/16 12:29 Hydromorphone HCl (Dilaudid Inj) 0.5 mg Q8H PRN IV 05/19/16 10:00 06/02/16 09:59 Future Hold 05/20/16 04:34 0.5 MG Metoclopramide HCl (Reglan Inj) 5 mg ACHS IV 05/20/16 21:00 06/19/16 20:59 05/21/16 09:31 5 MG Methylnaltrexone Cecil 12 mg 12 mg Q2D SQ 05/20/16 18:30 06/19/16 18:29 05/20/16 19:00 12 MG Piperacillin Sod/ Tazobactam Sod/ Dextrose (Zosyn Iv/D5 100ml) 115 ml @ 28.75 mls/ hr Q8@0000,0800,1600 IV 05/21/16 16:00 05/28/16 15:59 Piperacillin Sod/ Tazobactam Sod (Consult) 1 ea UD PRN N/A 05/21/16 09:45 06/20/16 09:44 Objective Vital Signs Date Time Temp Pulse Resp B/P Pulse Ox O2 Delivery O2 Flow Rate FiO2 05/21/16 07:57 37.6 121 32 122/79 92 6.0 05/21/16 07:45 122 32 116/62 89 Venturi Mask 12.0 50 05/21/16 07:01 118 20 92 Venturi Mask 12.0 40 05/21/16 04:00 91 Mask 12.0 40 05/21/16 03:13 37.9 117 24 125/70 89 Nasal Cannula 6.0 05/21/16 01:11 112 20 89 Nasal Cannula 5.0 05/21/16 00:01 92 Mask 12.0 40 05/20/16 23:13 37.6 112 32 119/67 90 Nasal Cannula 6.0 05/20/16 20:00 92 Nasal Cannula 4.0 05/20/16 19:23 37.5 112 18 115/63 92 5.0 05/20/16 19:19 112 16 92 Nasal Cannula 6.0 05/20/16 17:13 114 116/68 93 Nasal Cannula 4.0 05/20/16 17:09 37.6 116 34 77/56 87 Nasal Cannula 4.0 05/20/16 16:59 117 26 89/55 05/20/16 16:52 37.8 05/20/16 16:00 91 Nasal Cannula 4.0 05/20/16 15:42 38.6 123 28 104/60 91 Nasal Cannula 4.0 05/20/16 15:29 36.8 66 18 103/59 95 05/20/16 14:12 116 16 93 Nasal Cannula 4.0 05/20/16 13:49 37.1 115 20 121/75 98 Nasal Cannula 4.0 05/20/16 13:49 Nasal Cannula 4.0 05/20/16 13:30 115 22 116/96 95 Nasal Cannula 4 05/20/16 13:15 36 114 22 143/57 94 Nasal Cannula 4 05/20/16 13:05 112 22 111/67 95 Nasal Cannula 4 05/20/16 12:55 113 22 111/52 93 Nasal Cannula 4 05/20/16 12:45 111 22 112/57 93 Mask 8 05/20/16 12:35 113 20 118/56 90 Mask 10 05/20/16 12:25 36.2 116 20 110/94 91 Mask 10 Physical Exam General Appearance: + mild distress (respiratory effort; non rebreather on) Neck: supple, no JVD Respiratory/Chest: lungs clear Cardiovascular: no JVD, no murmur, + tachycardia Abdomen: non tender, soft Extremities: + pedal edema (minimal, bilateral lower legs/ankles) Neurologic/Psych: alert, oriented x 3, + pertinent finding (odd affect; answers questions appropriately but talking about running) Skin: no jaundice Laboratory Results Last 24 Hours Test 05/20/16 16:02 05/20/16 17:27 05/20/16 19:53 05/21/16 05:50 Bedside Glucose 86 mg/dl 103 mg/dl Arterial Blood pH 7.32 7.32 Arterial Blood Partial Pressure CO2 33 mmHg 34 mmHg Arterial Blood Partial Pressure O2 87 mm/Hg 76 mm/Hg Arterial Blood HCO3 17 mmol/L 17 mmol/L Arterial Blood Oxygen Saturation 94.8 % 93.8 % Arterial Blood Base Excess -8.4 mEq/L -8.3 mEq/L Arterial Blood Gas Delivery 5L 12L Duglas Test POS POS White Blood Count 12.31 K/uL Red Blood Count 3.30 M/uL Hemoglobin 9.2 g/dL Hematocrit 27.9 % Mean Corpuscular Volume 84.5 fL Mean Corpuscular Hemoglobin 27.9 pg Mean Corpuscular Hemoglobin Concent 33.0 g/dl Platelet Count 457 K/uL Mean Platelet Volume 9.2 fL Neutrophils (%) (Auto) 89.0 % Lymphocytes (%) (Auto) 5.0 % Monocytes (%) (Auto) 4.6 % Eosinophils (%) (Auto) 0.6 % Basophils (%) (Auto) 0.2 % Neutrophils # (Auto) 10.95 K/uL Lymphocytes # (Auto) 0.62 K/uL Monocytes # (Auto) 0.57 K/uL Eosinophils # (Auto) 0.07 K/uL Basophils # (Auto) 0.03 K/uL RDW Standard Deviation 56.7 fL RDW Coefficient of Variation 18.2 % Immature Granulocyte % (Auto) 0.6 % Immature Granulocyte # (Auto) 0.07 K/uL Sodium Level 144 mmol/L Potassium Level 4.3 mmol/L Chloride Level 116 mmol/L Carbon Dioxide Level 17 mmol/L Anion Gap 11.0 mmol/L Blood Urea Nitrogen 40 mg/dl Creatinine 4.70 mg/dl Est Creatinine Clear Calc Drug Dose 22.7 ml/min Estimated GFR () 15.6 Estimated GFR (Non- 13.5 BUN/Creatinine Ratio 8.5 Random Glucose 110 mg/dl Calcium Level 8.1 mg/dl Magnesium Level 2.1 mg/dl Test 05/21/16 06:46 05/21/16 10:20 Bedside Glucose 102 mg/dl Blood Gas Sample Site R Radial Bedside Blood Gas pH (LAB) 7.25 Bedside Blood Gas pCO2 (LAB) 36 mmHg Bedside Blood Gas pO2 (LAB) 80 mmHg Bedside Blood Gas HCO3 (LAB) 16 meq/L Bedside Blood Gas Total CO2 17 mEq/l Bedside Blood Gas Base Excess (LAB) -12.0 meq/L Bedside Blood Gas O2 Saturation 94.0 % Duglas Test Pass Oxygen Delivery Device VentiMask Bedside FiO2 50 % Assessment and Plan Mr. Alvarez is a 50 yr old who experienced recent aspiration pneumonia. He has a hx of prior esophagus surgical repair similar to a pull through. The presence of food residue in the esophagus on EGD is suggestive of poor upper GI motility. Plan: 1. When respiratory issues are improved and pt returns to po eating/drinking, then suggest: Reglan 5 mg ac. Could increase to 10mg ac if no side effects. 2. Would continue Relistor while on narcotics as this will also improve GI motility. 3. He will always need to eat sitting straight up and romulo food with liquid. He should avoid dry solid foods. 4. GI will watch peripherally. Please notify us if new GI issues. ATTESTATION: I have performed a history and physical examination of this patient and reviewed the electronic record. Specifically, on physical examination patient is intubated without significant change. I have discussed the case with RUDDY Jain. The above note reflects my findings, conclusions, and recommendations. Patient has had a truncal vagotomy as a result of his cancer surgery. There does not appear to have been a pyloroplasty performed. In addition, he has been on narcotic analgesics. The finding of large amounts of food residue in his esophagus and stomach at endoscopy is consistent with upper GI stasis, likely multifactorial including lack of peristalsis, decreased gastric motor activity as a result of vagotomy and narcotic use. Therapeutically, when he is able to resume oral intake, he should remain on a full liquid or pureed diet, remain upright after eating, and have a trial of prokinetic medication, starting with metoclopramide. If he remains on opioids, he should receive Relistor in the hospital and Movantik as an outpatient. Curt Ulloa MD
[2016-05-21] MEDS ORDERED: MoRPHine SULFATE 2 MG/ML CARP IV PRN (12:30)
--- NOTE | 2016-05-21 13:15 | CRITICAL CARE CONSULTATION ---
DATE OF CONSULTATION: 05/21/2016 CHIEF COMPLAINT: Shortness of breath and chest pain. HISTORY OF PRESENT ILLNESS: The patient is a 50-year-old gentleman with a rather extensive past medical history, who presented to the Emergency Department on 05/16/2016 with symptoms of cough with green sputum for about a week. He felt chills and was short of breath with exertion. He also complained of pain under his ribs, worse on the left side. He was evaluated and given Zosyn, Levaquin, as well as Toradol. He was found to have extensive left-sided pneumonia and was admitted to the hospital. He had been on the floor since that time and transferred to the intensive care unit this morning secondary to increasing oxygen requirements. Since his admission, he has been seen by the pulmonary, GI, thoracic surgery and nephrology services. He has a history of an esophageal rupture requiring partial esophagectomy with either gastric pull-up or reconstruction. There has been concern that he has been aspirating. He underwent EGD to rule out tracheoesophageal fistula and food was found in the esophagus. No fistula was identified and he was started on Relistor and Reglan. He underwent barium swallow on 05/19/2016 which showed aspiration and a cough reflex. He has undergone bronchoscopy just yesterday which showed gastric secretions in the trachea as well as diffuse mucous secretions obstructing the takeoff into the left mainstem notable all the way down to the second franchesca. The left upper lobe lingula and left lower lobe were obstructed with gastric secretions which were suctioned clear. A BAL was also performed. Over the course of the night last night, he became more tachypneic and continued to be tachycardic. He is now on a 50% aerosol facemask. On interviewing him, he says he feels a little bit more short of breath and is actually quite difficult to understand when he speaks. 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 PAST SURGICAL HISTORY: Status post partial esophagectomy secondary to esophageal rupture, laminectomy L4 through S1, cervical laminectomy, tracheostomy, jejunostomy, gastrostomy, partial removal of the left clavicle, appendectomy. ALLERGIES: TO TRAMADOL. PRESENT MEDICATIONS: Acetaminophen, clonazepam, Pulmozyme, subcutaneous heparin, insulin sliding scale, Atrovent, Xopenex, lithium, Relistor, Reglan, Zofran, Paxil, Zosyn, pregabalin, Seroquel. SOCIAL HISTORY: Does not drink or smoke. FAMILY HISTORY: Significant for father with myocardial infarction at age 63. REVIEW OF SYSTEMS: Limited as I cannot really understand him very much when he is talking to me. PHYSICAL EXAMINATION: GENERAL: This is a tall gentleman sitting in bed, moderately tachypneic. VITAL SIGNS: Temperature 37.6, heart rate 121, respiratory rate 24-32, blood pressure 125/79, oxygen saturation 92% on 40% Ventimask. HEENT: Pupils are equally round and reactive to light. Oral mucosa is moist. He is edentulous. NECK: Long, no adenopathy. CHEST: Shows portion of the left clavicle missing, about the medial one-third. Chest otherwise has symmetric expansion. LUNGS: Rhonchorous bilaterally. HEART: Tachycardic, regular. ABDOMEN: Soft, nondistended, nontender. Active bowel sounds. EXTREMITIES: Warm, 1+ distal pulses. NEUROLOGIC: He is awake, oriented to person and place. He moves all 4 extremities. LABORATORY DATA: White blood cell count 12.31, hemoglobin 9.2, hematocrit 29.7, platelets 457. pH 7.25, pCO2 of 36, pO2 of 80, HCO3 of 16. Sodium 144, potassium 4.3, chloride 116, CO2 17, BUN 40, creatinine 4.7. [place] level 0.7. Complements C3 and C4 as well as ANCA and double-stranded DNA are pending. Influenza type A and B are negative. Sputum culture from 05/15/2016 shows methicillin-sensitive Staph aureus. Blood cultures 05/16/2016 no growth. Bronchial washings 05/20/2016, preliminary culture shows Staph aureus and Arlen albicans. Fungal culture is pending. AFB culture is pending. Gram stain showed moderate yeast and hyphae and no AFB. Portable chest x-ray from today was reviewed and shows slight progressive parenchymal consolidation of the left hemithorax. Slightly progressive infiltrative change in the right hemithorax. IMPRESSION: 1. Acute hypoxemic respiratory failure secondary to aspiration pneumonia. He was initially started on Zosyn and Levaquin and he also received vancomycin and linezolid. When his sputum culture came back as methicillin-sensitive Staph aureus, he was changed to cefazolin. This has now been broadened to Zosyn after some worsening of his respiratory status this morning. 2. Aspiration pneumonia - ? anatomical issue due to potential pyloric stenosis or oropharyngeal dysmotility. 3. Acute kidney injury, likely secondary to acute tubular necrosis. Nephrology is following along. His creatinine continues to rise and he has a metabolic acidosis today. He received Toradol x3 doses earlier in his hospital course. 4. Metabolic encephalopathy secondary to severe sepsis. 5. Methicillin-sensitive Staph aureus in his sputum, status post bronchoscopy on 05/20/2016. 6. Anemia which may be dilutional. No signs of active bleeding, although he had some hemoptysis earlier in his hospitalization. 7. Chest discomfort which I suspect is secondary to his pneumonia. 8. History of pulmonary embolism and deep vein thrombosis. 9. Diabetes mellitus type 2. 10. History of partial esophagectomy secondary to esophageal rupture. PLAN: 1. Neurologic: He is complaining of pain and has Tylenol ordered. I will try some low dose morphine. Hold Seroquel, Lyrica, Paxil for now. 2. Pulmonary: I stressed the importance of trying to cough out his secretions which he does when strongly encouraged. I started chest percussion and he is on Pulmozyme. He may require intubation. Continue bronchodilators. He may benefit from additional bronchoscopy. I agree with broadening his antibiotic coverage. Consider CT scan of the chest. Keep head of bed at 30 degrees. Chlorhexidine has been ordered. 3. Cardiovascular: I think he is tachycardic from sepsis and some increased work of breathing. I would not treat that with medications presently. 4. Renal: Begin sodium bicarbonate infusion and avoid nephrotoxins. Appropriately dose antibiotics for his renal dysfunction. 5. Infectious Disease: Continue Zosyn. I discontinued the Ancef. Follow cultures. 6. GI: Place Coresafe feeding tube if possible and attempt to place past the pylorus. No tube feeds today due to tenuous respiratory status. If he indeed has pyloric stenosis, he would require a j-tube and Dr. Whitaker discussed this with me along with the potential treatment options. 7. Endocrine: Continue sliding scale insulin. 8. Hematology: Follow blood counts and continue subcutaneous heparin for DVT prophylaxis. I discussed his care in detail with his sister who was at the bedside. 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 She is going to discuss his care with his brother who is also involved in his life. He has another brother who is not engaged in his care and his mother is . The patient himself my have limited cognitive abilities at baseline. Critical care time 90 minutes. CARLOS
[2016-05-21] MEDS: SODIUM BICARBONATE 8.4% INJ 50 MEQ in SODIUM CHLORIDE 0.45% 1000ML 1,000 ML IV SCH ×2 (13:56→23:47)
[2016-05-21] MEDS ORDERED: PEPTAMEN 1.5 CAL 1000ML BAG NG SCH (14:00)
--- NOTE | 2016-05-21 16:19 | DIAGNOSTIC IMAGING REPORT ---
KUB CLINICAL HISTORY: Evaluate feeding tube placement COMPARISON STUDY: 12/15/2013 FINDINGS: A single portable view of the abdomen centered on the hemidiaphragms is provided for interpretation. There is a feeding tube with its tip projected over the stomach. There are left lower lobe airspace opacities. An IVC filter is visualized. IMPRESSION: The recently placed feeding tube is positioned with its tip in the stomach Electronically signed by: Yayo Jackson M.D. 05/21/2016 4:18 PM Dictated Date/Time: 05/21/2016 4:16 PM
[2016-05-21] MEDS: PIPERACILL/TAZOBAC IV 3.375 GM in DEXTROSE 5% 100ML 100 ML IV SCH ×2 (16:33→23:47)
[2016-05-21] MEDS: PAROXETINE 30 MG TAB PO SCH (16:55)
[2016-05-21] MEDS: QUETIAPINE FUMARATE 200 MG TAB PO SCH ×2 (16:55→21:21)
[2016-05-21] MEDS: LITHIUM ORAL SOLN 300 MG/5ML 500ML PO SCH ×2 (16:55→21:20)
[2016-05-21] MEDS: PREGABALIN 150 MG CAP PO SCH (16:57)
[2016-05-21] MEDS: CLONAZEPAM 0.5 MG TAB PO SCH (16:57)
[2016-05-21 19:24] LABS: ISTAT ALLEN TEST Pass; ISTAT ARTERIAL BLOOD GAS HCO3 18 meq/L (19-24); ISTAT ARTERIAL BLOOD GAS PCO2 43 mmHg (35-46); ISTAT ARTERIAL BLOOD GAS PO2 72 mmHg (80-95); ISTAT ARTERIAL BLOOD GAS pH 7.22 (7.35-7.45); ISTAT CARBON DIOXIDE 19 mEq/l (24-31); ISTAT DELIVERY SYSTEM Other; ISTAT FIO2 50 %; ISTAT SITE R Radial
[2016-05-21] MEDS ORDERED: SODIUM BICARB 8.4% INJ 50 MEQ/50 ML SYR IV ONE (19:26)
[2016-05-21] MEDS ORDERED: RAPID SEQUENCE INDUCTION BAG ONE (19:28)
[2016-05-21] MEDS ORDERED: PROPOFOL IV EMULSION 10 MG/ML 100 ML VIAL IV ONE (19:35)
[2016-05-21 20:01] LABS: BUN/CREATININE RATIO 9.1 (10-20); CALCIUM 7.9 mg/dl (8.5-10.1)
[2016-05-21 20:02] LABS: CREATININE 4.7 mg/dl (0.60-1.40)
--- NOTE | 2016-05-21 20:06 | Procedure Note ---
Procedure Note Procedure Date May 21, 2016. Procedure Description Procedure Name: Endotracheal Intubation Consent obtained: emergent consent implied Time of procedure: 19:50 Performed by: attending Indications: other Contraindications: none Description: The patient was preoxgenated with 100% NRB and then bagged with 100% Fio2. He was sedated with 75mcg of fentanyl and 60mcg of propofol. I used a 4.0 Glidescope blade to visualize the vocal cords and passed and 8.0 ETT through them. + BS bilaterally. + CO2 detector. The tube was secured at 24cm at the lip. Saturations were between 89-94% Post procedure SBP 94, fluid bolus started. CXR pending. Complications: none Patient tolerated procedure: well Post-procedure vital signs: reviewed and stable
[2016-05-21] MEDS ORDERED: FENTANYL CITRATE INJ 50 MCG/1 ML 2 ML VIAL IV PRN (20:15)
[2016-05-21] MEDS ORDERED: LEValbuterol HFA 15GM INHALER INH PRN (20:15)
[2016-05-21] MEDS ORDERED: FENTANYL CITRATE INJ 50 MCG/1 ML 2 ML VIAL IV ONE (20:15)
--- NOTE | 2016-05-21 20:21 | Progress Note ---
Progress Note Date of Service May 21, 2016. Progress Note Patient intubated for worsening mental status and poor respiratory effort. I called his sister to notify her but there was no answer. I left a message, asked her to call the unit and provided the number.
--- NOTE | 2016-05-21 20:29 | DIAGNOSTIC IMAGING REPORT ---
CHEST ONE VIEW PORTABLE CLINICAL HISTORY: Respiratory failure COMPARISON STUDY: 05/19/2016 FINDINGS: The right-sided PICC catheter remains unchanged in position. There has been interval placement of a feeding tube tip of which projects over the stomach. There has been placement of endotracheal tube 6.9 cm above the franchesca. There are persistent bilateral airspace opacities with near complete opacification left hemithorax. There is a chronic deformity of the left posterior seventh rib. Small pleural effusions are suspected. IMPRESSION: Extensive bilateral pulmonary airspace opacities left greater than right. Interval placement of an endotracheal tube 6.9 cm above the franchesca. Electronically signed by: Yayo Jackson M.D. 05/21/2016 8:28 PM Dictated Date/Time: 05/21/2016 8:27 PM
[2016-05-21] MEDS: LEValbuterol HFA 15GM INHALER INH SCH (21:00)
[2016-05-21] MEDS: IPRATROPIUM BROMIDE HFA INHALER INH SCH (21:00)
[2016-05-21] MEDS ORDERED: PANTOprazole INJ 40 MG in SYRINGE 0 ML IV ONE (21:00)
[2016-05-21 21:07] LABS: ISTAT ALLEN TEST Pass; ISTAT ARTERIAL BLOOD GAS HCO3 20 meq/L (19-24); ISTAT ARTERIAL BLOOD GAS PCO2 50 mmHg (35-46); ISTAT ARTERIAL BLOOD GAS PO2 313 mmHg (80-95); ISTAT ARTERIAL BLOOD GAS pH 7.22 (7.35-7.45); ISTAT CARBON DIOXIDE 22 mEq/l (24-31); ISTAT DELIVERY SYSTEM Ventilator; ISTAT FIO2 100 %; ISTAT PEEP 10; ISTAT RATE 21; ISTAT SITE R Radial; VE 5.3; Vt 550
[2016-05-21] MEDS: CHLORHEXIDINE GLUCONATE 0.12% 480 ML MT SCH (21:22)
[2016-05-22] VITALS (30 sets, daily range): BP systolic 76–104; BP diastolic 42–56; PULSE 99–116; TEMP 37.3–38.6; O2SAT 92–98
[2016-05-22] MEDS: PROPOFOL IV EMULSION 10 MG/ML 100 ML VIAL IV PRN ×2 (01:05→14:49)
[2016-05-22] MEDS: LEValbuterol HFA 15GM INHALER INH SCH ×4 (02:42→21:03)
[2016-05-22] MEDS: IPRATROPIUM BROMIDE HFA INHALER INH SCH ×4 (02:42→21:03)
[2016-05-22 03:52] LABS: ALBUMIN 1.4 G/DL (3.8-4.8); TOTAL PROTEIN 4.8 G/DL (6.2-8.3)
[2016-05-22 06:00] LABS: HEMATOCRIT 24.5 % (42-52); MEAN CELL VOLUME 85.7 fL (80-100); MEAN CORPUSCULAR HGB CONC 32.7 g/dl (32-36); MEAN PLATELET VOLUME 8.9 fL (7.4-10.4); PLATELET COUNT 372 K/uL (130-400); RED BLOOD COUNT 2.86 M/uL (4.7-6.1); WHITE BLOOD COUNT 13.36 K/uL (4.8-10.8)
[2016-05-22] MEDS: INSULIN ASPART 100 UNITS/ML 3 ML PEN SC SCH ×3 (06:36→17:58)
[2016-05-22] MEDS: METOCLOPRAMIDE HCL INJ 5 MG/ML 2 ML VIAL IV SCH ×4 (06:36→20:55)
[2016-05-22 06:51] LABS: BUN/CREATININE RATIO 8.6 (10-20); CREATININE 4.9 mg/dl (0.60-1.40); MAGNESIUM 2.3 mg/dl (1.8-2.4)
--- NOTE | 2016-05-22 07:20 | DIAGNOSTIC IMAGING REPORT ---
KUB CLINICAL HISTORY: evaluate feeding tube tube position COMPARISON STUDY: 05/21/2016 FINDINGS: Feeding tube of the gastric fundus. Contrast within the colon. Nonobstructive bowel pattern. IMPRESSION: Feeding tube within the gastric fundus Electronically signed by: Henrique Madison M.D. 05/22/2016 7:19 AM Dictated Date/Time: 05/22/2016 7:18 AM
--- NOTE | 2016-05-22 07:32 | DIAGNOSTIC IMAGING REPORT ---
CHEST ONE VIEW PORTABLE HISTORY: Follow-up pneumonia. COMPARISON: Chest 05/21/2016. FINDINGS: Bilateral airspace opacities, left greater than right, persist. There is loculated left pleural effusion, unchanged. Feeding tube terminates in the proximal stomach. This is unchanged. Endotracheal tube terminates 4 cm from the franchesca. Right PICC terminates in the SVC. Suspect a trace right pleural effusion. No pneumothorax. Left rib deformities are again noted. IMPRESSION: No change in the bilateral airspace opacities and loculated left pleural effusion. Satisfactory support line placement. Electronically signed by: Luís Dockery M.D. 05/22/2016 7:31 AM Dictated Date/Time: 05/22/2016 7:29 AM
[2016-05-22 08:01] LABS: BASO % 0.1 %; BASO ABS # 0.01 K/uL (0-0.2); COMPLETE YES; EOS % 1.1 %; IG% 0.4 %; LYMPH % 4.8 %; LYMPH ABS # 0.64 K/uL (1.2-3.4); MONO % 4.5 %; NEUT % 89.1 %
[2016-05-22] MEDS: PIPERACILL/TAZOBAC IV 3.375 GM in DEXTROSE 5% 100ML 100 ML IV SCH ×2 (08:11→16:40)
--- NOTE | 2016-05-22 08:40 | PULMONARY PROGRESS NOTE ---
DATE: 05/22/2016 DATE: 05/22/2016. SUBJECTIVE: The patient is intubated in the intensive care unit room 12 hypotensive. He is sedated. His sputum is scant. Notes from Dr. Hernandez reviewed. It appears he developed acute hypoxic respiratory failure secondary to aspiration pneumonia and has been treated with Levaquin and Zosyn. Had received linezolid and vancomycin in the past. He has also had acute kidney injury with ATN, perhaps related to Toradol, on CT scan with a metabolic acidosis and methicillin-resistant staff in the sputum from the bronchoscopy on 05/20/2016. PHYSICAL EXAMINATION: VITAL SIGNS: Hemodynamically he remains with a blood pressure of 94/49, respiratory rate is 20-26, pulse 105. He is afebrile. I\T\O 2014 in and 1350 out. Weight 93.9 kilograms, which is relatively stable over the last 5 days. Nurses' notes reviewed. He has received some bicarb as well intravenously. Endotracheal tube is in good position. There is no subcutaneous emphysema or neck vein distention. HEART: Regular rate and rhythm at 110 beats per minute. LUNGS: Reveal decreased breath sounds particularly at the left base with some scattered rhonchi. ABDOMEN: Bowel sounds are good. Abdomen soft, nontender. He has no cyanosis, clubbing or edema. LABORATORY DATA: White count 13.36, hemoglobin is only 8, hematocrit 24.5%, platelet count 372,000 with 89% segmented neutrophils. Blood gas yesterday revealed pH 7.22, pCO2 of 50, pO2 of 313 on the ventilator. It is pending for this morning. Sodium is up to 147 with a chloride of 116, creatinine is up to 4.9. Calcium was 8, magnesium 2.3. ANCA is negative, double stranded DNA complements are all unremarkable. IMPRESSION: Respiratory failure related to aspiration pneumonia. Chest x-ray continues to reveal bilateral patchy infiltrates with atelectatic changes at the left base. The endotracheal tube appears to be in good position. Almost complete opacification of the left lung is noted. The tube appears to be about 40 mm above the franchesca. Infiltrative process in the right upper lobe and probable right middle lobe are noted as well. Right hemidiaphragm is easily visualized. There appears to be some barium in the stomach. I can not see the left hemidiaphragm. No subcutaneous emphysema is noted. Central line on the right side appears to be in the superior vena cava right at the right atrium. RECOMMENDATIONS: 1. Continue with full ventilator support, his present medications, good endotracheal suctioning. If he continues to have worsening atelectasis at the left lung, then repeat bronchoscopy with Dr. Holliday may be warranted. 2. Continue with his IV antimicrobial agents, good DVT prophylaxis and Protonix. Once the patient is extubated will certainly need training with eating. He should be sitting up every time he eats for at least 2 hours after eating. Should not eat for at least 2 hours before retiring for the evening and Reglan once he is extubated will be helpful as well.
[2016-05-22] MEDS: DOCUSATE SODIUM 100 MG/10 ML UDC PO SCH ×2 (09:50→20:47)
[2016-05-22] MEDS: POLYETHYLENE (MIRALAX) 17 GM PACK PO SCH (09:50)
[2016-05-22] MEDS: CHLORHEXIDINE GLUCONATE 0.12% 480 ML MT SCH ×2 (09:51→20:55)
[2016-05-22] MEDS: PREGABALIN 150 MG CAP PO SCH (09:54)
[2016-05-22] MEDS: CLONAZEPAM 0.5 MG TAB PO SCH (09:55)
--- NOTE | 2016-05-22 10:00 | Nephrology Progress Note ---
Nephrology Progress Note Date of Service: May 22, 2016. Subjective intubated overnight and IVF stopped; this am zyvox added; pt w/ SBP lower than prior now in 80-90s; Li level stable this am Objective Date Time Temp Pulse Resp B/P Pulse Ox O2 Delivery O2 Flow Rate FiO2 05/22/16 06:30 105 26 94/49 94 05/22/16 06:00 106 29 92/47 95 05/22/16 05:30 103 24 94/45 94 05/22/16 05:05 50 05/22/16 05:00 102 24 87/44 94 05/22/16 04:30 102 26 87/47 94 05/22/16 04:00 37.3 05/22/16 04:00 50 05/22/16 04:00 100 27 83/46 95 05/22/16 04:00 97 Mechanical Ventilator 50 05/22/16 03:30 100 22 81/44 95 05/22/16 03:00 101 22 81/44 95 05/22/16 02:30 50 05/22/16 02:29 101 24 84/47 95 05/22/16 02:00 100 26 77/42 97 05/22/16 01:30 99 22 76/42 96 05/22/16 00:59 102 25 87/50 96 05/22/16 00:33 96 05/22/16 00:30 102 22 81/51 96 05/21/16 23:59 Mechanical Ventilator 70 05/21/16 23:59 37.4 05/21/16 23:59 103 22 87/52 96 05/21/16 23:59 70 05/21/16 23:30 104 21 83/47 96 05/21/16 23:00 104 24 96 05/21/16 22:59 104 22 87/53 96 05/21/16 22:29 102 20 84/53 96 05/21/16 22:00 100 21 86/51 96 05/21/16 21:34 96 05/21/16 21:29 101 21 91/52 96 05/21/16 21:00 37.5 105 22 84/48 96 05/21/16 20:30 101 14 88/43 96 05/21/16 20:16 110 21 90/54 96 05/21/16 20:00 Venturi Mask 12.0 50 05/21/16 20:00 112 24 87/50 95 05/21/16 19:30 100 05/21/16 19:00 116 30 106/64 90 05/21/16 18:00 119 33 107/57 88 05/21/16 17:00 126 34 91 05/21/16 16:00 122 35 130/71 89 05/21/16 15:00 122 35 134/70 92 05/21/16 14:51 119 20 92 Mask 12.0 50 05/21/16 14:00 123 05/21/16 13:00 126 22 92/66 88 05/21/16 12:01 124 19 85/33 89 05/21/16 12:00 123 17 82 05/21/16 12:00 Venturi Mask 50 05/21/16 11:00 121 13 134/69 91 05/21/16 10:17 118 18 134/66 91 05/21/16 10:00 119 27 93 Physical Exam: General-intubated sedated ENT-mmm, ETT, OG Neck-supple Lungs-diminished air entry Heart-+tachy Abdomen-bs+ s/nt/nd, lang w/ some urine Extremities-no c/c/e Neuro-sedated Current Inpatient Medications Medications (Trade) Dose Ordered Sig/Shemar Route Start Time Stop Time Status Last Admin Dose Admin Acetaminophen (Tylenol Tab) 650 mg Q4H PRN PO 05/16/16 14:15 06/15/16 14:14 05/20/16 15:56 650 MG Ondansetron HCl (Zofran Inj) 4 mg Q6H PRN IV 05/16/16 14:15 06/15/16 14:14 Quetiapine Fumarate (seroQUEL TAB) 200 mg DAILY PO 05/17/16 09:00 06/16/16 08:59 05/21/16 16:55 200 MG Quetiapine Fumarate (seroQUEL TAB) 600 mg HS PO 05/16/16 21:00 06/15/16 20:59 05/21/16 21:21 600 MG Paroxetine HCl (pAXil) 30 mg DAILY PO 05/17/16 09:00 06/16/16 08:59 05/21/16 16:55 30 MG Heparin Sodium (Porcine) (Heparin 10 Unit/ ml 5 ml Flush) 1 ml PRN PRN FLUSH 05/18/16 00:30 06/17/16 00:29 05/20/16 05:49 1 ML Dornase [place] (Pulmozyme Inhalation Soln 2.5ml Amp) 2.5 ml BIDR INH 05/18/16 20:00 06/17/16 19:59 05/21/16 06:56 2.5 ML Clonazepam (Klonopin Tab) 0.5 mg DAILY PO 05/19/16 09:00 06/18/16 08:59 05/21/16 16:57 0.5 MG Heparin Sodium (Porcine) (Heparin Sq 5000 Unit/0.5ml) 5,000 unit Q12 SQ 05/18/16 21:00 06/17/16 20:59 05/21/16 21:24 5,000 UNIT Glucose (Glucose 40% Gel) 15-30 GRAMS 15 GRAMS... UD PRN PO 05/19/16 08:00 06/18/16 07:59 Glucose (Glucose Chew Tab) 4-8 Tablets 4 Tabl... UD PRN PO 05/19/16 08:00 06/18/16 07:59 Dextrose (Dextrose 50% 50ML Syringe) 25-50ML OF 50% DW IV FOR... UD PRN IV 05/19/16 08:00 06/18/16 07:59 Glucagon (Glucagon Inj) 1 mg UD PRN SQ 05/19/16 08:00 06/18/16 07:59 Miscellaneous Information (Consult Glycemic Management Pharmacy) 1 ea UD PRN N/A 05/19/16 07:58 06/18/16 07:57 [place] Citrate ([place] Citrate Soln) 75 mg BID PO 05/19/16 11:00 06/18/16 10:59 Future hold 05/21/16 21:20 75 MG Pregabalin 150 mg 150 mg DAILY PO 05/20/16 09:00 06/19/16 08:59 05/21/16 16:57 150 MG Acetaminophen/ Empty Bag (Ofirmev Iv/ Empty Iv Bag 100ml) 65 ml @ 400 mls/hr Q6H PRN IV 05/19/16 12:30 06/18/16 12:29 Metoclopramide HCl (Reglan Inj) 5 mg ACHS IV 05/20/16 21:00 06/19/16 20:59 05/22/16 06:36 5 MG Methylnaltrexone [place] 12 mg 12 mg Q2D SQ 05/20/16 18:30 06/19/16 18:29 05/20/16 19:00 12 MG Piperacillin Sod/ Tazobactam Sod/ Dextrose (Zosyn Iv/D5 100ml) 115 ml @ 28.75 mls/ hr Q8@0000,0800,1600 IV 05/21/16 16:00 05/28/16 15:59 05/22/16 08:11 28.75 MLS/HR Piperacillin Sod/ Tazobactam Sod (Consult) 1 ea UD PRN N/A 05/21/16 09:45 06/20/16 09:44 Insulin Aspart (novoLOG ASPART) SLIDING SCALE If C... Q6 SC 05/21/16 18:00 06/20/16 17:59 Propofol (Diprivan Iv Emulsion 100ml Vial) 1 dose UD PRN IV 05/21/16 20:15 05/24/16 20:14 05/22/16 01:05 1 DOSE Fentanyl Citrate (Fentanyl Inj) 50 mcg Q3H PRN IV 05/21/16 20:15 06/04/16 20:14 Levalbuterol (Xopenex Hfa Inhaler) 6 puffs Q6R INH 05/21/16 21:00 06/20/16 20:59 05/22/16 02:42 6 PUFFS Ipratropium [place] (Atrovent Hfa Inhaler) 6 puffs Q6R INH 05/21/16 21:00 06/20/16 20:59 05/22/16 02:42 6 PUFFS Chlorhexidine Gluconate 15 ml 15 ml BID MT 05/21/16 21:00 06/20/16 20:59 05/21/16 21:22 15 ML Pantoprazole Sodium/Syringe (Protonix Inj/ Syringe) 10 ml @ 5 mls/min DAILY@11 IV 05/22/16 11:00 06/21/16 10:59 Docusate Sodium (coLACE SYRUP) 100 mg BID PO 05/22/16 09:00 06/21/16 08:59 Polyethylene (Miralax Powder Packet) 17 gm QAM PO 05/22/16 09:00 4/22/17 08:59 Last 24 Hours Test 05/21/16 10:20 05/21/16 11:39 05/21/16 17:38 05/21/16 19:12 Blood Gas Sample Site R Radial R Radial Bedside Blood Gas pH (LAB) 7.25 7.22 Bedside Blood Gas pCO2 (LAB) 36 mmHg 43 mmHg Bedside Blood Gas pO2 (LAB) 80 mmHg 72 mmHg Bedside Blood Gas HCO3 (LAB) 16 meq/L 18 meq/L Bedside Blood Gas Total CO2 17 mEq/l 19 mEq/l Bedside Blood Gas Base Excess (LAB) -12.0 meq/L -10.0 meq/L Bedside Blood Gas O2 Saturation 94.0 % 91.0 % [place] Test Pass Pass Oxygen Delivery Device VentiMask Other Bedside FiO2 50 % 50 % Bedside Glucose 171 mg/dl 97 mg/dl Test 05/21/16 19:22 05/21/16 20:54 05/21/16 23:33 05/22/16 05:53 Sodium Level 141 mmol/L 147 mmol/L Potassium Level 4.0 mmol/L 4.0 mmol/L Chloride Level 111 mmol/L 116 mmol/L Carbon Dioxide Level 19 mmol/L 25 mmol/L Anion Gap 11.0 mmol/L 6.0 mmol/L Blood Urea Nitrogen 43 mg/dl 42 mg/dl Creatinine 4.70 mg/dl 4.90 mg/dl Est Creatinine Clear Calc Drug Dose 22.7 ml/min 21.5 ml/min Estimated GFR () 15.6 14.8 Estimated GFR (Non- 13.5 12.8 BUN/Creatinine Ratio 9.1 8.6 Random Glucose 240 mg/dl 102 mg/dl Calcium Level 7.9 mg/dl 8.0 mg/dl Blood Gas Sample Site R Radial Bedside Blood Gas pH (LAB) 7.22 Bedside Blood Gas pCO2 (LAB) 50 mmHg Bedside Blood Gas pO2 (LAB) 313 mmHg Bedside Blood Gas HCO3 (LAB) 20 meq/L Bedside Blood Gas Total CO2 22 mEq/l Bedside Blood Gas Base Excess (LAB) -7.0 meq/L Bedside Blood Gas O2 Saturation 100.0 % [place] Test Pass Oxygen Delivery Device Ventilator Bedside Oxygen Rate (breaths/min) 21 Blood Gas Minute Ventilation 5.3 Bedside FiO2 100 % Blood Gas Tidal Volume 550 Blood Gas PEEP 10 Bedside Glucose 107 mg/dl White Blood Count 13.36 K/uL Red Blood Count 2.86 M/uL Hemoglobin 8.0 g/dL Hematocrit 24.5 % Mean Corpuscular Volume 85.7 fL Mean Corpuscular Hemoglobin 28.0 pg Mean Corpuscular Hemoglobin Concent 32.7 g/dl Platelet Count 372 K/uL Mean Platelet Volume 8.9 fL Neutrophils (%) (Auto) 89.1 % Lymphocytes (%) (Auto) 4.8 % Monocytes (%) (Auto) 4.5 % Eosinophils (%) (Auto) 1.1 % Basophils (%) (Auto) 0.1 % Neutrophils # (Auto) 11.91 K/uL Lymphocytes # (Auto) 0.64 K/uL Monocytes # (Auto) 0.60 K/uL Eosinophils # (Auto) 0.15 K/uL Basophils # (Auto) 0.01 K/uL RDW Standard Deviation 59.8 fL RDW Coefficient of Variation 18.8 % Immature Granulocyte % (Auto) 0.4 % Immature Granulocyte # (Auto) 0.05 K/uL Red Blood Cell Morphology Unremarkable Magnesium Level 2.3 mg/dl Test 05/22/16 06:33 05/22/16 08:30 Bedside Glucose 109 mg/dl [place] Level 0.8 mMOL/L Assessment & Plan 50 yo male with ricardo/atn from nsaids, vanco with underlying aspiration pneumonia. 05/20 bronch showed gastric juices indicating aspiration; also w/ esophageal dysmotility , with barium in esophagus from barium swallow. ricardo/[id number], likely from toradol +/-vanco. creatinine continues to trend up but today fortunately rate of increase has slowed and hope it should plateau soon; however worsening clinical status concerning >> he is relatively hypotensive and now w/ resp failure; this may well complicate/slow renal recovery. no indication for emergent dialysis at this time but cannot rule out need. last toradol dose 05/18. a few serologies still in process but all negative so far. pulm-pt appears to have significant aspiration and is now hypoxic and requiring more oxygen. may need intubated for protection of airway. no fistula noted and no stenosis noted on bronch. appears esophagus has no motility at this time. spoke with Dr. Holliday. Dr. Holliday speaking with critical care to evaluate the patient for possible intubation. chronic lithium therapy > pharmacy following closely and adjusting; recommend w / renal function changing near daily that Li levels be checked daily for now; pt also prone to hypernatremia/RICARDO/dehydration on this therapy as well especially w/ IVF off and will recheck bmp in afternoon today as well Appreciate consult; will follow with you. Care coordinated w/ Dr. Nicholson.
[2016-05-22] MEDS: HEPARIN SOD 5000 UNIT/0.5 ML CARP SQ SCH ×2 (10:01→20:51)
[2016-05-22 10:02] LABS: ISTAT ALLEN TEST Pass; ISTAT ARTERIAL BLOOD GAS HCO3 22 meq/L (19-24); ISTAT ARTERIAL BLOOD GAS PCO2 42 mmHg (35-46); ISTAT ARTERIAL BLOOD GAS PO2 109 mmHg (80-95); ISTAT ARTERIAL BLOOD GAS pH 7.32 (7.35-7.45); ISTAT CARBON DIOXIDE 23 mEq/l (24-31); ISTAT DELIVERY SYSTEM Ventilator; ISTAT FIO2 50 %; ISTAT PEEP 10; ISTAT RATE 20; ISTAT SITE L Radial; VE 14.1; Vt 600
[2016-05-22] MEDS: DORNASE ALFA (2500U) 2.5MG/2.5ML INH SCH ×2 (10:02→20:10)
[2016-05-22] MEDS: PAROXETINE 30 MG TAB PO SCH (10:05)
[2016-05-22] MEDS: QUETIAPINE FUMARATE 200 MG TAB PO SCH ×2 (10:05→20:49)
[2016-05-22] MEDS: LITHIUM ORAL SOLN 300 MG/5ML 500ML PO SCH ×2 (11:02→20:48)
[2016-05-22] MEDS: PANTOprazole INJ 40 MG in SYRINGE 0 ML IV SCH (11:02)
--- NOTE | 2016-05-22 11:17 | Progress Note ---
Internal Med Progress Note Date of Service: May 22, 2016. Provider Documentation: SUBJECTIVE: Patient was intubated yesterday. Sedated + Afebrile since yesterday. Tele- Sinus tachycardia with HR in 110s OBJECTIVE: Vital Signs-as noted below Exam: General- Intubated + Sedated + Neck- no JVD Lungs- (+) crackles bilaterally, no wheezes Heart- Tachycardic, sinus + Abdomen- normal bowel sounds, soft Extremities- no pretibial edema, good pulses Neuro- Intubated/sedated Lab data as noted below. CT CHEST: IMPRESSION: 1. Consolidative infiltrative and/or masslike changes involving the bulk of the left upper and to a somewhat lesser extent left lower lobe regions. 2. Additional nodularity within the left hemithorax and to a somewhat lesser extent right base. 3. Progressive mediastinal and hilar adenopathy. 4. Although it is possible that central obstructing lesions may account for the peripheral consolidative change, a neoplastic process nevertheless is a diagnosis of exclusion. 5. Associated parenchymal nodularity indicates a significant possibility of metastatic change. 6. Operative changes stable from the prior exam consistent with a prior esophagectomy and anterior gastric pull-through type procedure. ASSESSMENT & PLAN: 50 year old male with history of Bipolar Disorder, Esophagectomy, GERD, PE with IVC filter presenting with cough. SEVERE SEPSIS WITH MULTI ORGAL FAILURE DUE TO PNEUMONIA, MSSA, (Bilateral Lt > Rt) - Progressively worsening Patient was intubated on 05/21/16 as went into respiratory distress. Aspiration risk due to hx of esophagectomy in 2013. Concerned about tracheo- esophageal fistula - none noted per bronch/EGD, but had gastric juice in trachea + -S/P EGD on 05/20/16 - Barretts esophagus changes, tortuous esophagus, no fistula -S/P Bronchoscopy on 05/20/16- There was diffuse mucus secretions obstructing the takeoff to the left mainstem in notable all the way to the secondary franchesca. The left upper lobe, lingula and left lower lobe were obstructed with gastric secretions which were suctioned clear. - Sputum culture: staph aureus, MSSA; blood culture: negative so far; (+) Nasal MRSA, Bronchoscopy cultures pending- staph aureus/ruth - S/P IV Vanco (Day 1)- discontinued due to RICARDO, S/P Linezolid (Days 3); d/c Levaquin per Pulm . S/P IV Zosyn - Days 4. - changed antibiotics to Cefazolin + Metronidazole started on 05/19/16. Due to persistent fever/worsening pneumonia- --> changed antibiotics back to IV Zosyn for broad spectrum coverage, added linezolid per Registered Nurse Hh Case Manager (Day 6) - IV fluids- discontinued due to concerns about fluid overload - Discussed with occupational therapist home based HEMOPTYSIS - Resolved Likely from Necrotizing Pneumonia -S/P CT chest- Consolidative infiltrative and /or mass like changes in left upper/to some extent left lower lobe regions, additional nodularity within left hemithorax and to a somewhat lesser extent right base, progressive mediastinal, hilar adenopathy, central obstructing lesions may account for peripheral consolidative change, a neoplastic process nevertheless is a diagnosis of exclusion, associated parenchymal nodularity indicates a significant possibility of metastatic change; post op changes from prior esophagectomy, anterior gastric pull through type of procedure. -S/P Bronchoscopy ON 05/20/16 - There was diffuse mucus secretions obstructing the takeoff to the left mainstem in notable all the way to the secondary franchesca. The left upper lobe, lingula and left lower lobe were obstructed with gastric secretions which were suctioned clear. -Pulmonary consulted. Appreciate inputs. ACUTE RENAL FAILURE- Worsening - Likely ATN. D/D considered: Pulmonary renal syndrome- granulomatous angitis with ESR 70s, Sepsis with MOD, creatinine worsening - Crea 0.98--> 1.9 --> 3.5-->4.00-->4.70-->4.90 - Management of sepsis noted above - IV fluids- discontinued on 05/21 - Need to closely monitor lithium levels . Today 0.8, will repeat in AM. Discussed with nephrology - Nephro consulted- F/up serologies, Complement levels, GELA, ANCA- pending POSSIBLE BPH - has BPH symptoms - Foleys catheter inserted. - Started trial of Tamsulosin 0.4mg daily LEFT LOWER RIB CAGE PAIN CT abdomen: There are postoperative changes to several lower left ribs unchanged from the prior study. A well-defined lytic or blastic process is not appreciated within the osseous structures. - likely worsened with cough from Pneumonia - Monitor closely due to past history of abuse and renal function DM TYPE 2, New Diagnosis A1c 7.0 has family history -HBA1C- 7.0 -ISS, Pharm and Braid Pattern Setter Consult MOOD DISORDER - continue home meds but now renally dosed - lithium dose reduced, levels to be monitored., goal 0.6-0.8 per pharmacy - adjust to usual doses once renal function improves HISTORY OF PE, S/P IVC FILTER PLACEMENT -on Heparin Q12 for DVT prophylaxis -monitor as patient has history of GI bleed DISPO Prognosis- guarded Discussed with Registered Nurse Hh Case Manager, Pump Erector. Discussed with patient prior to intubation- If not able to make medical decisions, would want her sister, Reena [phone] to make decisions on his behalf. Vital Signs: Date Time Temp Pulse Resp B/P Pulse Ox O2 Delivery O2 Flow Rate FiO2 05/22/16 08:00 Mechanical Ventilator 50 05/22/16 08:00 50 05/22/16 07:30 50 05/22/16 06:30 105 26 94/49 94 05/22/16 06:00 106 29 92/47 95 05/22/16 05:30 103 24 94/45 94 05/22/16 05:05 50 05/22/16 05:00 102 24 87/44 94 05/22/16 04:30 102 26 87/47 94 05/22/16 04:00 37.3 05/22/16 04:00 50 05/22/16 04:00 100 27 83/46 95 05/22/16 04:00 97 Mechanical Ventilator 50 05/22/16 03:30 100 22 81/44 95 05/22/16 03:00 101 22 81/44 95 05/22/16 02:30 50 05/22/16 02:29 101 24 84/47 95 05/22/16 02:00 100 26 77/42 97 05/22/16 01:30 99 22 76/42 96 05/22/16 00:59 102 25 87/50 96 05/22/16 00:33 96 05/22/16 00:30 102 22 81/51 96 05/21/16 23:59 Mechanical Ventilator 70 05/21/16 23:59 37.4 05/21/16 23:59 103 22 87/52 96 05/21/16 23:59 70 05/21/16 23:30 104 21 83/47 96 05/21/16 23:00 104 24 96 05/21/16 22:59 104 22 87/53 96 05/21/16 22:29 102 20 84/53 96 05/21/16 22:00 100 21 86/51 96 05/21/16 21:34 96 05/21/16 21:29 101 21 91/52 96 05/21/16 21:00 37.5 105 22 84/48 96 05/21/16 20:30 101 14 88/43 96 05/21/16 20:16 110 21 90/54 96 05/21/16 20:00 Venturi Mask 12.0 50 05/21/16 20:00 112 24 87/50 95 05/21/16 19:30 100 05/21/16 19:00 116 30 106/64 90 05/21/16 18:00 119 33 107/57 88 05/21/16 17:00 126 34 91 05/21/16 16:00 122 35 130/71 89 05/21/16 15:00 122 35 134/70 92 05/21/16 14:51 119 20 92 Mask 12.0 50 05/21/16 14:00 123 05/21/16 13:00 126 22 92/66 88 05/21/16 12:01 124 19 85/33 89 05/21/16 12:00 123 17 82 05/21/16 12:00 Venturi Mask 50 Lab Results: Results Past 24 Hours Test 05/21/16 11:39 05/21/16 17:38 05/21/16 19:12 05/21/16 19:22 Range/Units Bedside Glucose 171 97 70-99 mg/dl Blood Gas Sample Site R Radial Bedside Blood Gas pH (LAB) 7.22 7.35-7.45 Bedside Blood Gas pCO2 (LAB) 43 35-46 mmHg Bedside Blood Gas pO2 (LAB) 72 80-95 mmHg Bedside Blood Gas HCO3 (LAB) 18 19-24 meq/L Bedside Blood Gas Total CO2 19 24-31 mEq/l Bedside Blood Gas Base Excess (LAB) -10.0 -9-1.8 meq/L Bedside Blood Gas O2 Saturation 91.0 90-95 % Duglas Test Pass Oxygen Delivery Device Other Bedside FiO2 50 % Sodium Level 141 136-145 mmol/L Potassium Level 4.0 3.5-5.1 mmol/L Chloride Level 111 98-107 mmol/L Carbon Dioxide Level 19 21-32 mmol/L Anion Gap 11.0 3-11 mmol/L Blood Urea Nitrogen 43 7-18 mg/dl Creatinine 4.70 0.60-1.40 mg/dl Est Creatinine Clear Calc Drug Dose 22.7 ml/min Estimated GFR () 15.6 Estimated GFR (Non- 13.5 BUN/Creatinine Ratio 9.1 10-20 Random Glucose 240 70-99 mg/dl Calcium Level 7.9 8.5-10.1 mg/dl Test 05/21/16 20:54 05/21/16 23:33 05/22/16 05:53 05/22/16 06:33 Range/Units Blood Gas Sample Site R Radial Bedside Blood Gas pH (LAB) 7.22 7.35-7.45 Bedside Blood Gas pCO2 (LAB) 50 35-46 mmHg Bedside Blood Gas pO2 (LAB) 313 80-95 mmHg Bedside Blood Gas HCO3 (LAB) 20 19-24 meq/L Bedside Blood Gas Total CO2 22 24-31 mEq/l Bedside Blood Gas Base Excess (LAB) -7.0 -9-1.8 meq/L Bedside Blood Gas O2 Saturation 100.0 90-95 % Duglas Test Pass Oxygen Delivery Device Ventilator Bedside Oxygen Rate (breaths/min) 21 Blood Gas Minute Ventilation 5.3 Bedside FiO2 100 % Blood Gas Tidal Volume 550 Blood Gas PEEP 10 Bedside Glucose 107 109 70-99 mg/dl White Blood Count 13.36 4.8-10.8 K/uL Red Blood Count 2.86 4.7-6.1 M/uL Hemoglobin 8.0 14.0-18.0 g/dL Hematocrit 24.5 42-52 % Mean Corpuscular Volume 85.7 80-100 fL Mean Corpuscular Hemoglobin 28.0 25-34 pg Mean Corpuscular Hemoglobin Concent 32.7 32-36 g/dl Platelet Count 372 130-400 K/uL Mean Platelet Volume 8.9 7.4-10.4 fL Neutrophils (%) (Auto) 89.1 % Lymphocytes (%) (Auto) 4.8 % Monocytes (%) (Auto) 4.5 % Eosinophils (%) (Auto) 1.1 % Basophils (%) (Auto) 0.1 % Neutrophils # (Auto) 11.91 1.4-6.5 K/uL Lymphocytes # (Auto) 0.64 1.2-3.4 K/uL Monocytes # (Auto) 0.60 0.11-0.59 K/uL Eosinophils # (Auto) 0.15 0-0.5 K/uL Basophils # (Auto) 0.01 0-0.2 K/uL RDW Standard Deviation 59.8 36.4-46.3 fL RDW Coefficient of Variation 18.8 11.5-14.5 % Immature Granulocyte % (Auto) 0.4 % Immature Granulocyte # (Auto) 0.05 0.00-0.02 K/uL Red Blood Cell Morphology Unremarkable Sodium Level 147 136-145 mmol/L Potassium Level 4.0 3.5-5.1 mmol/L Chloride Level 116 98-107 mmol/L Carbon Dioxide Level 25 21-32 mmol/L Anion Gap 6.0 3-11 mmol/L Blood Urea Nitrogen 42 7-18 mg/dl Creatinine 4.90 0.60-1.40 mg/dl Est Creatinine Clear Calc Drug Dose 21.5 ml/min Estimated GFR () 14.8 Estimated GFR (Non- 12.8 BUN/Creatinine Ratio 8.6 10-20 Random Glucose 102 70-99 mg/dl Calcium Level 8.0 8.5-10.1 mg/dl Magnesium Level 2.3 1.8-2.4 mg/dl Test 05/22/16 08:30 05/22/16 09:45 Range/Units [place] Level 0.8 0.6-1.2 mMOL/L Blood Gas Sample Site L Radial Bedside Blood Gas pH (LAB) 7.32 7.35-7.45 Bedside Blood Gas pCO2 (LAB) 42 35-46 mmHg Bedside Blood Gas pO2 (LAB) 109 80-95 mmHg Bedside Blood Gas HCO3 (LAB) 22 19-24 meq/L Bedside Blood Gas Total CO2 23 24-31 mEq/l Bedside Blood Gas Base Excess (LAB) -4.0 -9-1.8 meq/L Bedside Blood Gas O2 Saturation 98.0 90-95 % Duglas Test Pass Oxygen Delivery Device Ventilator Bedside Oxygen Rate (breaths/min) 20 Blood Gas Minute Ventilation 14.1 Bedside FiO2 50 % Blood Gas Tidal Volume 600 Blood Gas PEEP 10
[2016-05-22] MEDS: LINEZOLID / D5W 600 MG in PREMIXED IN D5W 300 ML IV SCH ×2 (11:22→22:32)
--- NOTE | 2016-05-22 11:45 | CRITICAL CARE PROGRESS NOTE ---
DATE: 05/22/2016 SUBJECTIVE: The patient was intubated last evening. There were no acute events overnight. He had some alvarez secretions coming from the endotracheal tube and was receiving tube feeds at 10 mL per hour overnight. He has not had a bowel movement since his admission. PHYSICAL EXAMINATION: VITAL SIGNS: Maximum temperature 37.9, heart rate 100-105, respiratory rate 24-29, blood pressure 84-91/40s-50s, and oxygen saturation 94%. 24-hour fluid balance is positive 664 mL. Ventilator settings: Assist control rate 20, tidal volume 600, FiO2 at 50%, and PEEP 10. GENERAL: He will open his eyes and withdraw to painful stimuli, but does not follow commands. LUNGS: Coarse bilaterally compared to yesterday. No rhonchi or wheezes. HEART: Tachycardic, regular, no murmurs. ABDOMEN: Soft, nondistended, and nontender. Active bowel sounds. EXTREMITIES: Warm with trace edema. He has a double-lumen PICC and his right upper extremity. Dressing is intact. LABORATORY DATA: White blood cell count 13.3, hemoglobin 8, hematocrit 24.5, and platelets 372. Sodium 147, potassium 4, chloride 116, CO2 of 25, BUN 42, creatinine 4.9, and blood sugar 102. Portable chest x-ray from this morning was reviewed and shows no change in the bilateral airspace opacities and loculated left pleural effusion. KUB shows the feeding tube within the gastric fundus. MEDICATIONS: Acetaminophen, chlorhexidine, clonazepam, Colace, dornase, fentanyl, subcutaneous heparin, insulin, Atrovent, Xopenex, lithium, Relistor, Reglan, Zofran, Protonix, Zosyn, MiraLax, Lyrica, propofol, and Seroquel. Microbiology data was reviewed. Fungal and mycobacterial cultures from BAL are pending. Bronch wash from the left lingula shows Arlen albicans and Staph aureus. No sensitivities yet. Sputum culture 05/17 shows methicillin-sensitive Staph aureus. IMPRESSION: 1. Acute hypoxemic respiratory failure secondary to aspiration pneumonia. He has methicillin-sensitive Staph aureus in the sputum culture and BAL sensitivities to the staph are pending. He had been on linezolid several days ago. 2. Aspiration pneumonia. It is still unclear to me whether or not this is due to oropharyngeal dysphagia or pyloric stenosis after my discussion with Dr. Whitaker yesterday. EGD report does not comment on any pyloric stenosis. I have touched base with Tracey Givens today and she is going to talk to Dr. Ulola. 3. Acute kidney injury, likely secondary to acute tubular necrosis. He is nonoliguric and nephrology is seeing him. His sodium bicarbonate is improved, but he is hypernatremic. 4. Metabolic encephalopathy secondary to severe sepsis. 5. Anemia, no signs of acute blood loss. 6. History of chest discomfort secondary to his pneumonia. 7. History of deep venous thrombosis and pulmonary embolism. 8. Diabetes mellitus, type 2. 9. 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 10. Hypernatremia. 11. Constipation PLAN: NEUROLOGIC: Continue propofol infusion. He has p.r.n. fentanyl for pain. Continue Lyrica and Seroquel. Hold Paxil secondary to resuming linezolid, which will be discussed below. PULMONARY: Wean PEEP and FiO2. The pulmonary service is following. He may benefit from another bronchoscopy. I am resuming linezolid until the sensitivities are back on his BAL Staph aureus and I suspect it will be methicillin sensitive as well. CARDIOVASCULAR: Blood pressure has been a little bit on the low side and he is mildly tachycardic, although improved from yesterday. Consider random cortisol level and trial of IV fluid bolus. RENAL: The sodium bicarbonate infusion has been discontinued. Continue to watch acid base balance as well as potassium. With his blood pressure being low, I would hold off on any Lasix. His urine output actually seems to be increasing. GASTROINTESTINAL: The Coresafe feeding tube is in the fundus of the stomach. Unfortunately without the wire, it is going to be tough to advance. I have asked the staff to remove the tube which is in presently and we will work to see if we can a get a new tube past the pylorus. Resume tube feedings at that time. He is already on Reglan and Relistor. He is on proton pump inhibitor for GI prophylaxis. ENDOCRINE: Continue sliding scale insulin. HEMATOLOGY: Check hemoglobin and hematocrit this afternoon. Continue subcutaneous heparin for DVT prophylaxis. Please call me with any questions or concerns. Critical care time 60 minutes. [facility]
--- NOTE | 2016-05-22 12:02 | SURGERY PROGRESS NOTE ---
DATE: 05/22/2016 SUBJECTIVE: Mr. Alvarez was seen today. He has now been intubated. There is a feeding tube in place and a chest x-ray shows that there is probably not beyond the pylorus. KUB confirms this. At this point, he remains critically ill. His x-ray looks terrible. He is aspirating. He has developed renal failure. He has a problem because he probably did not have a pyloroplasty or pyloromyotomy after his gastric tube, which necessitated vagotomy. This would account for why so much food and debris were seen in his gastric remnant. This would account for his aspiration. At this point, if he improves from a pulmonary and renal standpoint, may consider ways to address his pylorus. Pneumatic dilatation botulinum injection or a surgical pyloroplasty or myotomy are all possibilities.
--- NOTE | 2016-05-22 14:10 | Pharmacy Progress Note ---
Glycemic: Assessment & Plan Date of Service May 22, 2016. Assessment & Plan ASSESSMENT: * 50 yo M admitted with sepsis secondary to pneumonia * BSGs have been quite stable during admission (97-110mg/dL during the past 24 hours). * A1c 7.0% indicative of newly diagnosed diabetes; pt has family history of diabetes * No insulin has been required for correction thus far. If patient continues to require no insulin and there are no changes that impact glycemic management, will consider changing from q6h accu-checks to q12h accu-checks tomorrow. * ADA & AACE recommend a goal blood sugar range 140-180 mg/dl for the majority of critically ill & non-critically ill patients. However, more stringent targets may be selected in individual cases. PLAN FOR INPATIENT GLYCEMIC CONTROL: * Correctional Insulin with NOVOLOG per scale ACHS or Q6hrs while NPO * Goal Range: Low 140 mg/dL - High 180 mg/dL * Correction Factor: 35 mg/dL/unit * Nutritional / Prandial insulin: none required at this time * A1c added to d/c instructions Looking ahead to discharge: * Need to assess renal function prior to discharge * If renal function back to baseline- may consider initiation of metformin * Recommend diet/lifestyle modifications, which may be sufficient to improve A1c * CDE to see patient * Please note that the plan above was derived based on current level of insulin resistance and hospital stress. These recommendations are appropriate for inpatient admission only. Plan of care upon discharge will need to be reassessed to avoid potential outpatient hypo/hyperglycemia. Thank you.
[2016-05-22 16:19] LABS: HEMATOCRIT 25.3 % (42-52)
[2016-05-22 16:51] LABS: BUN/CREATININE RATIO 9.2 (10-20); CALCIUM 8.2 mg/dl (8.5-10.1); POTASSIUM 3.9 mmol/L (3.5-5.1)
[2016-05-22] MEDS: ALBUMIN HUMAN 25% 12.5 GM/50 ML VIAL IV SCH ×4 (17:58→20:47)
[2016-05-22] MEDS: METHYLNALTREXONE BROMIDE INJ 12 MG/0.6 ML SYR SQ SCH (18:04)
--- NOTE | 2016-05-22 19:25 | DIAGNOSTIC IMAGING REPORT ---
KUB CLINICAL HISTORY: Enteric tube placement. FINDINGS: An AP, portable, supine abdominal radiograph is compared to study performed earlier the same day 05/22/2016 and correlated with abdominal CT dated 03/23/2016. An enteric tube projects below the diaphragm over the distal stomach. There is no radiographic evidence of bowel obstruction. Enteric contrast fills the colon. No evidence of intracranial free air is seen. Fusion hardware is noted in the lower lumbar spine. IMPRESSION: 1. The enteric tube has been advanced. The tip projects of the distal stomach. 2. Nonobstructed abdominal bowel gas pattern noting retained enteric contrast in the colon. Electronically signed by: Umesh Hauser M.D. 05/22/2016 7:23 PM Dictated Date/Time: 05/22/2016 7:22 PM
[2016-05-22] MEDS: FENTANYL 1250MCG/250ML NSS 250 ML IV PRN (19:49)
[2016-05-22] MEDS: NOREPINEPHRINE BIT INJ 8 MG in DEXTROSE 5% 500ML 500 ML IV PRN (19:49)
[2016-05-23] VITALS (39 sets, daily range): BP systolic 83–128; BP diastolic 46–64; PULSE 102–127; TEMP 37.1–39.4; O2SAT 90–100
[2016-05-23] MEDS: PIPERACILL/TAZOBAC IV 3.375 GM in DEXTROSE 5% 100ML 100 ML IV SCH ×3 (00:04→15:01)
[2016-05-23] MEDS: LEValbuterol HFA 15GM INHALER INH SCH ×4 (03:11→21:00)
[2016-05-23] MEDS: IPRATROPIUM BROMIDE HFA INHALER INH SCH ×4 (03:11→21:00)
[2016-05-23] MEDS: INSULIN ASPART 100 UNITS/ML 3 ML PEN SC SCH ×4 (05:36→21:00)
[2016-05-23] MEDS: METOCLOPRAMIDE HCL INJ 5 MG/ML 2 ML VIAL IV SCH ×4 (05:45→21:52)
[2016-05-23 06:05] LABS: HEMATOCRIT 26.6 % (42-52); MEAN CELL VOLUME 88.1 fL (80-100); MEAN CORPUSCULAR HEMOGLOBIN 28.1 pg (25-34); MEAN PLATELET VOLUME 9.6 fL (7.4-10.4); PLATELET COUNT 372 K/uL (130-400); RED BLOOD COUNT 3.02 M/uL (4.7-6.1)
[2016-05-23 06:49] LABS: CALCIUM 8.3 mg/dl (8.5-10.1); MAGNESIUM 2.4 mg/dl (1.8-2.4); PHOSPHORUS 4.4 mg/dl (2.5-4.9); POTASSIUM 3.7 mmol/L (3.5-5.1)
[2016-05-23 07:01] LABS: BASO % 0.2 %; BASO ABS # 0.03 K/uL (0-0.2); COMPLETE YES; EOS % 1.7 %; IG% 0.8 %; LYMPH % 5.1 %; MONO % 4.3 %; NEUT % 87.9 %
--- NOTE | 2016-05-23 07:22 | DIAGNOSTIC IMAGING REPORT ---
[facility] CLINICAL HISTORY: check feeding tube COMPARISON STUDY: 05/22/2016 FINDINGS: A feeding tube is again visualized. While likely positioned within the gastric antrum, I cannot exclude duodenal location. There is contrast within nondilated colon. IMPRESSION: The patient's feeding tube is positioned either within the gastric antrum or duodenum. Electronically signed by: Yayo Jackson M.D. 05/23/2016 7:21 AM Dictated Date/Time: 05/23/2016 7:20 AM
[2016-05-23] MEDS: DORNASE ALFA (2500U) 2.5MG/2.5ML INH SCH ×2 (07:35→20:00)
--- NOTE | 2016-05-23 07:38 | DIAGNOSTIC IMAGING REPORT ---
CHEST ONE VIEW PORTABLE HISTORY: Respiratory failure. COMPARISON: Chest 05/22/2016 FINDINGS: Endotracheal tube terminates 4.5 cm from the franchesca. Nasogastric tube terminates below the diaphragm. Right PICC terminates in the distal SVC. No pneumothorax. Bilateral airspace opacities persist. Trace right pleural effusion, unchanged. Left rib deformities are again noted. Partially loculated left pleural effusion is also stable. IMPRESSION: Satisfactory support line placement. No change in the bilateral airspace opacities and pleural effusions. Electronically signed by: Luís Dockery M.D. 05/23/2016 7:36 AM Dictated Date/Time: 05/23/2016 7:32 AM
--- NOTE | 2016-05-23 08:14 | Nephrology Progress Note ---
Nephrology Progress Note Date of Service: May 23, 2016. Subjective 50 yo male with trevor/atn from [facility] with underlying aspiration pneumonia. pt with adynamic esophageal motility. intubated for airway protection. slight blood tinged secretions. requiring low dose pressors. Objective Date Time Temp Pulse Resp B/P Pulse Ox O2 Delivery O2 Flow Rate FiO2 05/23/16 07:45 50 05/23/16 06:30 115 26 108/59 92 05/23/16 06:00 113 32 128/64 94 05/23/16 05:30 50 05/23/16 05:30 110 28 110/61 95 05/23/16 05:00 107 29 113/64 95 05/23/16 04:30 106 29 110/62 95 05/23/16 04:00 37.3 05/23/16 04:00 104 27 114/59 96 05/23/16 04:00 95 Mechanical Ventilator 50 05/23/16 04:00 50 05/23/16 03:30 104 25 109/59 95 05/23/16 03:00 103 26 111/58 95 05/23/16 02:30 103 27 115/59 94 05/23/16 02:10 50 05/23/16 02:00 102 26 113/58 94 05/23/16 01:30 103 28 114/58 94 05/23/16 01:00 104 28 113/55 92 05/23/16 00:43 50 05/23/16 00:30 106 29 106/50 93 05/23/16 00:01 37.1 05/23/16 00:00 108 29 88/46 93 05/22/16 23:59 50 05/22/16 23:59 93 Mechanical Ventilator 50 05/22/16 23:00 105 24 103/54 94 05/22/16 22:30 107 25 100/52 94 05/22/16 22:00 109 25 97/51 93 05/22/16 21:30 112 25 92/48 92 05/22/16 21:00 105 25 104/56 94 05/22/16 20:30 104 25 101/55 95 05/22/16 20:10 50 05/22/16 20:00 37.4 05/22/16 20:00 50 05/22/16 20:00 95 Mechanical Ventilator 50 05/22/16 20:00 105 26 92/48 95 05/22/16 19:30 106 25 93/47 95 05/22/16 19:00 108 26 87/46 95 05/22/16 18:00 37.9 110 33 84/47 95 Mechanical Ventilator 05/22/16 17:58 50 05/22/16 16:52 116 25 97/53 92 Mechanical Ventilator 05/22/16 16:00 50 05/22/16 16:00 38.6 116 24 89/50 93 Mechanical Ventilator 05/22/16 16:00 Mechanical Ventilator 50 05/22/16 14:05 50 05/22/16 14:00 111 23 93/53 94 Mechanical Ventilator 05/22/16 12:00 50 05/22/16 12:00 37.7 109 28 88/48 92 Mechanical Ventilator 05/22/16 12:00 Mechanical Ventilator 50 05/22/16 11:20 50 05/22/16 10:00 37.7 110 25 87/48 95 Mechanical Ventilator Physical Exam: General-sedated Eyes-no scleral icterus ENT-mmm, +dobhoff tube, +ET tube Neck-supple Lungs-+rhonchi Heart-+tachy Abdomen-bs+ s/nt/nd Extremities-+1 edema in upper and lower extremities Neuro-sedated Current Inpatient Medications Medications (Trade) Dose Ordered Sig/Shemar Route Start Time Stop Time Status Last Admin Dose Admin Acetaminophen (Tylenol Tab) 650 mg Q4H PRN PO 05/16/16 14:15 06/15/16 14:14 05/20/16 15:56 650 MG Ondansetron HCl (Zofran Inj) 4 mg Q6H PRN IV 05/16/16 14:15 06/15/16 14:14 Quetiapine Fumarate (seroQUEL TAB) 200 mg DAILY PO 05/17/16 09:00 06/16/16 08:59 05/22/16 10:05 200 MG Quetiapine Fumarate (seroQUEL TAB) 600 mg HS PO 05/16/16 21:00 06/15/16 20:59 05/22/16 20:49 600 MG Heparin Sodium (Porcine) (Heparin 10 Unit/ ml 5 ml Flush) 1 ml PRN PRN FLUSH 05/18/16 00:30 06/17/16 00:29 05/20/16 05:49 1 ML Dornase Castro (Pulmozyme Inhalation Soln 2.5ml Amp) 2.5 ml BIDR INH 05/18/16 20:00 06/17/16 19:59 05/21/16 06:56 2.5 ML Clonazepam (Klonopin Tab) 0.5 mg DAILY PO 05/19/16 09:00 06/18/16 08:59 05/22/16 09:55 0.5 MG Heparin Sodium (Porcine) (Heparin Sq 5000 Unit/0.5ml) 5,000 unit Q12 SQ 05/18/16 21:00 06/17/16 20:59 05/22/16 20:51 5,000 UNIT Glucose (Glucose 40% Gel) 15-30 GRAMS 15 GRAMS... UD PRN PO 05/19/16 08:00 06/18/16 07:59 Glucose (Glucose Chew Tab) 4-8 Tablets 4 Tabl... UD PRN PO 05/19/16 08:00 06/18/16 07:59 Dextrose (Dextrose 50% 50ML Syringe) 25-50ML OF 50% DW IV FOR... UD PRN IV 05/19/16 08:00 06/18/16 07:59 Glucagon (Glucagon Inj) 1 mg UD PRN SQ 05/19/16 08:00 06/18/16 07:59 Miscellaneous Information (Consult Glycemic Management Pharmacy) 1 ea UD PRN N/A 05/19/16 07:58 06/18/16 07:57 [place] Citrate ([place] Citrate Soln) 75 mg BID PO 05/19/16 11:00 06/18/16 10:59 Future hold 05/22/16 20:48 75 MG Pregabalin 150 mg 150 mg DAILY PO 05/20/16 09:00 06/19/16 08:59 05/22/16 09:54 150 MG Acetaminophen/ Empty Bag (Ofirmev Iv/ Empty Iv Bag 100ml) 65 ml @ 400 mls/hr Q6H PRN IV 05/19/16 12:30 06/18/16 12:29 Metoclopramide HCl (Reglan Inj) 5 mg ACHS IV 05/20/16 21:00 06/19/16 20:59 05/23/16 05:45 5 MG Methylnaltrexone [place] 12 mg 12 mg Q2D SQ 05/20/16 18:30 06/19/16 18:29 05/22/16 18:04 12 MG Piperacillin Sod/ Tazobactam Sod/ Dextrose (Zosyn Iv/D5 100ml) 115 ml @ 28.75 mls/ hr Q8@0000,0800,1600 IV 05/21/16 16:00 05/28/16 15:59 05/23/16 00:04 28.75 MLS/HR Piperacillin Sod/ Tazobactam Sod (Consult) 1 ea UD PRN N/A 05/21/16 09:45 06/20/16 09:44 Insulin Aspart (novoLOG ASPART) SLIDING SCALE If C... Q6 SC 05/21/16 18:00 06/20/16 17:59 Propofol (Diprivan Iv Emulsion 100ml Vial) 1 dose UD PRN IV 05/21/16 20:15 05/24/16 20:14 05/22/16 14:49 1 DOSE Fentanyl Citrate (Fentanyl Inj) 50 mcg Q3H PRN IV 05/21/16 20:15 06/04/16 20:14 Levalbuterol (Xopenex Hfa Inhaler) 6 puffs Q6R INH 05/21/16 21:00 06/20/16 20:59 05/23/16 07:36 6 PUFFS Ipratropium [place] (Atrovent Hfa Inhaler) 6 puffs Q6R INH 05/21/16 21:00 06/20/16 20:59 05/23/16 07:36 6 PUFFS Chlorhexidine Gluconate 15 ml 15 ml BID MT 05/21/16 21:00 06/20/16 20:59 05/22/16 20:55 15 ML Pantoprazole Sodium/Syringe (Protonix Inj/ Syringe) 10 ml @ 5 mls/min DAILY@11 IV 05/22/16 11:00 06/21/16 10:59 05/22/16 11:02 5 MLS/MIN Docusate Sodium (coLACE SYRUP) 100 mg BID PO 05/22/16 09:00 06/21/16 08:59 05/22/16 20:47 100 MG Polyethylene 17 gm 17 gm QAM PO 05/22/16 09:00 06/21/16 08:59 05/22/16 09:50 17 GM Linezolid 600 mg/ Prmx 300 ml @ 300 mls/hr Q12H IV 05/22/16 11:00 05/29/16 10:59 05/22/16 22:32 300 MLS/HR Fentanyl Citrate 250 ml @ 0 mls/hr Q0M PRN IV 05/22/16 19:00 06/05/16 18:59 05/22/16 19:49 5 MLS/HR Norepinephrine Bitartrate/ Dextrose (Levophed Inj/ D5W 500ml) 508 ml @ 0 mls/hr Q0M PRN IV 05/22/16 19:16 06/21/16 19:15 05/22/16 19:49 18 MLS/HR Last 24 Hours Test 05/22/16 08:30 05/22/16 09:45 05/22/16 11:27 05/22/16 16:11 [place] Level 0.8 mMOL/L Blood Gas Sample Site L Radial Bedside Blood Gas pH (LAB) 7.32 Bedside Blood Gas pCO2 (LAB) 42 mmHg Bedside Blood Gas pO2 (LAB) 109 mmHg Bedside Blood Gas HCO3 (LAB) 22 meq/L Bedside Blood Gas Total CO2 23 mEq/l Bedside Blood Gas Base Excess (LAB) -4.0 meq/L Bedside Blood Gas O2 Saturation 98.0 % Duglas Test Pass Oxygen Delivery Device Ventilator Bedside Oxygen Rate (breaths/min) 20 Blood Gas Minute Ventilation 14.1 Bedside FiO2 50 % Blood Gas Tidal Volume 600 Blood Gas PEEP 10 Bedside Glucose 110 mg/dl Hemoglobin 8.2 g/dL Hematocrit 25.3 % Sodium Level 145 mmol/L Potassium Level 3.9 mmol/L Chloride Level 115 mmol/L Carbon Dioxide Level 22 mmol/L Anion Gap 8.0 mmol/L Blood Urea Nitrogen 46 mg/dl Creatinine 5.00 mg/dl Est Creatinine Clear Calc Drug Dose 21.0 ml/min Estimated GFR () 14.5 Estimated GFR (Non- 12.5 BUN/Creatinine Ratio 9.2 Random Glucose 101 mg/dl Calcium Level 8.2 mg/dl Test 05/22/16 18:02 05/23/16 00:02 05/23/16 05:21 05/23/16 05:22 Bedside Glucose 92 mg/dl Bedside Glucose (other) 109 mg/dl 156 mg/dl White Blood Count 15.60 K/uL Red Blood Count 3.02 M/uL Hemoglobin 8.5 g/dL Hematocrit 26.6 % Mean Corpuscular Volume 88.1 fL Mean Corpuscular Hemoglobin 28.1 pg Mean Corpuscular Hemoglobin Concent 32.0 g/dl Platelet Count 372 K/uL Mean Platelet Volume 9.6 fL Neutrophils (%) (Auto) 87.9 % Lymphocytes (%) (Auto) 5.1 % Monocytes (%) (Auto) 4.3 % Eosinophils (%) (Auto) 1.7 % Basophils (%) (Auto) 0.2 % Neutrophils # (Auto) 13.71 K/uL Lymphocytes # (Auto) 0.80 K/uL Monocytes # (Auto) 0.67 K/uL Eosinophils # (Auto) 0.26 K/uL Basophils # (Auto) 0.03 K/uL RDW Standard Deviation 61.2 fL RDW Coefficient of Variation 18.9 % Immature Granulocyte % (Auto) 0.8 % Immature Granulocyte # (Auto) 0.13 K/uL Red Blood Cell Morphology Unremarkable Sodium Level 145 mmol/L Potassium Level 3.7 mmol/L Chloride Level 114 mmol/L Carbon Dioxide Level 22 mmol/L Anion Gap 9.0 mmol/L Blood Urea Nitrogen 45 mg/dl Creatinine 5.00 mg/dl Est Creatinine Clear Calc Drug Dose 21.2 ml/min Estimated GFR () 14.5 Estimated GFR (Non- 12.5 BUN/Creatinine Ratio 9.0 Random Glucose 124 mg/dl Calcium Level 8.3 mg/dl Phosphorus Level 4.4 mg/dl Magnesium Level 2.4 mg/dl Test 05/23/16 05:33 Bedside Glucose (other) 125 mg/dl Assessment & Plan trevor/kwo-hhr-guyugrky, likely from toradol +/-vanco. creatinine continues to trend up but appears to be peaking and hopefully will start to trend down. however has had second insult to kidneys with the hypotension. urinating well. no indication for emergent dialysis. anca, complements, anti-ds dna, spep negative. there was possible thought of pulmonary renal syndrome, with bland sediment and negative serologies, unlikely. lithium use-pt may have element of DI. sodium levels are stable however while intubated, risk of hypernatremia. to check urine osm today. if sodium trends up to above 150, would start d5w. will recheck bmp again at 6pm to follow sodium trend. edema-pt with low bp and third spacing of fluid. to start albumin 25% bid to help mobilize extra fluid and perhaps help with bp.
[2016-05-23] MEDS ORDERED: BISACODYL 10 MG SUPP PR PRN (08:45)
[2016-05-23] MEDS: PREGABALIN 150 MG CAP PO SCH (08:54)
[2016-05-23] MEDS: POLYETHYLENE (MIRALAX) 17 GM PACK PO SCH (08:54)
[2016-05-23] MEDS: QUETIAPINE FUMARATE 200 MG TAB PO SCH ×2 (08:54→22:11)
[2016-05-23] MEDS: CLONAZEPAM 0.5 MG TAB PO SCH (08:54)
[2016-05-23] MEDS: DOCUSATE SODIUM 100 MG/10 ML UDC PO SCH ×2 (08:54→22:10)
[2016-05-23] MEDS: LITHIUM ORAL SOLN 300 MG/5ML 500ML PO SCH ×2 (08:55→22:10)
[2016-05-23] MEDS: ALBUMIN HUMAN 25% 12.5 GM/50 ML VIAL IV SCH ×2 (08:55→21:46)
[2016-05-23] MEDS: PROPOFOL IV EMULSION 10 MG/ML 100 ML VIAL IV PRN ×2 (08:56→20:55)
[2016-05-23] MEDS: CHLORHEXIDINE GLUCONATE 0.12% 480 ML MT SCH ×2 (08:57→22:10)
[2016-05-23] MEDS: HEPARIN SOD 5000 UNIT/0.5 ML CARP SQ SCH ×2 (08:59→23:29)
[2016-05-23 09:55] LABS: ISTAT ALLEN TEST Pass; ISTAT ARTERIAL BLOOD GAS HCO3 19 meq/L (19-24); ISTAT ARTERIAL BLOOD GAS PCO2 41 mmHg (35-46); ISTAT ARTERIAL BLOOD GAS PO2 63 mmHg (80-95); ISTAT ARTERIAL BLOOD GAS pH 7.28 (7.35-7.45); ISTAT CARBON DIOXIDE 20 mEq/l (24-31); ISTAT DELIVERY SYSTEM Ventilator; ISTAT FIO2 50 %; ISTAT PEEP 8; ISTAT RATE 20; ISTAT SITE L Radial; VE 17.1; Vt 600
[2016-05-23] MEDS ORDERED: FUROSEMIDE 40 MG/4 ML VIAL ONE (09:56)
[2016-05-23] MEDS ORDERED: BISACODYL 10 MG SUPP PR ONE (10:00)
[2016-05-23] MEDS ORDERED: SODIUM BICARB 8.4% INJ 50 MEQ/50 ML SYR IV ONE (10:15)
[2016-05-23] MEDS ORDERED: MULTIVITAMINS W/MINERALS 15ML UDP PO ONE (10:30)
[2016-05-23] MEDS ORDERED: FUROSEMIDE 40 MG/4 ML VIAL IV ONE (10:30)
[2016-05-23] MEDS: PANTOprazole INJ 40 MG in SYRINGE 0 ML IV SCH (10:36)
--- NOTE | 2016-05-23 11:09 | CRITICAL CARE PROGRESS NOTE ---
DATE: 05/23/2016 DATE: 05/23/2016. The patient's care was discussed in detail on multidisciplinary rounds today. SUBJECTIVE: There were no acute events overnight. He remains on propofol and fentanyl infusions. Low dose Levophed was also started last evening. He is having some yellow and pink tinged secretions which are described as scant. He still has not had a bowel movement since admission. PHYSICAL EXAMINATION: VITAL SIGNS: Maximum temperature 38.6, heart rate 103-115, respiratory rate 24-28, blood pressure 108-115/50s-60s. Oxygen saturation 90-98%. VENTILATOR SETTINGS: Assist control rate 20, tidal volume 600, FiO2 50%, and PEEP 8. 24-hour fluid balance positive 1.4 liters. GENERAL: He is unresponsive to sternal rub. HEAD, EYES, EARS, NOSE, AND THROAT: Pupils are equal bilaterally. LUNGS: Less coarse and there are some very mild rales on the right side. No rhonchi or wheezes. HEART: Tachycardic, regular. ABDOMEN: Soft, nondistended, hypoactive bowel sounds. EXTREMITIES: Warm with 2+ edema of the hands. The right upper extremity is a bit larger than the left. Lower extremities show trace to 1+ pretibial edema. LABORATORY DATA: White blood cell count 15.6, hemoglobin 8.5, hematocrit 26.6, platelets 372. Sodium 145, potassium 3.7, chloride 114, CO2 22, BUN 45, creatinine 5, blood sugar 124, calcium 8.3. pH 7.28, pCO2 of 41, pO2 63, HCO3 19. ANCA is negative. MICROBIOLOGY: Bronchial washing shows methicillin sensitive staph aureus as well as Arlen albicans. MEDICATIONS AND INFUSIONS: Acetaminophen, albumin, Dulcolax, chlorhexidine, Klonopin, Colace, Pulmozyme, Fentanyl, subcutaneous heparin, insulin sliding scale, Atrovent, Xopenex, lithium, Relistor, Reglan, norepinephrine, Zofran, Protonix, Zosyn day 5, MiraLax, Lyrica, propofol, Seroquel. IMPRESSION: 1. Acute hypoxemic respiratory failure secondary to aspiration pneumonia. Methicillin sensitive Staph aureus in the BAL and sputum culture. He remains on Zosyn due to worsening of his respiratory status when he was transferred to the intensive care unit several days ago. 2. Acute kidney injury, believed to be secondary to ATN. He is nonoliguric and overall for this hospitalization 13 liters positive fluid balance. The Levophed may help his perfusion and he is also receiving albumin b.i.d. Lasix trial 20 mg IV x1 was ordered. 3. Metabolic encephalopathy. 4. Presumed pyloric dysfunction. Attempts are being made to place the feeding tube beyond the pylorus. 5. Anemia without signs of acute blood loss. 6. History of deep venous thrombosis and pulmonary embolism. 7. Right upper extremity edema, rule out deep venous thrombosis. He has a PICC line there. 8. Diabetes mellitus type 2. 9. 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 10. Hypernatremia. 11. Constipation. PLAN: NEUROLOGIC: Sedation vacation today. Resume Paxil. Consider weaning down the Lyrica as well as Paxil. PULMONARY: Depending on how he awakens, he may be appropriate for a spontaneous breathing trial; however his metabolic acidosis may make that difficult. CARDIOVASCULAR: Continue albumin with Lasix trial x1. Check a random cortisol level. Check echocardiogram today. RENAL: Urine osmolarity is pending. GASTROINTESTINAL: Hopefully we can begin tube feeds today. He needs to be in an upright position while tube feeds are running. They should be held for at least an hour prior to placing him supine for nursing care. Continue Reglan, Relistor and proton pump inhibitor. ENDOCRINE: Continue sliding scale insulin. HEMATOLOGY: Continue to follow blood counts and watch for any signs of bleeding. Subcutaneous heparin for DVT prophylaxis. Critical care time 60 minutes. MTDD
--- NOTE | 2016-05-23 11:18 | SURGERY PROGRESS NOTE ---
DATE: 05/23/2016 SUBJECTIVE: Mr. Alvarez was seen today on 05/23/2016. He remains on the ventilator, is quite ill. FIO2 is 50%. His x-ray looks quite bad actually. His white count elevated at 15,600 with a hemoglobin of 8.5. Platelet count has remained stable at 372,000. He remains acidotic with a pH of 7.28 with pCO2 of 41. His creatinine appears to be stabilizing. It is 5 as it was yesterday. In addition, he made 825 mL of urine yesterday but now it is up to 400 over the last hour. Hopefully, this will be resolving. Heart rate remains elevated from the 110s to 120s. His temperature is up to 39.1 today. He is growing Arlen and Staph aureus out from his lungs. I discussed this case with Dr. Maria Elena Hernandez. His x-ray still looks bad. I am a little bit worried about the right side also with an infiltrative process. At this point, there is really nothing for me to do. I discussed this case with Dr. Zac Llanos from general surgery, Dr. Llanos could perform a pyloromyotomy or pyloroplasty; however, the patient is far too ill to even consider this at this point. We talked about trying to get the feeding tube beyond the pylorus. I still believe this patient's main problem is essentially a gastric outlet obstruction type picture with his pyloric sphincter not opening due to his vagotomy. CARLOS
[2016-05-23] MEDS ORDERED: LEVOFLOXACIN / D5W 250 MG in PREMIXED IN D5W 50 ML IV STA (11:21)
[2016-05-23] MEDS ORDERED: LINEZOLID 600MG / D5W IV ONE (11:30)
[2016-05-23] MEDS ORDERED: NURSING VERBAL MED ORDER STA (11:50)
--- NOTE | 2016-05-23 12:03 | DIAGNOSTIC IMAGING REPORT ---
KUB CLINICAL HISTORY: Feeding tube placement. FINDINGS: An AP, portable, supine abdominal radiograph is compared to studies performed at 05/22/2016 and 05/23/2016. Correlation is made with with abdominal CT dated 03/23/2016. A feeding tube projects over the proximal duodenum. This has minimally advanced from today's earlier examination. There is no radiographic evidence of bowel obstruction. Enteric contrast fills the colon. No evidence of intracranial free air is seen. Fusion hardware is noted in the lower lumbar spine. IMPRESSION: 1. A feeding tube projects over the proximal duodenum. This has been minimally advanced from today's earlier examination. 2. Nonobstructed abdominal bowel gas pattern noting retained enteric contrast in the colon. Electronically signed by: Umesh Hauser M.D. 05/23/2016 12:02 PM Dictated Date/Time: 05/23/2016 12:01 PM
[2016-05-23] MEDS: ACETAMINOPHEN SOLN 325 MG/10.15 ML UDC PO PRN (12:21)
--- NOTE | 2016-05-23 12:37 | Progress Note ---
Internal Med Progress Note Date of Service: May 23, 2016. Provider Documentation: SUBJECTIVE: Patient continues to be intubated sedated + Fever spike of 39.1 C Tele- Sinus tachycardia with HR in 120s On tube feeding On levophed OBJECTIVE: Vital Signs-as noted below Exam: General- Intubated + Sedated + Neck- no JVD Lungs- (+) crackles bilaterally, no wheezes Heart- Tachycardic, sinus + Abdomen- normal bowel sounds, soft Extremities- no pretibial edema, good pulses Neuro- Intubated/sedated Lab data as noted below. CT CHEST: IMPRESSION: 1. Consolidative infiltrative and/or masslike changes involving the bulk of the left upper and to a somewhat lesser extent left lower lobe regions. 2. Additional nodularity within the left hemithorax and to a somewhat lesser extent right base. 3. Progressive mediastinal and hilar adenopathy. 4. Although it is possible that central obstructing lesions may account for the peripheral consolidative change, a neoplastic process nevertheless is a diagnosis of exclusion. 5. Associated parenchymal nodularity indicates a significant possibility of metastatic change. 6. Operative changes stable from the prior exam consistent with a prior esophagectomy and anterior gastric pull-through type procedure. ASSESSMENT & PLAN: 50 year old male with history of Bipolar Disorder, Esophagectomy, GERD, PE with IVC filter presenting with cough. SEVERE SEPSIS WITH MULTI ORGAN FAILURE DUE TO PNEUMONIA, MSSA, (Bilateral Lt > Rt) - Progressively worsening Patient was intubated on 05/21/16 as went into respiratory distress. Aspiration risk due to hx of esophagectomy in 2013. Concerned about tracheo- esophageal fistula - none noted per bronch/EGD, but had gastric juice in trachea + -Continues to be febrile with high grade fever- 39.1 C -S/P EGD on 05/20/16 - Soils's esophagus changes, tortuous esophagus, no fistula -S/P Bronchoscopy on 05/20/16- There was diffuse mucus secretions obstructing the takeoff to the left mainstem in notable all the way to the secondary franchesca. The left upper lobe, lingula and left lower lobe were obstructed with gastric secretions which were suctioned clear. - Sputum culture: staph aureus, MSSA; blood culture: negative so far; (+) Nasal MRSA, Bronchoscopy cultures pending- staph aureus/ruth - S/P IV Vanco (Day 1)- discontinued due to RICARDO, S/P Linezolid (Days 3); d/c Levaquin per Pulm . S/P IV Zosyn - Days 4. - changed antibiotics to Cefazolin + Metronidazole started on 05/19/16. Due to persistent fever/worsening pneumonia- --> changed antibiotics back to IV Zosyn for broad spectrum coverage, added linezolid per Marketing Sales Consultant on 05/22/16, Levofloxacin on 05/23/16. ID consulted - IV fluids- discontinued due to fluid overload. IV Levophed started today - Discussed with laborer beam house ACUTE HYPOXIC RESPIRATORY FAILURE Intubated on 05/21/16 due to respiratory distress -Secondary to Pneumonia as above -Mx per laborer beam house ACUTE RENAL FAILURE- Worsening - Likely ATN. 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 Discussed with nephrology - Nephro consulted- F/up serologies, Complement levels, GELA, ANCA- pending HEMOPTYSIS - Resolved Likely from Necrotizing Pneumonia -S/P CT chest- Consolidative infiltrative and /or mass like changes in left upper/to some extent left lower lobe regions, additional nodularity within left hemithorax and to a somewhat lesser extent right base, progressive mediastinal, hilar adenopathy, central obstructing lesions may account for peripheral consolidative change, a neoplastic process nevertheless is a diagnosis of exclusion, associated parenchymal nodularity indicates a significant possibility of metastatic change; post op changes from prior esophagectomy, anterior gastric pull through type of procedure. -S/P Bronchoscopy ON 05/20/16 - There was diffuse mucus secretions obstructing the takeoff to the left mainstem in notable all the way to the secondary franchesca. The left upper lobe, lingula and left lower lobe were obstructed with gastric secretions which were suctioned clear. -Pulmonary consulted. Appreciate inputs. HX OF ESOPHAGECTOMY WITH RECONSTRUCTION Likely causing aspiration issues leading to severe pneumonia -Sx was done at [facility] in 2014 -Per cardio thoracic sx, likely has gastric outlet obstruction -Once stabilizes would consider pyloroplasty vs pyloromyotomy per his discussion with general surgery, Dr Llanos POSSIBLE BPH - has BPH symptoms - Foleys catheter inserted. 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 Repeat [place] levels in AM HISTORY OF PE, S/P IVC FILTER PLACEMENT -on Heparin Q12 for DVT prophylaxis -monitor as patient has history of GI bleed NUTRITION -Feeding tube placed beyond pylorus -On tube feedings DISPO Prognosis- guarded Discussed with Marketing Sales Consultant, Mechanic [employer]. Discussed with patient prior to intubation- If not able to make medical decisions, would want her sister, Reena [phone] to make decisions on his behalf. Vital Signs: Date Time Temp Pulse Resp B/P Pulse Ox O2 Delivery O2 Flow Rate FiO2 05/23/16 12:00 50 05/23/16 12:00 Mechanical Ventilator 50 05/23/16 11:40 50 05/23/16 10:00 39.1 122 30 97/50 92 Mechanical Ventilator 50 05/23/16 08:00 Mechanical Ventilator 50 05/23/16 08:00 50 05/23/16 08:00 121 30 111/61 92 Mechanical Ventilator 50 05/23/16 07:45 50 05/23/16 06:30 115 26 108/59 92 05/23/16 06:00 113 32 128/64 94 05/23/16 05:30 50 05/23/16 05:30 110 28 110/61 95 05/23/16 05:00 107 29 113/64 95 05/23/16 04:30 106 29 110/62 95 05/23/16 04:00 37.3 05/23/16 04:00 104 27 114/59 96 05/23/16 04:00 95 Mechanical Ventilator 50 05/23/16 04:00 50 05/23/16 03:30 104 25 109/59 95 05/23/16 03:00 103 26 111/58 95 05/23/16 02:30 103 27 115/59 94 05/23/16 02:10 50 05/23/16 02:00 102 26 113/58 94 05/23/16 01:30 103 28 114/58 94 05/23/16 01:00 104 28 113/55 92 05/23/16 00:43 50 05/23/16 00:30 106 29 106/50 93 05/23/16 00:01 37.1 05/23/16 00:00 108 29 88/46 93 05/22/16 23:59 50 05/22/16 23:59 93 Mechanical Ventilator 50 05/22/16 23:00 105 24 103/54 94 05/22/16 22:30 107 25 100/52 94 05/22/16 22:00 109 25 97/51 93 05/22/16 21:30 112 25 92/48 92 05/22/16 21:00 105 25 104/56 94 05/22/16 20:30 104 25 101/55 95 05/22/16 20:10 50 05/22/16 20:00 37.4 05/22/16 20:00 50 05/22/16 20:00 95 Mechanical Ventilator 50 05/22/16 20:00 105 26 92/48 95 05/22/16 19:30 106 25 93/47 95 05/22/16 19:00 108 26 87/46 95 05/22/16 18:00 37.9 110 33 84/47 95 Mechanical Ventilator 05/22/16 17:58 50 05/22/16 16:52 116 25 97/53 92 Mechanical Ventilator 05/22/16 16:00 50 05/22/16 16:00 38.6 116 24 89/50 93 Mechanical Ventilator 05/22/16 16:00 Mechanical Ventilator 50 05/22/16 14:05 50 05/22/16 14:00 111 23 93/53 94 Mechanical Ventilator Lab Results: Results Past 24 Hours Test 05/22/16 16:11 05/22/16 18:02 05/23/16 00:02 05/23/16 05:21 Range/Units Hemoglobin 8.2 14.0-18.0 g/dL Hematocrit 25.3 42-52 % Sodium Level 145 136-145 mmol/L Potassium Level 3.9 3.5-5.1 mmol/L Chloride Level 115 98-107 mmol/L Carbon Dioxide Level 22 21-32 mmol/L Anion Gap 8.0 3-11 mmol/L Blood Urea Nitrogen 46 7-18 mg/dl Creatinine 5.00 0.60-1.40 mg/dl Est Creatinine Clear Calc Drug Dose 21.0 ml/min Estimated GFR () 14.5 Estimated GFR (Non- 12.5 BUN/Creatinine Ratio 9.2 10-20 Random Glucose 101 70-99 mg/dl Calcium Level 8.2 8.5-10.1 mg/dl Bedside Glucose 92 70-99 mg/dl Bedside Glucose (other) 109 156 70-99 mg/dl Test 05/23/16 05:22 05/23/16 05:33 05/23/16 09:04 05/23/16 09:50 Range/Units White Blood Count 15.60 4.8-10.8 K/uL Red Blood Count 3.02 4.7-6.1 M/uL Hemoglobin 8.5 14.0-18.0 g/dL Hematocrit 26.6 42-52 % Mean Corpuscular Volume 88.1 80-100 fL Mean Corpuscular Hemoglobin 28.1 25-34 pg Mean Corpuscular Hemoglobin Concent 32.0 32-36 g/dl Platelet Count 372 130-400 K/uL Mean Platelet Volume 9.6 7.4-10.4 fL Neutrophils (%) (Auto) 87.9 % Lymphocytes (%) (Auto) 5.1 % Monocytes (%) (Auto) 4.3 % Eosinophils (%) (Auto) 1.7 % Basophils (%) (Auto) 0.2 % Neutrophils # (Auto) 13.71 1.4-6.5 K/uL Lymphocytes # (Auto) 0.80 1.2-3.4 K/uL Monocytes # (Auto) 0.67 0.11-0.59 K/uL Eosinophils # (Auto) 0.26 0-0.5 K/uL Basophils # (Auto) 0.03 0-0.2 K/uL RDW Standard Deviation 61.2 36.4-46.3 fL RDW Coefficient of Variation 18.9 11.5-14.5 % Immature Granulocyte % (Auto) 0.8 % Immature Granulocyte # (Auto) 0.13 0.00-0.02 K/uL Red Blood Cell Morphology Unremarkable Sodium Level 145 136-145 mmol/L Potassium Level 3.7 3.5-5.1 mmol/L Chloride Level 114 98-107 mmol/L Carbon Dioxide Level 22 21-32 mmol/L Anion Gap 9.0 3-11 mmol/L Blood Urea Nitrogen 45 7-18 mg/dl Creatinine 5.00 0.60-1.40 mg/dl Est Creatinine Clear Calc Drug Dose 21.2 ml/min Estimated GFR () 14.5 Estimated GFR (Non- 12.5 BUN/Creatinine Ratio 9.0 10-20 Random Glucose 124 70-99 mg/dl Calcium Level 8.3 8.5-10.1 mg/dl Phosphorus Level 4.4 2.5-4.9 mg/dl Magnesium Level 2.4 1.8-2.4 mg/dl Bedside Glucose (other) 125 70-99 mg/dl Blood Gas Sample Site L Radial Bedside Blood Gas pH (LAB) 7.28 7.35-7.45 Bedside Blood Gas pCO2 (LAB) 41 35-46 mmHg Bedside Blood Gas pO2 (LAB) 63 80-95 mmHg Bedside Blood Gas HCO3 (LAB) 19 19-24 meq/L Bedside Blood Gas Total CO2 20 24-31 mEq/l Bedside Blood Gas Base Excess (LAB) -8.0 -9-1.8 meq/L Bedside Blood Gas O2 Saturation 89.0 90-95 % Duglas Test Pass Oxygen Delivery Device Ventilator Bedside Oxygen Rate (breaths/min) 20 Blood Gas Minute Ventilation 17.1 Bedside FiO2 50 % Blood Gas Tidal Volume 600 Blood Gas PEEP 8 Random Cortisol 16.29 mcg/dl Test 05/23/16 12:17 Range/Units Microbiology Results 05/23/16 Blood Culture, Received Pending 05/23/16 Blood Culture, Received Pending 05/23/16 Gram Stain, Sheri Batch Pending 05/23/16 Sputum Culture, Sheri Batch Pending 05/23/16 Urine Culture, Sheri Batch Pending
[2016-05-23 12:42] LABS: URINE APPEARANCE CLOUDY (CLEAR); URINE BILIRUBIN NEG (NEG); URINE COLOR YELLOW; URINE NITRITE NEG (NEG); UROBILINOGEN NEG (NEG)
[2016-05-23 12:50] LABS: MANUAL MICROSCOPIC REQUIRED? NO; REVIEW REQ? YES
[2016-05-23 12:59] LABS: URINE EPITHELIAL CELL AUTO 0-5 /lpf (0-5)
[2016-05-23 13:02] LABS: URINE PATH CASTS 0-3 GRANULAR CASTS /lpf (0)
--- NOTE | 2016-05-23 14:15 | ECHOCARDIOGRAM REPORT ---
*NOTICE TO RECEIVING LIBERTARIAN AGENCY This information is strictly Confidential and protected under [place] law. [place] law prohibits you from making any further disclosure of this information unless further disclosure is expressly permitted by the written consent of the person to whom it pertains or is authorized by law. A general authorization for the release of medical or other information is not sufficient for this purpose. Hospital accepts no responsibility if the information is made available to any other person, INCLUDING THE PATIENT. Interpretation Summary * Name: KARMEN DODSON Study Date: 05/23/2016 10:31 AM BP: 97/50 mmHg * Patient Location: [facility] HR: 124 * : 1965 (M/d/yyyy) Gender: Male Height: 72 in * Age: 50 yrs Ethnicity: CA Weight: 210 lb * Referring Physician: FRANK * Performed By: Katlyn Gomez RDCS * * Reason For Study: HYPOTENSION * BSA: 2.2 m2 * History: HYPOTENSION * Grossly normal valvular structure and function. * -- Conclusions -- * The left ventricle is hyperdynamic. * The left ventricular cavity is small. * Ejection Fraction = >70 %. * The right ventricle is not well visualized. * Grossly normal valvular structure and function. Procedure Details * A contrast injection of Definity was performed to improve assessment of LV function. * Contrast was injected into an intravenous site in the right arm. * One vial of Definity ultrasound contrast was diluted in normal saline to a total volume of 10 ml. A total of '2' ml of solution was administered during imaging. * Lot # [id number] of Definity utilized for procedure. * Expiration date JUN 17. * The attending nurse who injected the contrast agent was SHAMEKA JAIN RN. Left Ventricle * The left ventricular cavity is small. * Ejection Fraction = >70 %. * The left ventricle is hyperdynamic. * The left ventricular wall motion is normal. Right Ventricle * The right ventricle is not well visualized. Mitral Valve * The mitral valve is not well visualized. * The mitral valve is grossly normal. * Significant mitral regurgitation is absent. Tricuspid Valve * The tricuspid valve is not well visualized, but is grossly normal. * Significant tricuspid regurgitation is absent. Aortic Valve * The aortic valve is tricuspid. The leaflet thickness if normal. There is no aortic stenosis, and no significant insufficiency. * The aortic valve is normal in structure and function. Pulmonic Valve * The pulmonic valve is not well visualized. MMode 2D Measurements and Calculations IVSd 1.2 cm IVSs 1.4 cm LVIDd 4.2 cm LVIDs 2.4 cm LVPWd 1.0 cm LVPWs 1.9 cm IVS/LVPW 1.1 FS 41.9 % EDV(Teich) 77.2 ml ESV(Teich) 20.6 ml EF(Teich) 73.3 % EDV(cubed) 72.5 ml ESV(cubed) 14.2 ml EF(cubed) 80.4 % % IVS thick 19.6 % % LVPW thick 86.5 % LV mass(C)d 155.6 grams LV mass(C)dI 71.6 grams/m\S\2 LV mass(C)s 146.4 grams LV mass(C)sI 67.3 grams/m\S\2 SV(Teich) 56.6 ml SI(Teich) 26.0 ml/m\S\2 SV(cubed) 58.3 ml SI(cubed) 26.8 ml/m\S\2 LA dimension 2.8 cm LVAd ap4 26.0 cm\S\2 LVLd ap4 8.3 cm EDV(MOD-sp4) 67.1 ml EDV(sp4-el) 69.4 ml LVAs ap4 14.6 cm\S\2 LVLs ap4 7.7 cm ESV(MOD-sp4) 22.0 ml ESV(sp4-el) 23.5 ml EF(MOD-sp4) 67.3 % EF(sp4-el) 66.1 % LVAd ap2 31.7 cm\S\2 LVLd ap2 8.6 cm EDV(MOD-sp2) 96.6 ml EDV(sp2-el) 99.0 ml LVAs ap2 14.6 cm\S\2 LVLs ap2 6.6 cm ESV(MOD-sp2) 26.8 ml ESV(sp2-el) 27.5 ml EF(MOD-sp2) 72.2 % EF(sp2-el) 72.2 % LVLd %diff 3.8 % EDV(MOD-bp) 82.5 ml LVLs %diff -16.02 % ESV(MOD-bp) 26.5 ml EF(MOD-bp) 67.9 % SV(MOD-sp4) 45.1 ml SI(MOD-sp4) 20.7 ml/m\S\2 SV(MOD-sp2) 69.8 ml SI(MOD-sp2) 32.1 ml/m\S\2 SV(MOD-bp) 56.0 ml SI(MOD-bp) 25.8 ml/m\S\2 SV(sp4-el) 45.9 ml SI(sp4-el) 21.1 ml/m\S\2 SV(sp2-el) 71.4 ml SI(sp2-el) 32.8 ml/m\S\2 Doppler Measurements and Calculations Ao V2 max 199.1 cm/sec Ao max PG 15.9 mmHg Ao max PG (full) 2.9 mmHg Ao V2 mean 146.5 cm/sec Ao mean PG 9.3 mmHg Ao mean PG (full) 2.3 mmHg Ao V2 VTI 26.8 cm LV V1 max PG 13.0 mmHg LV V1 mean PG 7.0 mmHg LV V1 max 180.0 cm/sec LV V1 mean 122.5 cm/sec LV V1 VTI 26.3 cm
--- NOTE | 2016-05-23 14:52 | Medical Consult ---
Consultation Date of Consultation: May 23, 2016. Attending Physician: Pooja. Nicholson S Reason for Consultation: Linezolid use History of Present Illness medical records reviewed and discussion with medical staff obtain because of inability a patient to provide adequate history. 50-year-old male with complicated past medical history Including surgery for Solis's esophagitis, now status post repair of surgery with esophagectomy and interposition surgery, with previous video swelling study showing possible signs of aspiration, now with worsening shortness of breath, evidence of markedly abnormal left upper lobe process with possible mass lesion versus pneumonia with necrotizing process, worsened to the point of requiring intubation for respiratory failure. Has been started on broad-spectrum antibiotics. No report of significant travel or exposure history. Patient has undergone bronchoscopy with finding purulent secretions with all cultures now growing methicillin sensitive Staph aureus. Patient has received broad- spectrum antibiotic coverage since admission. No other significant travel or exposure history found. Past Medical/Surgical History Medical Problems: (1) Confusion Status: Acute (2) Hypokalemia Status: Acute (3) Mood disorder Status: Acute (4) Near syncope Status: Acute (5) Pneumonia Status: Acute (6) Sepsis Status: Acute (7) Toe fracture Status: Acute Medical Problems: (1) Solis's esophagus (2) Bipolar 1 disorder (3) Esophageal perforation (4) GERD (gastroesophageal reflux disease) (5) GI (gastrointestinal bleed) (6) History of narcotic addiction (7) Hx of esophageal ulcer (8) Lumbar disc disease (9) Presence of IVC filter (10) Pulmonary embolism (11) Pulmonary nodule Surgical Problems: (1) H/O esophagectomy (2) H/O esophagogastroduodenoscopy (3) H/O hernia repair (4) H/O jejunostomy (5) History of esophageal surgery (6) S/P appendectomy (7) S/P bronchoscopy (8) S/p claviculectomy (9) S/p esophagostomy (10) S/P gastrostomy (11) S/p hemilaminectomy (12) S/P lumbar fusion Family History FH: heart disease FATHER ( from [place] at age 63) Social History Smoking Status: Never Smoker Alcohol Use: none Housing Status: lives with family Allergies Coded Allergies: Tramadol (Verified Allergy, Unknown, seizures, 05/16/16) Current Inpatient Medications Current Inpatient Medications Medications (Trade) Dose Ordered Sig/Shemar Route Start Time Stop Time Status Last Admin Dose Admin Ondansetron HCl (Zofran Inj) 4 mg Q6H PRN IV 05/16/16 14:15 06/15/16 14:14 Quetiapine Fumarate (seroQUEL TAB) 200 mg DAILY PO 05/17/16 09:00 06/16/16 08:59 05/23/16 08:54 200 MG Quetiapine Fumarate (seroQUEL TAB) 600 mg HS PO 05/16/16 21:00 06/15/16 20:59 05/22/16 20:49 600 MG Heparin Sodium (Porcine) (Heparin 10 Unit/ ml 5 ml Flush) 1 ml PRN PRN FLUSH 05/18/16 00:30 06/17/16 00:29 05/20/16 05:49 1 ML Dornase Castro (Pulmozyme Inhalation Soln 2.5ml Amp) 2.5 ml BIDR INH 05/18/16 20:00 06/17/16 19:59 05/21/16 06:56 2.5 ML Clonazepam (Klonopin Tab) 0.5 mg DAILY PO 05/19/16 09:00 06/18/16 08:59 05/23/16 08:54 0.5 MG Heparin Sodium (Porcine) (Heparin Sq 5000 Unit/0.5ml) 5,000 unit Q12 SQ 05/18/16 21:00 06/17/16 20:59 05/23/16 08:59 5,000 UNIT Glucose (Glucose 40% Gel) 15-30 GRAMS 15 GRAMS... UD PRN PO 05/19/16 08:00 06/18/16 07:59 Glucose (Glucose Chew Tab) 4-8 Tablets 4 Tabl... UD PRN PO 05/19/16 08:00 06/18/16 07:59 Dextrose (Dextrose 50% 50ML Syringe) 25-50ML OF 50% DW IV FOR... UD PRN IV 05/19/16 08:00 06/18/16 07:59 Glucagon (Glucagon Inj) 1 mg UD PRN SQ 05/19/16 08:00 06/18/16 07:59 Miscellaneous Information (Consult Glycemic Management Pharmacy) 1 ea UD PRN N/A 05/19/16 07:58 06/18/16 07:57 [place] Citrate (Heidelberg Citrate Soln) 75 mg BID PO 05/19/16 11:00 06/18/16 10:59 Future hold 05/23/16 08:55 75 MG Pregabalin 150 mg 150 mg DAILY PO 05/20/16 09:00 06/19/16 08:59 05/23/16 08:54 150 MG Acetaminophen/ Empty Bag (Ofirmev Iv/ Empty Iv Bag 100ml) 65 ml @ 400 mls/hr Q6H PRN IV 05/19/16 12:30 06/18/16 12:29 Metoclopramide HCl (Reglan Inj) 5 mg ACHS IV 05/20/16 21:00 06/19/16 20:59 05/23/16 10:37 5 MG Methylnaltrexone [place] 12 mg 12 mg Q2D SQ 05/20/16 18:30 06/19/16 18:29 05/22/16 18:04 12 MG Piperacillin Sod/ Tazobactam Sod/ Dextrose (Zosyn Iv/D5 100ml) 115 ml @ 28.75 mls/ hr Q8@0000,0800,1600 IV 05/21/16 16:00 05/28/16 15:59 05/23/16 08:54 28.75 MLS/HR Piperacillin Sod/ Tazobactam Sod (Consult) 1 ea UD PRN N/A 05/21/16 09:45 06/20/16 09:44 Propofol (Diprivan Iv Emulsion 100ml Vial) 1 dose UD PRN IV 05/21/16 20:15 05/24/16 20:14 05/23/16 08:56 1 DOSE Fentanyl Citrate (Fentanyl Inj) 50 mcg Q3H PRN IV 05/21/16 20:15 06/04/16 20:14 Levalbuterol (Xopenex Hfa Inhaler) 6 puffs Q6R INH 05/21/16 21:00 06/20/16 20:59 05/23/16 07:36 6 PUFFS Ipratropium [place] (Atrovent Hfa Inhaler) 6 puffs Q6R INH 05/21/16 21:00 06/20/16 20:59 05/23/16 07:36 6 PUFFS Chlorhexidine Gluconate 15 ml 15 ml BID MT 05/21/16 21:00 06/20/16 20:59 05/23/16 08:57 15 ML Pantoprazole Sodium/Syringe (Protonix Inj/ Syringe) 10 ml @ 5 mls/min DAILY@11 IV 05/22/16 11:00 06/21/16 10:59 05/23/16 10:36 5 MLS/MIN Docusate Sodium (coLACE SYRUP) 100 mg BID PO 05/22/16 09:00 06/21/16 08:59 05/23/16 08:54 100 MG Polyethylene 17 gm 17 gm QAM PO 05/22/16 09:00 06/21/16 08:59 05/23/16 08:54 17 GM Fentanyl Citrate 250 ml @ 0 mls/hr Q0M PRN IV 05/22/16 19:00 06/05/16 18:59 05/22/16 19:49 5 MLS/HR Norepinephrine Bitartrate/ Dextrose (Levophed Inj/ D5W 500ml) 508 ml @ 0 mls/hr Q0M PRN IV 05/22/16 19:16 06/21/16 19:15 05/22/16 19:49 18 MLS/HR Albumin Human (Albumin 25%) 12.5 gm BID IV 05/23/16 09:00 05/26/16 08:59 05/23/16 08:55 12.5 GM Bisacodyl (Dulcolax Supp) 10 mg DAILY PRN VA 05/23/16 08:45 06/22/16 08:44 Multivitamins Therapeutic 15 ml 15 ml QAM PO 05/24/16 09:00 06/23/16 08:59 Levofloxacin 250 mg/Prmx 50 ml @ 50 mls/hr Q24H IV 05/23/16 10:51 06/02/16 10:50 UNV Linezolid/Prmx (Zyvox / D5W/ Premixed D5W) 300 ml @ 300 mls/hr Q12 IV 05/23/16 21:00 05/30/16 20:59 UNV Acetaminophen (Tylenol Soln) 650 mg Q4H PRN PO 05/23/16 12:15 06/22/16 12:14 05/23/16 12:21 650 MG Insulin Aspart (novoLOG ASPART) SLIDING SCALE If C... BID@0700,2100 SC 05/23/16 21:00 06/22/16 20:59 Review of Systems Not obtainable Physical Exam Date Time Temp Pulse Resp B/P Pulse Ox O2 Delivery O2 Flow Rate FiO2 05/23/16 14:00 38.5 119 30 83/46 90 Mechanical Ventilator 50 05/23/16 12:00 39.4 125 30 96/48 90 Mechanical Ventilator 50 05/23/16 12:00 50 05/23/16 12:00 Mechanical Ventilator 50 05/23/16 11:40 50 05/23/16 10:00 39.1 122 30 97/50 92 Mechanical Ventilator 50 05/23/16 08:00 Mechanical Ventilator 50 05/23/16 08:00 50 05/23/16 08:00 121 30 111/61 92 Mechanical Ventilator 50 05/23/16 07:45 50 05/23/16 06:30 115 26 108/59 92 05/23/16 06:00 113 32 128/64 94 05/23/16 05:30 50 05/23/16 05:30 110 28 110/61 95 05/23/16 05:00 107 29 113/64 95 05/23/16 04:30 106 29 110/62 95 05/23/16 04:00 37.3 05/23/16 04:00 104 27 114/59 96 05/23/16 04:00 95 Mechanical Ventilator 50 05/23/16 04:00 50 05/23/16 03:30 104 25 109/59 95 05/23/16 03:00 103 26 111/58 95 05/23/16 02:30 103 27 115/59 94 05/23/16 02:10 50 05/23/16 02:00 102 26 113/58 94 05/23/16 01:30 103 28 114/58 94 05/23/16 01:00 104 28 113/55 92 05/23/16 00:43 50 05/23/16 00:30 106 29 106/50 93 05/23/16 00:01 37.1 05/23/16 00:00 108 29 88/46 93 05/22/16 23:59 50 05/22/16 23:59 93 Mechanical Ventilator 50 05/22/16 23:00 105 24 103/54 94 05/22/16 22:30 107 25 100/52 94 05/22/16 22:00 109 25 97/51 93 05/22/16 21:30 112 25 92/48 92 05/22/16 21:00 105 25 104/56 94 05/22/16 20:30 104 25 101/55 95 05/22/16 20:10 50 05/22/16 20:00 37.4 05/22/16 20:00 50 05/22/16 20:00 95 Mechanical Ventilator 50 05/22/16 20:00 105 26 92/48 95 05/22/16 19:30 106 25 93/47 95 05/22/16 19:00 108 26 87/46 95 05/22/16 18:00 37.9 110 33 84/47 95 Mechanical Ventilator 05/22/16 17:58 50 05/22/16 16:52 116 25 97/53 92 Mechanical Ventilator 05/22/16 16:00 50 05/22/16 16:00 38.6 116 24 89/50 93 Mechanical Ventilator 05/22/16 16:00 Mechanical Ventilator 50 General Appearance: WD/WN, + pertinent finding (sedated on vent) Head: normocephalic, atraumatic Eyes: normal inspection, sclerae normal ENT: normal ENT inspection, + pertinent finding (ET tube in place) Neck: supple, no adenopathy, thyroid normal, trachea midline Respiratory/Chest: chest non-tender, no accessory muscle use, + rales, + rhonchi Cardiovascular: regular rate, rhythm, no gallop, no murmur Abdomen/GI: normal bowel sounds, non tender, soft, no organomegaly Back: normal inspection, no CVA tenderness Extremities/Musculoskelatal: no calf tenderness, normal capillary refill Neurologic/Psych: + pertinent finding (sedated on vent, no obviuos focal deficit) Skin: normal color, warm/dry, no rash Lymphatic: no adenopathy Laboratory Results Date/Time Source Procedure Growth Status 05/23/16 11:31 Blood Blood Culture Pending Received 05/23/16 11:24 Blood Blood Culture Pending Received 05/23/16 11:45 Sputum Vent. Suction Trap Gram Stain - Final Resulted 05/23/16 11:45 Sputum Vent. Suction Trap Sputum Culture Pending Resulted 05/23/16 00:00 Urine,Catheterized Urine Culture Pending Received Last 24 Hours Test 05/22/16 16:11 05/22/16 18:02 05/23/16 00:00 05/23/16 00:02 Hemoglobin 8.2 g/dL Hematocrit 25.3 % Sodium Level 145 mmol/L Potassium Level 3.9 mmol/L Chloride Level 115 mmol/L Carbon Dioxide Level 22 mmol/L Anion Gap 8.0 mmol/L Blood Urea Nitrogen 46 mg/dl Creatinine 5.00 mg/dl Est Creatinine Clear Calc Drug Dose 21.0 ml/min Estimated GFR () 14.5 Estimated GFR (Non- 12.5 BUN/Creatinine Ratio 9.2 Random Glucose 101 mg/dl Calcium Level 8.2 mg/dl Bedside Glucose 92 mg/dl Urine Color YELLOW Urine Appearance CLOUDY Urine pH 5.0 Urine Specific Lewis 1.010 Urine Protein 1+ Urine Glucose (UA) NEG Urine Ketones NEG Urine Occult Blood 2+ Urine Nitrite NEG Urine Bilirubin NEG Urine Urobilinogen NEG Urine Leukocyte Esterase TRACE Urine WBC (Auto) 5-10 /hpf Urine RBC (Auto) >30 /hpf Urine Hyaline Casts (Auto) 1-5 /lpf Urine Epithelial Cells (Auto) 0-5 /lpf Urine Bacteria (Auto) NEG Urine Renal Epithelial Cells /lpf Urine Pathogenic Casts 0-3 GRANULAR CASTS /lpf Urine Yeast (Auto) Urine Osmolality 297 mOms/kg Bedside Glucose (other) 109 mg/dl Test 05/23/16 05:21 05/23/16 05:22 05/23/16 05:33 05/23/16 09:04 Bedside Glucose (other) 156 mg/dl 125 mg/dl White Blood Count 15.60 K/uL Red Blood Count 3.02 M/uL Hemoglobin 8.5 g/dL Hematocrit 26.6 % Mean Corpuscular Volume 88.1 fL Mean Corpuscular Hemoglobin 28.1 pg Mean Corpuscular Hemoglobin Concent 32.0 g/dl Platelet Count 372 K/uL Mean Platelet Volume 9.6 fL Neutrophils (%) (Auto) 87.9 % Lymphocytes (%) (Auto) 5.1 % Monocytes (%) (Auto) 4.3 % Eosinophils (%) (Auto) 1.7 % Basophils (%) (Auto) 0.2 % Neutrophils # (Auto) 13.71 K/uL Lymphocytes # (Auto) 0.80 K/uL Monocytes # (Auto) 0.67 K/uL Eosinophils # (Auto) 0.26 K/uL Basophils # (Auto) 0.03 K/uL RDW Standard Deviation 61.2 fL RDW Coefficient of Variation 18.9 % Immature Granulocyte % (Auto) 0.8 % Immature Granulocyte # (Auto) 0.13 K/uL Red Blood Cell Morphology Unremarkable Sodium Level 145 mmol/L Potassium Level 3.7 mmol/L Chloride Level 114 mmol/L Carbon Dioxide Level 22 mmol/L Anion Gap 9.0 mmol/L Blood Urea Nitrogen 45 mg/dl Creatinine 5.00 mg/dl Est Creatinine Clear Calc Drug Dose 21.2 ml/min Estimated GFR () 14.5 Estimated GFR (Non- 12.5 BUN/Creatinine Ratio 9.0 Random Glucose 124 mg/dl Calcium Level 8.3 mg/dl Phosphorus Level 4.4 mg/dl Magnesium Level 2.4 mg/dl Blood Gas Sample Site L Radial Bedside Blood Gas pH (LAB) 7.28 Bedside Blood Gas pCO2 (LAB) 41 mmHg Bedside Blood Gas pO2 (LAB) 63 mmHg Bedside Blood Gas HCO3 (LAB) 19 meq/L Bedside Blood Gas Total CO2 20 mEq/l Bedside Blood Gas Base Excess (LAB) -8.0 meq/L Bedside Blood Gas O2 Saturation 89.0 % Duglas Test Pass Oxygen Delivery Device Ventilator Bedside Oxygen Rate (breaths/min) 20 Blood Gas Minute Ventilation 17.1 Bedside FiO2 50 % Blood Gas Tidal Volume 600 Blood Gas PEEP 8 Test 05/23/16 09:50 05/23/16 12:23 Random Cortisol 16.29 mcg/dl Bedside Glucose 106 mg/dl Patient Name: KARMEN DODSON Unit Number: [id number] Dictated: 05/23/16731 Transcribed: 05/23/16731 Quibly Printed Date/Time: [~ rep prt dt]/[~ rep prt tm] [~ rep ct labl] - [~ rep ct ivnm] [facility] [place] [address] Dictated: 05/23/16731 Transcribed: 05/23/16731 Quibly Printed Date/Time: [~ rep prt dt]/[~ rep prt tm] [~ rep ct labl] - [~ rep ct ivnm] [~ rep ct add3]] CHEST ONE VIEW PORTABLE HISTORY: Respiratory failure. COMPARISON: Chest 05/22/2016 FINDINGS: Endotracheal tube terminates 4.5 cm from the franchesca. Nasogastric tube terminates below the diaphragm. Right PICC terminates in the distal SVC. No pneumothorax. Bilateral airspace opacities persist. Trace right pleural effusion, unchanged. Left rib deformities are again noted. Partially loculated left pleural effusion is also stable. IMPRESSION: Satisfactory support line placement. No change in the bilateral airspace opacities and pleural effusions. Electronically signed by: Luís Dockery M.D. 05/23/2016 7:36 AM Dictated Date/Time: 05/23/2016 7:32 AM The status of this report is Signed. Draft = Not yet reviewed or approved by Radiologist. Signed = Reviewed and approved by Radiologist. <AttendingPhy>Pooja. Nicholson S</AttendingPhy> <FamilyPhy>Henrique Marques M.D.</ FamilyPhy> <PrimaryPhy>Henrique Marques M.D.</PrimaryPhy> <UnitNumber>[id number]< /UnitNumber> <VisitNumber>[id number]</VisitNumber> <PatientName>KARMEN DODSON</PatientName> <DateOfBirth>1965</DateOfBirth> <Location>[facility]< /Location> <ServiceDate>05/16/16</ServiceDate> <MNE>ESINDI</MNE> <OrderingPhy> Maria Elena Hernandez MD</OrderingPhy> <OrderingPhyMNE>f rep ord dr otero</OrderingPhyMNE > <DictatingPhyMNE>f rep dict dr otero</DictatingPhyMNE> <CCListMNE>f rep ct branden</ CCListMNE> <AdmittingPhyMNE>f pt admit dr otero</AdmittingPhyMNE> <AttendingPhyMNE >f pt attend dr otero</AttendingPhyMNE> <ConsultingPhyMNE>f pt consult dr otero</ConsultingPhyMNE> <FamilyPhyMNE>f pt fam dr otero</FamilyPhyMNE> <OtherPhyMNE>f pt other dr otero</OtherPhyMNE> < PrimaryPhyMNE>f pt prim care dr otero</PrimaryPhyMNE> <ReferringPhyMNE>f pt referring dr otero</ReferringPhyMNE> Assessment & Plan Sepsis with extensive, progressive pneumonia with sputum growing MSSA, nasal screen MRSA positive, negative blood cultures. Likely from severe aspiration but worry about possible SURYA mass based on CT findings. Agree with coverage with linezolid and Zosyn pending further culture results. Will discuss with all involved. Will follow.
--- NOTE | 2016-05-23 15:49 | DIAGNOSTIC IMAGING REPORT ---
RIGHT UPPER EXTREMITY VENOUS DOPPLER HISTORY: Right arm edema. COMPARISON STUDY: None. FINDINGS: The right internal jugular vein is patent. There is normal flow within the right subclavian vein. There is normal flow and compressibility within the right basilic, brachial, radial, ulnar, and visualized cephalic veins. Focal area of acute thrombus within the right axillary vein surrounding the PICC. This is occlusive. IMPRESSION: Focal area of occlusive thrombus within the right axillary vein surrounding the PICC. Electronically signed by: Luís Dockery M.D. 05/23/2016 3:47 PM Dictated Date/Time: 05/23/2016 3:46 PM
[2016-05-23] MEDS ORDERED: NURSING VERBAL MED ORDER ONE ×2 (16:15→21:45)
[2016-05-23] MEDS ORDERED: PEPTAMEN 1.5 CAL 1000ML BAG PO SCH (16:30)
[2016-05-23 19:28] LABS: BUN/CREATININE RATIO 8.2 (10-20); CALCIUM 7.6 mg/dl (8.5-10.1); POTASSIUM 3.6 mmol/L (3.5-5.1)
[2016-05-23 19:47] LABS: BETA-HYDROXYBUTYRATE 2.38 mg/dL (0.2-2.81)
[2016-05-23] MEDS ORDERED: INSULIN ASPART 100 UNITS/ML 3 ML PEN SC SCH (21:00)
[2016-05-23] MEDS ORDERED: NOVASOURCE RENAL 1000ML BAG PO SCH (21:45)
--- NOTE | 2016-05-23 22:22 | DIAGNOSTIC IMAGING REPORT ---
CHEST ONE VIEW PORTABLE CLINICAL HISTORY: s/p R IJ TLC catheter position COMPARISON STUDY: 05/23/2016 6:53 AM FINDINGS: Endotracheal tube 4 cm above the franchesca. Findings of diffuse bilateral parenchymal infiltrative change slightly progressive. Placement of right-sided Central catheter ends. Cava. No evidence pneumothorax. All remaining tubes and lines are unchanged in position. IMPRESSION: Interval placement of a right internal jugular catheter to the superior vena cava.. 2. No evidence pneumothorax. 3. Mildly progressive pulmonary edematous change Electronically signed by: Henrique Madison M.D. 05/23/2016 10:21 PM Dictated Date/Time: 05/23/2016 10:19 PM
[2016-05-24] VITALS (31 sets, daily range): BP systolic 85–131; BP diastolic 40–65; PULSE 117–130; TEMP 36.8–38.8; O2SAT 93–100
[2016-05-24] MEDS ORDERED: PIPERACILL/TAZOBAC IV 4.5 GM in DEXTROSE 5% 100ML IV SCH ×2
[2016-05-24] MEDS: LINEZOLID / D5W 600 MG in PREMIXED IN D5W 300 ML IV SCH ×2 (00:18→12:24)
[2016-05-24] MEDS: DEXTROSE 50% 50 ML SYR IV PRN ×2 (00:28→00:32)
[2016-05-24] MEDS: NOREPINEPHRINE BIT INJ 8 MG in DEXTROSE 5% 500ML 500 ML IV PRN (00:31)
[2016-05-24] MEDS: LEValbuterol HFA 15GM INHALER INH SCH ×4 (01:33→20:52)
[2016-05-24] MEDS: IPRATROPIUM BROMIDE HFA INHALER INH SCH ×4 (01:33→20:52)
[2016-05-24] MEDS: FENTANYL 1250MCG/250ML NSS 250 ML IV PRN (02:00)
[2016-05-24 05:40] LABS: ISTAT ALLEN TEST Pass; ISTAT ARTERIAL BLOOD GAS HCO3 22 meq/L (19-24); ISTAT ARTERIAL BLOOD GAS PCO2 56 mmHg (35-46); ISTAT ARTERIAL BLOOD GAS PO2 106 mmHg (80-95); ISTAT ARTERIAL BLOOD GAS pH 7.21 (7.35-7.45); ISTAT CARBON DIOXIDE 24 mEq/l (24-31); ISTAT DELIVERY SYSTEM Ventilator; ISTAT FIO2 70 %; ISTAT PEEP 8; ISTAT RATE 27; ISTAT SITE R Radial; VE 15.7; Vt 600
[2016-05-24 06:22] LABS: BASO % 0.2 %; BASO ABS # 0.03 K/uL (0-0.2); EOS % 1.5 %; HEMATOCRIT 24.5 % (42-52); IG% 0.5 %; LYMPH % 6.7 %; LYMPH ABS # 1.02 K/uL (1.2-3.4); MEAN CELL VOLUME 87.2 fL (80-100); MEAN CORPUSCULAR HEMOGLOBIN 27.8 pg (25-34); MEAN CORPUSCULAR HGB CONC 31.8 g/dl (32-36); MEAN PLATELET VOLUME 9.3 fL (7.4-10.4); MONO % 5.6 %; NEUT % 85.5 %; PLATELET COUNT 282 K/uL (130-400); RED BLOOD COUNT 2.81 M/uL (4.7-6.1); WHITE BLOOD COUNT 15.24 K/uL (4.8-10.8)
[2016-05-24] MEDS: METOCLOPRAMIDE HCL INJ 5 MG/ML 2 ML VIAL IV SCH ×4 (06:22→20:16)
--- NOTE | 2016-05-24 07:12 | PULMONARY PROGRESS NOTE ---
DATE: 05/24/2016 The patient is intubated, sedated, sinus tachycardia. He did have some bloody sputum last night and that has resolved. He had a chest x-ray done last night at about 10:00 p.m., showed right internal jugular is in good position with progressive pulmonary edema and bilateral patchy infiltrates. His upper extremity ultrasound showed occlusive thrombus to the right axillary vein around the PICC line, the PICC has been removed. His minute ventilation remains elevated. His [place] respiratory rate is 28 with a tidal volume of 600. He continues to have respiratory acidosis. His sputum is scant now. He has not had any GI problems. He is on good DVT prophylaxis. He is on some pressors as well to sustain a good blood pressure. PHYSICAL EXAMINATION: VITAL SIGNS: His blood pressure is running in the 90-93 systolic range, pulse is 127 and regular, respiratory rate is 27, and he is afebrile, temperature of 37.8 at 30 minutes after midnight. GENERAL: I spoke with nursing personnel caring for him today and he has been otherwise relatively stable. Endotracheal tube is in good position. Feeding tube is in the left naris. No evidence of epistaxis noted. No subcutaneous emphysema is noted. HEART: Regular rate and rhythm. LUNGS: Reveal some scattered rhonchi, a few crackles at the left base. There is no fremitus or dullness to percussion. Some coarse breath sounds over the right lung anterior noted. ABDOMEN: Soft and nontender. EXTREMITIES: He has +1 edema of the feet. Capillary refill is good. Pulses are good. His chest x-ray reveals patchy infiltrates bilaterally with changes consistent with possible edema. LABORATORY DATA: Blood gas revealed pH 7.21, pCO2 of 56, pO2 of 106. On minute ventilation of 15.7 liters, tidal volume of 600, FiO2 70%, PEEP of 8. His BUN and creatinine are pending, they were 41 and 5 yesterday. Sugars have been elevated in the 123-518 range. Beta hydroxybutyric acid was 2.38. The ANCA, double-stranded DNA antibody, and complement are all unremarkable. Sputum Gram stain from suction through the endotracheal tube yesterday revealed many inflammatory cells with a few gram-positive cocci. He did have some gram-positive cocci in a bronchial wash from 05/20/2016 as well. IMPRESSION: 1. Respiratory failure. 2. Bilateral aspiration pneumonia. RECOMMENDATIONS: 1. At this point, I would increase the tidal volume to 650 mL, that may help to improve his pH somewhat and decrease the pCO2. The acidosis appears to be almost purely respiratory. The metabolic acidosis seems to have improved. 2. Continue with his present medications to cover gram-negatives and staph. 3. Full ventilator support for now. 4. Continue his good DVT prophylaxis. MTDD
[2016-05-24 07:15] LABS: BUN/CREATININE RATIO 8.6 (10-20); CALCIUM 8.3 mg/dl (8.5-10.1); CREATININE 5.5 mg/dl (0.60-1.40); MAGNESIUM 2.3 mg/dl (1.8-2.4); PHOSPHORUS 5.7 mg/dl (2.5-4.9)
[2016-05-24 07:20] LABS: ANISOCYTOSIS PRESENT; COMPLETE YES; DOHLE BODIES 1+; TOXIC GRANULATION 1+
[2016-05-24] MEDS ORDERED: NURSING VERBAL MED ORDER STA ×2 (07:31→17:35)
--- NOTE | 2016-05-24 07:31 | DIAGNOSTIC IMAGING REPORT ---
SINGLE VIEW CHEST CLINICAL HISTORY: Respiratory failure. Pneumonia. FINDINGS: 2 AP, portable, upright chest radiographs are compared to study dated 05/23/2016 and correlated with chest CT dated 05/17/2016. The examination is degraded by portable technique and patient rotation. A right PICC line has been removed. A right internal jugular central venous catheter, a left internal jugular central venous catheter, and endotracheal tube, and an enteric tube are unchanged in position. The heart is likely mildly enlarged. Atherosclerotic calcification is noted in the thoracic aorta. Surgical clips project over the mediastinum. Diffuse bilateral airspace opacities are unchanged yesterday, more confluent on the left. There are bilateral pleural effusions. No pneumothorax is seen. The skeletal structures appear osteopenic. Fusion hardware is noted in lower cervical spine. Enteric contrast is seen in the left upper quadrant of the abdomen. IMPRESSION: 1. A right PICC line is been removed. Otherwise stable lines and tubes. 2. Diffuse bilateral airspace opacities small pleural effusions are unchanged from yesterday. Differential considerations remain multifocal pneumonia, pulmonary edema, ARDS, and/or pulmonary hemorrhage. Clinical correlation will be required. Electronically signed by: Umesh Hauser M.D. 05/24/2016 7:29 AM Dictated Date/Time: 05/24/2016 7:26 AM
[2016-05-24] MEDS: DORNASE ALFA (2500U) 2.5MG/2.5ML INH SCH (07:42)
[2016-05-24] MEDS ORDERED: SODIUM BICARB 8.4% INJ 50 MEQ/50 ML SYR IV SCH (07:45)
--- NOTE | 2016-05-24 08:59 | SURGERY PROGRESS NOTE ---
DATE: 05/24/2016 DATE: 05/24/2016. Mr. Alvarez is extremely ill. His creatinine is up to 5.5. He is still making urine, but is decreasing. He is acidotic. He is increasing support from the ventilator. He has bloody secretions from his ET tube and may well have pulmonary hemorrhage. I think his x-ray looks quite poor today. Infiltrative pattern on the right suggestive of acute lung injury. His A-a gradient is increasing. I discussed his case with Dr. Maria Elena Hernandez. I do not see anything that would require any surgical intervention, but he is quite ill and may not survive this insult.
[2016-05-24] MEDS: POLYETHYLENE (MIRALAX) 17 GM PACK PO SCH (09:00)
[2016-05-24] MEDS: QUETIAPINE FUMARATE 200 MG TAB PO SCH (09:00)
[2016-05-24] MEDS: LITHIUM ORAL SOLN 300 MG/5ML 500ML PO SCH ×2 (09:00→20:17)
[2016-05-24] MEDS: CLONAZEPAM 0.5 MG TAB PO SCH (09:00)
[2016-05-24] MEDS: MULTIVITAMINS W/MINERALS 15ML UDP PO SCH (09:00)
[2016-05-24] MEDS: DOCUSATE SODIUM 100 MG/10 ML UDC PO SCH ×2 (09:00→20:17)
[2016-05-24] MEDS: PREGABALIN 150 MG CAP PO SCH (09:00)
--- NOTE | 2016-05-24 09:13 | DIAGNOSTIC IMAGING REPORT ---
CT SCAN OF THE CHEST WITHOUT IV CONTRAST CLINICAL HISTORY: Pneumonia. COMPARISON STUDY: Chest x-ray dated 05/24/2016. Chest CT dated 05/17/2016. TECHNIQUE: CT scan of the thorax was performed from the thoracic inlet to the upper abdomen. Images are reviewed in the axial, sagittal, and coronal planes. IV contrast was not administered for this examination as per the referring clinician. The examination is degraded by streak artifact from the patient's arms which could not be elevated above the chest as was by motion artifact. CT DOSE: 993.58 mGy.cm FINDINGS: Thyroid: Imaged portions of the thyroid gland are normal in size and attenuation. Thoracic aorta: There is mild atherosclerotic calcification of the thoracic aorta, which is normal in caliber and demonstrates standard 3-vessel arch anatomy. Heart: The heart is enlarged and without pericardial effusion. There is a right internal jugular central venous catheter. There is diminished attenuation of the cardiac blood pool as compared to the the pulmonary trunk is mildly dilated measuring up to 3.4 cm. This suggests pulmonary artery hypertension. Myocardium suggesting anemia. Lungs and pleural spaces: The endotracheal tube terminates above the franchesca. Evaluation of the lung parenchyma significantly degraded by motion artifact. There our small pleural effusions. Calcified pleural plaque is again seen at the left lung base. There is diffuse/multifocal airspace consolidation. This is most confluent at the apices, left greater than right. This has worsened as compared to 05/17/2016. The trachea appears clear. Mediastinum: The gastric conduit is present in the anterior mediastinum. There is mediastinal lymphadenopathy. A pretracheal node on image #129 measures 1.5 cm in short axis. High prevascular nodes measure up to 1.2 cm in short axis as seen on image #95. Josselyn: Josselyn adenopathy is suspected. The josselyn are not well assessed without IV contrast. Lower neck: There is supraclavicular lymphadenopathy. A left cervical radicular node on image #41 measures 1.7 x 2.0 cm. Axillae: There is no axillary lymphadenopathy. Upper abdomen: Postoperative changes suggest esophagectomy with gastric pull-through procedure. The conduit is located in the anterior mediastinum. An enteric tube terminates below the diaphragm. Skeletal structures: No lytic or blastic bony lesions are seen. Fusion hardware is noted in the lower cervical spine. Postoperative changes are suggested in the left sided ribs. IMPRESSION: 1. Significantly motion and streak artifact degraded examination. 2. There is diffuse/multifocal patchy airspace consolidation. This is most confluent at the apices, left greater than right and this has worsened from the 05/17/2016 examination. The appearance is nonspecific, and could represent multifocal pneumonia, pulmonary edema, ARDS, and/or a component of pulmonary hemorrhage. Clinical correlation will be required. 3. Small pleural effusions, right larger left. 4. Cardiomegaly. 5. Lines and tubes as above. 6. Postoperative changes suggest esophagectomy with gastric pull-through procedure. The conduit is in the anterior mediastinum. 7. Mediastinal, supraclavicular, and likely hilar lymphadenopathy. 8. Additional changes as above. Electronically signed by: Umesh Hauser M.D. 05/24/2016 9:12 AM Dictated Date/Time: 05/24/2016 9:02 AM
[2016-05-24] MEDS: CHLORHEXIDINE GLUCONATE 0.12% 480 ML MT SCH ×2 (09:37→20:16)
[2016-05-24] MEDS: ACETAMINOPHEN SOLN 325 MG/10.15 ML UDC PO PRN (09:39)
[2016-05-24] MEDS: HEPARIN SOD 5000 UNIT/0.5 ML CARP SQ SCH ×2 (09:39→20:49)
[2016-05-24] MEDS: NOREPINEPHRINE BIT INJ 16 MG in DEXTROSE 5% 500ML 500 ML IV PRN (09:40)
[2016-05-24] MEDS: ALBUMIN HUMAN 25% 12.5 GM/50 ML VIAL IV SCH ×2 (09:41→20:16)
[2016-05-24] MEDS: INSULIN ASPART 100 UNITS/ML 3 ML PEN SC SCH ×2 (09:42→20:49)
[2016-05-24] MEDS ORDERED: CLINDAMYCIN IV 600 MG in DEXTROSE 5% ADD-VANTAGE 50ML 50 ML IV SCH (10:30)
[2016-05-24] MEDS ORDERED: NOVASOURCE RENAL 1000ML BAG OG SCH (10:30)
[2016-05-24] MEDS ORDERED: IMIPENEM/CILASTATIN CONSULT ACTIVE PRN (11:00)
[2016-05-24] MEDS ORDERED: LEVOFLOXACIN CONSULT ACTIVE PRN (11:15)
[2016-05-24] MEDS: IMIPENEM-CILASTATIN 250 MG in DEXTROSE 5% 100ML 100 ML IV SCH ×3 (11:32→22:36)
[2016-05-24] MEDS: PANTOprazole INJ 40 MG in SYRINGE 0 ML IV SCH (11:32)
--- NOTE | 2016-05-24 11:45 | Progress Note ---
Internal Med Progress Note Date of Service: May 24, 2016. Provider Documentation: SUBJECTIVE: Patient is deteriorating. Continues to be intubated sedated + Continues to have high grade fever. Developed rash - extremities, back Tele- Sinus tachycardia with HR in 120s Held Tube feedings On levophed - increased rate OBJECTIVE: Vital Signs-as noted below Exam: General- Intubated + Sedated + Neck- no JVD HEENT- NG tube + Lungs- (+) crackles bilaterally, no wheezes Heart- Tachycardic, sinus + Abdomen- normal bowel sounds, soft Extremities- Edema in upper extremities Neuro- Intubated/sedated Skin -Rash-Erythematous rash- b/l extremities, back - Scrotum swelling + Lab data as noted below. CT CHEST: IMPRESSION: 1. Consolidative infiltrative and/or masslike changes involving the bulk of the left upper and to a somewhat lesser extent left lower lobe regions. 2. Additional nodularity within the left hemithorax and to a somewhat lesser extent right base. 3. Progressive mediastinal and hilar adenopathy. 4. Although it is possible that central obstructing lesions may account for the peripheral consolidative change, a neoplastic process nevertheless is a diagnosis of exclusion. 5. Associated parenchymal nodularity indicates a significant possibility of metastatic change. 6. Operative changes stable from the prior exam consistent with a prior esophagectomy and anterior gastric pull-through type procedure. ASSESSMENT & PLAN: 50 year old male with history of Bipolar Disorder, Esophagectomy, GERD, PE with IVC filter presenting with cough. SEVERE SEPSIS/SEPTIC SHOCK WITH MULTI ORGAN FAILURE DUE TO PNEUMONIA, MSSA, ( Bilateral Lt > Rt ) - Progressively worsening Aspiration risk due to hx of esophagectomy in 2013. Concerned about tracheo- esophageal fistula - none noted per bronch/EGD, but had gastric juice in trachea + Likely developing ARDS now Patient was intubated on 05/21/16 as went into respiratory distress. -Continues to be febrile with high grade fever +, developed rash -IV Levophed - rate increased compared to yesterday -Has been on multiple antibiotics since admission= Vancomycin x 1 day, Linezolid x 3 days, Levofloxacin, IV zosyn x 4 days----> Now broader coverage Linezolid/IV Imipenem/IV Levofloxacin per ID due to clinical deterioration -WORK UP- -S/P EGD on 05/20/16 - Solis's esophagus changes, tortuous esophagus, no fistula -S/P Bronchoscopy on 05/20/16- There was diffuse mucus secretions obstructing the takeoff to the left mainstem in notable all the way to the secondary franchesca. The left upper lobe, lingula and left lower lobe were obstructed with gastric secretions which were suctioned clear. - Sputum culture: staph aureus, MSSA; blood culture: negative so far; (+) Nasal MRSA, Bronchoscopy cultures - MSSA/Arlen; Repeat Blood cultures/Urine CX /Sputum cx ordered on 05/23/16- pending - ID on board ACUTE HYPOXIC RESPIRATORY FAILURE : Worsening Intubated on 05/21/16 due to respiratory distress -Secondary to Pneumonia as above. Likely developing ARDS now with worsening CXR -Mx per knuckle bender ACUTE RENAL FAILURE - Worsening - Likely ATN. D/D considered: Pulmonary renal syndrome- granulomatous angitis with ESR 70s, Sepsis with MOD, creatinine worsening - Crea 0.98--> 1.9 --> 3.5-->4.00-->4.70-->4.90-->5.00--> 5.50 - Management of sepsis noted above - IV fluids discontinued on 05/21-- Received IV lasix x 1 dose on 05/20/16 - Need to closely monitor lithium levels- Repeat Sidon level today . - Nephro consulted- F/up serologies, Complement levels, GELA, ANCA- pending RIGHT UPPER EXT THROMBUS (AXILLARY VEIN) SECONDARY TO PICC -Around PICC. -PICC line discontinued on 05/23/16 -US done on 05/23/16- confirmed axillary vein thrombosis, right side around PICC area -SQ Heparin with hemoptysis and blood on suctioning HEMOPTYSIS - Blood on suctioning + Likely from Necrotizing Pneumonia -S/P CT chest- Consolidative infiltrative and /or mass like changes in left upper/to some extent left lower lobe regions, additional nodularity within left hemithorax and to a somewhat lesser extent right base, progressive mediastinal, hilar adenopathy, central obstructing lesions may account for peripheral consolidative change, a neoplastic process nevertheless is a diagnosis of exclusion, associated parenchymal nodularity indicates a significant possibility of metastatic change; post op changes from prior esophagectomy, anterior gastric pull through type of procedure. -S/P Bronchoscopy ON 05/20/16 - There was diffuse mucus secretions obstructing the takeoff to the left mainstem in notable all the way to the secondary franchesca. The left upper lobe, lingula and left lower lobe were obstructed with gastric secretions which were suctioned clear. -Pulmonary consulted. Appreciate inputs. HX OF ESOPHAGECTOMY WITH RECONSTRUCTION Likely causing aspiration issues leading to severe pneumonia -Sx was done at [facility] in 2014 -Per cardio thoracic sx, likely has gastric outlet obstruction -Once stabilizes would consider pyloroplasty vs pyloromyotomy per his discussion with general surgery, Dr Llanos POSSIBLE BPH Had BPH symptoms on presentation - Foleys catheter + - Started trial of Tamsulosin 0.4mg daily DM TYPE 2, New Diagnosis -HBA1C- 7.0 -ISS, Pharm and Oil Well Fishing Tool Operator Consult MOOD DISORDER - continue home meds but now renally dosed - lithium dose reduced, levels to be monitored., goal 0.6-0.8 per pharmacy. To follow up lithium levels - adjust to usual doses once renal function improves. HISTORY OF PE, S/P IVC FILTER PLACEMENT -on Heparin Q12 for DVT prophylaxis -monitor as patient has history of GI bleed NUTRITION -Feeding tube placed beyond pylorus -On tube feedings, but now held DISPO Prognosis- guarded Discussed with Machine Operator Farmworker. Discussed with patient prior to intubation- If not able to make medical decisions, would want her sister, Reena [phone] to make decisions on his behalf. Sister was updated by knuckle bender Vital Signs: Date Time Temp Pulse Resp B/P Pulse Ox O2 Delivery O2 Flow Rate FiO2 05/24/16 10:00 37.9 127 28 92/47 95 Mechanical Ventilator 70 05/24/16 08:00 70 05/24/16 08:00 Mechanical Ventilator 50 05/24/16 08:00 38.8 130 30 94/51 96 Mechanical Ventilator 70 05/24/16 07:28 70 05/24/16 06:00 125 27 103/56 98 05/24/16 05:30 125 26 98/52 100 05/24/16 05:25 70 05/24/16 05:00 125 28 94/47 97 05/24/16 04:33 Mechanical Ventilator 70 05/24/16 04:33 70 05/24/16 04:30 127 93/52 95 05/24/16 04:00 126 26 91/52 95 05/24/16 03:30 126 23 86/51 95 05/24/16 03:00 124 28 86/51 96 05/24/16 02:30 125 27 95/54 95 05/24/16 02:00 125 27 89/54 95 05/24/16 01:33 70 05/24/16 01:00 129 27 87/48 93 05/24/16 00:30 37.8 128 25 95/55 95 05/24/16 00:00 Mechanical Ventilator 70 05/24/16 00:00 129 27 95/53 95 05/24/16 00:00 70 05/23/16 23:00 127 28 94/54 97 Mechanical Ventilator 70 05/23/16 22:45 126 18 98/57 96 Mechanical Ventilator 70 05/23/16 22:30 125 26 98/55 96 Mechanical Ventilator 70 05/23/16 22:15 122 24 115/60 96 Mechanical Ventilator 70 05/23/16 22:00 121 24 113/62 95 Mechanical Ventilator 70 05/23/16 21:45 121 26 105/62 96 Mechanical Ventilator 70 05/23/16 21:30 121 29 115/61 100 Mechanical Ventilator 100 05/23/16 21:15 121 23 109/59 98 Mechanical Ventilator 100 05/23/16 21:00 119 27 116/55 95 Mechanical Ventilator 70 05/23/16 21:00 50 05/23/16 20:45 118 25 105/55 98 Mechanical Ventilator 70 05/23/16 20:30 117 26 104/55 98 Mechanical Ventilator 70 05/23/16 20:15 116 26 106/55 97 Mechanical Ventilator 70 05/23/16 20:00 70 05/23/16 20:00 37.8 116 27 104/53 97 Mechanical Ventilator 70 05/23/16 20:00 Mechanical Ventilator 70 05/23/16 19:45 118 25 98/52 95 Mechanical Ventilator 70 05/23/16 19:30 117 27 102/52 90 Mechanical Ventilator 05/23/16 19:23 117 27 91/50 90 Mechanical Ventilator 05/23/16 19:15 116 27 103/52 91 Mechanical Ventilator 05/23/16 19:00 117 27 103/52 90 Mechanical Ventilator 05/23/16 18:19 37.6 115 30 100/51 90 Mechanical Ventilator 50 05/23/16 17:22 50 05/23/16 16:00 37.4 115 30 94/50 90 Mechanical Ventilator 50 05/23/16 16:00 Mechanical Ventilator 50 05/23/16 16:00 50 05/23/16 14:20 50 05/23/16 14:00 38.5 119 30 83/46 90 Mechanical Ventilator 50 05/23/16 12:00 39.4 125 30 96/48 90 Mechanical Ventilator 50 05/23/16 12:00 50 05/23/16 12:00 Mechanical Ventilator 50 05/23/16 11:40 50 Lab Results: Results Past 24 Hours Test 05/23/16 12:23 05/23/16 18:14 05/23/16 20:13 05/23/16 20:34 Range/Units Bedside Glucose 106 123 70-99 mg/dl Sodium Level 137 136-145 mmol/L Potassium Level 3.6 3.5-5.1 mmol/L Chloride Level 105 98-107 mmol/L Carbon Dioxide Level 25 21-32 mmol/L Anion Gap 7.0 3-11 mmol/L Blood Urea Nitrogen 41 7-18 mg/dl Creatinine 5.00 0.60-1.40 mg/dl Est Creatinine Clear Calc Drug Dose 21.2 ml/min Estimated GFR () 14.5 Estimated GFR (Non- 12.5 BUN/Creatinine Ratio 8.2 10-20 Random Glucose 373 70-99 mg/dl Calcium Level 7.6 8.5-10.1 mg/dl Beta-Hydroxybutyric Acid 2.38 0.2-2.81 mg/dL Bedside Glucose (other) 518 70-99 mg/dl Test 05/24/16 05:26 05/24/16 05:57 05/24/16 11:09 Range/Units Blood Gas Sample Site R Radial Bedside Blood Gas pH (LAB) 7.21 7.35-7.45 Bedside Blood Gas pCO2 (LAB) 56 35-46 mmHg Bedside Blood Gas pO2 (LAB) 106 80-95 mmHg Bedside Blood Gas HCO3 (LAB) 22 19-24 meq/L Bedside Blood Gas Total CO2 24 24-31 mEq/l Bedside Blood Gas Base Excess (LAB) -6.0 -9-1.8 meq/L Bedside Blood Gas O2 Saturation 96.0 90-95 % Duglas Test Pass Oxygen Delivery Device Ventilator Bedside Oxygen Rate (breaths/min) 27 Blood Gas Minute Ventilation 15.7 Bedside FiO2 70 % Blood Gas Tidal Volume 600 Blood Gas PEEP 8 White Blood Count 15.24 4.8-10.8 K/uL Red Blood Count 2.81 4.7-6.1 M/uL Hemoglobin 7.8 14.0-18.0 g/dL Hematocrit 24.5 42-52 % Mean Corpuscular Volume 87.2 80-100 fL Mean Corpuscular Hemoglobin 27.8 25-34 pg Mean Corpuscular Hemoglobin Concent 31.8 32-36 g/dl Platelet Count 282 130-400 K/uL Mean Platelet Volume 9.3 7.4-10.4 fL Neutrophils (%) (Auto) 85.5 % Lymphocytes (%) (Auto) 6.7 % Monocytes (%) (Auto) 5.6 % Eosinophils (%) (Auto) 1.5 % Basophils (%) (Auto) 0.2 % Neutrophils # (Auto) 13.03 1.4-6.5 K/uL Lymphocytes # (Auto) 1.02 1.2-3.4 K/uL Monocytes # (Auto) 0.85 0.11-0.59 K/uL Eosinophils # (Auto) 0.23 0-0.5 K/uL Basophils # (Auto) 0.03 0-0.2 K/uL RDW Standard Deviation 62.1 36.4-46.3 fL RDW Coefficient of Variation 19.2 11.5-14.5 % Immature Granulocyte % (Auto) 0.5 % Immature Granulocyte # (Auto) 0.08 0.00-0.02 K/uL Nucleated RBC Absolute Count (auto) 0.03 0-0 K/uL Nucleated Red Blood Cells % 0.2 % Toxic Granulation 1+ Dohle Bodies 1+ Anisocytosis PRESENT Sodium Level 142 136-145 mmol/L Potassium Level 4.0 3.5-5.1 mmol/L Chloride Level 110 98-107 mmol/L Carbon Dioxide Level 24 21-32 mmol/L Anion Gap 8.0 3-11 mmol/L Blood Urea Nitrogen 47 7-18 mg/dl Creatinine 5.50 0.60-1.40 mg/dl Est Creatinine Clear Calc Drug Dose 19.6 ml/min Estimated GFR () 12.9 Estimated GFR (Non- 11.1 BUN/Creatinine Ratio 8.6 10-20 Random Glucose 142 70-99 mg/dl Calcium Level 8.3 8.5-10.1 mg/dl Phosphorus Level 5.7 2.5-4.9 mg/dl Magnesium Level 2.3 1.8-2.4 mg/dl Microbiology Results 05/23/16 Gram Stain - Final, Resulted 05/23/16 Sputum Culture, Resulted Pending 05/23/16 Catheter Tip Culture, Received Pending
[2016-05-24 12:06] LABS: HEMATOCRIT 24.3 % (42-52)
[2016-05-24] MEDS: LEVOFLOXACIN / D5W 250 MG in PREMIXED IN D5W 50 ML IV SCH (13:53)
[2016-05-24 17:48] LABS: ISTAT ARTERIAL BLOOD GAS HCO3 23 meq/L (19-24); ISTAT ARTERIAL BLOOD GAS PCO2 63 mmHg (35-46); ISTAT ARTERIAL BLOOD GAS PO2 97 mmHg (80-95); ISTAT ARTERIAL BLOOD GAS pH 7.18 (7.35-7.45); ISTAT CARBON DIOXIDE 25 mEq/l (24-31); ISTAT DELIVERY SYSTEM Ventilator; ISTAT FIO2 70 %; ISTAT PEEP 8; ISTAT RATE 24; ISTAT SITE Art Line; VE 14.1; Vt 500
[2016-05-24] MEDS: VASOPRESSIN INJ 50 UNITS in SODIUM CHLORIDE 0.9% 500ML 500 ML IV SCH (18:12)
[2016-05-24] MEDS: METHYLNALTREXONE BROMIDE INJ 12 MG/0.6 ML SYR SQ SCH (18:40)
[2016-05-24 19:27] LABS: HEMATOCRIT 27.4 % (42-52); MEAN CELL VOLUME 89.5 fL (80-100); MEAN CORPUSCULAR HEMOGLOBIN 28.1 pg (25-34); MEAN PLATELET VOLUME 9.5 fL (7.4-10.4); PLATELET COUNT 220 K/uL (130-400); RED BLOOD COUNT 3.06 M/uL (4.7-6.1); WHITE BLOOD COUNT 16.17 K/uL (4.8-10.8)
[2016-05-24 19:49] LABS: MEAN CORPUSCULAR HGB CONC 31.4 g/dl (32-36)
[2016-05-24 20:06] LABS: BUN/CREATININE RATIO 8.4 (10-20); CALCIUM 8.2 mg/dl (8.5-10.1); CREATININE 5.7 mg/dl (0.60-1.40); MAGNESIUM 2.2 mg/dl (1.8-2.4); POTASSIUM 4.4 mmol/L (3.5-5.1)
[2016-05-24 20:07] LABS: PHOSPHORUS 7.6 mg/dl (2.5-4.9)
[2016-05-24] MEDS ORDERED: NURSING VERBAL MED ORDER ONE (20:45)
[2016-05-24] MEDS ORDERED: QUETIAPINE FUMARATE 200 MG TAB PO SCH (21:00)
[2016-05-24] MEDS ORDERED: BUMETANIDE IV 1 MG in SYRINGE 0 ML IV ONE (21:15)
[2016-05-24 21:23] LABS: ISTAT ARTERIAL BLOOD GAS HCO3 22 meq/L (19-24); ISTAT ARTERIAL BLOOD GAS PCO2 59 mmHg (35-46); ISTAT ARTERIAL BLOOD GAS PO2 77 mmHg (80-95); ISTAT ARTERIAL BLOOD GAS pH 7.19 (7.35-7.45); ISTAT CARBON DIOXIDE 24 mEq/l (24-31); ISTAT DELIVERY SYSTEM Ventilator; ISTAT FIO2 70 %; ISTAT PEEP 8; ISTAT RATE 26; ISTAT SITE Art Line; VE 15.5; Vt 600
--- NOTE | 2016-05-24 22:50 | CRITICAL CARE PROGRESS NOTE ---
DATE: 05/24/2016 HISTORY OF PRESENT ILLNESS: Over the course of the night last night, he started to have some bloody secretions. He tolerated his tube feeds at 10 mL per hour, but those were stopped today. I have been at his bedside multiple times today. An arterial line was placed in the left groin today without difficulty and he has received 1 unit of packed red blood cells. This morning a rash was noted on the dorsum of both hands, the elbows as well as the flanks and posterior legs. His Levophed requirements also increased today. PHYSICAL EXAMINATION: VITAL SIGNS: Maximum temperature 38.8, heart rate 120s, respiratory rate 23-30, blood pressure 91-131/50s-70s and oxygen saturation 94-98%. Ventilator settings assist control, tidal volume 600, rate 24, FiO2 50%, PEEP 8, plateau pressure 28, 24-hour fluid balance positive 1 liter yesterday. GENERAL: He is unresponsive, on a fentanyl infusion. HEENT: Pupils react bilaterally. LUNGS: Coarse and rhonchorous bilaterally. No wheezes. HEART: Tachycardic and regular. ABDOMEN: Soft, nondistended and nontender. EXTREMITIES: Warm with 2+ edema of the hands and feet. He has generalized edema as well. SKIN: There is a papular pink rash over the dorsum of both hands. There is some blister formation with a pink outline. On the flanks and on the back of the legs there is a macular erythematous rash as well. LABORATORY DATA: White blood cell count 15.24, hemoglobin 7.8 followup hemoglobin 8.6 and platelets 282. Sodium 141, potassium 4.4, chloride 108, CO2 25, BUN 49, creatinine 5.7, blood sugar 125 and phosphorus 7.6. A portable chest x-ray from this morning was reviewed and shows diffuse bilateral interstitial infiltrates, worse on the left than right. CT scan of the chest today shows diffuse multifocal patchy airspace consolidation, most confluent at the apices, left greater than right worsened from 05/17/2016, small pleural effusions, cardiomegaly, mediastinal supraclavicular and hilar lymphadenopathy. An echocardiogram done today reveals a hyperdynamic left ventricle, ejection fraction greater than 70%. The right ventricle is not well visualized - grossly normal valvular structure and function. MICROBIOLOGY DATA: Sputum culture; few gram positive cocci from 05/23/2016. Blood culture from 05/23/2016 is pending. Urine culture from 05/23/2016; less than 1000 colonies. Bronchial washings 05/20/2016; fungal culture pending, no acid fast bacilli, Arlen albicans and methicillin-sensitive staphylococcus aureus. Blood cultures from 05/16/2016; no growth. MEDICATIONS: Acetaminophen, albumin, Dulcolax, chlorhexidine, Colace, on hold, fentanyl infusion, p.r.n. fentanyl, subcutaneous heparin, imipenem day 1, insulin sliding scale, Atrovent, Levaquin day 2, linezolid, lithium, Reglan, multivitamins, norepinephrine, Zofran, Protonix, MiraLax, Seroquel and vasopressin. IMPRESSION: 1. Acute hypoxemic respiratory failure secondary to aspiration pneumonia, methicillin-sensitive staphylococcus aureus growing from the initial sputum culture as well as bronchoalveolar lavage. His antibiotics were broadened to include Zosyn several days ago with his worsening respiratory status. He was intubated on the day of transfer to the intensive care unit. His chest CT shows worsening infiltrates despite being on Zosyn. He was changed to imipenem today secondary to the rash that he has developed. He also started to have bloody secretions which seem to have improved by this evening. I think he is developing acute respiratory distress syndrome, his compliance is fair at this point. He is becoming increasingly difficult to ventilate as well. I am concerned that he is developing worsening necrotizing pneumonia. 2. Acute kidney injury, initially thought to be secondary to acute tubular necrosis after receiving Toradol earlier on his hospitalization. He is now becoming oliguric, although there are no absolute indications for dialysis presently. I did not see a note from the renal service today. He is getting albumin 12.5 grams b.i.d. 3. Metabolic encephalopathy. 4. 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 He is status post an upper endoscopy which showed food in his esophagus and no tracheoesophageal fistula. 5. Anemia; no signs of acute blood loss. Status post 1 unit of packed red blood cells today. 6. Right upper extremity deep venous thrombosis status post PICC line which was removed yesterday. He is not on intravenous heparin due to his bloody pulmonary secretions. 7. Diabetes mellitus type 2. 8. Constipation. 9. Rash, this has not looked like a typical drug rash to me. Nonetheless, the Zosyn was changed to imipenem today. 10. ARDS 11. Ongoing fever PLAN: NEUROLOGIC: I have added propofol with the hope that I may be able to manipulate his ventilator a little bit more easily. Continue on the fentanyl infusion. I have started to decrease his Seroquel and I have discontinued the Lyrica today. Consider discontinuing the lithium at this point as well due to his critical illness. PULMONARY: Continue broad-spectrum antibiotics and hold tube feeds. He has not received much in the way of tube feeds and the feeding tube was felt to be beyond the pylorus given his worsening over the past 2 days. We tried to make sure that he does not aspirate any further. Consider paralysis as well. I would like to use a low tidal volume high PEEP strategy; however, his pH is already 7.185 with a pCO2 of 58. His plateau pressure is 28. CARDIOVASCULAR: I added vasopressin today. He is total body volume overloaded and we will give him 1 mg of Bumex to try to stimulate his kidneys. RENAL: I think he is going to need CRRT for control of his acid base status and volume removal. INFECTIOUS DISEASE: He has been on several different antibiotics and is being followed by the infectious disease service. Continue linezolid, Levaquin and imipenem. I discussed his care with Dr. Ahn this morning GASTROINTESTINAL: Maintain n.p.o. He may require TPN and in the distant future a pyloroplasty should he survive this illness. HEMATOLOGIC: Consider heparin infusion if his secretions improve. ENDOCRINE: Blood sugars have been under relatively satisfactory control. I discussed his care with both his brother and sister today and tried to impress upon them how ill he is and that he may need to be transferred to a tertiary care center. I will discuss that with them again this evening as well as the primary service. They tell me he has been ill for a long time, but I expect that they will continue to desire aggressive care. Critical care time, 90 minutes excluding procedures. CARLOS
[2016-05-25] VITALS (36 sets, daily range): BP systolic 82–110; BP diastolic 40–66; PULSE 112–131; TEMP 37.3–40.5; O2SAT 89–96
--- NOTE | 2016-05-25 00:06 | Progress Note ---
Progress Note Date of Service May 24, 2016. Progress Note Adobe Developer: I spent 40 minutes speaking to family about potentially transferring this patient to a tertiary care center. He is becoming increasingly difficult to ventilate and urine output was decreased throughout the day. He is requiring more vasopressor support as well. Overall, in the past 24 hours he has worsened. When I spoke to his sister, Reena, and brother, Walter today I told them I thought he might need to be transferred in main campus medical center next 24 hours, particularly for CRRT. The patient does not have a POA and is not . He has 2 daughters - one of whom is disabled (unable to make decisions and she is also the youngest child) and the oldest, Dahlia, who lives in [place]. I spoke to Dahlia, Reena and Walter ruffin, specifically about the option to transfer. All 3 stated separately that he has not been well for a long time and he has had difficult getting through hospitalizations in the past. Dahlia, who I believe has the authority to make decisions for her father as there is no formal POA, is willing to take on that responsibility. She does not think her father would want hemodialysis or a protracted hospitalization. She has spoken to her aunt, Reena, who is also close to the patient and he had expressed that he does not want prolonged mechanical ventilation and if he were ever to get as sick as he was when he needed to spend a month in the hospital,or stay on the ventilator for more than a few days, that he would want to be "let go. I told them that with additional support that he may be able to survive this illness but that it could takes weeks to months. Dahlia has decided, in agreement with the patient' s siblings, Reena and Walter, not to pursue transfer to [facility] or hemodialysis but to continue supportive care otherwise. If he clearly is dying, they would want to withdraw care. Dalhia is trying to get a flight from [place] and may arrive Thursday. I have made him a DNR.
[2016-05-25] MEDS: LINEZOLID / D5W 600 MG in PREMIXED IN D5W 300 ML IV SCH ×2 (00:17→13:48)
[2016-05-25] MEDS: ACETAMINOPHEN SOLN 325 MG/10.15 ML UDC PO PRN ×2 (00:36→08:13)
[2016-05-25] MEDS: LEValbuterol HFA 15GM INHALER INH SCH ×4 (02:05→20:04)
[2016-05-25] MEDS: IPRATROPIUM BROMIDE HFA INHALER INH SCH ×4 (02:05→20:04)
[2016-05-25] MEDS: FENTANYL 1250MCG/250ML NSS 250 ML IV PRN ×2 (02:28→20:27)
[2016-05-25] MEDS: IMIPENEM-CILASTATIN 250 MG in DEXTROSE 5% 100ML 100 ML IV SCH ×4 (05:06→23:40)
[2016-05-25 05:31] LABS: HEMATOCRIT 26.4 % (42-52); MEAN CELL VOLUME 89.2 fL (80-100); MEAN CORPUSCULAR HGB CONC 31.4 g/dl (32-36); MEAN PLATELET VOLUME 10.4 fL (7.4-10.4); PLATELET COUNT 206 K/uL (130-400); RED BLOOD COUNT 2.96 M/uL (4.7-6.1); WHITE BLOOD COUNT 15.72 K/uL (4.8-10.8)
[2016-05-25 06:06] LABS: BASO % 0.1 %; BASO ABS # 0.02 K/uL (0-0.2); COMPLETE YES; EOS % 0.6 %; IG% 0.8 %; LYMPH ABS # 0.79 K/uL (1.2-3.4); MONO % 4.9 %; NEUT % 88.6 %; POLYCHROMASIA 1+
[2016-05-25] MEDS: METOCLOPRAMIDE HCL INJ 5 MG/ML 2 ML VIAL IV SCH ×4 (06:26→21:20)
[2016-05-25 06:35] LABS: ALB/GLOB RATIO 0.3 (0.9-2); ALKALINE PHOSPHATASE 91 U/L (45-117); ALT/SGPT < 6 U/L (12-78); AST/SGOT 20 U/L (15-37); BLOOD UREA NITROGEN 49 mg/dl (7-18); BUN/CREATININE RATIO 7.8 (10-20); CALCIUM 8.3 mg/dl (8.5-10.1); CARBON DIOXIDE 21 mmol/L (21-32); CHLORIDE 107 mmol/L (98-107); GLUCOSE 142 mg/dl (70-99); MAGNESIUM 2.4 mg/dl (1.8-2.4); PHOSPHORUS 8.5 mg/dl (2.5-4.9); POTASSIUM 4.7 mmol/L (3.5-5.1); SODIUM 139 mmol/L (136-145)
[2016-05-25] MEDS: MULTIVITAMINS W/MINERALS 15ML UDP PO SCH (07:54)
[2016-05-25] MEDS: POLYETHYLENE (MIRALAX) 17 GM PACK PO SCH (07:54)
[2016-05-25] MEDS: DOCUSATE SODIUM 100 MG/10 ML UDC PO SCH ×2 (07:54→21:20)
[2016-05-25] MEDS: CHLORHEXIDINE GLUCONATE 0.12% 480 ML MT SCH ×2 (07:55→21:22)
[2016-05-25] MEDS: INSULIN ASPART 100 UNITS/ML 3 ML PEN SC SCH ×2 (07:55→21:00)
[2016-05-25] MEDS: LITHIUM ORAL SOLN 300 MG/5ML 500ML PO SCH ×2 (07:55→21:21)
--- NOTE | 2016-05-25 07:55 | DIAGNOSTIC IMAGING REPORT ---
CHEST ONE VIEW PORTABLE CLINICAL HISTORY: Pneumonia. Respiratory failure. COMPARISON STUDY: Chest CT and chest radiograph May 24, 2016. FINDINGS: The tip of the endotracheal tube is 4 cm above the franchesca. A feeding tube is again noted. A right internal jugular central line is in place. There is no pneumothorax. Small bilateral pleural effusions persist. Extensive bilateral consolidation and interstitial thickening is similar to prior exam. IMPRESSION: 1. Satisfactory positioning of the endotracheal tube. 2. No significant change in dense bilateral consolidation and interstitial thickening which favors pneumonia. Pulmonary edema could appear similar. 3. Small bilateral pleural effusions. No pneumothorax. Electronically signed by: Yahir Rowland M.D. 05/25/2016 7:54 AM Dictated Date/Time: 05/25/2016 7:51 AM
[2016-05-25] MEDS: ALBUMIN HUMAN 25% 12.5 GM/50 ML VIAL IV SCH ×2 (07:57→20:27)
[2016-05-25] MEDS: HEPARIN SOD 5000 UNIT/0.5 ML CARP SQ SCH ×2 (07:57→21:20)
--- NOTE | 2016-05-25 08:13 | PROGRESS NOTE ---
DATE: 05/25/2016 SUBJECTIVE: The patient continues with severe respiratory failure with hypercapnia and respiratory acidosis despite high min. ventilation. He has peak pressures of 40, tidal volume of 750, now up from 600; continues to have respiratory acidosis. His secretions are thick. He is apparently a DNR now according to the notes and from request from his family members. OBJECTIVE: VITAL SIGNS: His blood pressure is 98/44, pulse is 122 and regular, respiratory rate 26 on the ventilator, oxygen saturation 95%. Peak pressures were 40. I\T\O is 2629 in and 475 out. Weight 100.8 kilograms up from 96.4 kilograms on the . I spoke with the nursing personnel today. Medications are noted. HEENT: Endotracheal tube is in good position. No subcutaneous emphysema is noted. There is no neck vein distention or HJR. HEART: Regular rate and rhythm. I do not detect any murmurs. LUNGS: Reveal coarse breath sounds bilaterally. Few crackles in the left base posterior. No fremitus is noted. ABDOMEN: Soft, nontender. EXTREMITIES: He has +1 edema of the feet with no cyanosis or clubbing noted. LABORATORY DATA: White count is 15.7, hemoglobin 8.3, hematocrit 26.4%, platelet count 206,000. Arterial blood gas pH 7.19, pCO2 of 59, pO2 of 77 on a ventilation of 15.5 liters and 70% FIO2. The creatinine is 6.3 with a BUN of 49. Magnesium was 2.4, phosphorus is 8.5. Gram stain of the sputum revealed many inflammatory cells, some Gram-positive cocci. IMPRESSION: Respiratory failure related to an acute respiratory distress syndrome like picture, pneumonia and aspiration. RECOMMENDATIONS: 1. At this point, I will try to continue to increase the min. ventilation if possible & follow peak pressures. 2. At this point, the patient is a DNR and apparently he never wanted to be intubated for more than 1 or 2 days, he does not want any other procedures done. His creatinine is worse. His weight is up, he may need some dialysis if the family would agree. At this point I think his prognosis is poor. [facility]
[2016-05-25 08:48] LABS: ISTAT ARTERIAL BLOOD GAS HCO3 19 meq/L (19-24); ISTAT ARTERIAL BLOOD GAS PCO2 46 mmHg (35-46); ISTAT ARTERIAL BLOOD GAS PO2 169 mmHg (80-95); ISTAT ARTERIAL BLOOD GAS pH 7.24 (7.35-7.45); ISTAT CARBON DIOXIDE 21 mEq/l (24-31); ISTAT DELIVERY SYSTEM Ventilator; ISTAT FIO2 80 %; ISTAT PEEP 8; ISTAT RATE 26; ISTAT SITE Art Line; VE 18.6; Vt 750
[2016-05-25] MEDS ORDERED: QUETIAPINE FUMARATE 100 MG TAB PO SCH (09:00)
[2016-05-25] MEDS: PANTOprazole INJ 40 MG in SYRINGE 0 ML IV SCH (11:26)
[2016-05-25] MEDS: NOREPINEPHRINE BIT INJ 16 MG in DEXTROSE 5% 500ML 500 ML IV PRN ×3 (11:27→22:30)
[2016-05-25] MEDS: PROPOFOL IV EMULSION 10 MG/ML 100 ML VIAL IV PRN ×2 (11:27→17:55)
[2016-05-25] MEDS ORDERED: BUMETANIDE IV 10 MG in DEXTROSE 5% 50ML 10 ML IV SCH (11:45)
[2016-05-25] MEDS ORDERED: BUMETANIDE IV 2 MG in SYRINGE 0 ML IV ONE (12:45)
--- NOTE | 2016-05-25 12:53 | DIAGNOSTIC IMAGING REPORT ---
KUB CLINICAL HISTORY: Abdominal distention. COMPARISON STUDY: KUB May 23, 2016. FINDINGS: There is oral contrast within portions of the colon from a recent barium swallow. An IVC filter is noted. This study is compromised by suboptimal penetration and motion artifact. A feeding tube may be in place. There are old left-sided rib deformities. Postsurgical finding within the spine are noted. Airspace opacities and pleural effusions are noted within visualized portions of the chest. IMPRESSION: 1. No evidence of a bowel obstruction. 2. Oral contrast within portions of the colon and rectum from barium swallow of May 19, 2016. Electronically signed by: Yahir Rowland M.D. 05/25/2016 12:52 PM Dictated Date/Time: 05/25/2016 12:48 PM
--- NOTE | 2016-05-25 12:57 | Progress Note ---
Internal Med Progress Note Date of Service: May 25, 2016. Provider Documentation: SUBJECTIVE: Patient is clinically deteriorating. Continues to be intubated sedated + Continues to have high grade fever. Rash - extremities, back Tele- Sinus tachycardia with HR in 120s Held Tube feedings On levophed - increased rate OBJECTIVE: Vital Signs-as noted below Exam: General- Intubated + Sedated + Neck- no JVD HEENT- NG tube + Lungs- (+) crackles bilaterally, no wheezes Heart- Tachycardic, sinus + Abdomen- normal bowel sounds, soft Extremities- Edema in upper extremities Neuro- Intubated/sedated Skin -Rash-Erythematous rash- b/l extremities, back - Scrotum swelling + Lab data as noted below. CT CHEST: IMPRESSION: 1. Consolidative infiltrative and/or masslike changes involving the bulk of the left upper and to a somewhat lesser extent left lower lobe regions. 2. Additional nodularity within the left hemithorax and to a somewhat lesser extent right base. 3. Progressive mediastinal and hilar adenopathy. 4. Although it is possible that central obstructing lesions may account for the peripheral consolidative change, a neoplastic process nevertheless is a diagnosis of exclusion. 5. Associated parenchymal nodularity indicates a significant possibility of metastatic change. 6. Operative changes stable from the prior exam consistent with a prior esophagectomy and anterior gastric pull-through type procedure. ASSESSMENT & PLAN: 50 year old male with history of Bipolar Disorder, Esophagectomy, GERD, PE with IVC filter presenting with cough--> severe sepsis secondary to pneumonia, likely aspiration, clinically deteriorated requiring transfer to ICU and Intubation. Continue to worsen- have high grade fever, worsening kidney function ---> Developed ARDS. Core Analyst discussed with family about transfer to tertiary center/Hemodialysis , but patient's family decided to go for comfort care per his wishes expressed in the past - no vent support for more than few days. ASSESSMENT AND PLAN: SEVERE SEPSIS/SEPTIC SHOCK WITH MULTI ORGAN FAILURE DUE TO PNEUMONIA, MSSA, ( Bilateral Lt > Rt )/ARDS - Progressively worsening Aspiration risk due to hx of esophagectomy in 2013. Patient was intubated on 05/21/16 as went into respiratory distress. -Continues to be febrile with high grade fever +, developed rash---> ARDS -IV Levophed -Been on multiple antibiotics since admission= Vancomycin x 1 day, Linezolid x 3 days, Levofloxacin, IV zosyn x 4 days----> Now broader coverage Linezolid/IV Imipenem/IV Levofloxacin per ID due to clinical deterioration. Added Flagyl, Diflucan per Core Analyst as sputum cx= ruth and persistent fever, -WORK UP- -S/P EGD on 05/20/16 - Solis's esophagus changes, tortuous esophagus, no tracheo-bronchial fistula noted -S/P Bronchoscopy on 05/20/16- There was diffuse mucus secretions obstructing the takeoff to the left mainstem in notable all the way to the secondary franchesca. The left upper lobe, lingula and left lower lobe were obstructed with gastric secretions which were suctioned clear. - Sputum culture: staph aureus, MSSA; blood culture: negative so far; (+) Nasal MRSA, Bronchoscopy cultures - MSSA/Ruth; Repeat Blood cultures/Urine CX /Sputum cx ordered on 05/23/16- negative except Sputum cx- Ruth + - ID on board ACUTE HYPOXIC RESPIRATORY FAILURE : Worsening Intubated on 05/21/16 due to respiratory distress -Secondary to Pneumonia as above. Developed ARDS -Mx per chief nurse anesthetist ACUTE RENAL FAILURE - Worsening - Likely ATN. D/D considered: Pulmonary renal syndrome- granulomatous angitis with ESR 70s, Sepsis with MOD, creatinine worsening - Crea 0.98--> 1.9 --> 3.5-->4.00-->4.70-->4.90-->5.00--> 5.50-->6.30 - Management of sepsis noted above - IV fluids discontinued on 05/21-- Received IV lasix x 1 dose on 05/20/16 - Need to closely monitor lithium levels. - Nephro consulted- F/up serologies, Complement levels, GELA, ANCA- pending RIGHT UPPER EXT THROMBUS (AXILLARY VEIN) SECONDARY TO PICC -Around PICC. -PICC line discontinued on 05/23/16 -US done on 05/23/16- confirmed axillary vein thrombosis, right side around PICC area -SQ Heparin and no IV Heparin with hemoptysis and blood on suctioning HEMOPTYSIS - Blood on suctioning + Likely from Necrotizing Pneumonia -S/P CT chest- Consolidative infiltrative and /or mass like changes in left upper/to some extent left lower lobe regions, additional nodularity within left hemithorax and to a somewhat lesser extent right base, progressive mediastinal, hilar adenopathy, central obstructing lesions may account for peripheral consolidative change, a neoplastic process nevertheless is a diagnosis of exclusion, associated parenchymal nodularity indicates a significant possibility of metastatic change; post op changes from prior esophagectomy, anterior gastric pull through type of procedure. -S/P Bronchoscopy ON 05/20/16 - There was diffuse mucus secretions obstructing the takeoff to the left mainstem in notable all the way to the secondary franchesca. The left upper lobe, lingula and left lower lobe were obstructed with gastric secretions which were suctioned clear. -Pulmonary consulted. Appreciate inputs. HX OF ESOPHAGECTOMY WITH RECONSTRUCTION Likely causing aspiration issues leading to severe pneumonia -Sx was done at [facility] in 2013 -Per cardio thoracic sx, likely has gastric outlet obstruction -Once stabilizes to consider pyloroplasty vs pyloromyotomy per his discussion with general surgery, Dr Llanos POSSIBLE BPH DM TYPE 2, New Diagnosis -HBA1C- 7.0 -ISS, Pharm and Cadd Technician Consult MOOD DISORDER - lithium dose reduced, levels to be monitored., goal 0.6-0.8 per pharmacy. - adjust to usual doses once renal function improves. HISTORY OF PE, S/P IVC FILTER PLACEMENT -on Heparin Q12 for DVT prophylaxis -monitor as patient has history of GI bleed NUTRITION -Feeding tube placed beyond pylorus -On tube feedings, but now held DISPO Prognosis- poor Discussed with Core Analyst. Dr Hernandez had a detailed discussion with family- Sister aDhlia Valles (daughter) over phone---> Patient is deteriorating, so offered to transfer to tertiary center, Hemodialysis, but family decided to make him DNR per his wishes (would not want to be on artificial ventilation > few days) . They are leaning towards comfort care and withdrawing care. Daughter trying to come here from [place]. Discussed with patient prior to intubation- If not able to make medical decisions, would want her sister, Reena [phone] to make decisions on his behalf. Vital Signs: Date Time Temp Pulse Resp B/P Pulse Ox O2 Delivery O2 Flow Rate FiO2 05/25/16 10:00 39.9 119 26 88/50 94 Mechanical Ventilator 80 96/45 05/25/16 08:00 39.0 112 26 91/52 96 Mechanical Ventilator 80 96/46 05/25/16 08:00 Mechanical Ventilator 80 05/25/16 08:00 80 05/25/16 07:08 80 05/25/16 06:00 125 26 98/44 95 91/55 05/25/16 05:30 126 26 98/44 94 82/56 05/25/16 05:16 80 05/25/16 05:00 125 26 94/43 94 91/53 05/25/16 04:15 126 26 92/43 94 05/25/16 04:00 37.3 127 26 92/44 93 95/51 05/25/16 04:00 80 05/25/16 04:00 Mechanical Ventilator 70 05/25/16 03:30 127 28 89/42 92 88/49 05/25/16 03:00 128 29 93/44 92 93/49 05/25/16 02:15 129 31 91/42 92 93/48 05/25/16 02:05 80 05/25/16 02:00 130 31 90/40 92 91/66 05/25/16 01:30 130 33 91/40 92 93/46 05/25/16 01:00 131 34 91/40 91 88/48 05/25/16 00:15 129 33 93/43 92 05/25/16 00:00 129 32 95/45 92 85/52 05/25/16 00:00 70 05/25/16 00:00 Mechanical Ventilator 70 05/24/16 23:34 70 05/24/16 23:30 127 30 93/43 94 86/49 05/24/16 23:00 125 29 98/46 94 89/55 05/24/16 22:30 124 28 99/46 95 92/55 05/24/16 22:00 123 27 101/47 95 95/56 05/24/16 22:00 123 27 101/47 95 05/24/16 21:30 122 29 97/44 96 90/53 05/24/16 21:00 122 99/46 96 89/54 05/24/16 20:52 70 05/24/16 20:30 123 27 91/40 96 86/48 05/24/16 20:00 70 05/24/16 20:00 Mechanical Ventilator 70 05/24/16 20:00 122 30 112/49 94 85/46 05/24/16 19:57 123 30 112/48 96 109/61 05/24/16 19:00 118 131/64 98 111/65 05/24/16 18:39 121 28 112/64 94 Mechanical Ventilator 70 05/24/16 18:11 36.8 123 28 100/57 96 Mechanical Ventilator 70 05/24/16 18:00 70 05/24/16 17:51 122 28 97/53 94 Mechanical Ventilator 70 05/24/16 17:37 37.2 121 28 101/57 96 Mechanical Ventilator 70 05/24/16 16:00 Mechanical Ventilator 60 05/24/16 16:00 70 05/24/16 16:00 37.1 120 28 94/57 98 Mechanical Ventilator 70 05/24/16 15:39 70 05/24/16 14:10 37.2 117 28 93/56 94 Mechanical Ventilator 70 Lab Results: Results Past 24 Hours Test 05/24/16 16:54 05/24/16 19:21 05/24/16 20:33 05/24/16 21:09 Range/Units Blood Gas Sample Site Art Line Art Line Bedside Blood Gas pH (LAB) 7.18 7.19 7.35-7.45 Bedside Blood Gas pCO2 (LAB) 63 59 35-46 mmHg Bedside Blood Gas pO2 (LAB) 97 77 80-95 mmHg Bedside Blood Gas HCO3 (LAB) 23 22 19-24 meq/L Bedside Blood Gas Total CO2 25 24 24-31 mEq/l Bedside Blood Gas Base Excess (LAB) -5.0 -6.0 -9-1.8 meq/L Bedside Blood Gas O2 Saturation 95.0 91.0 90-95 % Duglas Test NA NA Oxygen Delivery Device Ventilator Ventilator Bedside Oxygen Rate (breaths/min) 24 26 Blood Gas Minute Ventilation 14.1 15.5 Bedside FiO2 70 70 % Blood Gas Tidal Volume 500 600 Blood Gas PEEP 8 8 White Blood Count 16.17 4.8-10.8 K/uL Red Blood Count 3.06 4.7-6.1 M/uL Hemoglobin 8.6 14.0-18.0 g/dL Hematocrit 27.4 42-52 % Mean Corpuscular Volume 89.5 80-100 fL Mean Corpuscular Hemoglobin 28.1 25-34 pg Mean Corpuscular Hemoglobin Concent 31.4 32-36 g/dl RDW Standard Deviation 61.1 36.4-46.3 fL RDW Coefficient of Variation 18.5 11.5-14.5 % Platelet Count 220 130-400 K/uL Mean Platelet Volume 9.5 7.4-10.4 fL Nucleated RBC Absolute Count (auto) 0.03 0-0 K/uL Nucleated Red Blood Cells % 0.2 % Sodium Level 141 136-145 mmol/L Potassium Level 4.4 3.5-5.1 mmol/L Chloride Level 108 98-107 mmol/L Carbon Dioxide Level 25 21-32 mmol/L Anion Gap 8.0 3-11 mmol/L Blood Urea Nitrogen 49 7-18 mg/dl Creatinine 5.70 0.60-1.40 mg/dl Est Creatinine Clear Calc Drug Dose 18.9 ml/min Estimated GFR () 12.3 Estimated GFR (Non- 10.7 BUN/Creatinine Ratio 8.4 10-20 Random Glucose 125 70-99 mg/dl Calcium Level 8.2 8.5-10.1 mg/dl Phosphorus Level 7.6 2.5-4.9 mg/dl Magnesium Level 2.2 1.8-2.4 mg/dl Bedside Glucose (other) 121 70-99 mg/dl Test 05/25/16 05:11 05/25/16 08:35 Range/Units White Blood Count 15.72 4.8-10.8 K/uL Red Blood Count 2.96 4.7-6.1 M/uL Hemoglobin 8.3 14.0-18.0 g/dL Hematocrit 26.4 42-52 % Mean Corpuscular Volume 89.2 80-100 fL Mean Corpuscular Hemoglobin 28.0 25-34 pg Mean Corpuscular Hemoglobin Concent 31.4 32-36 g/dl Platelet Count 206 130-400 K/uL Mean Platelet Volume 10.4 7.4-10.4 fL Neutrophils (%) (Auto) 88.6 % Lymphocytes (%) (Auto) 5.0 % Monocytes (%) (Auto) 4.9 % Eosinophils (%) (Auto) 0.6 % Basophils (%) (Auto) 0.1 % Neutrophils # (Auto) 13.93 1.4-6.5 K/uL Lymphocytes # (Auto) 0.79 1.2-3.4 K/uL Monocytes # (Auto) 0.77 0.11-0.59 K/uL Eosinophils # (Auto) 0.09 0-0.5 K/uL Basophils # (Auto) 0.02 0-0.2 K/uL RDW Standard Deviation 62.0 36.4-46.3 fL RDW Coefficient of Variation 18.8 11.5-14.5 % Immature Granulocyte % (Auto) 0.8 % Immature Granulocyte # (Auto) 0.12 0.00-0.02 K/uL Nucleated RBC Absolute Count (auto) 0.05 0-0 K/uL Nucleated Red Blood Cells % 0.3 % Polychromasia 1+ Sodium Level 139 136-145 mmol/L Potassium Level 4.7 3.5-5.1 mmol/L Chloride Level 107 98-107 mmol/L Carbon Dioxide Level 21 21-32 mmol/L Anion Gap 11.0 3-11 mmol/L Blood Urea Nitrogen 49 7-18 mg/dl Creatinine 6.30 0.60-1.40 mg/dl Est Creatinine Clear Calc Drug Dose 17.2 ml/min Estimated GFR () 10.9 Estimated GFR (Non- 9.4 BUN/Creatinine Ratio 7.8 10-20 Random Glucose 142 70-99 mg/dl Calcium Level 8.3 8.5-10.1 mg/dl Phosphorus Level 8.5 2.5-4.9 mg/dl Magnesium Level 2.4 1.8-2.4 mg/dl Total Bilirubin 0.4 0.2-1 mg/dl Aspartate Amino Transf (AST/SGOT) 20 15-37 U/L Alanine Aminotransferase (ALT/SGPT) < 6 12-78 U/L Alkaline Phosphatase 91 45-117 U/L Total Protein 6.0 6.4-8.2 gm/dl Albumin 1.5 3.4-5.0 gm/dl Globulin 4.5 2.5-4.0 gm/dl Albumin/Globulin Ratio 0.3 0.9-2 Blood Gas Sample Site Art Line Bedside Blood Gas pH (LAB) 7.24 7.35-7.45 Bedside Blood Gas pCO2 (LAB) 46 35-46 mmHg Bedside Blood Gas pO2 (LAB) 169 80-95 mmHg Bedside Blood Gas HCO3 (LAB) 19 19-24 meq/L Bedside Blood Gas Total CO2 21 24-31 mEq/l Bedside Blood Gas Base Excess (LAB) -8.0 -9-1.8 meq/L Bedside Blood Gas O2 Saturation 99.0 90-95 % Duglas Test NA Oxygen Delivery Device Ventilator Bedside Oxygen Rate (breaths/min) 26 Blood Gas Minute Ventilation 18.6 Bedside FiO2 80 % Blood Gas Tidal Volume 750 Blood Gas PEEP 8
[2016-05-25] MEDS ORDERED: FLUCONAZOLE / NSS 200 MG in PREMIXED NSS 100 ML IV ONE (13:00)
[2016-05-25] MEDS: VASOPRESSIN INJ 50 UNITS in SODIUM CHLORIDE 0.9% 500ML 500 ML IV SCH (13:48)
[2016-05-25] MEDS: LEVOFLOXACIN / D5W 250 MG in PREMIXED IN D5W 50 ML IV SCH (15:10)
[2016-05-25] MEDS: METRONIDAZOLE / NSS 500 MG in PREMIXED NSS 100 ML IV SCH ×2 (15:10→22:29)
--- NOTE | 2016-05-25 15:14 | SURGERY PROGRESS NOTE ---
DATE: 05/25/2016 Mr. Alvarez was evaluated today on 05/25/2016. He looks terrible. Renal failure is progressing. His A-a gradient is increasing. His lungs are becoming stiffer. His CT scan from yesterday looks just terrible, but there is nothing surgical or intervention that I can do to help this man.
--- NOTE | 2016-05-25 15:38 | PROGRESS NOTE ---
DATE: 05/25/2016 The patient's condition is very critical. In fact I would say he is actively dying. His urine output is decreasing rapidly. He is intubated and sedated on multiple pressors and increasing dose. I reviewed the note from the hospitalist and as of now, the patient is no dialysis, DNR/DNI. He is not making a whole lot of urine. PHYSICAL EXAMINATION: VITAL SIGNS: Blood pressure is 102/50 with multiple pressors, temperature 39.5 degrees Celsius, 92% on mechanical ventilator. HEENT: Mucous membrane is moist. NECK: Supple. LUNGS: Bilateral decreased breath sounds, bilateral rhonchi. CARDIOVASCULAR: Tachycardic, 2/6 systolic murmur heard. ABDOMEN: Soft, nontender. EXTREMITIES: Show 2-3+ edema, especially in the thigh and the upper extremities. LABORATORY TESTS: From this morning show a hemoglobin of 8.3, WBC count of 15.72, platelet count 206. Renal function is getting worse, sodium 139, potassium 4.7, BUN 49, creatinine 6.3, calcium 8.3, phosphorus 8.5, albumin 1.5. ASSESSMENT AND PLAN: A 50-year-old male with multisystem organ failure, sepsis. He does have rapidly worsening clinical status at this time. Acute kidney injury. This is from acute tubular necrosis. He was making good amount of urine, but his urine output has actually gone down and is rapidly decreasing. Family has decided not to do dialysis. He is in fact now a DNR/DNI and there is a thought of making him comfort care. One of the daughters who lives in [place] is planning to come. I do not think patient has long time to survive, he is actively dying, no dialysis. CARLOS
[2016-05-25] MEDS ORDERED: ACETAMINOPHEN IV ONE (16:15)
[2016-05-25] MEDS ORDERED: NURSING VERBAL MED ORDER ONE (16:15)
--- NOTE | 2016-05-25 17:30 | CRITICAL CARE PROGRESS NOTE ---
DATE: 05/25/2016 SUBJECTIVE: The patient's care was discussed in detail with his bedside nurse, Pantera. He has been persistently febrile with the maximum temperature of 39 and he has required increasing vasopressor support overnight last night and through part of the day today. I discussed the option of transfer to a tertiary care facility with his daughter, sister and brother last night and after discussing things amongst themselves, they had decided to make him a do not resuscitate code status and to forego hemodialysis. At this point, I believe his daughter is trying to find a way to get to [place] from [place] in order to see her father. This morning, Dr. Villegas increased his tidal volume to 750 mL secondary to his acidosis. He is having bloody secretions today, although they reported to be less bright compared to yesterday. He remains off tube feeds and is on norepinephrine at 0.5 mcg per kilogram per minute, vasopressin 0.04 units per minute, propofol 15 mcg per kilogram per minute and fentanyl 50 mcg per hour. He has not had a bowel movement since admission. PHYSICAL EXAMINATION: VITAL SIGNS: Maximum temperature 39, heart rate 120s, respiratory rate 26-32, blood pressure 90s/40s-50s and oxygen saturations 92%-96%. VENTILATOR SETTINGS: Assist control, tidal volume 650, rate 26, FiO2 at 80%, and PEEP 8. 24-hour fluid balance is positive 2.1 liters. GENERAL: He is unresponsive and tachypneic. NEUROLOGIC: He does not withdraw to painful stimulation. HEENT: Pupils react bilaterally. LUNGS: Coarse throughout. No wheezing. HEART: Tachycardic, regular. ABDOMEN: Firm, mildly distended, hypoactive bowel sounds. EXTREMITIES: With anasarca. SKIN: Shows clusters of erythematous blistering over the hands and arms. There is a macular erythematous rash on his flanks, back and legs. LABORATORY DATA: White blood cell count 15.72, hemoglobin 8.3, hematocrit 26.4, and platelets 206. ABG, pH 7.24, pCO2 of 46, pO2 of 169, and HCO3 of 19. Sodium 139, potassium 4.7, chloride 107, CO2 of 21, BUN 49, creatinine 6.3, blood sugar 142, calcium 8.3, and phosphorus 8.5. Total protein 6 and albumin 1.5. MICROBIOLOGY DATA: Reviewed. Portable chest x-ray from this morning was reviewed and shows no significant change in bilateral consolidations and interstitial thickening. Small bilateral pleural effusions. KUB from this afternoon shows no evidence of obstruction. Barium is still in the colon. MEDICATIONS AND INFUSIONS: Acetaminophen, albumin, Dulcolax, Bumex, chlorhexidine, Colace, fentanyl, fluconazole, subcutaneous heparin, imipenem, insulin, Atrovent, Xopenex, Levaquin, linezolid, lithium, Relistor, Reglan, Flagyl, multivitamin, norepinephrine, Zofran, Protonix, MiraLax, propofol, Seroquel, and vasopressin. IMPRESSION: 1. Acute hypoxemic respiratory failure, secondary to aspiration pneumonia and methicillin-sensitive Staph aureus. Antibiotics were adjusted yesterday to include imipenem secondary to his rash. The Zosyn was discontinued. Today, due to his ongoing worsening, I added Flagyl as well as fluconazole. He has developed acute respiratory distress syndrome and has poor compliance. I took his tidal volume back down to 650 mL, which is still higher than I would like. I am concerned that he has necrotizing pneumonia. 2. Acute kidney injury, worsening. Family has decided against dialysis along with transfer to tertiary care. 3. Metabolic encephalopathy. 4. Right upper extremity deep venous thrombosis. 5. History of esophagectomy and gastric pull-up secondary to esophageal rupture and presumed pyloric dysfunction, tracheoesophageal fistula has been ruled out. He has not been getting tube feeds secondary to concerns of aspiration. 6. Anemia, status post 1 unit packed red blood cells. 7. Diabetes mellitus type 2. 8. Constipation. 9. Rash. I think what is on his hands may be impetigo and the rash on his flanks and back is different and the etiology is unclear. 10. History of bipolar disorder. 11. History of Solis's esophagus. 12. History of IVC filter. 13. Persistent fever. PLAN: NEUROLOGIC: I increased his sedation last evening due to difficulty ventilating him. Continue the propofol and fentanyl. PULMONARY: His airway pressures are higher than I would like him to be. His compliance is terrible with his ARDS. Could consider APRV, but in light of his family, which seems to be preparing for withdrawal of care, I will hold on that for now. Family have communicated that he did not want to be on a ventilator at all and that if he was on the ventilator, he only want to be on for a few days. CARDIOVASCULAR: I think he is still in septic shock. Epinephrine is another option for his hypotension. This may just make him more tachycardic. RENAL: No plans for dialysis as his family reports that he was very clear about his wishes should he become critically ill again. GASTROINTESTINAL: Maintain n.p.o. status. He would require TPN if we were to continue forward. Consider CT of the abdomen. I have ordered it this morning, but in light of family wishes, If he had a surgical problem, I do not believe he would be a surgical candidate. HEMATOLOGY: No signs of active bleeding. ____, watch for any bleeding. Continue DVT and GI prophylaxis. Overall, he has continued to worsen. His brother and sister seem to be prepared to change the goals of care to comfort based on the patient's wishes. Although, I think he may be able to survive this illness. It would take a very long time and he is in multisystem organ failure at present. I will try to touch base with his daughter, who is helping to make decisions for him. He may before she arrived from [place]. He remains DNR code status. Please call me with any questions or concerns. Critical care time 60 minutes.
--- NOTE | 2016-05-25 20:03 | Progress Note ---
Progress Note Date of Service May 25, 2016. Progress Note Adolescent Psychiatrist: I spoke to Dahlia (daughter/decision maker) and she is taking [employer] from [place] to [place]. She will arrive in [place] on Thursday. I described how ill her father is due what I believe is an overwhelming staph infection and that he may not live until then. She would like us to try to support him until she can het here. We discussed forgoing further procedures and workup such as CT scans.and she agrees. We will continue to follow labs and give medications including pressors. We discussed comfort care as well and I will consult the palliative care service. Dahlia's phone number is [phone].
[2016-05-26] VITALS (68 sets, daily range): BP systolic 82–284; BP diastolic 36–196; PULSE 90–115; TEMP 36.1–37.4; O2SAT 88–98
[2016-05-26] MEDS: LINEZOLID / D5W 600 MG in PREMIXED IN D5W 300 ML IV SCH (01:02)
[2016-05-26] MEDS: LEValbuterol HFA 15GM INHALER INH SCH ×4 (01:55→19:11)
[2016-05-26] MEDS: IPRATROPIUM BROMIDE HFA INHALER INH SCH ×4 (01:55→19:11)
[2016-05-26] MEDS: BUMETANIDE IV 10 MG in DEXTROSE 5% 50ML 10 ML IV SCH (04:26)
[2016-05-26] MEDS: NOREPINEPHRINE BIT INJ 16 MG in DEXTROSE 5% 500ML 500 ML IV PRN ×3 (04:57→21:12)
[2016-05-26] MEDS: IMIPENEM-CILASTATIN 250 MG in DEXTROSE 5% 100ML 100 ML IV SCH (05:28)
[2016-05-26] MEDS: METRONIDAZOLE / NSS 500 MG in PREMIXED NSS 100 ML IV SCH (05:58)
[2016-05-26] MEDS: METOCLOPRAMIDE HCL INJ 5 MG/ML 2 ML VIAL IV SCH ×4 (05:58→21:14)
--- NOTE | 2016-05-26 07:04 | OPERATIVE REPORT ---
DATE OF OPERATION: 05/23/2016 PROCEDURE: Right internal jugular triple lumen catheter placement. PREPROCEDURE DIAGNOSES: Acute hypoxemic respiratory failure and pneumonia. POSTPROCEDURE DIAGNOSES: Same. INDICATION: Need for PICC line removal secondary to thrombus and to establish alternative IV access. DESCRIPTION OF PROCEDURE: After informed consent was obtained, a timeout was performed. I donned a half mask, sterile gown, sterile gloves and prepared the right neck, chest and shoulder with chlorhexidine. This was allowed to dry before I draped the patient in sterile fashion from the head to toe. One mL of 1% lidocaine was used to numb the skin adjacent to the right internal jugular vein. An 18-gauge needle was then passed into the right internal jugular vein on the first pass with the use of ultrasound. The syringe was removed and a wire was placed through the needle. The needle was removed and a #11 scalpel blade was used to make a marce in the skin, adjacent to the wire. The vein was then dilated in the usual fashion using the dilator from the Arrow triple lumen kit. The dilator was removed and the triple lumen catheter was placed over the wire. The wire was removed. All of this was done in typical Seldinger technique. All 3 ports had good blood flow and flushed easily. Followup chest x-ray is pending. I attest to the content of the Intraoperative Record and any orders documented therein. Any exceptio ns are noted below.
--- NOTE | 2016-05-26 07:11 | OPERATIVE REPORT ---
DATE OF OPERATION: 05/24/2016 PROCEDURE: Left femoral arterial line placement. PREPROCEDURE DIAGNOSIS: Respiratory failure. POSTPROCEDURE DIAGNOSIS: Same. INDICATION: Continuous blood pressure monitoring and ABG draws. DESCRIPTION OF PROCEDURE: After informed consent was obtained, a timeout was performed. The patient was placed supine. I donned a hat mask, sterile gown and sterile gloves after preparing the left groin with chlorhexidine. This was allowed to dry and I draped the patient in sterile fashion from head to toe. 2 mL of 1% lidocaine were used to numb the skin and subcutaneous tissues adjacent to the left femoral artery which was identified via ultrasound. I then passed a 20-gauge needle into the artery. I was able to cannulate the artery on the first pass. However, I had difficulty threading the needle. I then removed the wire and the needle and held pressure. Hemostasis was achieved. I then repeated the cannulation, however, I did hit the vein before I cannulated the artery again. A wire was passed through the needle and the needle was removed. A 20-gauge arterial catheter was then placed over the wire and the wire was removed. I attached the catheter to a transducer tubing and sutured it into place. There was no hematoma and the patient tolerated the procedure well. I attest to the content of the Intraoperative Record and any orders documented therein. Any exceptio ns are noted below.
[2016-05-26] MEDS: MULTIVITAMINS W/MINERALS 15ML UDP PO SCH (08:05)
[2016-05-26] MEDS: CHLORHEXIDINE GLUCONATE 0.12% 480 ML MT SCH ×2 (08:05→21:14)
[2016-05-26] MEDS: POLYETHYLENE (MIRALAX) 17 GM PACK PO SCH (08:07)
[2016-05-26] MEDS: LITHIUM ORAL SOLN 300 MG/5ML 500ML PO SCH (08:07)
[2016-05-26] MEDS: DOCUSATE SODIUM 100 MG/10 ML UDC PO SCH ×2 (08:07→21:13)
[2016-05-26] MEDS: HEPARIN SOD 5000 UNIT/0.5 ML CARP SQ SCH ×2 (08:22→21:13)
[2016-05-26] MEDS ORDERED: CLINDAMYCIN IV 900 MG in DEXTROSE 5% ADD-VANTAGE 100ML 100 ML IV ONE (08:30)
[2016-05-26] MEDS: PANTOprazole INJ 40 MG in SYRINGE 0 ML IV SCH (09:38)
[2016-05-26] MEDS: INSULIN ASPART 100 UNITS/ML 3 ML PEN SC SCH ×2 (11:09→21:52)
--- NOTE | 2016-05-26 11:18 | Palliative Care Consultation ---
Consultation Date of Consultation: May 26, 2016. Requesting Physician: Dr. Burnett Attending Physician: Dr. Burnett, Dr. Cynthia Nicholson Reason for Consultation: Goals of care History of Present Illness This 50 year old male patient presented to the ED 10 days ago with complaints of a cough for about 1-2 weeks with green/blood-tinged sputum. History obtained from record as patient is intubated/sedated. A CXR was done and he was found to have left lung pneumonia. Patient has a complicated past medical history of Solis's esophagus and strictures, esophageal rupture with reconstruction, and others listed below. In ED, he had elevated WBC, tachycardia, lactic acid 2.4, BP stable. Was given IVF, started on Levaquin and Zosyn, admitted to telemetry. He was evaluated by pulmonology-- CT chest showed diffuse consolidative infiltrative process in left upper lingula and lower lobe, infiltrative process on right lower lobe, and mediastinal lymphadenopathy. Patient found to have necrotizing pneumonia likely secondary to aspiration. Pulm suggested having GI and CT-surgery consults. CT surgery believed patient to have mechanical obstruction of gastric outlet, possible but less likely a esophago-tracheal fistula. GI saw patient and scheduled him for EGD 05/20 which showed esophageal mucosal changes-- biopsy taken, esophago-gastric anastomosis, and food residue in esophagus (which was lavaged) suggesting slow GI motility. No evidence of fistula. He developed RICARDO, with no history of any renal insufficiency, secondary to acute tubular necrosis. Barium swallow study showed aspiration. He had undergone bronchoscopy 05/20 which showed gastric secretions in the trachea as well as diffuse mucous secretions obstructing the takeoff into the left mainstem notable all the way down to the second franchesca. The left upper lobe lingula and left lower lobe were obstructed with gastric secretions which were suctioned clear. Patient's condition continued to worsen, tenuous respiratory status on 50% oxygen mask and transfer to ICU. Patient ended up intubated with worsening kidney failure, oliguria, no bowel movement since admission and required to stop tube feedings. Dr. Hernandez, tip puncher physician, discussed the patient's care with his sister, Reena Dillard, and other family members and presented the option of transfer to tertiary care. The family stated that the patient would not want that and they opted to keep him here and continue current care until the patient's daughter, Dahlia, arrived here from [place]. Palliative care consulted to assist with establishing goals of care and provide support to the family. I saw and examined the patient in room 112. He is sedated on propofol and intubated. Propofol dose had just been decreased by RN, patient did not have any response to verbal or noxious stimuli. Did have corneal response and gag reflex. RN reported that while propofol was shut off, his response was the same. Not moving extremities and has no purposeful movement at this time. He is on IV vasopressin and norepinephrine, on Bumex drip and several antibiotics. His sister, Reena Dillard, and cousin, Patricia, came into room. Reena has been acting as the patient's decision maker with the support from his daughter, Dahlia, in [place]. Reena stated that the patient "has been through a lot," and verbalized to her and his daughter many times that he did not want any heroic measures to keep him alive. He would never want to be in this critically ill state for a prolonged period of time. In fact, it took his family "talking him into it" to even be intubated to give him a fighting chance to survive this illness. Reena states that the patient told her and their brother that he would only want to be intubated for a few days and if he did not recover or show signs of improvement, that he would want "to be let go." Reena states that the family has decided that they will make patient comfort measures only and do a terminal extubation once Dahlia has arrived from [place] tomorrow afternoon and has had a chance to say goodbye. They have made this decision on behalf of the patient's wishes. Past Medical/Surgical History Medical History: Solis's esophagus Bipolar disorder Esophageal perforation GERD GI Bleed History of narcotic abuse Esophageal ulcer Lumbar disc disease IVC filter Pulmonary embolism Pulmonary nodule Seizure disorder Surgical History: Appendectomy Bronchoscopy EGD Claviculectomy Hernia repair Jejunostomy Esophagectomy Social History Smoking Status: Never Smoker Marital Status: Housing Status: other (boarding home) Review of Systems unable to obtain ROS- patient intubated and sedated Allergies Coded Allergies: Tramadol (Verified Allergy, Unknown, seizures, 05/16/16) Medications Current Inpatient Medications Medications (Trade) Dose Ordered Sig/Shemar Route Start Time Stop Time Status Last Admin Dose Admin Ondansetron HCl (Zofran Inj) 4 mg Q6H PRN IV 05/16/16 14:15 06/15/16 14:14 Heparin Sodium (Porcine) (Heparin 10 Unit/ ml 5 ml Flush) 1 ml PRN PRN FLUSH 05/18/16 00:30 06/17/16 00:29 05/20/16 05:49 1 ML Heparin Sodium (Porcine) (Heparin Sq 5000 Unit/0.5ml) 5,000 unit Q12 SQ 05/18/16 21:00 06/17/16 20:59 05/26/16 08:22 5,000 UNIT Glucose (Glucose 40% Gel) 15-30 GRAMS 15 GRAMS... UD PRN PO 05/19/16 08:00 06/18/16 07:59 Glucose (Glucose Chew Tab) 4-8 Tablets 4 Tabl... UD PRN PO 05/19/16 08:00 06/18/16 07:59 Dextrose (Dextrose 50% 50ML Syringe) 25-50ML OF 50% DW IV FOR... UD PRN IV 05/19/16 08:00 06/18/16 07:59 05/24/16 00:28 25 ML Glucagon (Glucagon Inj) 1 mg UD PRN SQ 05/19/16 08:00 06/18/16 07:59 Miscellaneous Information (Consult Glycemic Management Pharmacy) 1 ea UD PRN N/A 05/19/16 07:58 06/18/16 07:57 Keener Citrate 75 mg 75 mg BID PO 05/19/16 11:00 06/18/16 10:59 Future hold 05/26/16 08:07 75 MG Acetaminophen/ Empty Bag (Ofirmev Iv/ Empty Iv Bag 100ml) 65 ml @ 400 mls/hr Q6H PRN IV 05/19/16 12:30 06/18/16 12:29 05/25/16 14:21 400 MLS/HR Metoclopramide HCl (Reglan Inj) 5 mg ACHS IV 05/20/16 21:00 06/19/16 20:59 05/26/16 05:58 5 MG Methylnaltrexone [place] (Relistor Inj) 12 mg Q2D SQ 05/20/16 18:30 06/19/16 18:29 05/24/16 18:40 12 MG Fentanyl Citrate (Fentanyl Inj) 50 mcg Q3H PRN IV 05/21/16 20:15 06/04/16 20:14 Levalbuterol (Xopenex Hfa Inhaler) 6 puffs Q6R INH 05/21/16 21:00 06/20/16 20:59 05/26/16 07:27 6 PUFFS Ipratropium [place] (Atrovent Hfa Inhaler) 6 puffs Q6R INH 05/21/16 21:00 06/20/16 20:59 05/26/16 07:27 6 PUFFS Chlorhexidine Gluconate 15 ml 15 ml BID MT 05/21/16 21:00 06/20/16 20:59 05/26/16 08:05 15 ML Pantoprazole Sodium/Syringe (Protonix Inj/ Syringe) 10 ml @ 5 mls/min DAILY@11 IV 05/22/16 11:00 06/21/16 10:59 05/25/16 11:26 5 MLS/MIN Docusate Sodium (coLACE SYRUP) 100 mg BID PO 05/22/16 09:00 06/21/16 08:59 05/26/16 08:07 100 MG Polyethylene 17 gm 17 gm QAM PO 05/22/16 09:00 06/21/16 08:59 05/26/16 08:07 17 GM Fentanyl Citrate (Fentanyl Drip 1250MCG/250 Nss) 250 ml @ 0 mls/hr Q0M PRN IV 05/22/16 19:00 06/05/16 18:59 05/25/16 20:27 10 MLS/HR Bisacodyl (Dulcolax Supp) [address] 05/23/16 08:45 06/22/16 08:44 05/24/16 13:53 10 MG Multivitamins Therapeutic 15 ml 15 ml QAM PO 05/24/16 09:00 06/23/16 08:59 05/26/16 08:05 15 ML Levofloxacin 250 mg/Prmx 50 ml @ 50 mls/hr Q24H IV 05/24/16 14:00 06/02/16 13:59 05/25/16 15:10 50 MLS/HR Linezolid/Prmx (Zyvox / D5W/ Premixed D5W) 300 ml @ 300 mls/hr Q12H IV 05/24/16 00:00 05/28/16 23:59 05/26/16 01:02 300 MLS/HR Acetaminophen (Tylenol Soln) 650 mg Q4H PRN PO 05/23/16 12:15 06/22/16 12:14 05/25/16 08:13 650 MG Insulin Aspart SLIDING SCALE If C... Q12 SC 05/23/16 21:00 06/22/16 20:59 Norepinephrine Bitartrate/ Dextrose (Levophed Inj/ D5W 500ml) 516 ml @ 0 mls/hr Q0M PRN IV 05/24/16 07:15 06/23/16 07:14 05/25/16 22:30 70 MLS/HR Enteral Nutritional Formula 1000 ml 1,000 ml UD OG 05/24/16 10:30 06/23/16 10:29 Imipenem/ Cilastatin Sodium/ Dextrose (Primaxin Iv/D5 100ml) 110 ml @ 100 mls/hr Q6H IV 05/24/16 11:00 05/31/16 10:59 05/26/16 05:28 100 MLS/HR Imipenem/ Cilastatin Sodium (Consult) 1 ea UD PRN N/A 05/24/16 11:00 06/23/16 10:59 Levofloxacin 1 ea 1 ea UD PRN N/A 05/24/16 11:15 06/23/16 11:14 Vasopressin/ Sodium Chloride (Pitressin Synthetic Inj/Nss 500ml) 502.5 ml @ 24 mls/hr [id number] IV 05/24/16 18:00 06/23/16 17:59 05/25/16 13:48 24 MLS/HR Propofol 1 dose 1 dose UD PRN IV 05/24/16 21:00 05/27/16 20:59 05/25/16 17:55 1 DOSE Metronidazole 500 mg/Prmx 100 ml @ 100 mls/hr Q8H IV 05/25/16 14:00 06/01/16 13:59 05/26/16 05:58 100 MLS/HR Fluconazole/ Sodium Chloride 100 mg/Prmx 50 ml @ 100 mls/hr DAILY@1300 IV 05/26/16 13:00 05/31/16 23:59 Bumetanide/ Dextrose (Bumex IV/D5 50ml) 50 ml @ 2.5 mls/hr Q20H IV 05/26/16 04:15 06/25/16 04:14 05/26/16 04:26 2.5 MLS/HR Physical Exam Date Time Temp Pulse Resp B/P Pulse Ox O2 Delivery O2 Flow Rate FiO2 05/26/16 07:27 100 05/26/16 05:45 98 26 104/51 94 100 92/60 05/26/16 05:30 99 26 103/50 94 100 99/59 05/26/16 05:15 99 26 103/48 94 100 91/61 05/26/16 05:13 100 05/26/16 05:00 99 26 106/51 94 100 92/65 05/26/16 04:45 99 26 105/50 93 100 97/63 05/26/16 04:30 99 26 107/51 93 100 88/62 05/26/16 04:15 99 26 105/49 93 100 99/63 05/26/16 04:00 100 05/26/16 04:00 36.1 100 26 108/51 92 100 90/64 05/26/16 04:00 Mechanical Ventilator 80 05/26/16 03:45 102 26 109/50 92 100 98/63 05/26/16 03:30 100 26 112/51 92 100 97/67 05/26/16 03:15 101 26 114/53 92 100 96/64 05/26/16 03:00 101 26 113/52 92 100 99/66 05/26/16 02:45 104 27 113/51 91 100 103/64 05/26/16 02:30 102 26 117/54 90 100 95/68 05/26/16 02:15 103 27 118/54 90 100 100/66 05/26/16 02:00 104 27 117/53 91 100 103/67 05/26/16 01:55 100 05/26/16 01:45 104 26 118/55 91 100 109/73 05/26/16 01:30 105 27 117/54 91 100 96/67 05/26/16 01:15 107 27 112/51 88 100 93/65 05/26/16 01:00 107 26 110/51 88 100 90/61 05/26/16 00:45 109 26 109/52 90 100 96/61 05/26/16 00:30 110 27 107/50 90 90 91/59 05/26/16 00:15 111 26 107/51 90 Mechanical Ventilator 90 88/61 05/26/16 00:01 Mechanical Ventilator 80 05/26/16 00:01 90 05/26/16 00:00 37.2 112 27 107/50 90 Mechanical Ventilator 90 92/60 05/25/16 23:45 113 27 105/48 91 Mechanical Ventilator 90 91/60 05/25/16 23:30 114 27 105/49 91 Mechanical Ventilator 90 90/59 05/25/16 23:15 90 05/25/16 23:15 116 27 104/47 90 Mechanical Ventilator 90 90/57 05/25/16 23:00 117 29 101/45 89 Mechanical Ventilator 90 90/57 05/25/16 22:45 118 28 101/46 89 Mechanical Ventilator 80 90/57 05/25/16 22:30 38.2 119 30 103/48 90 Mechanical Ventilator 80 92/56 05/25/16 22:15 120 29 96/44 89 Mechanical Ventilator 80 87/58 05/25/16 22:00 121 30 96/45 89 Mechanical Ventilator 80 87/54 05/25/16 21:30 121 28 91/42 90 Mechanical Ventilator 80 87/53 05/25/16 21:15 121 30 97/47 90 Mechanical Ventilator 80 86/56 05/25/16 21:00 123 29 97/47 90 Mechanical Ventilator 80 87/54 05/25/16 20:45 123 30 96/46 91 Mechanical Ventilator 80 91/51 05/25/16 20:30 124 31 91/48 90 Mechanical Ventilator 80 83/53 05/25/16 20:15 123 30 95/47 91 Mechanical Ventilator 80 87/53 05/25/16 20:04 80 05/25/16 20:00 40.4 124 33 95/44 91 Mechanical Ventilator 80 92/50 05/25/16 20:00 Mechanical Ventilator 80 05/25/16 20:00 80 05/25/16 19:45 125 32 110/55 Mechanical Ventilator 80 89/54 05/25/16 19:15 40.4 125 31 100/47 94 Mechanical Ventilator 80 101/48 05/25/16 19:00 40.5 126 31 103/48 94 Mechanical Ventilator 80 92/54 05/25/16 18:23 40.3 125 26 97/54 94 Mechanical Ventilator 80 109/54 05/25/16 16:00 Mechanical Ventilator 80 05/25/16 16:00 39.5 125 26 101/56 92 Mechanical Ventilator 80 106/52 05/25/16 16:00 80 05/25/16 14:46 80 05/25/16 14:06 39.5 123 26 102/50 92 Mechanical Ventilator 80 102/50 05/25/16 12:00 Mechanical Ventilator 80 05/25/16 12:00 80 05/25/16 11:30 80 General Appearance: no apparent distress ENT: + pertinent finding (ETT and coresafe feeding tube in mouth) Neck: no JVD Respiratory: no accessory muscle use, + rhonchi (coarse throughout) Cardiovascular: + tachycardia, + normal peripheral pulses, + pertinent finding (+2-3 pitting edema to bilateral ankles, +1 pitting edema to bilateral feet) Abdomen: + distended, + pertinent finding (I could not appreciate any bowel sounds) Neurologic/Psychiatric: + pertinent finding (obtunded) Skin: + pallor Laboratory Results Last 24 Hours Test 05/25/16 18:41 05/25/16 22:02 Total Creatine Kinase 94 U/L Bedside Glucose (other) 144 mg/dl Assessment & Plan Palliative Performance Scale: 10 % Problem list: Septic shock with Multi-system organ failure 2/2 necrotizing pneumonia, MSSA Aspiration in the setting of Solis's esophagus s/p esophagectomy and presumed pyloric dysfunction Respiratory failure- ARDS Renal failure RUE thrombus 2/2 PICC Hemoptysis NPO and no tube feedings Anemia Goals of care (Z51.5) Palliative care plan: discussed with patient's sister, Reena Nishant, and Dr. Burnett. -Patient is a DNR. -No escalation of care. Continue current treatment and supportive care until the daughter, Dahlia, is able to arrive from [place]. Reena states that the patient only wanted a few days on the ventilator to see if there was any improvement, and if not he wanted to be "let go." Specifically, she states he would not want a feeding tube, trach, or dialysis. She stated, "He would be so mad if we even let this go on for this long, but we want his daughter to be able to say goodbye." They understand that the patient could take a turn for the worst at any point and pass away, they would not want any further heroic measures in that case. -Patient will be made comfort measures only with terminal extubation once all family is together and able to make the decision as to when this will happen. Thank you kindly for this consult. I will follow along and support family through this process.
[2016-05-26] MEDS: VASOPRESSIN INJ 50 UNITS in SODIUM CHLORIDE 0.9% 500ML 500 ML IV SCH (12:11)
[2016-05-26] MEDS: LEVOFLOXACIN / D5W 250 MG in PREMIXED IN D5W 50 ML IV SCH (12:40)
[2016-05-26] MEDS ORDERED: FLUCONAZOLE / NSS 100 MG in PREMIXED NSS 50 ML IV SCH (13:00)
[2016-05-26] MEDS ORDERED: MIDAZOLAM 125MG/250ML D5W 250 ML IV PRN (13:08)
--- NOTE | 2016-05-26 15:09 | Progress Note ---
Internal Med Progress Note Date of Service: May 26, 2016. Provider Documentation: SUBJECTIVE: Patient is clinically deteriorating. Continues to be intubated sedated + Continues to have high grade fever. Tele- Sinus tachycardia with HR in 120s OBJECTIVE: Vital Signs-as noted below Exam: General- Intubated + Sedated + Neck- no JVD HEENT- NG tube + Lungs- (+) crackles bilaterally, no wheezes Heart- Tachycardic, sinus + Abdomen- normal bowel sounds, soft Extremities- Edema in upper extremities Neuro- Intubated/sedated Skin -Rash-Erythematous rash- b/l extremities, back - Scrotum swelling + Lab data as noted below. CT CHEST: IMPRESSION: 1. Consolidative infiltrative and/or masslike changes involving the bulk of the left upper and to a somewhat lesser extent left lower lobe regions. 2. Additional nodularity within the left hemithorax and to a somewhat lesser extent right base. 3. Progressive mediastinal and hilar adenopathy. 4. Although it is possible that central obstructing lesions may account for the peripheral consolidative change, a neoplastic process nevertheless is a diagnosis of exclusion. 5. Associated parenchymal nodularity indicates a significant possibility of metastatic change. 6. Operative changes stable from the prior exam consistent with a prior esophagectomy and anterior gastric pull-through type procedure. ASSESSMENT & PLAN: 50 year old male with history of Bipolar Disorder, Esophagectomy, GERD, PE with IVC filter presented with cough --> severe sepsis secondary to pneumonia, likely aspiration (MSSA per culture results), clinically deteriorated requiring transfer to ICU and Intubation. Continued to worsen- high grade fever in spite of broad spectrum antibiotics, worsening kidney function---> Developed ARDS. Case Maker discussed with family about transfer to tertiary center/Hemodialysis , but patient's family decided to go for comfort care per his wishes expressed in the past - no vent support for more than few days. Palliative care was consulted today and patient will be terminally extubated after daughter arrives from [place]. ASSESSMENT AND PLAN : SEVERE SEPSIS/SEPTIC SHOCK WITH MULTI ORGAN FAILURE DUE TO PNEUMONIA, MSSA, ( Bilateral Lt > Rt )/ARDS - Progressively worsening Aspiration risk due to hx of esophagectomy in 2013. Patient was intubated on 05/21/16 as went into respiratory distress. -Continues to be febrile with high grade fever +, developed rash---> ARDS -IV Levophed -Been on multiple antibiotics since admission= Vancomycin x 1 day, Linezolid x 3 days, Levofloxacin, IV zosyn x 4 days----> Broadened coverage Linezolid/IV Imipenem/IV Levofloxacin per ID due to clinical deterioration. Added Flagyl, Diflucan per Case Maker as sputum cx= arlen and persistent fever. -WORK UP- -S/P EGD on 05/20/16 - Solis's esophagus changes, tortuous esophagus, no tracheo-bronchial fistula noted -S/P Bronchoscopy on 05/20/16- There was diffuse mucus secretions obstructing the takeoff to the left mainstem in notable all the way to the secondary franchesca. The left upper lobe, lingula and left lower lobe were obstructed with gastric secretions which were suctioned clear. - Sputum culture: staph aureus, MSSA; blood culture: negative so far; (+) Nasal MRSA, Bronchoscopy cultures - MSSA/Arlen; Repeat Blood cultures/Urine CX /Sputum cx ordered on 05/23/16- negative except Sputum cx- Arlen + - ID on board ACUTE HYPOXIC RESPIRATORY FAILURE : Worsening Intubated on 05/21/16 due to respiratory distress -Secondary to Aspiration Pneumonia/Sepsis as above. 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 - Nephro consulted- F/up serologies, Complement levels, GELA, ANCA- pending RIGHT UPPER EXT THROMBUS (AXILLARY VEIN) SECONDARY TO PICC -PICC line discontinued on 05/23/16 -US done on 05/23/16- confirmed axillary vein thrombosis, right side around PICC area -SQ Heparin and no IV Heparin with hemoptysis and blood on suctioning HEMOPTYSIS - Blood on suctioning + Likely from Necrotizing Pneumonia -S/P CT chest- Consolidative infiltrative and /or mass like changes in left upper/to some extent left lower lobe regions, additional nodularity within left hemithorax and to a somewhat lesser extent right base, progressive mediastinal, hilar adenopathy, central obstructing lesions may account for peripheral consolidative change, a neoplastic process nevertheless is a diagnosis of exclusion, associated parenchymal nodularity indicates a significant possibility of metastatic change; post op changes from prior esophagectomy, anterior gastric pull through type of procedure. -S/P Bronchoscopy ON 05/20/16 - There was diffuse mucus secretions obstructing the takeoff to the left mainstem in notable all the way to the secondary franchesca. The left upper lobe, lingula and left lower lobe were obstructed with gastric secretions which were suctioned clear. -Pulmonary consulted. Appreciate inputs. 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 - adjust to usual doses once renal function improves. HISTORY OF PE, S/P IVC FILTER PLACEMENT -on Heparin Q12 for DVT prophylaxis -monitor as patient has history of GI bleed NUTRITION -Feeding tube placed beyond pylorus DISPO Prognosis- poor Per note above, plan is for terminal extubation/Comfort care after daughter arrives from [place]. Palliative care inputs appreciated. Vital Signs: Date Time Temp Pulse Resp B/P Pulse Ox O2 Delivery O2 Flow Rate FiO2 05/26/16 12:29 100 05/26/16 12:00 100 05/26/16 12:00 95 Mechanical Ventilator 100 05/26/16 11:30 37.0 107 29 100/43 93 05/26/16 11:15 107 29 103/45 93 05/26/16 11:00 106 26 284/196 93 05/26/16 10:45 106 28 102/46 93 05/26/16 10:30 106 28 102/45 93 05/26/16 10:15 105 29 106/48 93 05/26/16 10:00 104 27 108/49 93 05/26/16 09:45 105 28 109/49 94 05/26/16 09:30 103 27 111/50 94 05/26/16 09:15 104 29 110/51 94 05/26/16 09:00 103 28 109/49 94 05/26/16 08:45 101 29 107/49 93 05/26/16 08:30 100 05/26/16 08:30 Mechanical Ventilator 100 05/26/16 08:30 99 26 107/52 96 05/26/16 08:15 98 26 102/48 96 05/26/16 08:00 98 26 104/50 96 05/26/16 07:45 99 26 103/49 96 05/26/16 07:30 36.7 100 26 101/47 95 05/26/16 07:27 100 05/26/16 07:15 100 26 103/48 95 05/26/16 07:00 99 26 103/50 95 05/26/16 05:45 98 26 104/51 94 100 92/60 05/26/16 05:30 99 26 103/50 94 100 99/59 05/26/16 05:15 99 26 103/48 94 100 91/61 05/26/16 05:13 100 05/26/16 05:00 99 26 106/51 94 100 92/65 05/26/16 04:45 99 26 105/50 93 100 97/63 05/26/16 04:30 99 26 107/51 93 100 88/62 05/26/16 04:15 99 26 105/49 93 100 99/63 05/26/16 04:00 100 05/26/16 04:00 36.1 100 26 108/51 92 100 90/64 05/26/16 04:00 Mechanical Ventilator 80 05/26/16 03:45 102 26 109/50 92 100 98/63 05/26/16 03:30 100 26 112/51 92 100 97/67 05/26/16 03:15 101 26 114/53 92 100 96/64 05/26/16 03:00 101 26 113/52 92 100 99/66 05/26/16 02:45 104 27 113/51 91 100 103/64 05/26/16 02:30 102 26 117/54 90 100 95/68 05/26/16 02:15 103 27 118/54 90 100 100/66 05/26/16 02:00 104 27 117/53 91 100 103/67 05/26/16 01:55 100 05/26/16 01:45 104 26 118/55 91 100 109/73 05/26/16 01:30 105 27 117/54 91 100 96/67 05/26/16 01:15 107 27 112/51 88 100 93/65 05/26/16 01:00 107 26 110/51 88 100 90/61 05/26/16 00:45 109 26 109/52 90 100 96/61 05/26/16 00:30 110 27 107/50 90 90 91/59 05/26/16 00:15 111 26 107/51 90 Mechanical Ventilator 90 88/61 05/26/16 00:01 Mechanical Ventilator 80 05/26/16 00:01 90 05/26/16 00:00 37.2 112 27 107/50 90 Mechanical Ventilator 90 92/60 05/25/16 23:45 113 27 105/48 91 Mechanical Ventilator 90 91/60 05/25/16 23:30 114 27 105/49 91 Mechanical Ventilator 90 90/59 05/25/16 23:15 90 05/25/16 23:15 116 27 104/47 90 Mechanical Ventilator 90 90/57 05/25/16 23:00 117 29 101/45 89 Mechanical Ventilator 90 90/57 05/25/16 22:45 118 28 101/46 89 Mechanical Ventilator 80 90/57 05/25/16 22:30 38.2 119 30 103/48 90 Mechanical Ventilator 80 92/56 05/25/16 22:15 120 29 96/44 89 Mechanical Ventilator 80 87/58 05/25/16 22:00 121 30 96/45 89 Mechanical Ventilator 80 87/54 05/25/16 21:30 121 28 91/42 90 Mechanical Ventilator 80 87/53 05/25/16 21:15 121 30 97/47 90 Mechanical Ventilator 80 86/56 05/25/16 21:00 123 29 97/47 90 Mechanical Ventilator 80 87/54 05/25/16 20:45 123 30 96/46 91 Mechanical Ventilator 80 91/51 05/25/16 20:30 124 31 91/48 90 Mechanical Ventilator 80 83/53 05/25/16 20:15 123 30 95/47 91 Mechanical Ventilator 80 87/53 05/25/16 20:04 80 05/25/16 20:00 40.4 124 33 95/44 91 Mechanical Ventilator 80 92/50 05/25/16 20:00 Mechanical Ventilator 80 05/25/16 20:00 80 05/25/16 19:45 125 32 110/55 Mechanical Ventilator 80 89/54 05/25/16 19:15 40.4 125 31 100/47 94 Mechanical Ventilator 80 101/48 05/25/16 19:00 40.5 126 31 103/48 94 Mechanical Ventilator 80 92/54 05/25/16 18:23 40.3 125 26 97/54 94 Mechanical Ventilator 80 109/54 05/25/16 16:00 Mechanical Ventilator 80 05/25/16 16:00 39.5 125 26 101/56 92 Mechanical Ventilator 80 106/52 05/25/16 16:00 80 Lab Results: Results Past 24 Hours Test 05/25/16 18:41 05/25/16 22:02 05/26/16 11:03 Range/Units Total Creatine Kinase 94 39-308 U/L Bedside Glucose (other) 144 148 70-99 mg/dl
--- NOTE | 2016-05-26 18:07 | SURGERY PROGRESS NOTE ---
DATE: 05/26/2016 Mr. Alvarez is seen today. He is quite ill. It does not appear he is going to survive long. I will sign off. If there are any questions, please call me. CARLOS
[2016-05-26] MEDS: METHYLNALTREXONE BROMIDE INJ 12 MG/0.6 ML SYR SQ SCH (18:09)
[2016-05-26] MEDS: CLINDAMYCIN IV 900 MG in DEXTROSE 5% ADD-VANTAGE 100ML 100 ML IV SCH (19:27)
[2016-05-26] MEDS: FENTANYL 1250MCG/250ML NSS 250 ML IV PRN (19:46)
--- NOTE | 2016-05-26 23:03 | Critical Care Progress Note ---
Critical Care Progress Note Date of Service May 26, 2016. Attending Dr. Burnett Subjective Intubated and sedated, RASS -4 Objective General- Intubated + Sedated + Neck- no JVD HEENT- NG tube + Lungs- (+) crackles bilaterally, no wheezes Heart- Tachycardic, sinus + Abdomen- normal bowel sounds, soft Extremities- + Edema Neuro- Intubated/sedated RASS -4 Assessment & Plan Reason Critically Ill: hypoxic respiratory failure, multi-system organ failure from MSSA pneumonia. PLAN: Neuro:Wean from propofol, to versed if needed Resp:full ventilatory support. Cannot follow ARDSnet, difficultly with oxygenation. Family moving toward comfort measures with terminal extubation when daughter arrives in AM. Will not change to APRV, no indication for proning CV:Full pressor support Fluids/Renal:RICARDO, not candidate for dialysis ID:stream-lined antibiotics, added clindamycin for anti-toxin effect GI/Nutrition: NPO for high dose pressors Heme:DVT from PICC Endocrine:Blood sugars within limits. I have personally spent 40 minutes of critical care time in the direct management of this patient. This is a life/limb threatening event. This includes time spent evaluating patient, direct bedside care, chart review, placing orders, interpretation of diagnostic studies, discussion with consultants, patient, and family members, as well as other required patient management activities. This time is exclusive of all separately billable procedures, and teaching time and separate from and in addition to any other critical care service time. Consults & Procedures Consultants: . Procedures: . Data Medications: Current Inpatient Medications Medications (Trade) Dose Ordered Sig/Shemar Route Start Time Stop Time Status Last Admin Dose Admin Ondansetron HCl (Zofran Inj) 4 mg Q6H PRN IV 05/16/16 14:15 06/15/16 14:14 Heparin Sodium (Porcine) (Heparin 10 Unit/ ml 5 ml Flush) 1 ml PRN PRN FLUSH 05/18/16 00:30 06/17/16 00:29 05/20/16 05:49 1 ML Heparin Sodium (Porcine) (Heparin Sq 5000 Unit/0.5ml) 5,000 unit Q12 SQ 05/18/16 21:00 06/17/16 20:59 05/26/16 21:13 5,000 UNIT Glucose (Glucose 40% Gel) 15-30 GRAMS 15 GRAMS... UD PRN PO 05/19/16 08:00 06/18/16 07:59 Glucose (Glucose Chew Tab) 4-8 Tablets 4 Tabl... UD PRN PO 05/19/16 08:00 06/18/16 07:59 Dextrose (Dextrose 50% 50ML Syringe) 25-50ML OF 50% DW IV FOR... UD PRN IV 05/19/16 08:00 06/18/16 07:59 05/24/16 00:28 25 ML Glucagon (Glucagon Inj) 1 mg UD PRN SQ 05/19/16 08:00 06/18/16 07:59 Miscellaneous Information 1 ea 1 ea UD PRN N/A 05/19/16 07:58 06/18/16 07:57 Acetaminophen/ Empty Bag (Ofirmev Iv/ Empty Iv Bag 100ml) 65 ml @ 400 mls/hr Q6H PRN IV 05/19/16 12:30 06/18/16 12:29 05/25/16 14:21 400 MLS/HR Metoclopramide HCl (Reglan Inj) 5 mg ACHS IV 05/20/16 21:00 06/19/16 20:59 05/26/16 21:14 5 MG Methylnaltrexone [place] (Relistor Inj) 12 mg Q2D SQ 05/20/16 18:30 06/19/16 18:29 05/26/16 18:09 12 MG Fentanyl Citrate (Fentanyl Inj) 50 mcg Q3H PRN IV 05/21/16 20:15 06/04/16 20:14 Levalbuterol (Xopenex Hfa Inhaler) 6 puffs Q6R INH 05/21/16 21:00 06/20/16 20:59 05/26/16 19:11 6 PUFFS Ipratropium [place] (Atrovent Hfa Inhaler) 6 puffs Q6R INH 05/21/16 21:00 06/20/16 20:59 05/26/16 19:11 6 PUFFS Chlorhexidine Gluconate 15 ml 15 ml BID MT 05/21/16 21:00 06/20/16 20:59 05/26/16 21:14 15 ML Pantoprazole Sodium/Syringe (Protonix Inj/ Syringe) 10 ml @ 5 mls/min DAILY@11 IV 05/22/16 11:00 06/21/16 10:59 05/26/16 09:38 5 MLS/MIN Docusate Sodium (coLACE SYRUP) 100 mg BID PO 05/22/16 09:00 06/21/16 08:59 05/26/16 21:13 100 MG Polyethylene 17 gm 17 gm QAM PO 05/22/16 09:00 06/21/16 08:59 05/26/16 08:07 17 GM Fentanyl Citrate (Fentanyl Drip 1250MCG/250 Nss) 250 ml @ 0 mls/hr Q0M PRN IV 05/22/16 19:00 06/05/16 18:59 05/26/16 19:46 10 MLS/HR Bisacodyl (Dulcolax Supp) 10 mg DAILY PRN [place] 05/23/16 08:45 06/22/16 08:44 05/24/16 13:53 10 MG Multivitamins Therapeutic (Cerovite Liquid) 15 ml QAM PO 05/24/16 09:00 06/23/16 08:59 05/26/16 08:05 15 ML Acetaminophen (Tylenol Soln) 650 mg Q4H PRN PO 05/23/16 12:15 06/22/16 12:14 05/25/16 08:13 650 MG Insulin Aspart SLIDING SCALE If C... Q12 SC 05/23/16 21:00 06/22/16 20:59 Norepinephrine Bitartrate/ Dextrose (Levophed Inj/ D5W 500ml) 516 ml @ 0 mls/hr Q0M PRN IV 05/24/16 07:15 06/23/16 07:14 05/26/16 21:12 100 MLS/HR Enteral Nutritional Formula (Novasource Renal) 1,000 ml UD OG 05/24/16 10:30 06/23/16 10:29 Levofloxacin 1 ea 1 ea UD PRN N/A 05/24/16 11:15 06/23/16 11:14 Vasopressin 50 units/Sodium Chloride 502.5 ml @ 24 mls/hr [id number] IV 05/24/16 18:00 06/23/16 17:59 05/26/16 12:11 24 MLS/HR Fluconazole/ Sodium Chloride 100 mg/Prmx 50 ml @ 100 mls/hr DAILY@1300 IV 05/26/16 13:00 05/31/16 23:59 05/26/16 12:12 100 MLS/HR Bumetanide 10 mg/ Dextrose 50 ml @ 2.5 mls/hr Q20H IV 05/26/16 04:15 06/25/16 04:14 05/26/16 04:26 2.5 MLS/HR Clindamycin Phosphate 900 mg/ Dextrose 106 ml @ 106 mls/hr Q8H IV 05/26/16 18:00 06/02/16 17:59 05/26/16 19:27 106 MLS/HR Midazolam HCl 250 ml @ 0 mls/hr Q0M PRN IV 05/26/16 13:08 06/25/16 13:07 05/26/16 16:24 2 MLS/HR Levofloxacin/Prmx (Levaquin / D5W/ Premixed D5W) 50 ml @ 50 mls/hr Q48H IV 05/28/16 14:00 06/02/16 13:59 I & O: 24-Hour Column 05/26/16 08:00 Intake Total 4986 ml Output Total 60 ml Balance 4926 ml Vital Signs: Date Time Temp Pulse Resp B/P Pulse Ox O2 Delivery O2 Flow Rate FiO2 05/26/16 20:00 91 Mechanical Ventilator 100 05/26/16 20:00 100 05/26/16 20:00 37.4 05/26/16 19:11 100 05/26/16 19:00 115 34 102/42 91 05/26/16 18:13 100 05/26/16 18:00 113 32 110/44 91 Mechanical Ventilator 100 05/26/16 17:00 108 31 108/44 90 05/26/16 17:00 108 31 108/44 90 05/26/16 16:30 108 28 103/42 90 05/26/16 16:20 91 Mechanical Ventilator 100 05/26/16 16:20 100 05/26/16 16:00 37.3 108 28 100/39 90 Mechanical Ventilator 100 05/26/16 15:30 108 28 103/42 91 05/26/16 15:00 108 28 103/42 90 05/26/16 14:30 90 31 113/40 95 05/26/16 14:15 100 05/26/16 14:00 106 28 104/44 94 Mechanical Ventilator 100 05/26/16 13:30 106 29 105/45 95 05/26/16 13:00 106 35 107/48 95 05/26/16 12:30 104 31 108/50 95 05/26/16 12:29 100 05/26/16 12:18 105 29 100/48 94 05/26/16 12:00 100 05/26/16 12:00 95 Mechanical Ventilator 100 05/26/16 12:00 105 31 85/36 93 Mechanical Ventilator 100 05/26/16 11:30 37.0 107 29 100/43 93 05/26/16 11:15 107 29 103/45 93 05/26/16 11:00 106 26 284/196 93 05/26/16 10:45 106 28 102/46 93 05/26/16 10:30 106 28 102/45 93 05/26/16 10:15 105 29 106/48 93 05/26/16 10:00 104 27 108/49 93 05/26/16 09:45 105 28 109/49 94 05/26/16 09:30 103 27 111/50 94 05/26/16 09:15 104 29 110/51 94 05/26/16 09:00 103 28 109/49 94 05/26/16 08:45 101 29 107/49 93 05/26/16 08:30 100 05/26/16 08:30 Mechanical Ventilator 100 05/26/16 08:30 99 26 107/52 96 05/26/16 08:15 98 26 102/48 96 05/26/16 08:00 98 26 104/50 96 05/26/16 07:45 99 26 103/49 96 05/26/16 07:30 36.7 100 26 101/47 95 05/26/16 07:27 100 05/26/16 07:15 100 26 103/48 95 05/26/16 07:00 99 26 103/50 95 05/26/16 05:45 98 26 104/51 94 100 92/60 05/26/16 05:30 99 26 103/50 94 100 99/59 05/26/16 05:15 99 26 103/48 94 100 91/61 05/26/16 05:13 100 05/26/16 05:00 99 26 106/51 94 100 92/65 05/26/16 04:45 99 26 105/50 93 100 97/63 05/26/16 04:30 99 26 107/51 93 100 88/62 05/26/16 04:15 99 26 105/49 93 100 99/63 05/26/16 04:00 100 05/26/16 04:00 36.1 100 26 108/51 92 100 90/64 05/26/16 04:00 Mechanical Ventilator 80 05/26/16 03:45 102 26 109/50 92 100 98/63 05/26/16 03:30 100 26 112/51 92 100 97/67 05/26/16 03:15 101 26 114/53 92 100 96/64 05/26/16 03:00 101 26 113/52 92 100 99/66 05/26/16 02:45 104 27 113/51 91 100 103/64 05/26/16 02:30 102 26 117/54 90 100 95/68 05/26/16 02:15 103 27 118/54 90 100 100/66 05/26/16 02:00 104 27 117/53 91 100 103/67 05/26/16 01:55 100 05/26/16 01:45 104 26 118/55 91 100 109/73 05/26/16 01:30 105 27 117/54 91 100 96/67 05/26/16 01:15 107 27 112/51 88 100 93/65 05/26/16 01:00 107 26 110/51 88 100 90/61 05/26/16 00:45 109 26 109/52 90 100 96/61 05/26/16 00:30 110 27 107/50 90 90 91/59 05/26/16 00:15 111 26 107/51 90 Mechanical Ventilator 90 88/61 05/26/16 00:01 Mechanical Ventilator 80 05/26/16 00:01 90 05/26/16 00:00 37.2 112 27 107/50 90 Mechanical Ventilator 90 92/60 05/25/16 23:45 113 27 105/48 91 Mechanical Ventilator 90 91/60 05/25/16 23:30 114 27 105/49 91 Mechanical Ventilator 90 90/59 05/25/16 23:15 90 05/25/16 23:15 116 27 104/47 90 Mechanical Ventilator 90 90/57 05/25/16 23:00 117 29 101/45 89 Mechanical Ventilator 90 90/57 Laboratory Results: Last 24 Hours Test 05/26/16 11:03 Bedside Glucose (other) 148 mg/dl
[2016-05-27] VITALS (14 sets, daily range): BP systolic 108–133; BP diastolic 39–60; PULSE 62–99; TEMP 37.1; O2SAT 87–92
[2016-05-27] MEDS: BUMETANIDE IV 10 MG in DEXTROSE 5% 50ML 10 ML IV SCH (00:42)
[2016-05-27] MEDS: CLINDAMYCIN IV 900 MG in DEXTROSE 5% ADD-VANTAGE 100ML 100 ML IV SCH (01:36)
[2016-05-27] MEDS: IPRATROPIUM BROMIDE HFA INHALER INH SCH ×2 (01:45→08:52)
[2016-05-27] MEDS: LEValbuterol HFA 15GM INHALER INH SCH ×2 (01:45→08:52)
[2016-05-27] MEDS: NOREPINEPHRINE BIT INJ 16 MG in DEXTROSE 5% 500ML 500 ML IV PRN (01:54)
[2016-05-27 05:22] LABS: ISTAT ARTERIAL BLOOD GAS HCO3 11 meq/L (19-24); ISTAT ARTERIAL BLOOD GAS PCO2 48 mmHg (35-46); ISTAT ARTERIAL BLOOD GAS PO2 113 mmHg (80-95); ISTAT ARTERIAL BLOOD GAS pH 6.98 (7.35-7.45); ISTAT CARBON DIOXIDE 13 mEq/l (24-31); ISTAT DELIVERY SYSTEM Ventilator; ISTAT FIO2 100 %; ISTAT PEEP 8; ISTAT RATE 26; ISTAT SITE Art Line; VE 14.5; Vt 650
[2016-05-27 06:02] LABS: MEAN CELL VOLUME 87.7 fL (80-100); MEAN CORPUSCULAR HEMOGLOBIN 27.7 pg (25-34); MEAN CORPUSCULAR HGB CONC 31.6 g/dl (32-36); MEAN PLATELET VOLUME 10.8 fL (7.4-10.4); PLATELET COUNT 147 K/uL (130-400); RED BLOOD COUNT 2.85 M/uL (4.7-6.1); WHITE BLOOD COUNT 16.53 K/uL (4.8-10.8)
[2016-05-27] MEDS: METOCLOPRAMIDE HCL INJ 5 MG/ML 2 ML VIAL IV SCH (06:36)
[2016-05-27] MEDS ORDERED: NURSING VERBAL MED ORDER ONE (06:45)
[2016-05-27] MEDS ORDERED: SODIUM BICARB 8.4% INJ 50 MEQ/50 ML SYR IV ONE (06:46)
[2016-05-27 06:55] LABS: BUN/CREATININE RATIO 9.1 (10-20); CALCIUM 7.1 mg/dl (8.5-10.1); CREATININE 7.8 mg/dl (0.60-1.40); MAGNESIUM 2.4 mg/dl (1.8-2.4); POTASSIUM 6.4 mmol/L (3.5-5.1)
[2016-05-27 07:12] LABS: PHOSPHORUS 11.8 mg/dl (2.5-4.9)
[2016-05-27 07:45] LABS: BASO % 0.1 %; BASO ABS # 0.02 K/uL (0-0.2); COMPLETE YES; ECHINOCYTES 1+; IG% 1.6 %; LYMPH % 4.2 %; LYMPH ABS # 0.69 K/uL (1.2-3.4); NEUT % 90.1 %
--- NOTE | 2016-05-27 10:18 | Progress Note ---
Internal Med Progress Note Date of Service: May 27, 2016. Provider Documentation: SUBJECTIVE: Patient continues to be intubated, sedated + Tele- Sinus tachycardia with HR in 120s OBJECTIVE: Vital Signs-as noted below Exam: General- Intubated + Sedated + HEENT- OG tube + Lungs- (+) crackles bilaterally, no wheezes Heart- Tachycardic, sinus + Extremities- Edema in upper extremities Neuro- Intubated/sedated Skin -Rash-Erythematous rash- b/l extremities, back - Scrotum swelling + Lab data as noted below. CT CHEST: IMPRESSION: 1. Consolidative infiltrative and/or masslike changes involving the bulk of the left upper and to a somewhat lesser extent left lower lobe regions. 2. Additional nodularity within the left hemithorax and to a somewhat lesser extent right base. 3. Progressive mediastinal and hilar adenopathy. 4. Although it is possible that central obstructing lesions may account for the peripheral consolidative change, a neoplastic process nevertheless is a diagnosis of exclusion. 5. Associated parenchymal nodularity indicates a significant possibility of metastatic change. 6. Operative changes stable from the prior exam consistent with a prior esophagectomy and anterior gastric pull-through type procedure. ASSESSMENT & PLAN: 50 year old male with history of Bipolar Disorder, Esophagectomy, GERD, PE with IVC filter presented with cough --> severe sepsis secondary to pneumonia, likely aspiration (MSSA per culture results), clinically deteriorated requiring transfer to ICU and Intubation. Continued to worsen - high grade fever in spite of broad spectrum antibiotics, worsening kidney function---> Developed ARDS. Screen Printing Cloth Spreader discussed with family about transfer to tertiary center/Hemodialysis , but patient's family decided to go for comfort care per his wishes expressed in the past - no vent support for more than few days. Palliative care was consulted and patient will be terminally extubated after daughter arrives from [place] today. ASSESSMENT AND PLAN : SEVERE SEPSIS/SEPTIC SHOCK WITH MULTI SYSTEM ORGAN FAILURE DUE TO PNEUMONIA, MSSA ( Bilateral Lt > Rt )/ARDS - Progressively worsening Aspiration risk due to hx of esophagectomy in 2013. Patient was intubated on 05/21/16 as went into respiratory distress. -Continues to be febrile with high grade fever +, developed rash---> ARDS -IV Levophed -Been on multiple antibiotics since admission = Vancomycin x 1 day, Linezolid x 3 days, Levofloxacin, IV zosyn x 4 days----> Broadened coverage Linezolid/IV Imipenem/IV Levofloxacin, Diflucan, Flagyl due to persistent fever -WORK UP- -S/P EGD on 05/20/16 - Solis's esophagus changes, tortuous esophagus, no tracheo-bronchial fistula noted -S/P Bronchoscopy on 05/20/16- There was diffuse mucus secretions obstructing the takeoff to the left mainstem in notable all the way to the secondary franchesca. The left upper lobe, lingula and left lower lobe were obstructed with gastric secretions which were suctioned clear. - Sputum culture: staph aureus, MSSA; blood culture: negative so far; (+) Nasal MRSA, Bronchoscopy cultures - MSSA/Arlen; Repeat Blood cultures/Urine CX /Sputum cx ordered on 05/23/16- negative except Sputum cx- Arlen + - ID was consulted ACUTE HYPOXIC RESPIRATORY FAILURE : Worsening Intubated on 05/21/16 due to respiratory distress -Secondary to Aspiration Pneumonia/Sepsis as above. Developed ARDS ACUTE RENAL FAILURE - Worsening - Likely ATN. D/D considered: Pulmonary renal syndrome- granulomatous angitis with ESR 70s, Sepsis with MOD, creatinine worsening - Crea 0.98--> 1.9 --> 3.5-->4.00-->4.70-->4.90-->5.00--> 5.50-->6.30 - S/P IVF and Lasix later - Monitored lithium levels. - Nephro consulted- Serologies negative so likely sepsis /ATN causing this RIGHT UPPER EXT THROMBUS (AXILLARY VEIN) SECONDARY TO PICC -PICC line discontinued on 05/23/16 -US done on 05/23/16- confirmed axillary vein thrombosis, right side around PICC area -S/P SQ Heparin and no IV Heparin with hemoptysis and blood on suctioning HEMOPTYSIS - Blood on suctioning + Likely from Necrotizing Pneumonia -S/P CT chest- Consolidative infiltrative and /or mass like changes in left upper/to some extent left lower lobe regions, additional nodularity within left hemithorax and to a somewhat lesser extent right base, progressive mediastinal, hilar adenopathy, central obstructing lesions may account for peripheral consolidative change, a neoplastic process nevertheless is a diagnosis of exclusion, associated parenchymal nodularity indicates a significant possibility of metastatic change; post op changes from prior esophagectomy, anterior gastric pull through type of procedure. -S/P Bronchoscopy ON 05/20/16 - There was diffuse mucus secretions obstructing the takeoff to the left mainstem in notable all the way to the secondary franchesca. The left upper lobe, lingula and left lower lobe were obstructed with gastric secretions which were suctioned clear. -Pulmonary on board. HX OF ESOPHAGECTOMY WITH RECONSTRUCTION Likely causing aspiration issues leading to severe pneumonia -Sx was done at [facility] in 2013 -Per cardio thoracic sx, likely has gastric outlet obstruction POSSIBLE BPH DM TYPE 2, New Diagnosis -HBA1C- 7.0 -ISS, Pharm and Fixing Carpenter Consult MOOD DISORDER - lithium dose reduced with RICARDO and close lithium levels monitoring done. Goal 0.6-0.8 per pharmacy. - Adjust to usual doses once renal function improves. HISTORY OF PE, S/P IVC FILTER PLACEMENT -on Heparin Q12 for DVT prophylaxis NUTRITION -Feeding tube placed beyond pylorus DISPO Per note above, plan is for terminal extubation/Comfort care after daughter arrives from [place] today Palliative care inputs appreciated. Vital Signs: Date Time Temp Pulse Resp B/P Pulse Ox O2 Delivery O2 Flow Rate FiO2 05/27/16 07:25 100 05/27/16 06:00 70 26 131/56 90 131/39 05/27/16 05:30 69 26 128/39 91 05/27/16 05:01 76 26 108/60 87 133/44 05/27/16 05:00 100 05/27/16 04:30 68 26 133/41 90 05/27/16 04:00 37.1 05/27/16 04:00 68 26 130/43 88 05/27/16 04:00 100 05/27/16 04:00 88 Mechanical Ventilator 100 05/27/16 03:30 65 26 126/40 88 05/27/16 03:00 62 26 121/39 90 05/27/16 02:30 69 26 110/39 89 05/27/16 02:01 96 26 123/53 92 127/49 05/27/16 01:45 100 05/27/16 01:30 96 26 126/49 89 05/27/16 01:00 97 26 127/51 90 05/27/16 00:30 98 26 125/51 89 05/27/16 00:01 37.1 05/27/16 00:00 99 26 129/52 92 05/26/16 23:59 90 Mechanical Ventilator 100 05/26/16 23:59 100 05/26/16 23:30 100 26 124/51 93 05/26/16 23:00 101 26 103/50 93 123/51 05/26/16 22:40 100 05/26/16 22:30 101 26 97 126/54 05/26/16 22:00 102 26 111/64 98 132/63 05/26/16 21:30 104 27 111/45 90 05/26/16 21:00 110 30 82/48 91 102/43 05/26/16 20:30 105 31 99/41 90 05/26/16 20:00 91 Mechanical Ventilator 100 05/26/16 20:00 100 05/26/16 20:00 37.4 05/26/16 20:00 109 33 87/51 90 105/43 05/26/16 19:30 112 33 104/44 91 05/26/16 19:11 100 05/26/16 19:00 115 34 102/42 91 05/26/16 19:00 115 34 87/53 91 102/42 05/26/16 18:13 100 05/26/16 18:00 113 32 110/44 91 Mechanical Ventilator 100 05/26/16 17:00 108 31 108/44 90 05/26/16 17:00 108 31 108/44 90 05/26/16 16:30 108 28 103/42 90 05/26/16 16:20 91 Mechanical Ventilator 100 05/26/16 16:20 100 05/26/16 16:00 37.3 108 28 100/39 90 Mechanical Ventilator 100 05/26/16 15:30 108 28 103/42 91 05/26/16 15:00 108 28 103/42 90 05/26/16 14:30 90 31 113/40 95 05/26/16 14:15 100 05/26/16 14:00 106 28 104/44 94 Mechanical Ventilator 100 05/26/16 13:30 106 29 105/45 95 05/26/16 13:00 106 35 107/48 95 05/26/16 12:30 104 31 108/50 95 05/26/16 12:29 100 05/26/16 12:18 105 29 100/48 94 05/26/16 12:00 100 05/26/16 12:00 95 Mechanical Ventilator 100 05/26/16 12:00 105 31 85/36 93 Mechanical Ventilator 100 05/26/16 11:30 37.0 107 29 100/43 93 05/26/16 11:15 107 29 103/45 93 05/26/16 11:00 106 26 284/196 93 05/26/16 10:45 106 28 102/46 93 05/26/16 10:30 106 28 102/45 93 05/26/16 10:15 105 29 106/48 93 Lab Results: Results Past 24 Hours Test 05/26/16 11:03 05/26/16 21:23 05/27/16 05:09 05/27/16 05:43 Range/Units Bedside Glucose (other) 148 149 70-99 mg/dl Blood Gas Sample Site Art Line Bedside Blood Gas pH (LAB) 6.98 7.35-7.45 Bedside Blood Gas pCO2 (LAB) 48 35-46 mmHg Bedside Blood Gas pO2 (LAB) 113 80-95 mmHg Bedside Blood Gas HCO3 (LAB) 11 19-24 meq/L Bedside Blood Gas Total CO2 13 24-31 mEq/l Bedside Blood Gas Base Excess (LAB) -20.0 -9-1.8 meq/L Bedside Blood Gas O2 Saturation 94.0 90-95 % Duglas Test NA Oxygen Delivery Device Ventilator Bedside Oxygen Rate (breaths/min) 26 Blood Gas Minute Ventilation 14.5 Bedside FiO2 100 % Blood Gas Tidal Volume 650 Blood Gas PEEP 8 White Blood Count 16.53 4.8-10.8 K/uL Red Blood Count 2.85 4.7-6.1 M/uL Hemoglobin 7.9 14.0-18.0 g/dL Hematocrit 25.0 42-52 % Mean Corpuscular Volume 87.7 80-100 fL Mean Corpuscular Hemoglobin 27.7 25-34 pg Mean Corpuscular Hemoglobin Concent 31.6 32-36 g/dl Platelet Count 147 130-400 K/uL Mean Platelet Volume 10.8 7.4-10.4 fL Neutrophils (%) (Auto) 90.1 % Lymphocytes (%) (Auto) 4.2 % Monocytes (%) (Auto) 4.0 % Eosinophils (%) (Auto) 0.0 % Basophils (%) (Auto) 0.1 % Neutrophils # (Auto) 14.90 1.4-6.5 K/uL Lymphocytes # (Auto) 0.69 1.2-3.4 K/uL Monocytes # (Auto) 0.66 0.11-0.59 K/uL Eosinophils # (Auto) 0.00 0-0.5 K/uL Basophils # (Auto) 0.02 0-0.2 K/uL RDW Standard Deviation 61.8 36.4-46.3 fL RDW Coefficient of Variation 19.1 11.5-14.5 % Immature Granulocyte % (Auto) 1.6 % Immature Granulocyte # (Auto) 0.26 0.00-0.02 K/uL Nucleated RBC Absolute Count (auto) 0.16 0-0 K/uL Nucleated Red Blood Cells % 0.9 % Echinocytes 1+ Sodium Level 129 136-145 mmol/L Potassium Level 6.4 3.5-5.1 mmol/L Chloride Level 99 98-107 mmol/L Carbon Dioxide Level 11 21-32 mmol/L Anion Gap 19.0 3-11 mmol/L Blood Urea Nitrogen 71 7-18 mg/dl Creatinine 7.80 0.60-1.40 mg/dl Est Creatinine Clear Calc Drug Dose 13.9 ml/min Estimated GFR () 8.5 Estimated GFR (Non- 7.3 BUN/Creatinine Ratio 9.1 10-20 Random Glucose 139 70-99 mg/dl Calcium Level 7.1 8.5-10.1 mg/dl Phosphorus Level 11.8 2.5-4.9 mg/dl Magnesium Level 2.4 1.8-2.4 mg/dl Total Bilirubin 1.4 0.2-1 mg/dl Direct Bilirubin 1.0 0-0.2 mg/dl Aspartate Amino Transf (AST/SGOT) 1594 15-37 U/L Alanine Aminotransferase (ALT/SGPT) 111 12-78 U/L Alkaline Phosphatase 105 45-117 U/L Total Protein 5.4 6.4-8.2 gm/dl Albumin 1.2 3.4-5.0 gm/dl Test 05/27/16 05:53 Range/Units Bedside Glucose (other) 137 70-99 mg/dl
[2016-05-27] MEDS ORDERED: MoRPHine SULF/NSS 250MG/250ML 250 ML IV PRN (11:30)
[2016-05-27] MEDS ORDERED: FENTANYL CITRATE INJ 50 MCG/1 ML 2 ML VIAL IV ONE (14:37)
--- NOTE | 2016-05-27 18:38 | Discharge Summary ---
Discharge Summary Date of Service May 27, 2016. Discharge Summary Admission Date: May 16, 2016 at 14:19 Discharge Date: May 27, 2016 () Discharge Disposition: Principal Diagnosis: Septic Shock, Acute respiratory failure likely secondary to ARDS, Pneumonia Secondary Diagnoses/Problems: Acute renal Insufficiency Procedures: CT chest: 1. Significantly motion and streak artifact degraded examination. 2. There is diffuse/multifocal patchy airspace consolidation. This is most confluent at the apices, left greater than right and this has worsened from the 05/17/2016 examination. The appearance is nonspecific, and could represent multifocal pneumonia, pulmonary edema, ARDS, and/or a component of pulmonary hemorrhage. Clinical correlation will be required. 3. Small pleural effusions, right larger left. 4. Cardiomegaly. 5. Lines and tubes as above. 6. Postoperative changes suggest esophagectomy with gastric pull-through procedure. The conduit is in the anterior mediastinum. 7. Mediastinal, supraclavicular, and likely hilar lymphadenopathy. 8. Additional changes as above. Upper Extremity USD: Focal area of occlusive thrombus within the right axillary vein surrounding the PICC. Barium Esophagogram: 1. There was aspiration with cough. The examination was discontinued at that time. 2. The esophagus appears shortened Yue findings suggest gastric pull-through procedure. Correlation with the patient's surgical history will be required. S/P intubation, EGD, Bronchoscopy Consultations: Pulmonary, ID,Critical care, Nephrology, GI, Palliative Care Admission Information HPI (per Admitting provider): 50 year old male who presents to the ER with a cough. Patient reports he started getting sick about one week ago. He reports a productive cough for green /blood tinged sputum. He has felt feverish but did not take his temperature. He reports chills. He also has had worsening shortness of breath on exertion. He reports increasing left sided rib pain with coughing and left shoulder blade pain. He denies chest pain. No lightheadedness, dizziness, diaphoresis, or syncopal events. He reports a few episodes of diarrhea that have since resolved. No abdominal pain, nausea, or vomiting. He denies urinary symptoms. In the ER, patient's CXR is showing pneumonia in the left lung. He is tachycardic, WBC 21K, lactate is 2.4. K+ 3.0. BP is stable. He was given IVF, Zosyn, Levaquin, potassium, and Toradol. Physical Exam (per Admitting): General Appearance: no apparent distress Head: normocephalic Eyes: normal inspection ENT: hearing grossly normal Neck: supple, no JVD Respiratory/Chest: no respiratory distress, + crackles (left lung carbajal), + rhonchi (left lung carbajal) Cardiovascular: no edema, normal peripheral pulses, + tachycardia (HE 90s- 100s, regular rhythm) Abdomen/GI: normal bowel sounds, non tender, soft Extremities/Musculoskelatal: normal inspection, no calf tenderness Neurologic/Psych: no motor/sensory deficits, alert, normal mood/affect, oriented x 3 Skin: normal color, warm/dry Hospital Course 50 year old male with history of Bipolar Disorder, Esophagectomy, GERD, PE with IVC filter presented with cough --> severe sepsis secondary to pneumonia, likely aspiration (MSSA per culture results), clinically deteriorated requiring transfer to ICU and Intubation. Continued to worsen - high grade fever in spite of broad spectrum antibiotics, worsening kidney function---> Developed ARDS. Income Tax Manager discussed with family about transfer to tertiary center/Hemodialysis , but patient's family decided to go for comfort care per his wishes expressed in the past - no vent support for more than few days. Palliative care was consulted and patient was discontinued on pressors as per patient's family preference for comfort measures only. Patient after being discontinued on pressors. ASSESSMENT AND PLAN : SEVERE SEPSIS/SEPTIC SHOCK WITH MULTI SYSTEM ORGAN FAILURE DUE TO PNEUMONIA, MSSA ( Bilateral Lt > Rt )/ARDS - Progressively worsening Aspiration risk due to hx of esophagectomy in 2013. Patient was intubated on 05/21/16 as went into respiratory distress. -Continues to be febrile with high grade fever +, developed rash---> ARDS -IV Levophed >>> later discontinued -Been on multiple antibiotics since admission = Vancomycin x 1 day, Linezolid x 3 days, Levofloxacin, IV zosyn x 4 days----> Broadened coverage Linezolid/IV Imipenem/IV Levofloxacin, Diflucan, Flagyl due to persistent fever -WORK UP- -S/P EGD on 05/20/16 - Solis's esophagus changes, tortuous esophagus, no tracheo-bronchial fistula noted -S/P Bronchoscopy on 05/20/16- There was diffuse mucus secretions obstructing the takeoff to the left mainstem in notable all the way to the secondary franchesca. The left upper lobe, lingula and left lower lobe were obstructed with gastric secretions which were suctioned clear. - Sputum culture: staph aureus, MSSA; blood culture: negative so far; (+) Nasal MRSA, Bronchoscopy cultures - MSSA/Arlen; Repeat Blood cultures/Urine CX /Sputum cx ordered on 05/23/16- negative except Sputum cx- Arlen + - ID was consulted ACUTE HYPOXIC RESPIRATORY FAILURE : Worsening Intubated on 05/21/16 due to respiratory distress -Secondary to Aspiration Pneumonia/Sepsis as above. Developed ARDS ACUTE RENAL FAILURE - Worsening - Likely ATN. D/D considered: Pulmonary renal syndrome- granulomatous angitis with ESR 70s, Sepsis with MOD, creatinine worsening - Crea 0.98--> 1.9 --> 3.5-->4.00-->4.70-->4.90-->5.00--> 5.50-->6.30 - S/P IVF and Lasix later - Monitored lithium levels. - Nephro consulted- Serologies negative so likely sepsis /ATN causing this RIGHT UPPER EXT THROMBUS (AXILLARY VEIN) SECONDARY TO PICC -PICC line discontinued on 05/23/16 -US done on 05/23/16- confirmed axillary vein thrombosis, right side around PICC area -S/P SQ Heparin and no IV Heparin with hemoptysis and blood on suctioning HEMOPTYSIS - Blood on suctioning + Likely from Necrotizing Pneumonia -S/P CT chest- Consolidative infiltrative and /or mass like changes in left upper/to some extent left lower lobe regions, additional nodularity within left hemithorax and to a somewhat lesser extent right base, progressive mediastinal, hilar adenopathy, central obstructing lesions may account for peripheral consolidative change, a neoplastic process nevertheless is a diagnosis of exclusion, associated parenchymal nodularity indicates a significant possibility of metastatic change; post op changes from prior esophagectomy, anterior gastric pull through type of procedure. -S/P Bronchoscopy ON 05/20/16 - There was diffuse mucus secretions obstructing the takeoff to the left mainstem in notable all the way to the secondary franchesca. The left upper lobe, lingula and left lower lobe were obstructed with gastric secretions which were suctioned clear. -Pulmonary on board. HX OF ESOPHAGECTOMY WITH RECONSTRUCTION Likely causing aspiration issues leading to severe pneumonia -Sx was done at [facility] in 2013 -Per cardio thoracic sx, likely has gastric outlet obstruction POSSIBLE BPH DM TYPE 2, New Diagnosis -HBA1C- 7.0 -ISS, Pharm and Cutter Barrel Drum Consult MOOD DISORDER - lithium dose reduced with RICARDO and close lithium levels monitoring done. Goal 0.6-0.8 per pharmacy. - Adjust to usual doses once renal function improves. HISTORY OF PE, S/P IVC FILTER PLACEMENT -on Heparin Q12 for DVT prophylaxis NUTRITION -Feeding tube placed beyond pylorus DISPO Total time spent on discharge = This includes examination of the patient, discharge planning, medication reconciliation, and communication with other providers. Discharge Instructions Patient
[2016-05-28] MEDS ORDERED: LEVOFLOXACIN / D5W 250 MG in PREMIXED IN D5W 50 ML IV SCH (14:00)
== END 2016-05-27 14:38 | disposition expired | DRG 853 ==
LOC: ENRESERVDT → ENRESERVTM → EDBD 11:18 → C.EDA 11:21 → C.2E 14:19 → UNDOADMIN 14:19 → CANBEDREQ 05-18 18:54 → EDBEDREQSVC 05-21 09:31 → C.MSICU 05-21 09:45
PROVIDERS: ADMIT Internal Medicine; ATTEND Internal Medicine
PROC: 0B998ZX Drainage of Lingula Bronchus, Via Natural or Artificial Opening Endoscopic, Diagnostic (ICD-10-PCS; 2016-05-20)
PROC: 0B9G8ZX Drainage of Left Upper Lung Lobe, Via Natural or Artificial Opening Endoscopic, Diagnostic (ICD-10-PCS; 2016-05-20)
PROC: 0B9J8ZX Drainage of Left Lower Lung Lobe, Via Natural or Artificial Opening Endoscopic, Diagnostic (ICD-10-PCS; 2016-05-20)
PROC: 0DB68ZX Excision of Stomach, Via Natural or Artificial Opening Endoscopic, Diagnostic (ICD-10-PCS; 2016-05-20 10:30)
PROC: 0BH17EZ Insertion of Endotracheal Airway into Trachea, Via Natural or Artificial Opening (ICD-10-PCS; principal; 2016-05-21)
PROC: 5A1955Z Respiratory Ventilation, Greater than 96 Consecutive Hours (ICD-10-PCS; principal; 2016-05-21)
PROC: 05HM33Z Insertion of Infusion Device into Right Internal Jugular Vein, Percutaneous Approach (ICD-10-PCS; 2016-05-23)
PROC: 4A133R1 Monitoring of Arterial Saturation, Peripheral, Percutaneous Approach (ICD-10-PCS; 2016-05-24)
DX: A41.9 Sepsis, unspecified organism (principal); N17.0 Acute kidney failure with tubular necrosis; J15.211 Pneumonia due to Methicillin susceptible Staphylococcus aureus; J96.01 Acute respiratory failure with hypoxia; J69.0 Pneumonitis due to inhalation of food and vomit; G93.41 Metabolic encephalopathy; R65.21 Severe sepsis with septic shock; J90 Pleural effusion, not elsewhere classified; R04.2 Hemoptysis; E87.0 Hyperosmolality and hypernatremia; E87.2 Acidosis; T82.868A Thrombosis due to vascular prosthetic devices, implants and grafts, initial encounter; I82.621 Acute embolism and thrombosis of deep veins of right upper extremity; Z87.19 Personal history of other diseases of the digestive system; Z93.4 Other artificial openings of gastrointestinal tract status; K21.9 Gastro-esophageal reflux disease without esophagitis; F31.9 Bipolar disorder, unspecified; Z86.711 Personal history of pulmonary embolism; Z90.49 Acquired absence of other specified parts of digestive tract; Z98.1 Arthrodesis status; Z82.49 Family history of ischemic heart disease and other diseases of the circulatory system; Z79.899 Other long term (current) drug therapy; R13.10 Dysphagia, unspecified; G40.909 Epilepsy, unspecified, not intractable, without status epilepticus; Z93.1 Gastrostomy status; D64.9 Anemia, unspecified; R91.8 Other nonspecific abnormal finding of lung field; K22.70 Barrett's esophagus without dysplasia; E87.6 Hypokalemia; R35.1 Nocturia; K59.00 Constipation, unspecified; Z66 Do not resuscitate; R21 Rash and other nonspecific skin eruption; Z51.5 Encounter for palliative care; Y83.1 Surgical operation with implant of artificial internal device as the cause of abnormal reaction of the patient, or of later complication, without mention of misadventure at the time of the procedure; Z91.19 Patient's noncompliance with other medical treatment and regimen; Z88.5 Allergy status to narcotic agent; N40.1 Benign prostatic hyperplasia with lower urinary tract symptoms; E86.0 Dehydration; E11.9 Type 2 diabetes mellitus without complications